=== PATIENT | male | born 1950 | race American Indian/Alaskan Native ===

== ENCOUNTER 2019-06-13 05:42 | Inpatient (IN) | payer MEDICARE ==
[2019-06-13] MEDS ORDERED: DEXTROSE 50% IN WATER (25GM) 50 ML SYRINGE IV ONE ×5 (06:18→10:18)
[2019-06-13 07:10] LABS: Hematocrit 47.8 % (35.5-45.6); Hemoglobin 15.5 gm/dl (11.8-15.2); Mean Corpuscular HGB Conc 32 % (32-34); Mean Corpuscular Volume 84 fl (84-94); Platelet Count 212 K/mm3 (140-440); Red Blood Count 5.69 M/mm3 (3.65-5.03); Red Cell Distribution Width 15.6 % (13.2-15.2)
[2019-06-13 07:30] LABS: Albumin 3.6 g/dL (3.9-5); Calcium 8.7 mg/dL (8.4-10.2)
[2019-06-13] MEDS ORDERED: ONDANSETRON 4 MG/2 ML INJ IV ONE (07:30)
--- NOTE | 2019-06-13 07:36 | Emergency Department Report ---
HPI - General Chief Complaint: Fall Time Seen by Provider: 06/13/19 07:12 - HPI HPI: Room 6 The pt is a 69 y/o M p/w a cc of AMS. states the pt's LKWT was YD at 20:00. This morning at 04:00 the noticed the pt wasnt in bed. When she went to the BR to check on the pt she states the lights were out and the pt was lying on the floor with unintelligible speech. EMS was called and the pt was found to be hypoglycemic (value unknown). In the ED the pt's accucheck was 59 and improved after d50. However the pt's mental status hasnt changed. The pt remains lethargic and has unintelligible speech. states the pt c/o abd cramping and nausea 5 days ago. Pt went to see his physicians at [facility] on 06/10/19 and was given Rx for prilosec and zofran. ED Past Medical Hx - Past Medical History Previous Medical History?: Yes Hx Hypertension: Yes Hx Diabetes: Yes Additional medical history: heart problem - Surgical History Past Surgical History?: No - Family History Family history: no significant - Social History Smoking Status: Current Some Day Smoker Substance Use Type: None ED Review of Systems ROS: Stated complaint: ERICKSON Other details as noted in HPI Comment: Unobtainable due to pts medical conditions Physical Exam - Physical Exam Vital Signs: Vital Signs 06/13/19 06/13/19 05:58 06:30 Temperature 97.8 F Pulse Rate 80 73 Respiratory 28 H 28 H Rate Blood Pressure 130/77 135/69 O2 Sat by Pulse 98 98 Oximetry Physical Exam: GEN: WD WN male lying on stretcher sleeping, requiring tactile stimuli to awaken. Pt does not speak intelligibly or answer questions HEENT: NCAT NECK: No stridor CV: rrr no m/r/g/ PULM: CTA B Abd: s/nt/nd SKIN: no diaphoresis NEURO: pt opens eyes to sternal rub and voice but doesnt speak. Pt will not cooperate with neuro exam ED Course Vital Signs 06/13/19 06/13/19 05:58 06:30 Temperature 97.8 F Pulse Rate 80 73 Respiratory 28 H 28 H Rate Blood Pressure 130/77 135/69 O2 Sat by Pulse 98 98 Oximetry - Consultations Consultation #1: 06/13/19 08:28 Case d/w [facility] physician Dr Re Lopez to admit at [facility] Consultation #2: 06/13/19 08:50 Case d/w [facility]- will come eval Consultation #3: 06/13/19 08:51 Vascular paged ED Medical Decision Making - Lab Data Result diagrams: 06/13/19 06:50 06/13/19 06:50 Laboratory Tests 06/13/19 06/13/19 06/13/19 06:13 06:50 06:50 WBC 22.7 H RBC 5.69 H Hgb 15.5 H Hct 47.8 H MCV 84 MCH 27 L MCHC 32 RDW 15.6 H Plt Count 212 Add Manual Diff Complete Total Counted 100 Seg Neuts % (Manual) 89.0 H Band Neutrophils % 1.0 Lymphocytes % (Manual) 4.0 L Reactive Lymphs % (Man) 0 Monocytes % (Manual) 6.0 Eosinophils % (Manual) 0 Basophils % (Manual) 0 Metamyelocytes % 0 Myelocytes % 0 Promyelocytes % 0 Blast Cells % 0 Nucleated RBC % Not Reportable Seg Neutrophils # Man 20.2 H Band Neutrophils # 0.2 Lymphocytes # (Manual) 0.9 L Abs React Lymphs (Man) 0.0 Monocytes # (Manual) 1.4 H Eosinophils # (Manual) 0.0 Basophils # (Manual) 0.0 Metamyelocytes # 0.0 Myelocytes # 0.0 Promyelocytes # 0.0 Blast Cells # 0.0 WBC Morphology Not Reportable Hypersegmented Neuts Not Reportable Hyposegmented Neuts Not Reportable Hypogranular Neuts Not Reportable Smudge Cells Not Reportable Toxic Granulation Not Reportable Toxic Vacuolation Not Reportable Dohle Bodies Not Reportable Pelger-Huet Anomaly Not Reportable Moy Rods Not Reportable Platelet Estimate Consistent w auto Clumped Platelets Not Reportable Plt Clumps, EDTA Not Reportable Large Platelets Not Reportable Giant Platelets Not Reportable Platelet Satelliting Not Reportable Plt Morphology Comment Not Reportable RBC Morphology Not Reportable Dimorphic RBCs Not Reportable Polychromasia Not Reportable Hypochromasia Not Reportable Poikilocytosis Not Reportable Anisocytosis Not Reportable Microcytosis Not Reportable Macrocytosis Not Reportable Spherocytes Not Reportable Pappenheimer Bodies Not Reportable Sickle Cells Not Reportable Target Cells Not Reportable Tear Drop Cells Not Reportable Ovalocytes Not Reportable Helmet Cells Not Reportable [place] Bodies Not Reportable [place] Rings Not Reportable [place] Cells Few Bite Cells Not Reportable Crenated Cell Not Reportable Elliptocytes Not Reportable Acanthocytes (Spur) Not Reportable Rouleaux Not Reportable Hemoglobin C Crystals Not Reportable Schistocytes Not Reportable Malaria parasites Not Reportable Meol Bodies Not Reportable Hem Pathologist Commnt No Sodium 126 L Potassium 7.5 H* Chloride 83.9 L Carbon Dioxide 5 L* Anion Gap 45 BUN 126 H Creatinine 12.6 H Estimated GFR 4 BUN/Creatinine Ratio 10 Glucose 143 H POC Glucose 59 L Calcium 8.7 Magnesium Total Bilirubin 1.10 AST 17 ALT 20 Alkaline Phosphatase 68 Ammonia Total Creatine Kinase CK-MB (CK-2) CK-MB (CK-2) Rel Index Troponin T Total Protein 6.9 Albumin 3.6 L Albumin/Globulin Ratio 1.1 TSH Free T4 Plasma/Serum Alcohol 06/13/19 06/13/19 06/13/19 07:09 07:31 07:31 WBC RBC Hgb Hct MCV MCH MCHC RDW Plt Count Add Manual Diff Total Counted Seg Neuts % (Manual) Band Neutrophils % Lymphocytes % (Manual) Reactive Lymphs % (Man) Monocytes % (Manual) Eosinophils % (Manual) Basophils % (Manual) Metamyelocytes % Myelocytes % Promyelocytes % Blast Cells % Nucleated RBC % Seg Neutrophils # Man Band Neutrophils # Lymphocytes # (Manual) Abs React Lymphs (Man) Monocytes # (Manual) Eosinophils # (Manual) Basophils # (Manual) Metamyelocytes # Myelocytes # Promyelocytes # Blast Cells # WBC Morphology Hypersegmented Neuts Hyposegmented Neuts Hypogranular Neuts Smudge Cells Toxic Granulation Toxic Vacuolation Dohle Bodies Pelger-Huet Anomaly Moy Rods Platelet Estimate Clumped Platelets Plt Clumps, EDTA Large Platelets Giant Platelets Platelet Satelliting Plt Morphology Comment RBC Morphology Dimorphic RBCs Polychromasia Hypochromasia Poikilocytosis Anisocytosis Microcytosis Macrocytosis Spherocytes Pappenheimer Bodies Sickle Cells Target Cells Tear Drop Cells Ovalocytes Helmet Cells [place] Bodies [place] Rings [place] Cells Bite Cells Crenated Cell Elliptocytes Acanthocytes (Spur) Rouleaux Hemoglobin C Crystals Schistocytes Malaria parasites Melo Bodies Hem Pathologist Commnt Sodium Potassium Chloride Carbon Dioxide Anion Gap BUN Creatinine Estimated GFR BUN/Creatinine Ratio Glucose POC Glucose 117 H Calcium Magnesium 2.50 H Total Bilirubin AST ALT Alkaline Phosphatase Ammonia 408.0 H Total Creatine Kinase 409 H CK-MB (CK-2) 15.9 H CK-MB (CK-2) Rel Index 3.8 Troponin T < 0.010 Total Protein Albumin Albumin/Globulin Ratio TSH Free T4 Plasma/Serum Alcohol 06/13/19 06/13/19 06/13/19 07:31 07:31 07:38 WBC RBC Hgb Hct MCV MCH MCHC RDW Plt Count Add Manual Diff Total Counted Seg Neuts % (Manual) Band Neutrophils % Lymphocytes % (Manual) Reactive Lymphs % (Man) Monocytes % (Manual) Eosinophils % (Manual) Basophils % (Manual) Metamyelocytes % Myelocytes % Promyelocytes % Blast Cells % Nucleated RBC % Seg Neutrophils # Man Band Neutrophils # Lymphocytes # (Manual) Abs React Lymphs (Man) Monocytes # (Manual) Eosinophils # (Manual) Basophils # (Manual) Metamyelocytes # Myelocytes # Promyelocytes # Blast Cells # WBC Morphology Hypersegmented Neuts Hyposegmented Neuts Hypogranular Neuts Smudge Cells Toxic Granulation Toxic Vacuolation Dohle Bodies Pelger-Huet Anomaly Moy Rods Platelet Estimate Clumped Platelets Plt Clumps, EDTA Large Platelets Giant Platelets Platelet Satelliting Plt Morphology Comment RBC Morphology Dimorphic RBCs Polychromasia Hypochromasia Poikilocytosis Anisocytosis Microcytosis Macrocytosis Spherocytes Pappenheimer Bodies Sickle Cells Target Cells Tear Drop Cells Ovalocytes Helmet Cells [place] Bodies [place] Rings [place] Cells Bite Cells Crenated Cell Elliptocytes Acanthocytes (Spur) Rouleaux Hemoglobin C Crystals Schistocytes Malaria parasites Melo Bodies Hem Pathologist Commnt Sodium Potassium Chloride Carbon Dioxide Anion Gap BUN Creatinine Estimated GFR BUN/Creatinine Ratio Glucose POC Glucose 101 Calcium Magnesium Total Bilirubin AST ALT Alkaline Phosphatase Ammonia Total Creatine Kinase CK-MB (CK-2) CK-MB (CK-2) Rel Index Troponin T Total Protein Albumin Albumin/Globulin Ratio TSH 1.040 Free T4 1.03 Plasma/Serum Alcohol < 0.01 06/13/19 06/13/19 08:17 09:21 WBC RBC Hgb Hct MCV MCH MCHC RDW Plt Count Add Manual Diff Total Counted Seg Neuts % (Manual) Band Neutrophils % Lymphocytes % (Manual) Reactive Lymphs % (Man) Monocytes % (Manual) Eosinophils % (Manual) Basophils % (Manual) Metamyelocytes % Myelocytes % Promyelocytes % Blast Cells % Nucleated RBC % Seg Neutrophils # Man Band Neutrophils # Lymphocytes # (Manual) Abs React Lymphs (Man) Monocytes # (Manual) Eosinophils # (Manual) Basophils # (Manual) Metamyelocytes # Myelocytes # Promyelocytes # Blast Cells # WBC Morphology Hypersegmented Neuts Hyposegmented Neuts Hypogranular Neuts Smudge Cells Toxic Granulation Toxic Vacuolation Dohle Bodies Pelger-Huet Anomaly Moy Rods Platelet Estimate Clumped Platelets Plt Clumps, EDTA Large Platelets Giant Platelets Platelet Satelliting Plt Morphology Comment RBC Morphology Dimorphic RBCs Polychromasia Hypochromasia Poikilocytosis Anisocytosis Microcytosis Macrocytosis Spherocytes Pappenheimer Bodies Sickle Cells Target Cells Tear Drop Cells Ovalocytes Helmet Cells [place] Bodies [place] Rings [place] Cells Bite Cells Crenated Cell Elliptocytes Acanthocytes (Spur) Rouleaux Hemoglobin C Crystals Schistocytes Malaria parasites Melo Bodies Hem Pathologist Commnt Sodium Potassium Chloride Carbon Dioxide Anion Gap BUN Creatinine Estimated GFR BUN/Creatinine Ratio Glucose POC Glucose 94 153 H Calcium Magnesium Total Bilirubin AST ALT Alkaline Phosphatase Ammonia Total Creatine Kinase CK-MB (CK-2) CK-MB (CK-2) Rel Index Troponin T Total Protein Albumin Albumin/Globulin Ratio TSH Free T4 Plasma/Serum Alcohol - EKG Data -: EKG Interpreted by Mn EKG shows normal: sinus rhythm Rate: normal - EKG Data When compared to previous EKG there are: previous EKG unavailable Interpretation: other (widened QRS (173)) - Radiology Data Radiology results: report reviewed (CT Head), image reviewed (CT Head) Findings [facility] [address] [place] [address] Cat Scan Report Signed Patient: HA JIMENEZ MR#: [id number] : 1950 Acct:[id number] Age/Sex: 69 / M ADM Date: 06/13/19 Loc: ED Attending Dr: Ordering Physician: RAFAEL PLAZA MD Date of Service: 06/13/19 Procedure(s): CT head/brain wo con Accession Number(s): [id number] cc: RAFAEL PLAZA MD CT HEAD WITHOUT CONTRAST INDICATION / CLINICAL INFORMATION: Altered mental status. Patient found on floo r.. TECHNIQUE: Axial imaging performed from the skull apex through the skull base without the use of contrast. Sagittal and coronal reformatted images. All CT scans at this location are performed using CT dose reduction for ALARA by means of automated exposure control. COMPARISON: None available. FINDINGS: CEREBRAL PARENCHYMA: No significant abnormality. No acute territorial infarct. HEMORRHAGE: None. EXTRA-AXIAL SPACES: Normal in size and morphology for the patient's age. VENTRICULAR SYSTEM: Normal in size and morphology for the patient's age. MIDLINE SHIFT OR HERNIATION: None. CEREBELLUM / BRAINSTEM: No significant abnormality. CALVARIUM: No significant abnormality. ORBITS: Normal as visualized. PARANASAL SINUSES / MASTOID AIR CELLS: Normal as visualized. SOFT TISSUES of HEAD: No significant abnormality. ADDITIONAL FINDINGS: None. IMPRESSION: No acute intracranial abnormality. Signer Name: Noah Brown Jr, MD Signed: 06/13/2019 8:26 AM Workstation Name: [id number] Transcribed By: TTR Dictated By: NOAH BROWN JR, MD Electronically Authenticated By: NOAH BROWN JR, MD Signed Date/Time: 06/13/19825 DD/ 3 TD/TT: - Differential Diagnosis ICH, rhabdomyolysis Critical care attestation.: If time is entered above; I have spent that time in minutes in the direct care of this critically ill patient, excluding procedure time. ED Disposition Clinical Impression: Acute renal failure, Hepatic encephalopathy, Hyperkalemia, Altered mental status Disposition: -09 OP ADMIT IP TO THIS HOSP Is pt being admited?: Yes Does the pt Need Aspirin: No Condition: Stable Referrals: KAYLI MCINTYRE [Other] - 3-5 Days Time of Disposition: 09:29 (Hospitalist paged)
[2019-06-13] MEDS ORDERED: INSULIN REGULAR, HUMAN 100 UNITS/1 ML IV ONE (08:11)
[2019-06-13] MEDS ORDERED: SODIUM BICARB 8.4% 50 MEQ/50 ML SYRINGE IV ONE ×2 (08:11→08:13)
[2019-06-13] MEDS ORDERED: ALBUTEROL 2.5 MG/3 ML NEBU IH ONE (08:12)
[2019-06-13] MEDS: SODIUM CHLORIDE 0.9% 1000 ML 1,000 ML IV ONE ×2 (08:13→09:03)
[2019-06-13 08:15] LABS: Creatine Kinase MB 15.9 ng/mL (0.0-4.0)
[2019-06-13 08:27] LABS: Free T4 (Free Thyroxine) 1.03 ng/dL (0.76-1.46)
[2019-06-13] MEDS ORDERED: CALCIUM GLUCONATE 1,000 MG in SODIUM CHLORIDE 0.9% 100 ML IV ONE (08:30)
--- NOTE | 2019-06-13 08:30 | Cat Scan Report ---
CT HEAD WITHOUT CONTRAST INDICATION / CLINICAL INFORMATION: Altered mental status. Patient found on floor.. TECHNIQUE: Axial imaging performed from the skull apex through the skull base without the use of cont rast. Sagittal and coronal reformatted images. All CT scans at this location are performed using CT dose reduction for ALARA by means of automated exposure control. COMPARISON: None available. FINDINGS: CEREBRAL PARENCHYMA: No significant abnormality. No acute territorial infarct. HEMORRHAGE: None. EXTRA-AXIAL SPACES: Normal in size and morphology for the patient's age. VENTRICULAR SYSTEM: Normal in size and morphology for the patient's age. MIDLINE SHIFT OR HERNIATION: None. CEREBELLUM / BRAINSTEM: No significant abnormality. CALVARIUM: No significant abnormality. ORBITS: Normal as visualized. PARANASAL SINUSES / MASTOID AIR CELLS: Normal as visualized. SOFT TISSUES of HEAD: No significant abnormality. ADDITIONAL FINDINGS: None. IMPRESSION: No acute intracranial abnormality. Signer Name: Noah Brown Jr, MD Signed: 06/13/2019 8:26 AM Workstation Name: [id number]
[2019-06-13 08:36] LABS: Band Neutrophils # (Manual) 0.2 K/mm3; Basophils % (Manual) 0 % (0.0-1.8); Burr Cells Few; Eosinophils % (Manual) 0 % (0.0-4.3); Total Cells Counted 100
[2019-06-13 08:37] LABS: Platelet Estimate Consistent w Auto
--- NOTE | 2019-06-13 08:47 | Cat Scan Report ---
CT ABDOMEN AND PELVIS WITHOUT CONTRAST HISTORY: Altered mental status, abdominal pain and vomiting.. COMPARISON: No relevant comparison TECHNIQUE: Helical CT images of the abdomen and pelvis were obtained without administration of intrav enous contrast. Sagittal and coronal reformatted images were reviewed. All CT scans at this location are performed using CT dose reduction for ALARA by means of automated exposure control. FINDINGS: Abdomen/pelvis: The bladder is markedly distended. There is moderate bilateral hydronephrosis. No ob structing lesion is identified in the ureters. The prostate gland is enlarged measuring 7.7 x 8.2 x 6 .5 cm. Bladder outlet obstruction should be considered. The kidneys are normal size and position. A 6 .5 cm simple cyst projects from the superior pole of the right kidney. Tiny calyceal stones are sugge sted in the superior left kidney. The liver, biliary system, pancreas, spleen, adrenal glands and bowel loops are unremarkable. Normal appendix. Mild diffuse aortic calcifications are noted. No aneurysm. No evidence for free fluid, free air, shadi opathy or acute inflammatory changes. Lungs/bones: The lung bases are clear. Normal heart size. The bony structures are mildly demineraliz ed but intact. IMPRESSION: Bladder outlet obstruction is suspected. This is most likely secondary to an enlarged prostate gland. See above. Right renal cyst. Tiny calyceal stones in the left kidney. No acute inflammatory process is identified. Signer Name: Noah Brown Jr, MD Signed: 06/13/2019 8:43 AM Workstation Name: [id number]
[2019-06-13] MEDS ORDERED: LACTULOSE ENEMA 1000 ML PR ONE (09:00)
[2019-06-13] MEDS ORDERED: SODIUM CHLORIDE 0.9% 100 ML IV PRN ×2 (09:31→10:03)
--- NOTE | 2019-06-13 09:33 | Consultation ---
History of Present Illness - Reason for Consult Consult date: 06/13/19 acute renal failure, hyponatremia, hyperkalemia, metabolic acidosis - History of Present Illness The pt is a 69 YO male with history significant for Obesity, DM type 2 and HTN who was brought into [facility] ED today after he was found on bathroom floor by his . Patient was not able to provide any history at this time and information was provided by hi at the bedside. Per he had vomiting all day on 06/08/19. This was followed by decreased appetite, poor PO intake, abdominal discomfort, fatigue and one episode of diarrhea. Pt was seen by [facility] physician on 06/10/19 and was given Rx for prilosec and zofran. He was found on the bathroom floor early this morning. EMS found pt to be hypoglycemic (value u nknown). In the ED the pt's accucheck was 59 and improved after D50. His MS remain unchanged. Labs significant for K 7.5, sodium 126, bicarb 5, BUN 126, creat 12.6, wbc 22.7 and Ammonia 408. Nephrology was consulted for further evaluation. Past History Past Medical History: diabetes, hypertension Medications and Allergies Allergies Allergy/AdvReac Type Severity Reaction Status Date / Time No Known Allergies Allergy Verified 06/13/19 05:58 Active Meds: Active Medications Sodium Chloride (Nacl 0.9% 1000 Ml) 1,000 mls @ 125 mls/hr IV ONCE ONE Stop: 06/13/19 15:29 Last Admin: 06/13/19 09:03 Dose: Not Given Documented by: Review of Systems ROS unobtainable: due to mental status Exam - Vital Signs Vital signs: Vital Signs Temp Pulse Resp BP Pulse Ox 97.8 F 80 28 H 130/77 98 06/13/19 05:58 06/13/19 05:58 06/13/19 05:58 06/13/19 05:58 06/13/19 05:58 - General Appearance General appearance: well-developed, well-nourished, appears stated age EENT: ATNC Neck: Present: trachea midline Respiratory: Clear to Ascultation Heart: regular, S1S2, no murmurs Gastrointestinal: Present: normoactive bowel sounds. Absent: tenderness, distended Integumentary: no rash, warm and dry Neurologic: other (stuporous, opens eyes intermittently, not following any command, non-verbal) Musculoskeletal: Present: other (no edema) Results - Lab Results 06/13/19 06:50 06/13/19 06:50 Most recent lab results Calcium 8.7 mg/dL (8.4-10.2) 06/13/19 06:50 Magnesium 2.50 mg/dL (1.7-2.3) H 06/13/19 07:31 - Image Kidney/bladder ultrasound: report reviewed Assessment and Plan 1. Acute kidney injury: NATHAN likely secondary to obstructive nephropathy +/- sepsis. CT abdomen showed bladder outlet obstruction. s/p montero catheter. Baseline renal function is unknown. Monitor renal function. Renal prognosis is guarded. Avoid nephrotoxic agents. Meds dosage based on GFR. Due to hyperkalemia and severe metabolic acidosis patient require hemodialysis. Explained to patient's regarding the indications, benefits and risks involved in hemodialysis. She voiced understanding and gave consent for hemodialysis. Vascular was consulted for dialysis catheter placement. Hemodialysis: 06/13. 2. FEN: Hyperkalemia, HD today. Hyponatremia, monitor. Metabolic acidosis, HD today. Monitor lytes. 3. Obstructive nephropathy: Likely from enlarged prostate. S/p montero catheter. 4. Suspected Sepsis: Leukocytosis. 5. Encephalopathy: CT head normal. Elevated Ammonia level. 6. DM with hypoglycemia.
--- NOTE | 2019-06-13 10:11 | Consultation ---
History of Present Illness - Reason for Consult Consult date: 06/13/19 ARF/ESRD with AMS - History of Present Illness Patient with a multitude a history of progressive mental decline. He has no history of acute renal failure. He presents with the BUN/creatinine greater than 100 and creatinine of greater than 12. Initially, the patient is hyperkalemic with potassium of 7.5. Patient has altered mental status and is only minimally responsive. Medications and Allergies Allergies Allergy/AdvReac Type Severity Reaction Status Date / Time No Known Allergies Allergy Verified 06/13/19 05:58 Active Meds: Active Medications Sodium Chloride (Nacl 0.9% 1000 Ml) 1,000 mls @ 125 mls/hr IV ONCE ONE Stop: 06/13/19 15:29 Last Admin: 06/13/19 09:03 Dose: Not Given Documented by: Sodium Chloride (Nacl 0.9%) 100 mls @ 999 mls/hr IV SUNDAR PRN PRN Reason: Hypotension Sodium Chloride (Nacl 0.9%) 100 mls @ 999 mls/hr IV SUNDAR PRN PRN Reason: Hypotension Review of Systems ROS unobtainable: due to mental status Exam - Constitutional Vitals: Temp Pulse Resp BP Pulse Ox 97.8 F 84 24 129/82 97 06/13/19 05:58 06/13/19 09:22 06/13/19 09:22 06/13/19 09:22 06/13/19 09:22 General appearance: Present: other (minimally responsive) - Neck Neck: Present: supple - Respiratory Respiratory effort: normal - Cardiovascular Rhythm: regular - Abdominal General gastrointestinal: Present: deferred Male genitourinary: Present: deferred - Rectal Rectal Exam: deferred Results - Labs CBC & Chem 7: 06/13/19 06:50 06/13/19 06:50 Labs: Abnormal lab results 06/13/19 06/13/19 06/13/19 Range/Units 06:13 06:50 06:50 WBC 22.7 H (4.5-11.0) K/mm3 RBC 5.69 H (3.65-5.03) M/mm3 Hgb 15.5 H (11.8-15.2) gm/dl Hct 47.8 H (35.5-45.6) % MCH 27 L (28-32) pg RDW 15.6 H (13.2-15.2) % Seg Neuts % (Manual) 89.0 H (40.0-70.0) % Lymphocytes % (Manual) 4.0 L (13.4-35.0) % Seg Neutrophils # Man 20.2 H (1.8-7.7) K/mm3 Lymphocytes # (Manual) 0.9 L (1.2-5.4) K/mm3 Monocytes # (Manual) 1.4 H (0.0-0.8) K/mm3 Sodium 126 L (137-145) mmol/L Potassium 7.5 H* (3.6-5.0) mmol/L Chloride 83.9 L (98-107) mmol/L Carbon Dioxide 5 L* (22-30) mmol/L BUN 126 H (9-20) mg/dL Creatinine 12.6 H (0.8-1.5) mg/dL Glucose 143 H (75-100) mg/dL POC Glucose 59 L (70-105) Magnesium (1.7-2.3) mg/dL Ammonia (25-60) umol/L Total Creatine Kinase (55-170) units/L CK-MB (CK-2) (0.0-4.0) ng/mL Albumin 3.6 L (3.9-5) g/dL 06/13/19 06/13/19 06/13/19 Range/Units 07:09 07:31 07:31 WBC (4.5-11.0) K/mm3 RBC (3.65-5.03) M/mm3 Hgb (11.8-15.2) gm/dl Hct (35.5-45.6) % MCH (28-32) pg RDW (13.2-15.2) % Seg Neuts % (Manual) (40.0-70.0) % Lymphocytes % (Manual) (13.4-35.0) % Seg Neutrophils # Man (1.8-7.7) K/mm3 Lymphocytes # (Manual) (1.2-5.4) K/mm3 Monocytes # (Manual) (0.0-0.8) K/mm3 Sodium (137-145) mmol/L Potassium (3.6-5.0) mmol/L Chloride (98-107) mmol/L Carbon Dioxide (22-30) mmol/L BUN (9-20) mg/dL Creatinine (0.8-1.5) mg/dL Glucose (75-100) mg/dL POC Glucose 117 H (70-105) Magnesium 2.50 H (1.7-2.3) mg/dL Ammonia 408.0 H (25-60) umol/L Total Creatine Kinase 409 H (55-170) units/L CK-MB (CK-2) 15.9 H (0.0-4.0) ng/mL Albumin (3.9-5) g/dL 06/13/19 Range/Units 09:21 WBC (4.5-11.0) K/mm3 RBC (3.65-5.03) M/mm3 Hgb (11.8-15.2) gm/dl Hct (35.5-45.6) % MCH (28-32) pg RDW (13.2-15.2) % Seg Neuts % (Manual) (40.0-70.0) % Lymphocytes % (Manual) (13.4-35.0) % Seg Neutrophils # Man (1.8-7.7) K/mm3 Lymphocytes # (Manual) (1.2-5.4) K/mm3 Monocytes # (Manual) (0.0-0.8) K/mm3 Sodium (137-145) mmol/L Potassium (3.6-5.0) mmol/L Chloride (98-107) mmol/L Carbon Dioxide (22-30) mmol/L BUN (9-20) mg/dL Creatinine (0.8-1.5) mg/dL Glucose (75-100) mg/dL POC Glucose 153 H (70-105) Magnesium (1.7-2.3) mg/dL Ammonia (25-60) umol/L Total Creatine Kinase (55-170) units/L CK-MB (CK-2) (0.0-4.0) ng/mL Albumin (3.9-5) g/dL Assessment and Plan Will plan on placing Vas-Cath for acute dialysis access.
[2019-06-13] MEDS ORDERED: LIDOCAINE 1%/EPINEPHRINE 1:100,000 VIAL (20 ML) INFILTRATI ONE (10:26)
[2019-06-13] MEDS ORDERED: HEPARIN/NS 5000 UNIT/500ML 500 ML IR ONE (10:26)
[2019-06-13] MEDS ORDERED: HEPARIN 10,000 UNITS/10 ML VIAL ONE (10:26)
[2019-06-13] MEDS ORDERED: SODIUM CHLORIDE 0.9% 500 ML 500 ML ONE (10:52)
--- NOTE | 2019-06-13 11:25 | Operative Report ---
Operative Report Operative Report: Exam: Ultrasound and fluoroscopic guided placement of Vas-Cath Clinical indication: Patient with acute renal failure on chronic renal failure with hyperkalemia requiring emergent dialysis access Date: 06/13/2019 Procedure: Following an explanation of the risks, benefits and alternatives; written informed consent was obtained and the patient's . The patient was brought to the angiographic suite and placed in supine position on the examination table. Initial ultrasound evaluation of his groin demonstrated a patent right common femoral vein. The patient's groin was prepped and draped in the usual sterile fashion. 1% lidocaine was used for anesthesia. Under ultrasound guidance, the right common femoral vein was cannulated with a 7 cm 18-gauge needle. A 0.035 guidewire was advanced centrally. The needle was removed and following serial dilation over the guidewire under fluoroscopy, a 30 cm dialysis catheter was placed over the guidewire under fluoroscopy and advanced centrally. Fluoroscopic images were used throughout the case to document positioning of the wire tip which was maintained below the right atrium. The guidewire was then removed. All 3 ports returned nonpulsatile blood and were flushed and locked with appropriate volumes of heparin. The catheter was securely fastened to the skin surface using 2-0 Ethilon suture and a sterile dressing applied. The patient tolerated the procedure well. There were no immediate post procedure complications. Sedation was not utilized secondary to patient's altered mental status. Continuous cardiopulmonary monitoring was utilized. Impression: Ultrasound and fluoroscopic guided placement of Vas-Cath via the right common femoral vein.
--- NOTE | 2019-06-13 11:50 | History and Physical Report ---
History of Present Illness Date of examination: 06/13/19 Date of admission: 06/13/19 09:55 Chief complaint: Unresponsive History of present illness: Information obtained from Family and Chart review. Patient is a 69 year old male with PMH of Obesity, DM Type 2, HTN, presenting to the ED today via EMS after he was found on the bathroom floor and unresponsive pre the . The spouse reports that for about a year she has noticed that the patient has difficulty with urination, how ever the patient has not been keen about addressing the issue. In the last week the patient began to complain of badominal pain and on the 08 of June startated experince nasuea, with vomiting and difficulty "Using the Bathroom" HE WAS SEEN BY HIS [facility] PCP on 06/10/19 and was given Rx for prilosec and zofran. He was found on the bathroom floor early this morning. EMS found pt to be hypoglycemic (value unknown). In the ED the pt's accucheck was 59, k OF >7, BUN >100 and improved after D50. His MS remain unchanged. He was recommended for admission and underwent an emergent placement of vascath for dialysis. He sustained 2 hrs of Dialysis but decompensated and required elective intubation due to persistent Tachypenia Past History Past Medical History: CAD, diabetes, hypertension, hyperlipidemia Past Surgical History: No surgical history Social history: lives with family, smoking, full code. denies: alcohol abuse (QUIT IN 2011) Family history: no significant family history Medications and Allergies Allergies Allergy/AdvReac Type Severity Reaction Status Date / Time No Known Allergies Allergy Verified 06/13/19 05:58 Active Meds: Active Medications Albuterol/Ipratropium (Duoneb *Not For Prn Use*) 1 ampul IH Q6HRT [facility] Sodium Chloride (Nacl 0.9% 1000 Ml) 1,000 mls @ 125 mls/hr IV ONCE ONE Stop: 06/13/19 15:29 Last Admin: 06/13/19 09:03 Dose: Not Given Documented by: Sodium Chloride (Nacl 0.9%) 100 mls @ 999 mls/hr IV SUNDAR PRN PRN Reason: Hypotension Sodium Chloride (Nacl 0.9%) 100 mls @ 999 mls/hr IV SUNDAR PRN PRN Reason: Hypotension Sodium Chloride (Sodium Chloride Flush Syringe 10 Ml) 10 ml IV BID SANGEETHA Sodium Chloride (Sodium Chloride Flush Syringe 10 Ml) 10 ml IV PRN PRN PRN Reason: LINE FLUSH Review of Systems All systems: negative Constitutional: fatigue, lethargy Respiratory: shortness of breath Neurological: confusion Exam - Constitutional Vitals: Temp Pulse Resp BP Pulse Ox 97.8 F 84 24 129/82 97 06/13/19 05:58 06/13/19 09:22 06/13/19 09:22 06/13/19 09:22 06/13/19 09:22 General appearance: Present: severe distress - EENT Eyes: Present: PERRL, EOM intact ENT: clear oral mucosa, dentition normal, no hearing intact (UNABLE TO ACCESS) - Neck Neck: Present: supple, normal ROM - Respiratory Respiratory effort: accessory muscle use, other (RAPID AND FAST) Respiratory: bilateral: CTA, diminished - Cardiovascular Heart Sounds: Absent: S1 & S2 (TACHYCARDIA), systolic murmur, diastolic murmur - Extremities Extremities: no ischemia, pulses intact, pulses symmetrical, No edema, normal temperature, normal color, Full ROM Peripheral Pulses: within normal limits - Abdominal General gastrointestinal: Present: soft, non-tender, non-distended, normal bowel sounds - Integumentary Integumentary: Present: clear, warm, dry - Musculoskeletal Musculoskeletal: other (UNABLE TO ASSESS) - Psychiatric Psychiatric: other (UNABLE TO ASSESS) - Neurologic Neurologic: moves all extremities - Allied Health Allied health notes reviewed: nursing Results - Labs CBC & Chem 7: 06/13/19 06:50 06/13/19 14:19 Labs: Laboratory Last Values WBC 22.7 K/mm3 (4.5-11.0) H 06/13/19 06:50 RBC 5.69 M/mm3 (3.65-5.03) H 06/13/19 06:50 Hgb 15.5 gm/dl (11.8-15.2) H 06/13/19 06:50 Hct 47.8 % (35.5-45.6) H 06/13/19 06:50 MCV 84 fl (84-94) 06/13/19 06:50 MCH 27 pg (28-32) L 06/13/19 06:50 MCHC 32 % (32-34) 06/13/19 06:50 RDW 15.6 % (13.2-15.2) H 06/13/19 06:50 Plt Count 212 K/mm3 (140-440) 06/13/19 06:50 Add Manual Diff Complete 06/13/19 06:50 Total Counted 100 06/13/19 06:50 Seg Neuts % (Manual) 89.0 % (40.0-70.0) H 06/13/19 06:50 Band Neutrophils % 1.0 % 06/13/19 06:50 Lymphocytes % (Manual) 4.0 % (13.4-35.0) L 06/13/19 06:50 Reactive Lymphs % (Man) 0 % 06/13/19 06:50 Monocytes % (Manual) 6.0 % (0.0-7.3) 06/13/19 06:50 Eosinophils % (Manual) 0 % (0.0-4.3) 06/13/19 06:50 Basophils % (Manual) 0 % (0.0-1.8) 06/13/19 06:50 Metamyelocytes % 0 % 06/13/19 06:50 Myelocytes % 0 % 06/13/19 06:50 Promyelocytes % 0 % 06/13/19 06:50 Blast Cells % 0 % 06/13/19 06:50 Nucleated RBC % Not Reportable 06/13/19 06:50 Seg Neutrophils # Man 20.2 K/mm3 (1.8-7.7) H 06/13/19 06:50 Band Neutrophils # 0.2 K/mm3 06/13/19 06:50 Lymphocytes # (Manual) 0.9 K/mm3 (1.2-5.4) L 06/13/19 06:50 Abs React Lymphs (Man) 0.0 K/mm3 06/13/19 06:50 Monocytes # (Manual) 1.4 K/mm3 (0.0-0.8) H 06/13/19 06:50 Eosinophils # (Manual) 0.0 K/mm3 (0.0-0.4) 06/13/19 06:50 Basophils # (Manual) 0.0 K/mm3 (0.0-0.1) 06/13/19 06:50 Metamyelocytes # 0.0 K/mm3 06/13/19 06:50 Myelocytes # 0.0 K/mm3 06/13/19 06:50 Promyelocytes # 0.0 K/mm3 06/13/19 06:50 Blast Cells # 0.0 K/mm3 06/13/19 06:50 WBC Morphology Not Reportable 06/13/19 06:50 Hypersegmented Neuts Not Reportable 06/13/19 06:50 Hyposegmented Neuts Not Reportable 06/13/19 06:50 Hypogranular Neuts Not Reportable 06/13/19 06:50 Smudge Cells Not Reportable 06/13/19 06:50 Toxic Granulation Not Reportable 06/13/19 06:50 Toxic Vacuolation Not Reportable 06/13/19 06:50 Dohle Bodies Not Reportable 06/13/19 06:50 Pelger-Huet Anomaly Not Reportable 06/13/19 06:50 Moy Rods Not Reportable 06/13/19 06:50 Platelet Estimate Consistent w auto 06/13/19 06:50 Clumped Platelets Not Reportable 06/13/19 06:50 Plt Clumps, EDTA Not Reportable 06/13/19 06:50 Large Platelets Not Reportable 06/13/19 06:50 Giant Platelets Not Reportable 06/13/19 06:50 Platelet Satelliting Not Reportable 06/13/19 06:50 Plt Morphology Comment Not Reportable 06/13/19 06:50 RBC Morphology Not Reportable 06/13/19 06:50 Dimorphic RBCs Not Reportable 06/13/19 06:50 Polychromasia Not Reportable 06/13/19 06:50 Hypochromasia Not Reportable 06/13/19 06:50 Poikilocytosis Not Reportable 06/13/19 06:50 Anisocytosis Not Reportable 06/13/19 06:50 Microcytosis Not Reportable 06/13/19 06:50 Macrocytosis Not Reportable 06/13/19 06:50 Spherocytes Not Reportable 06/13/19 06:50 Pappenheimer Bodies Not Reportable 06/13/19 06:50 Sickle Cells Not Reportable 06/13/19 06:50 Target Cells Not Reportable 06/13/19 06:50 Tear Drop Cells Not Reportable 06/13/19 06:50 Ovalocytes Not Reportable 06/13/19 06:50 Helmet Cells Not Reportable 06/13/19 06:50 [place] Bodies Not Reportable 06/13/19 06:50 Zwolle Rings Not Reportable 06/13/19 06:50 Jaycob Cells Few 06/13/19 06:50 Bite Cells Not Reportable 06/13/19 06:50 Crenated Cell Not Reportable 06/13/19 06:50 Elliptocytes Not Reportable 06/13/19 06:50 Acanthocytes (Spur) Not Reportable 06/13/19 06:50 Rouleaux Not Reportable 06/13/19 06:50 Hemoglobin C Crystals Not Reportable 06/13/19 06:50 Schistocytes Not Reportable 06/13/19 06:50 Malaria parasites Not Reportable 06/13/19 06:50 Melo Bodies Not Reportable 06/13/19 06:50 Hem Pathologist Commnt No 06/13/19 06:50 Sodium 126 mmol/L (137-145) L 06/13/19 06:50 Potassium 7.5 mmol/L (3.6-5.0) H* 06/13/19 06:50 Chloride 83.9 mmol/L (98-107) L 06/13/19 06:50 Carbon Dioxide 5 mmol/L (22-30) L* 06/13/19 06:50 Anion Gap 45 mmol/L 06/13/19 06:50 BUN 126 mg/dL (9-20) H 06/13/19 06:50 Creatinine 12.6 mg/dL (0.8-1.5) H 06/13/19 06:50 Estimated GFR 4 ml/min 06/13/19 06:50 BUN/Creatinine Ratio 10 % 06/13/19 06:50 Glucose 143 mg/dL (75-100) H 06/13/19 06:50 POC Glucose 136 (70-105) H 06/13/19 10:42 Calcium 8.7 mg/dL (8.4-10.2) 06/13/19 06:50 Magnesium 2.50 mg/dL (1.7-2.3) H 06/13/19 07:31 Total Bilirubin 1.10 mg/dL (0.1-1.2) 06/13/19 06:50 AST 17 units/L (5-40) 06/13/19 06:50 ALT 20 units/L (7-56) 06/13/19 06:50 Alkaline Phosphatase 68 units/L (35-129) 06/13/19 06:50 Ammonia 408.0 umol/L (25-60) H 06/13/19 07:31 Total Creatine Kinase 409 units/L (55-170) H 06/13/19 07:31 CK-MB (CK-2) 15.9 ng/mL (0.0-4.0) H 06/13/19 07:31 CK-MB (CK-2) Rel Index 3.8 (0-4) 06/13/19 07:31 Troponin T < 0.010 ng/mL (0.00-0.029) 06/13/19 07:31 Total Protein 6.9 g/dL (6.3-8.2) 06/13/19 06:50 Albumin 3.6 g/dL (3.9-5) L 06/13/19 06:50 Albumin/Globulin Ratio 1.1 % 06/13/19 06:50 TSH 1.040 mlU/mL (0.270-4.200) 06/13/19 07:31 Free T4 1.03 ng/dL (0.76-1.46) 06/13/19 07:31 Plasma/Serum Alcohol < 0.01 % (0-0.07) 06/13/19 07:31 Assessment and Plan Assessment and plan: Patient is a 69 year old male with PMH of Obesity, DM Type 2, HTN, presenting to the ED today via EMS after he was found on the bathroom floor and unresponsive pre the . The spouse reports that for about a year she has noticed that the patient has difficulty with urination, how ever the patient has not been keen about addressing the issue. In the last week the patient began to complain of bado estrellita pain and on the 08 of June startated experince nasuea, with vomiting and difficulty "Using the Bathroom" HE WAS SEEN BY HIS [facility] PCP on 06/10/19 and was given Rx for prilosec and zofran. He was found on the bathroom floor early this morning. EMS found pt to be hypoglycemic (value unknown). In the ED the pt's accucheck was 59, k OF >7, BUN >100 and improved after D50. His MS remain unchanged. He was recommended for admission and underwent an emergent placement of vascath for dialysis. He sustained 2 hrs of Dialysis but decompensated and required elective intubation due to persistent Tachypenia Acute Respiratory failure Severe Metabolic Acidosis Acute Kidney injury secondary to vasmotor nephropathy Acute Metabolic Encephalopathy ?SECONDRY TO HEPATIC ENCEPHALOPATHY VS AZOTEMIA Obstructive Uropathy per CT A/P DM with hyperglycemia HTN urgency Obesity Elevated Ammonia leveL ?Aspiration Penumonitis Plan Admit to ICU, initally admitted to IMCU but upgraded Nephrology, Urology and Critical care consult Bicarb drip Had 2 hr dialysis and likely will require more in am Monitor ammonia level start lactulose Bicarb + D5 drip Replace electrolytes Aspiration and VAP bundle Will likely be discharged with Keenan to Leg bag. DVT/GI prophy case discussed with family and other treatment team The high probability of a clinically significant, sudden or life threatening deterioration of the [PULMONARY, RENAL, NEURO] system(s) required my full and direct attention, intervention and personal management. The aggregate critical care time was [75] minutes. This time is in addition to time spent performing reported procedures but includes the following: [X] Data Review and interpretation [X] Patient assessment and monitoring of vital signs [X] Documentation [X] Medication orders and management Advance Directives: Yes Plan of care discussed with patient/family: Yes
[2019-06-13 11:58] LABS: Hepatitis B Surface Antigen Non-Reactive (Negative); Hepatitis C Virus Antibody Non-Reactive (NonReactive)
--- NOTE | 2019-06-13 12:09 | Cat Scan Report ---
CT CERVICAL SPINE WITHOUT CONTRAST INDICATION: Altered mental status, patient found on floor, neck injury. TECHNIQUE: Axial imaging performed through the cervical spine without the use of contrast. Sagittal and coronal reconstructed images were also reviewed. All CT scans at this location are performed us ing CT dose reduction for ALARA by means of automated exposure control. COMPARISON: None FINDINGS: The transverse process of T1 is cut off the [id number] which limits this exam. Alignment: Spinal alignment is normal. There is mild reversal of the normal cervical lordosis which may be positional in nature. Bones: There is no acute osseous abnormality. Moderate multilevel degenerative disc disease is iden tified. C4-5 and C7-T1 of the most affected levels. The facet joints are in appropriate relationship. There is minimal diffuse facet arthropathy. Soft tissues: No acute or significant incidental soft tissue abnormality. IMPRESSION: Moderate cervical spondylosis. No evidence for acute injury Signer Name: Noah Brown Jr, MD Signed: 06/13/2019 12:05 PM Workstation Name: [id number]
[2019-06-13] MEDS: LACTULOSE 20 GM/30 ML ORAL LIQD PO SCH ×2 (13:40→17:34)
[2019-06-13] MEDS ORDERED: VANCOMYCIN PHARMACY TO DOSE IV SCH (14:00)
[2019-06-13] MEDS: LORazepam 2 MG/ML VIAL IV PRN ×2 (14:29→15:39)
[2019-06-13] MEDS: IPRATROPIUM/ALBUTEROL SULFATE 3 ML AMPUL.NEB IH SCH ×2 (14:30→19:49)
--- NOTE | 2019-06-13 14:49 | Progress Note ---
Assessment and Plan likely needs intubation montero in dictated f/u as out pt with cath Subjective Date of service: 06/13/19 Principal diagnosis: retention Objective - Constitutional Vitals: Vital Signs - 12hr 06/13/19 06/13/19 06/13/19 05:58 06:30 07:30 Temperature 97.8 F Pulse Rate 80 73 80 Pulse Rate [ Anterior Bilateral] Respiratory 28 H 28 H 16 Rate Respiratory Rate [Anterior Bilateral] Blood Pressure 130/77 135/69 Blood Pressure 119/67 [Left] O2 Sat by Pulse 98 98 98 Oximetry 06/13/19 06/13/19 06/13/19 08:00 08:24 09:22 Temperature Pulse Rate 74 84 Pulse Rate [ 91 H Anterior Bilateral] Respiratory 27 H 24 Rate Respiratory 34 H Rate [Anterior Bilateral] Blood Pressure Blood Pressure 129/70 122/89 129/82 [Left] O2 Sat by Pulse 99 97 97 Oximetry 06/13/19 06/13/19 11:35 14:24 Temperature 97.6 F Pulse Rate 81 90 Pulse Rate [ Anterior Bilateral] Respiratory 18 31 H Rate Respiratory Rate [Anterior Bilateral] Blood Pressure 149/70 197/106 Blood Pressure [Left] O2 Sat by Pulse 98 Oximetry General appearance: Present: severe distress - Labs CBC & Chem 7: 06/13/19 06:50 06/13/19 06:50 Labs: Abnormal lab results 06/13/19 06/13/19 06/13/19 Range/Units 06:13 06:50 06:50 WBC 22.7 H (4.5-11.0) K/mm3 RBC 5.69 H (3.65-5.03) M/mm3 Hgb 15.5 H (11.8-15.2) gm/dl Hct 47.8 H (35.5-45.6) % MCH 27 L (28-32) pg RDW 15.6 H (13.2-15.2) % Seg Neuts % (Manual) 89.0 H (40.0-70.0) % Lymphocytes % (Manual) 4.0 L (13.4-35.0) % Seg Neutrophils # Man 20.2 H (1.8-7.7) K/mm3 Lymphocytes # (Manual) 0.9 L (1.2-5.4) K/mm3 Monocytes # (Manual) 1.4 H (0.0-0.8) K/mm3 POC ABG pH (7.35-7.45) POC ABG pO2 (80-105) Sodium 126 L (137-145) mmol/L Potassium 7.5 H* (3.6-5.0) mmol/L Chloride 83.9 L (98-107) mmol/L Carbon Dioxide 5 L* (22-30) mmol/L BUN 126 H (9-20) mg/dL Creatinine 12.6 H (0.8-1.5) mg/dL Glucose 143 H (75-100) mg/dL POC Glucose 59 L (70-105) Magnesium (1.7-2.3) mg/dL Ammonia (25-60) umol/L Total Creatine Kinase (55-170) units/L CK-MB (CK-2) (0.0-4.0) ng/mL Albumin 3.6 L (3.9-5) g/dL 06/13/19 06/13/19 06/13/19 Range/Units 07:09 07:31 07:31 WBC (4.5-11.0) K/mm3 RBC (3.65-5.03) M/mm3 Hgb (11.8-15.2) gm/dl Hct (35.5-45.6) % MCH (28-32) pg RDW (13.2-15.2) % Seg Neuts % (Manual) (40.0-70.0) % Lymphocytes % (Manual) (13.4-35.0) % Seg Neutrophils # Man (1.8-7.7) K/mm3 Lymphocytes # (Manual) (1.2-5.4) K/mm3 Monocytes # (Manual) (0.0-0.8) K/mm3 POC ABG pH (7.35-7.45) POC ABG pO2 (80-105) Sodium (137-145) mmol/L Potassium (3.6-5.0) mmol/L Chloride (98-107) mmol/L Carbon Dioxide (22-30) mmol/L BUN (9-20) mg/dL Creatinine (0.8-1.5) mg/dL Glucose (75-100) mg/dL POC Glucose 117 H (70-105) Magnesium 2.50 H (1.7-2.3) mg/dL Ammonia 408.0 H (25-60) umol/L Total Creatine Kinase 409 H (55-170) units/L CK-MB (CK-2) 15.9 H (0.0-4.0) ng/mL Albumin (3.9-5) g/dL 06/13/19 06/13/19 06/13/19 Range/Units 09:21 10: 10:42 WBC (4.5-11.0) K/mm3 RBC (3.65-5.03) M/mm3 Hgb (11.8-15.2) gm/dl Hct (35.5-45.6) % MCH (28-32) pg RDW (13.2-15.2) % Seg Neuts % (Manual) (40.0-70.0) % Lymphocytes % (Manual) (13.4-35.0) % Seg Neutrophils # Man (1.8-7.7) K/mm3 Lymphocytes # (Manual) (1.2-5.4) K/mm3 Monocytes # (Manual) (0.0-0.8) K/mm3 POC ABG pH (7.35-7.45) POC ABG pO2 (80-105) Sodium (137-145) mmol/L Potassium (3.6-5.0) mmol/L Chloride (98-107) mmol/L Carbon Dioxide (22-30) mmol/L BUN (9-20) mg/dL Creatinine (0.8-1.5) mg/dL Glucose (75-100) mg/dL POC Glucose 153 H 54 L 136 H (70-105) Magnesium (1.7-2.3) mg/dL Ammonia (25-60) umol/L Total Creatine Kinase (55-170) units/L CK-MB (CK-2) (0.0-4.0) ng/mL Albumin (3.9-5) g/dL 06/13/19 Range/Units 14:28 WBC (4.5-11.0) K/mm3 RBC (3.65-5.03) M/mm3 Hgb (11.8-15.2) gm/dl Hct (35.5-45.6) % MCH (28-32) pg RDW (13.2-15.2) % Seg Neuts % (Manual) (40.0-70.0) % Lymphocytes % (Manual) (13.4-35.0) % Seg Neutrophils # Man (1.8-7.7) K/mm3 Lymphocytes # (Manual) (1.2-5.4) K/mm3 Monocytes # (Manual) (0.0-0.8) K/mm3 POC ABG pH 7.530 H (7.35-7.45) POC ABG pO2 239 H (80-105) Sodium (137-145) mmol/L Potassium (3.6-5.0) mmol/L Chloride (98-107) mmol/L Carbon Dioxide (22-30) mmol/L BUN (9-20) mg/dL Creatinine (0.8-1.5) mg/dL Glucose (75-100) mg/dL POC Glucose (70-105) Magnesium (1.7-2.3) mg/dL Ammonia (25-60) umol/L Total Creatine Kinase (55-170) units/L CK-MB (CK-2) (0.0-4.0) ng/mL Albumin (3.9-5) g/dL Medications & Allergies - Medications Allergies/Adverse Reactions: Allergies No Known Allergies Allergy (Verified 06/13/19 05:58) Active Medications: Generic Name Dose Route Start Last Admin Trade Name Freq PRN Reason Stop Dose Admin Albuterol/Ipratropium 1 ampul 06/13/19 14:00 Duoneb *Not For Prn Use* IH Q6HRT SANGE[facility] Sodium Chloride 1,000 mls @ 125 mls/hr 06/13/19 07:30 06/13/19 09:03 Nacl 0.9% 1000 Ml IV 06/13/19 15:29 Not Given ONCE ONE Sodium Chloride 100 mls @ 999 mls/hr 06/13/19 10:03 Nacl 0.9% IV SUNDAR PRN Hypotension Sodium Bicarbonate 150 meq/ 1,150 mls @ 75 mls/hr 06/13/19 13:00 Dextrose IV DIRECT SANGEETHA Ceftriaxone Sodium 1 gm in 50 mls @ 100 mls/hr 06/13/19 14:00 Rocephin/Ns 1 Gm/50 Ml IV Q24HR S[facility] Protocol Lactulose 20 gm 06/13/19 14:00 Cephulac PO Q6HR SANGEETHA Lorazepam 2 mg 06/13/19 14:21 06/13/19 14:29 Ativan IV 2 mg Q1H PRN Administration Agitation Sodium Chloride 10 ml 06/13/19 22:00 Sodium Chloride Flush Syringe 10 Ml IV BID SANGEETHA Sodium Chloride 10 ml 06/13/19 11:46 Sodium Chloride Flush Syringe 10 Ml IV PRN PRN LINE FLUSH
[2019-06-13] MEDS: SODIUM BICARBONATE 150 MEQ in DEXTROSE 5% IN WATER 1,000 ML IV SCH (15:00)
[2019-06-13] MEDS ORDERED: PROPOFOL 200 MG/20 ML VIAL IV ONE (15:00)
--- NOTE | 2019-06-13 15:10 | XRay Report ---
ABDOMEN 1 VIEW(S) INDICATION / CLINICAL INFORMATION: placement of ng tube. COMPARISON: None available. FINDINGS: TUBES / LINES: The nasogastric tube terminates in the fundus of the stomach. BOWEL GAS PATTERN: No significant abnormality. FREE AIR / EXTRALUMINAL GAS: None seen. ADDITIONAL FINDINGS: No significant additional findings. IMPRESSION: The nasogastric tube terminates in the fundus of the stomach. Signer Name: Noah Brown Jr, MD Signed: 06/13/2019 3:06 PM Workstation Name: [id number]
--- NOTE | 2019-06-13 15:12 | XRay Report ---
CHEST 1 VIEW INDICATION: ASPIRATION. COMPARISON: None FINDINGS: Support devices: A nasogastric tube terminates in the fundus of the stomach. Heart: Cardiomegaly. Lungs/Pleura: Mild central pulmonary venous congestion. No evidence for infiltrate, pleural effusion or pneumothorax. Additional findings: None. IMPRESSION: Mild cardiomegaly and pulmonary venous congestion. No evidence for aspiration. Signer Name: Noah Brown Jr, MD Signed: 06/13/2019 3:07 PM Workstation Name: [id number]
[2019-06-13] MEDS: fentaNYL DRIP Premix 2,000 MCG/100 ML BAG IV SCH ×2 (15:19→20:10)
--- NOTE | 2019-06-13 15:19 | Consultation ---
History of Present Illness Consult date: 06/13/19 Requesting physician: BEBO LOPES Reason for consult: other (Acute Respiratory Failure; Severe metabolic Acidosis; Hyperkalemia) History of present illness: PULMONARY/CCM CONSULT NOTE (Full dictation # [id number]) Please see dictated notes for full details Past History Past Medical History: diabetes, hypertension Medications and Allergies Allergies Allergy/AdvReac Type Severity Reaction Status Date / Time No Known Allergies Allergy Verified 06/13/19 05:58 Active Meds: Active Medications Albuterol/Ipratropium (Duoneb *Not For Prn Use*) 1 ampul IH Q6HRT [facility] Sodium Chloride (Nacl 0.9% 1000 Ml) 1,000 mls @ 125 mls/hr IV ONCE ONE Stop: 06/13/19 15:29 Last Admin: 06/13/19 09:03 Dose: Not Given Documented by: Sodium Chloride (Nacl 0.9%) 100 mls @ 999 mls/hr IV SUNDAR PRN PRN Reason: Hypotension Sodium Bicarbonate 150 meq/ (Dextrose) 1,150 mls @ 75 mls/hr IV DIRECT SANGEETHA Ceftriaxone Sodium (Rocephin/Ns 1 Gm/50 Ml) 1 gm in 50 mls @ 100 mls/hr IV Q24HR SANGEETHA; Protocol Fentanyl Citrate (Fentanyl Drip Premix) 2,000 mcg in 100 mls @ 5.67 mls/hr IV TITR SANGEETHA; Protocol Lactulose (Cephulac) 20 gm PO Q6HR SANGEETHA Lorazepam (Ativan) 2 mg IV Q1H PRN PRN Reason: Agitation Last Admin: 06/13/19 14:29 Dose: 2 mg Documented by: Sodium Chloride (Sodium Chloride Flush Syringe 10 Ml) 10 ml IV BID SANGEETHA Sodium Chloride (Sodium Chloride Flush Syringe 10 Ml) 10 ml IV PRN PRN PRN Reason: LINE FLUSH Physical Examination Vital signs: Vital Signs Temp Pulse Resp BP Pulse Ox 97.8 F 80 28 H 130/77 98 06/13/19 05:58 06/13/19 05:58 06/13/19 05:58 06/13/19 05:58 06/13/19 05:58 Results - Laboratory Findings CBC and BMP: 06/13/19 06:50 06/13/19 14:19 ABG POC ABG pH 7.530 (7.35-7.45) H 06/13/19 14:28 POC ABG pO2 239 (80-105) H 06/13/19 14:28 POC ABG HCO3 14.4 (22-26 mml/L) 06/13/19 14:28 POC ABG Total CO2 15 (23-27mmol/L) 06/13/19 14:28 POC ABG O2 Sat 100 06/13/19 14:28 Abnormal lab findings: Abnormal Labs 06/13/19 06/13/19 06/13/19 06:13 06:50 06:50 WBC 22.7 H RBC 5.69 H Hgb 15.5 H Hct 47.8 H MCH 27 L RDW 15.6 H Seg Neuts % (Manual) 89.0 H Lymphocytes % (Manual) 4.0 L Seg Neutrophils # Man 20.2 H Lymphocytes # (Manual) 0.9 L Monocytes # (Manual) 1.4 H POC ABG pH POC ABG pO2 Sodium 126 L Potassium 7.5 H* Chloride 83.9 L Carbon Dioxide 5 L* BUN 126 H Creatinine 12.6 H Glucose 143 H POC Glucose 59 L Magnesium Ammonia Total Creatine Kinase CK-MB (CK-2) Albumin 3.6 L 06/13/19 06/13/19 06/13/19 07:09 07:31 07:31 WBC RBC Hgb Hct MCH RDW Seg Neuts % (Manual) Lymphocytes % (Manual) Seg Neutrophils # Man Lymphocytes # (Manual) Monocytes # (Manual) POC ABG pH POC ABG pO2 Sodium Potassium Chloride Carbon Dioxide BUN Creatinine Glucose POC Glucose 117 H Magnesium 2.50 H Ammonia 408.0 H Total Creatine Kinase 409 H CK-MB (CK-2) 15.9 H Albumin 06/13/19 06/13/19 06/13/19 09:21 10:19 10:42 WBC RBC Hgb Hct MCH RDW Seg Neuts % (Manual) Lymphocytes % (Manual) Seg Neutrophils # Man Lymphocytes # (Manual) Monocytes # (Manual) POC ABG pH POC ABG pO2 Sodium Potassium Chloride Carbon Dioxide BUN Creatinine Glucose POC Glucose 153 H 54 L 136 H Magnesium Ammonia Total Creatine Kinase CK-MB (CK-2) Albumin 06/13/19 14:28 WBC RBC Hgb Hct MCH RDW Seg Neuts % (Manual) Lymphocytes % (Manual) Seg Neutrophils # Man Lymphocytes # (Manual) Monocytes # (Manual) POC ABG pH 7.530 H POC ABG pO2 239 H Sodium Potassium Chloride Carbon Dioxide BUN Creatinine Glucose POC Glucose Magnesium Ammonia Total Creatine Kinase CK-MB (CK-2) Albumin
[2019-06-13 15:30] LABS: Albumin 3.6 g/dL (3.9-5); Calcium 9.1 mg/dL (8.4-10.2)
[2019-06-13] MEDS ORDERED: MINERAL OIL/PETROLATUM, WHITE OPHTH OINT 3.5 GM OU PRN (15:33)
[2019-06-13] MEDS ORDERED: LIP THERAPY VASELINE TP PRN (15:33)
--- NOTE | 2019-06-13 15:54 | XRay Report ---
CHEST 1 VIEW INDICATION: check ETT placement. COMPARISON: 06/13/2019 at 1433 hours FINDINGS: Support devices: The endotracheal tube terminates 4 cm superior to the lorenzo. A nasogastric tube is coiled in the fundus of the stomach. Heart: Within normal limits. Lungs/Pleura: No acute air space or interstitial disease. Additional findings: None. IMPRESSION: No acute findings. Adequate placement of the endotracheal tube. Signer Name: Noah Brown Jr, MD Signed: 06/13/2019 3:50 PM Workstation Name: [id number]
[2019-06-13] MEDS ORDERED: fentaNYL DRIP Premix 2,000 MCG/100 ML BAG IV SCH (16:00)
[2019-06-13] MEDS ORDERED: PROPOFOL 1,000 MG/100 ML BOTTLE IV SCH (16:00)
[2019-06-13] MEDS ORDERED: VANCOMYCIN 2,000 MG in SODIUM CHLORIDE 0.9% 500 ML 500 ML IV ONE (17:00)
[2019-06-13] MEDS: cefTRIAXone/NS 1 GM/50 ML 1 GM/50 ML BAG IV SCH (17:29)
[2019-06-13] MEDS ORDERED: ETOMIDATE 20 MG/10 ML INJ IV ONE (18:20)
[2019-06-13] MEDS ORDERED: ROCURONIUM 50 MG/5 ML INJ IV ONE (18:20)
[2019-06-13] MEDS ORDERED: VANCOMYCIN 1,500 MG in SODIUM CHLORIDE 0.9% 500 ML 500 ML IV ONE (18:30)
[2019-06-13] MEDS: HEPARIN 5,000 UNIT/1 ML VIAL SUB-Q SCH (22:00)
[2019-06-14 00:45] LABS: Amphetamine Screen,Urine PRESUMPTIVE NEGATIVE; Benzodiazepines Screen,Urine PRESUMPTIVE NEGATIVE; Cannabinoid Screen,Urine PRESUMPTIVE NEGATIVE; Cocaine Screen,Urine PRESUMPTIVE NEGATIVE; Methadone Screen,Urine PRESUMPTIVE NEGATIVE; Opiate Screen,Urine PRESUMPTIVE NEGATIVE
[2019-06-14 00:54] LABS: Bilirubin,Urine NEG (Negative); Blood,Urine LG (Negative); Color,Urine Yellow (Yellow); Mucus,Urine FEW /HPF; Urobilinogen,Urine < 2.0 mg/dL (<2.0)
[2019-06-14] MEDS: LACTULOSE 20 GM/30 ML ORAL LIQD PO SCH ×5 (01:27→23:50)
[2019-06-14] MEDS: fentaNYL DRIP Premix 2,000 MCG/100 ML BAG IV SCH (01:27)
[2019-06-14] MEDS: IPRATROPIUM/ALBUTEROL SULFATE 3 ML AMPUL.NEB IH SCH ×4 (01:59→19:15)
--- NOTE | 2019-06-14 02:21 | Consultation ---
HISTORY OF PRESENT ILLNESS: The patient is a 69-year-old gentleman who presented with acute renal failure. He is not communicative now and severe respiratory distress. He had a CT scan, which showed evidence of severe bladder outlet obstruction, moderate bilateral hydronephrosis and very small caliceal stones. He is in the ICU and likely to be intubated and admitted. PAST MEDICAL HISTORY: Likely history of prostate issues. Rest of the history is unobtainable. PHYSICAL EXAMINATION: GENERAL: He is in severe distress. ABDOMEN: Distended. He has a line in the groin. He has a Keenan catheter that is in place. IMPRESSION: Severe respiratory distress. Keenan catheter in place, hydronephrosis post-dialysis. RECOMMENDATIONS: Recommend keeping the Keenan in until he is stable and he should be seen as an outpatient. JOB# [id number] CAROLYNE/ROS
--- NOTE | 2019-06-14 03:27 | XRay Report ---
CHEST 1 VIEW 06/14/2019 2:23 AM INDICATION / CLINICAL INFORMATION: follow up respiratory failure. COMPARISON: 06/13/19 FINDINGS: SUPPORT DEVICES: Endotracheal and esophagogastric tubes are unchanged. HEART / MEDIASTINUM: No significant abnormality. LUNGS / PLEURA: No significant pulmonary or pleural abnormality. No pneumothorax. ADDITIONAL FINDINGS: No significant additional findings. IMPRESSION: 1. No acute findings. No change. Signer Name: Spike Berg MD Signed: 06/14/2019 3:23 AM Workstation Name: [id number]
[2019-06-14 05:05] LABS: Hematocrit 43.7 % (35.5-45.6); Hemoglobin 14.4 gm/dl (11.8-15.2); Mean Corpuscular HGB Conc 33 % (32-34); Mean Corpuscular Volume 83 fl (84-94); Platelet Count 186 K/mm3 (140-440); Red Blood Count 5.25 M/mm3 (3.65-5.03); Red Cell Distribution Width 14.8 % (13.2-15.2)
[2019-06-14 05:22] LABS: Calcium 8.4 mg/dL (8.4-10.2)
[2019-06-14 06:03] LABS: Anisocytosis Few; Basophils % (Manual) 0 % (0.0-1.8); Eosinophils % (Manual) 0 % (0.0-4.3); Platelet Estimate Consistent w Auto; Poikilocytosis Few; Total Cells Counted 100
--- NOTE | 2019-06-14 06:38 | Consultation ---
CONSULTING PHYSICIAN: Perico Dubose MD REASON FOR CONSULTATION: Acute respiratory distress, acute respiratory failure. CHIEF COMPLAINT AND HISTORY OF PRESENT ILLNESS: The patient is a 69-year-old -[place] male with a past medical history significant amongst other things for a diagnosis of hypertension and some type of cardiomyopathy, brought into the Emergency Room earlier today with a chief complaint of altered mental status. According to his , last known well time was yesterday around 2000 hours. This morning at 4:00 a.m., she noticed the patient was not in bed. When she went to the bathroom, the lights were out; he was lying on the floor with unintelligible speech. EMS was called. He was found to be hypoglycemic. In the ED, Accu-Chek was 59; it improved with an amp of D50. He remained lethargic. stated he had complained of some abdominal cramping and nausea prior to this presentation. He was last seen by his primary care physician on 06/10, given prescriptions for Zofran and Prilosec. Evaluation in the Emergency Room ultimately was consistent with an acute kidney injury, rhabdomyolysis. He also was found to have leukocytosis. He was hyperkalemic with serum potassium of 7.5, a BUN of 126 and a creatinine of 12.6. He was seen by the brazing machine tender and it looks like the patient was taken for dialysis. While in the dialysis suite, after about 2 hours of dialysis, he suddenly developed increased work of breathing. A rapid response code was called. He was brought into the Intensive Care Unit. In the ICU, he remained with increased work of breathing with accessory muscle use. Arterial blood gas showed a pH of 7.53 with a pCO2 of 17. Initial trial of bilevel positive airway pressure ventilation therapy failed despite much in trying to match his minute ventilation, and he was semi-electively intubated at the bedside with rapid sequence intubation. This really is as much of the history of presentation. I do not have any history of vomiting or overt aspiration. The patient's tobacco use/abuse history is unknown. The above is as much of the history of presentation as I have. PAST MEDICAL HISTORY: It seems again the history that we have; diabetes and hypertension, cardiomyopathy. PAST SURGICAL HISTORY: Unknown. MEDICATIONS: He was on at the time I stopped by to see him were reviewed. Pertinent medications included the following; he had just been started on Rocephin 1 gram IV daily, DuoNeb nebulizer treatments nebulized q. 6 hours, lactulose 20 ____ p.o. q. 6 hours, bicarb drip 3 amps of sodium bicarb per liter of D5W was started at 75 mL per hour. ALLERGIES: No known drug allergies. DIET: Obese gentleman; acute weight loss or gain history is unknown. FAMILY AND SOCIAL HISTORY: Lives in the community, apparently seems to be a smoker according to the records. Family history is otherwise unknown. REVIEW OF SYSTEMS: Unobtainable secondary to the patient's medical and mental condition. PHYSICAL EXAMINATION: VITAL SIGNS: On examination at presentation in the Emergency Room, afebrile, temperature was 97.8 degrees Fahrenheit, pulse of 80, respiratory rate of 28, blood pressure was 130/77, O2 sats were 98%, inspired oxygen concentration was not recorded. When I stopped by to see him initially, he was on 100% nonrebreather with 100% O2 sats. GENERAL: Elderly looking -Pal[place] male. Normocephalic, atraumatic with markedly increased respiratory effort at rest and use of accessory muscles, in [id number] respiratory distress. HEAD, EYES, EARS, EYES, EARS, NOSE AND THROAT: Anicteric. No conjunctival erythema. Oropharynx was moist. No gross jugular venous distention, no thyromegaly. Grossly, no palpable lymph nodes in the supraclavicular or submandibular lymph node chains. He was using sternocleidomastoid accessory muscles. LUNGS: On auscultation of both lung guthrie, diminished bilateral breath sounds, but good air entry in all lung zones except for the left lower lobe region. No wheezing, no obvious stridor. ABDOMEN: Soft, full, bowel sounds are positive, nontender. No palpable hepatosplenomegaly. HEART: Heart sounds 1 and 2 were heard. They were regular in rate and rhythm without overt rubs or murmurs. EXTREMITIES: Without overt digital clubbing or cyanosis, and no pedal edema. NEUROLOGIC: He was somnolent to lethargic with an increased work of breathing. Pupils were equal, round, about 4 mm, reactive to light. Extraocular muscle movements could not be assessed. He seemed to have spontaneous movement to all 4 extremities. No obvious flaccid paralysis. SKIN: Normal turgor without overt cellulitis or rash. He had a dialysis (Trialysis) catheter in the right femoral region. PSYCHOLOGIC: Unable to access his mood and affect. LABORATORY DATA: From my review, admission white cell count 22,700 with hemoglobin of 15.5, hematocrit of 47.8, platelet count of 212. No significant band forms on the differential. Arterial blood gas initially showed a pH of 7.53, pCO2 of 17, pO2 was 239 that was on BiPAP 20/5 with a backup rate of 30 and 100% FiO2. Serum sodium was 126 at presentation, potassium 7.5, chloride 84, bicarb was 5, BUN 126, creatinine 12.6, glucose was 143. Liver function tests essentially within normal limits. Ammonia was elevated at 408. Troponin was within normal limits. Albumin 3.6. TSH within normal limits. Free T4 within normal limits. Hepatitis screen was nonreactive. No microbiology studies. IMAGING: A CT of the head was done this morning in the Emergency Room, reported as no acute intracranial abnormality. A CT of the abdomen and pelvis was also done; it showed bladder outlet obstruction, most likely secondary to enlarged prostate gland and a right renal cyst. No acute inflammatory process. Cervical spine CT was done; spondylosis, no acute fracture. Initial chest x-ray showed borderline cardiomegaly, no real focal infiltrate. Transverse colon appeared dilated. ASSESSMENT: 1. Acute hypoxemic respiratory failure, now on mechanical ventilatory support. 2. Acute possibly on chronic encephalopathy. 3. Sepsis syndrome, severe sepsis without shock. 4. Acute kidney injury, possibly on chronic. 5. Severe hyperkalemia. 6. Severe metabolic acidosis. 7. Leukocytosis. 8. History of diabetes. 9. History of hypertension. 10. Oropharyngeal dysphagia. PLAN: He has just been intubated, rapid sequence intubation at the bedside. The patient is intubated both for airway protection, but also due to the severe increased work of breathing. Ventilator-associated pneumonia bundle will be instituted. Sedation will be initially with fentanyl. We will try and avoid benzodiazepines considering his age and for delirium issues. We will match his initial rate; it does appear he is hyperventilating appropriately for the metabolic acidosis, but with inappropriate hyper-compensation at this point. Nephrology evaluation is ongoing. Hemodialysis will be relied upon for toxin clearance certainly. Urology evaluation has been placed. He will be continued on empiric antibiotic therapy; he is on Rocephin right now, I will add Zithromax. Two sets of blood cultures will be sent. Urine cultures will be sent. Tracheal aspirate will be sent. Infectious Disease consultation will be at the behest of the attending physician. A CRP level will be ordered. Lactic acid level will also be ordered and trended as necessary to aid clinical decision-making. Enteral nutrition will be the feeding modality of choice. Nutrition consult will be placed. Bronchodilator treatments will be continued. He will be placed on GI and DVT prophylaxis. Flu and pneumonia vaccination will be addressed per protocol. Thank you very much for the consult, Dr. Dubose. We will follow along and make further recommendations as picture progresses/becomes clearer. He is critically ill, on life-sustaining interventions now including mechanical ventilatory support, at high risk of decompensation including the risk of . I should mention his hyperkalemia has been addressed in dialysis, and prior to dialysis labs will be trended as necessary and addressed. Flu and pneumonia vaccination will be addressed per protocol. At this time, I spent about 50 minutes of critical care time without overlap and excluding any procedural time that may be necessary. JOB# [id number] JAGUAR/ROS CARRIZALES
--- NOTE | 2019-06-14 10:10 | Consultation ---
HISTORY OF PRESENT ILLNESS: The patient is a gentleman who has seizures. He is on a ventilator. Urological consultation was obtained for scrotal swelling. He has a catheter in. On exam, he has evidence of a hernia. There is no tenderness. There is no erythema. Likely fluid and possibly bowel. IMPRESSION AND PLAN: Swollen scrotum. The family is here. He has had this for over 2 years. I would recommend scrotal ultrasound. Order was given to the nurse and the plan will be followup scrotal ultrasound. If there is anything acute, they will let me know but according to the family, he has had this for years. He cannot communicate at all. He is on a ventilator. There is nothing acute that happened here and he should be followed up as an outpatient and get this taken care of. JOB# [id number] CAROLYNE/ROS
[2019-06-14] MEDS: FAMOTIDINE 20 MG TAB PO SCH (10:27)
[2019-06-14] MEDS: cefTRIAXone/NS 1 GM/50 ML 1 GM/50 ML BAG IV SCH (10:27)
[2019-06-14] MEDS: HEPARIN 5,000 UNIT/1 ML VIAL SUB-Q SCH ×2 (10:28→22:48)
--- NOTE | 2019-06-14 11:48 | Progress Note ---
Assessment and Plan 1. Acute kidney injury: NATHAN likely secondary to obstructive nephropathy +/- sepsis. CT abdomen showed bladder outlet obstruction. S/p montero catheter. Baseline renal function is unknown. Monitor renal function. Renal prognosis is guarded. Avoid nephrotoxic agents. Meds dosage based on GFR. Due to hyperkalemia and severe metabolic acidosis patient received hemodialysis. Hemodialysis: 06/13. 2. FEN: Hyperkalemia, improved. Hyponatremia, monitor. Metabolic acidosis, s/p HD. Monitor lytes. 3. Obstructive nephropathy: Likely from enlarged prostate. S/p montero catheter. 4. Suspected Sepsis: Leukocytosis. 5. Encephalopathy: CT head normal. Elevated Ammonia level. 6. DM with hypoglycemia. Examination: General appearance: well-developed, well-nourished, appears stated age, intubated, on vent HEENT: Atraumatic Neck: Supple, trachea midline Respiratory: Clear to Ascultation Heart: regular, S1S2, no murmur Gastrointestinal: soft, bowel sounds present, not tender Integumentary: no rash, warm and dry Neurologic: obtunded Musculoskeletal: no edema Hemodialysis access: R groin catheter Subjective Date of service: 06/14/19 Principal diagnosis: retention Interval history: Patient was seen and examined at the bedside. Objective - Vital Signs Vital signs: Vital Signs - 12hr 06/13/19 06/14/19 06/14/19 23:50 00:00 00:10 Temperature 97.8 F Pulse Rate 102 H 101 H 101 H Pulse Rate [ Anterior Bilateral] Respiratory 26 H 25 H 28 H Rate Respiratory Rate [Anterior Bilateral] Blood Pressure 107/74 105/71 105/71 O2 Sat by Pulse 98 97 98 Oximetry 06/14/19 06/14/19 06/14/19 00:20 00:30 00:40 Temperature Pulse Rate 103 H 101 H 103 H Pulse Rate [ Anterior Bilateral] Respiratory 23 27 H 29 H Rate Respiratory Rate [Anterior Bilateral] Blood Pressure 101/69 106/74 106/74 O2 Sat by Pulse 98 97 97 Oximetry 06/14/19 06/14/19 06/14/19 00:50 01:00 01:10 Temperature Pulse Rate 102 H 102 H 102 H Pulse Rate [ Anterior Bilateral] Respiratory 25 H 24 26 H Rate Respiratory Rate [Anterior Bilateral] Blood Pressure 105/68 109/67 109/67 O2 Sat by Pulse 97 98 97 Oximetry 06/14/19 06/14/19 06/14/19 01:20 01:30 01:40 Temperature Pulse Rate 103 H 101 H 104 H Pulse Rate [ Anterior Bilateral] Respiratory 22 25 H 21 Rate Respiratory Rate [Anterior Bilateral] Blood Pressure 96/69 106/67 96/69 O2 Sat by Pulse 97 97 97 Oximetry 06/14/19 06/14/19 06/14/19 01:50 02:00 02:10 Temperature Pulse Rate 103 H 100 H 102 H Pulse Rate [ Anterior Bilateral] Respiratory 23 26 H 22 Rate Respiratory Rate [Anterior Bilateral] Blood Pressure 97/69 98/66 98/66 O2 Sat by Pulse 97 97 98 Oximetry 06/14/19 06/14/19 06/14/19 02:20 02:30 02:40 Temperature Pulse Rate 103 H 107 H 108 H Pulse Rate [ 97 H Anterior Bilateral] Respiratory 23 25 H 25 H Rate Respiratory 26 H Rate [Anterior Bilateral] Blood Pressure 96/61 101/66 101/66 O2 Sat by Pulse 97 97 97 Oximetry 06/14/19 06/14/19 06/14/19 02:50 03:00 03:10 Temperature Pulse Rate 105 H 105 H 103 H Pulse Rate [ Anterior Bilateral] Respiratory 25 H 25 H 25 H Rate Respiratory Rate [Anterior Bilateral] Blood Pressure 98/64 105/70 101/66 O2 Sat by Pulse 97 99 98 Oximetry 06/14/19 06/14/19 06/14/19 03:20 03:30 03:40 Temperature Pulse Rate 101 H 101 H 101 H Pulse Rate [ Anterior Bilateral] Respiratory 25 H 25 H 25 H Rate Respiratory Rate [Anterior Bilateral] Blood Pressure 106/63 98/61 105/70 O2 Sat by Pulse 98 98 98 Oximetry 06/14/19 06/14/19 06/14/19 03:50 04:00 04:10 Temperature 97.8 F Pulse Rate 101 H 100 H 95 H Pulse Rate [ Anterior Bilateral] Respiratory 25 H 25 H 23 Rate Respiratory Rate [Anterior Bilateral] Blood Pressure 99/60 95/62 95/62 O2 Sat by Pulse 98 98 97 Oximetry 06/14/19 06/14/19 06/14/19 04:20 04:24 04:30 Temperature Pulse Rate 98 H 97 H 96 H Pulse Rate [ Anterior Bilateral] Respiratory 23 14 Rate Respiratory Rate [Anterior Bilateral] Blood Pressure 95/59 95/59 96/63 O2 Sat by Pulse 97 97 97 Oximetry 06/14/19 06/14/19 06/14/19 04:40 04:50 05:00 Temperature Pulse Rate 98 H 97 H 96 H Pulse Rate [ Anterior Bilateral] Respiratory 14 18 13 Rate Respiratory Rate [Anterior Bilateral] Blood Pressure 96/63 99/57 105/57 O2 Sat by Pulse 97 97 97 Oximetry 06/14/19 06/14/19 06/14/19 05:10 05:20 05:30 Temperature Pulse Rate 97 H 97 H 98 H Pulse Rate [ Anterior Bilateral] Respiratory 16 14 13 Rate Respiratory Rate [Anterior Bilateral] Blood Pressure 105/57 101/60 94/61 O2 Sat by Pulse 98 97 98 Oximetry 06/14/19 06/14/19 06/14/19 05:40 05:50 06:00 Temperature Pulse Rate 96 H 97 H 95 H Pulse Rate [ Anterior Bilateral] Respiratory 15 14 14 Rate Respiratory Rate [Anterior Bilateral] Blood Pressure 94/61 103/64 110/64 O2 Sat by Pulse 98 98 97 Oximetry 06/14/19 06/14/19 06/14/19 06:10 06:20 06:30 Temperature Pulse Rate 96 H 97 H 95 H Pulse Rate [ Anterior Bilateral] Respiratory 13 15 15 Rate Respiratory Rate [Anterior Bilateral] Blood Pressure 110/64 106/64 113/61 O2 Sat by Pulse 97 97 97 Oximetry 06/14/19 06/14/19 06/14/19 06:40 06:50 07:00 Temperature Pulse Rate 96 H 97 H 94 H Pulse Rate [ Anterior Bilateral] Respiratory 15 13 14 Rate Respiratory Rate [Anterior Bilateral] Blood Pressure 113/61 100/61 100/61 O2 Sat by Pulse 97 97 98 Oximetry 06/14/19 06/14/19 06/14/19 07:10 07:20 07:30 Temperature Pulse Rate 97 H 97 H 96 H Pulse Rate [ Anterior Bilateral] Respiratory 15 14 16 Rate Respiratory Rate [Anterior Bilateral] Blood Pressure 100/61 90/63 96/61 O2 Sat by Pulse 98 97 Oximetry 06/14/19 06/14/19 06/14/19 07:40 07:50 08:00 Temperature Pulse Rate 97 H 97 H 98 H Pulse Rate [ 97 H Anterior Bilateral] Respiratory 15 17 14 Rate Respiratory 10 L Rate [Anterior Bilateral] Blood Pressure 96/61 89/60 102/63 O2 Sat by Pulse 97 97 97 Oximetry 06/14/19 06/14/19 06/14/19 08:10 08:20 08:30 Temperature Pulse Rate 97 H 96 H 95 H Pulse Rate [ Anterior Bilateral] Respiratory 20 17 17 Rate Respiratory Rate [Anterior Bilateral] Blood Pressure 89/59 82/57 102/63 O2 Sat by Pulse 97 97 98 Oximetry 06/14/19 06/14/19 06/14/19 08:40 08:50 09:00 Temperature Pulse Rate 98 H 97 H 96 H Pulse Rate [ Anterior Bilateral] Respiratory 13 14 14 Rate Respiratory Rate [Anterior Bilateral] Blood Pressure 102/63 88/65 114/60 O2 Sat by Pulse 97 97 97 Oximetry 06/14/19 06/14/19 06/14/19 09:07 09:10 09:20 Temperature Pulse Rate 95 H 97 H 96 H Pulse Rate [ Anterior Bilateral] Respiratory 11 L 11 L Rate Respiratory Rate [Anterior Bilateral] Blood Pressure 114/60 114/60 107/66 O2 Sat by Pulse 97 98 97 Oximetry 06/14/19 06/14/19 06/14/19 09:30 09:40 09:50 Temperature Pulse Rate 97 H 95 H 96 H Pulse Rate [ Anterior Bilateral] Respiratory 12 12 11 L Rate Respiratory Rate [Anterior Bilateral] Blood Pressure 101/70 101/70 118/79 O2 Sat by Pulse 97 98 97 Oximetry 06/14/19 06/14/19 06/14/19 10:00 10:10 10:20 Temperature Pulse Rate 96 H 96 H 96 H Pulse Rate [ Anterior Bilateral] Respiratory 12 12 13 Rate Respiratory Rate [Anterior Bilateral] Blood Pressure 118/78 118/78 105/73 O2 Sat by Pulse 97 98 97 Oximetry 06/14/19 06/14/19 06/14/19 10:30 10:40 10:50 Temperature Pulse Rate 95 H 99 H 97 H Pulse Rate [ Anterior Bilateral] Respiratory 12 16 14 Rate Respiratory Rate [Anterior Bilateral] Blood Pressure 106/71 106/71 129/79 O2 Sat by Pulse 98 98 98 Oximetry 06/14/19 11:00 Temperature Pulse Rate 96 H Pulse Rate [ Anterior Bilateral] Respiratory 14 Rate Respiratory Rate [Anterior Bilateral] Blood Pressure 115/65 O2 Sat by Pulse 97 Oximetry - Lab 06/14/19 04:45 06/14/19 04:45 Most recent lab results Calcium 8.4 mg/dL (8.4-10.2) 06/14/19 04:45 Phosphorus 6.40 mg/dL (2.5-4.5) H 06/14/19 04:45 Magnesium 2.50 mg/dL (1.7-2.3) H 06/13/19 07:31 Medications & Allergies - Medications Allergies/Adverse Reactions: Allergies No Known Allergies Allergy (Verified 06/13/19 05:58) Active Medications: Generic Name Dose Route Start Last Admin Trade Name Freq PRN Reason Stop Dose Admin Albuterol/Ipratropium 1 ampul 06/13/19 14:00 06/14/19 09:20 Duoneb *Not For Prn Use* IH 1 ampul Q6HRT SANGEETHA Administration Famotidine 20 mg 06/14/19 10:00 06/14/19 10:27 Pepcid PO 20 mg QDAY SANGEETHA Administration Fentanyl 50 mcg 06/13/19 15:33 Sublimaze IV Q10MIN PRN ANALGESIA Heparin Sodium (Porcine) 5,000 unit 06/13/19 22:00 06/14/19 10:28 Heparin SUB-Q 5,000 unit Q12HR SANGEETHA Administration Hydralazine HCl 10 mg 06/13/19 16:05 Apresoline IV Q4HR PRN HTN SBP>=170 Hydrophilic Ointment 1 applic 06/13/19 15:33 Vaseline Lip Therapy TP Q2HR PRN Dry Lips Sodium Chloride 100 mls @ 999 mls/hr 06/13/19 10:03 Nacl 0.9% IV SUNDAR PRN Hypotension Sodium Bicarbonate 150 meq/ 1,150 mls @ 75 mls/hr 06/13/19 13:00 06/13/19 15:00 Dextrose IV 75 mls/hr DIRECT SANGEETHA Administration Ceftriaxone Sodium 1 gm in 50 mls @ 100 mls/hr 06/13/19 14:00 06/14/19 10:27 Rocephin/Ns 1 Gm/50 Ml IV 100 mls/hr Q24HR SANGEETHA Administration Protocol Fentanyl Citrate 2,000 mcg in 100 mls @ 5.67 mls/hr 06/13/19 16:00 06/14/19 08:50 Fentanyl Drip Premix IV 0 mcg/kg/hr TITR SANGEETHA 0 mls/hr Titration Protocol 1 MCG/KG/HR Propofol 1,000 mg in 100 mls @ 3.402 mls/hr 06/13/19 16:00 06/14/19 08:51 Diprivan 10 Mg/Ml IV 0 mcg/kg/min TITR SANGEETHA 0 mls/hr Titration Protocol 5 MCG/KG/MIN Lactulose 20 gm 06/13/19 14:00 06/14/19 06:23 Cephulac PO 20 gm Q6HR SANGEETHA Administration Lorazepam 2 mg 06/13/19 14:21 06/13/19 15:39 Ativan IV 2 mg Q1H PRN Administration Agitation Multi-Ingred Cream/Lotion/Oil/Oint 1 applic 06/13/19 15:33 Artificial Tears Ophth Oint OU Q4HR PRN Dry Eye(s) Sodium Chloride 10 ml 06/13/19 22:00 06/14/19 10:29 Sodium Chloride Flush Syringe 10 Ml IV 10 ml BID SANGEETHA Administration Sodium Chloride 10 ml 06/13/19 11:46 Sodium Chloride Flush Syringe 10 Ml IV PRN PRN LINE FLUSH
--- NOTE | 2019-06-14 13:38 | Progress Note ---
Assessment and Plan Acute hypoxemic respiratory failure, now on mechanical ventilatory support. Acute possibly on chronic encephalopathy. Severe sepsis Acute kidney injury, possibly on chronic. Severe hyperkalemia. Severe metabolic acidosis. Leukocytosis. History of diabetes. History of hypertension. Oropharyngeal dysphagia. - continue to wean FiO2 for sats > 90% - VAP bundle addressed - continue daily SAT's and SBT assessment as tolerated - target sedation for RASS 0 to -1 - prn analgesia per CPOT score - HD/UF per nephrology prescription for toxin and volume clearance - continue to avoid nephrotoxins and adjust medications for renal function - begin enteral nutrition and advance to goal rate as tolerated - Monitor hemodynamics closely - continue empiric broad spectrum antiinfective's per ID recommendations (de- escalate based on clinical and microbiologic data) - continue mobility protocols and off loading as tolerated for pressure ulcer prophylaxis - continue to avoid nephrotoxins, adjust all medications for GFR and CRCL - continue GI & VTE prophylaxis with - accuchecks with glycemic control per SSI for target BG of 140-180 mg/dl acutely - continue other care per attending / other consultants ... care plan discussed at length with his in room ... re-evaluate in am & prn CONDITION: CRITICAL PROGNOSIS: VERY GUARDED CODE STATUS: FULL CODE Discussed extensively with RT/RN and care team in ICU IDT rounds The high probability of a clinically significant, sudden or life threatening de terioration of the [respiratory, renal, neurologic and Cardiac] system's' required my full and direct attention, intervention and personal management. The aggregate critical care time was 35 minutes. This time is in addition to time spent performing reported procedures but includes the following: [x] Data Review and interpretation [x] Patient assessment and monitoring of vital signs [x] Documentation [x] Medication orders and management Subjective Date of service: 06/14/19 Principal diagnosis: Ac. hypoxemic resp failure; Ac. Encephalopathy; Sepsis; NATHAN; hyperkalemia Interval history: Patient is seen today for: Acute hypoxemic respiratory failure; Acute possibly on chronic encephalopathy; Severe sepsis; Acute kidney injury, possibly on chronic; Severe hyperkalemia; Severe metabolic acidosis; Leukocytosis; History of diabetes; History of hypertension; Oropharyngeal dysphagia. Seen and examined at bedside; 24hour events reviewed; nursing and respiratory care staff consulted; no adverse overnight events reported to me; resting peacefully in bed; AMS is persistent; on SBT now and tolerating well so far; no emesis or overt aspiration; less agitated but still encephalopathic Objective Vital Signs - 12hr 06/14/19 06/14/19 06/14/19 01:40 01:50 02:00 Temperature Pulse Rate 104 H 103 H 100 H Pulse Rate [ Anterior Bilateral] Respiratory 21 23 26 H Rate Respiratory Rate [Anterior Bilateral] Blood Pressure 96/69 97/69 98/66 O2 Sat by Pulse 97 97 97 Oximetry 06/14/19 06/14/19 06/14/19 02:10 02:20 02:30 Temperature Pulse Rate 102 H 103 H 107 H Pulse Rate [ 97 H Anterior Bilateral] Respiratory 22 23 25 H Rate Respiratory 26 H Rate [Anterior Bilateral] Blood Pressure 98/66 96/61 101/66 O2 Sat by Pulse 98 97 97 Oximetry 06/14/19 06/14/19 06/14/19 02:40 02:50 03:00 Temperature Pulse Rate 108 H 105 H 105 H Pulse Rate [ Anterior Bilateral] Respiratory 25 H 25 H 25 H Rate Respiratory Rate [Anterior Bilateral] Blood Pressure 101/66 98/64 105/70 O2 Sat by Pulse 97 97 99 Oximetry 06/14/19 06/14/19 06/14/19 03:10 03:20 03:30 Temperature Pulse Rate 103 H 101 H 101 H Pulse Rate [ Anterior Bilateral] Respiratory 25 H 25 H 25 H Rate Respiratory Rate [Anterior Bilateral] Blood Pressure 101/66 106/63 98/61 O2 Sat by Pulse 98 98 98 Oximetry 06/14/19 06/14/19 06/14/19 03:40 03:50 04:00 Temperature 97.8 F Pulse Rate 101 H 101 H 100 H Pulse Rate [ Anterior Bilateral] Respiratory 25 H 25 H 25 H Rate Respiratory Rate [Anterior Bilateral] Blood Pressure 105/70 99/60 95/62 O2 Sat by Pulse 98 98 98 Oximetry 06/14/19 06/14/19 06/14/19 04:10 04:20 04:24 Temperature Pulse Rate 95 H 98 H 97 H Pulse Rate [ Anterior Bilateral] Respiratory 23 23 Rate Respiratory Rate [Anterior Bilateral] Blood Pressure 95/62 95/59 95/59 O2 Sat by Pulse 97 97 97 Oximetry 06/14/19 06/14/19 06/14/19 04:30 04:40 04:50 Temperature Pulse Rate 96 H 98 H 97 H Pulse Rate [ Anterior Bilateral] Respiratory 14 14 18 Rate Respiratory Rate [Anterior Bilateral] Blood Pressure 96/63 96/63 99/57 O2 Sat by Pulse 97 97 97 Oximetry 06/14/19 06/14/19 06/14/19 05:00 05:10 05:20 Temperature Pulse Rate 96 H 97 H 97 H Pulse Rate [ Anterior Bilateral] Respiratory 13 16 14 Rate Respiratory Rate [Anterior Bilateral] Blood Pressure 105/57 105/57 101/60 O2 Sat by Pulse 97 98 97 Oximetry 06/14/19 06/14/19 06/14/19 05:30 05:40 05:50 Temperature Pulse Rate 98 H 96 H 97 H Pulse Rate [ Anterior Bilateral] Respiratory 13 15 14 Rate Respiratory Rate [Anterior Bilateral] Blood Pressure 94/61 94/61 103/64 O2 Sat by Pulse 98 98 98 Oximetry 06/14/19 06/14/19 06/14/19 06:00 06:10 06:20 Temperature Pulse Rate 95 H 96 H 97 H Pulse Rate [ Anterior Bilateral] Respiratory 14 13 15 Rate Respiratory Rate [Anterior Bilateral] Blood Pressure 110/64 110/64 106/64 O2 Sat by Pulse 97 97 97 Oximetry 06/14/19 06/14/19 06/14/19 06:30 06:40 06:50 Temperature Pulse Rate 95 H 96 H 97 H Pulse Rate [ Anterior Bilateral] Respiratory 15 15 13 Rate Respiratory Rate [Anterior Bilateral] Blood Pressure 113/61 113/61 100/61 O2 Sat by Pulse 97 97 97 Oximetry 06/14/19 06/14/19 06/14/19 07:00 07:10 07:20 Temperature Pulse Rate 94 H 97 H 97 H Pulse Rate [ Anterior Bilateral] Respiratory 14 15 14 Rate Respiratory Rate [Anterior Bilateral] Blood Pressure 100/61 100/61 90/63 O2 Sat by Pulse 98 98 97 Oximetry 06/14/19 06/14/19 06/14/19 07:30 07:40 07:50 Temperature Pulse Rate 96 H 97 H 97 H Pulse Rate [ Anterior Bilateral] Respiratory 16 15 17 Rate Respiratory Rate [Anterior Bilateral] Blood Pressure 96/61 96/61 89/60 O2 Sat by Pulse 97 97 Oximetry 06/14/19 06/14/19 06/14/19 08:00 08:10 08:20 Temperature Pulse Rate 98 H 97 H 96 H Pulse Rate [ 97 H Anterior Bilateral] Respiratory 14 20 17 Rate Respiratory 10 L Rate [Anterior Bilateral] Blood Pressure 102/63 89/59 82/57 O2 Sat by Pulse 97 97 97 Oximetry 06/14/19 06/14/19 06/14/19 08:30 08:40 08:50 Temperature Pulse Rate 95 H 98 H 97 H Pulse Rate [ Anterior Bilateral] Respiratory 17 13 14 Rate Respiratory Rate [Anterior Bilateral] Blood Pressure 102/63 102/63 88/65 O2 Sat by Pulse 98 97 97 Oximetry 06/14/19 06/14/19 06/14/19 09:00 09:07 09:10 Temperature Pulse Rate 96 H 95 H 97 H Pulse Rate [ Anterior Bilateral] Respiratory 14 11 L Rate Respiratory Rate [Anterior Bilateral] Blood Pressure 114/60 114/60 114/60 O2 Sat by Pulse 97 97 98 Oximetry 06/14/19 06/14/19 06/14/19 09:20 09:30 09:40 Temperature Pulse Rate 96 H 97 H 95 H Pulse Rate [ Anterior Bilateral] Respiratory 11 L 12 12 Rate Respiratory Rate [Anterior Bilateral] Blood Pressure 107/66 101/70 101/70 O2 Sat by Pulse 97 97 98 Oximetry 06/14/19 06/14/19 06/14/19 09:50 10:00 10:10 Temperature Pulse Rate 96 H 96 H 96 H Pulse Rate [ Anterior Bilateral] Respiratory 11 L 12 12 Rate Respiratory Rate [Anterior Bilateral] Blood Pressure 118/79 118/78 118/78 O2 Sat by Pulse 97 97 98 Oximetry 06/14/19 06/14/19 06/14/19 10:20 10:30 10:40 Temperature Pulse Rate 96 H 95 H 99 H Pulse Rate [ Anterior Bilateral] Respiratory 13 12 16 Rate Respiratory Rate [Anterior Bilateral] Blood Pressure 105/73 106/71 106/71 O2 Sat by Pulse 97 98 98 Oximetry 06/14/19 06/14/19 06/14/19 10:50 11:00 12:00 Temperature Pulse Rate 97 H 96 H 95 H Pulse Rate [ Anterior Bilateral] Respiratory 14 14 Rate Respiratory Rate [Anterior Bilateral] Blood Pressure 129/79 115/65 113/69 O2 Sat by Pulse 98 97 98 Oximetry Constitutional: no acute distress, other (elderly looking AAM, normocephalic with mildly increased resp effort at rest) Eyes: non-icteric ENT: oropharynx moist, other (ETT 24 cm BINA) Neck: supple, no lymphadenopathy, no JVD, other (large neck circumference) Effort: mildly labored Ascultation: Bilateral: rhonchi Percussion: Bilateral: not dull Cardiovascular: regular rate and rhythm Gastrointestinal: normoactive bowel sounds, soft, non-tender, non-distended Integumentary: other (see wound care and RN notes) Extremities: no cyanosis, no edema, pulses normal, no ischemia or petechiae Neurologic: non-focal exam (grossly), pupils equal and round, CN II-XII normal, unable to assess (unable to aceess re: encephalopathy) Psychiatric: other (unable to aceess re: encephalopathy) CBC and BMP: 06/14/19 04:45 06/15/19 04:51 ABG, PT/INR, D-dimer: ABG POC ABG pH 7.543 (7.35-7.45) H 06/14/19 12:38 POC ABG pO2 115 (80-105) H 06/14/19 12:38 POC ABG HCO3 24.1 (22-26 mml/L) 06/14/19 12:38 POC ABG Total CO2 25 (23-27mmol/L) 06/14/19 12:38 POC ABG O2 Sat 99 06/14/19 12:38 Abnormal lab findings: Abnormal Labs 06/13/19 06/13/19 06/13/19 06:13 06:50 06:50 WBC 22.7 H RBC 5.69 H Hgb 15.5 H Hct 47.8 H MCV MCH 27 L RDW 15.6 H Seg Neuts % (Manual) 89.0 H Lymphocytes % (Manual) 4.0 L Monocytes % (Manual) Seg Neutrophils # Man 20.2 H Lymphocytes # (Manual) 0.9 L Monocytes # (Manual) 1.4 H POC ABG pH POC ABG pO2 Sodium 126 L Potassium 7.5 H* Chloride 83.9 L Carbon Dioxide 5 L* BUN 126 H Creatinine 12.6 H Glucose 143 H POC Glucose 59 L Lactic Acid Phosphorus Magnesium Total Bilirubin Ammonia Total Creatine Kinase CK-MB (CK-2) C-Reactive Protein Albumin 3.6 L Urine WBC (Auto) 06/13/19 06/13/19 06/13/19 07:09 07:31 07:31 WBC RBC Hgb Hct MCV MCH RDW Seg Neuts % (Manual) Lymphocytes % (Manual) Monocytes % (Manual) Seg Neutrophils # Man Lymphocytes # (Manual) Monocytes # (Manual) POC ABG pH POC ABG pO2 Sodium Potassium Chloride Carbon Dioxide BUN Creatinine Glucose POC Glucose 117 H Lactic Acid Phosphorus Magnesium 2.50 H Total Bilirubin Ammonia 408.0 H Total Creatine Kinase 409 H CK-MB (CK-2) 15.9 H C-Reactive Protein Albumin Urine WBC (Auto) 06/13/19 06/13/19 06/13/19 09:21 10: 10:42 WBC RBC Hgb Hct MCV MCH RDW Seg Neuts % (Manual) Lymphocytes % (Manual) Monocytes % (Manual) Seg Neutrophils # Man Lymphocytes # (Manual) Monocytes # (Manual) POC ABG pH POC ABG pO2 Sodium Potassium Chloride Carbon Dioxide BUN Creatinine Glucose POC Glucose 153 H 54 L 136 H Lactic Acid Phosphorus Magnesium Total Bilirubin Ammonia Total Creatine Kinase CK-MB (CK-2) C-Reactive Protein Albumin Urine WBC (Auto) 06/13/19 06/13/19 06/13/19 14:19 14:19 14:19 WBC RBC Hgb Hct MCV MCH RDW Seg Neuts % (Manual) Lymphocytes % (Manual) Monocytes % (Manual) Seg Neutrophils # Man Lymphocytes # (Manual) Monocytes # (Manual) POC ABG pH POC ABG pO2 Sodium 134 L D Potassium Chloride 89.0 L Carbon Dioxide 12 L D BUN 86 H Creatinine 7.8 H Glucose POC Glucose Lactic Acid 8.80 H* Phosphorus Magnesium Total Bilirubin 1.70 H Ammonia Total Creatine Kinase CK-MB (CK-2) C-Reactive Protein 4.10 H Albumin 3.6 L Urine WBC (Auto) 06/13/19 06/13/19 06/13/19 14:28 16:10 16:15 WBC RBC Hgb Hct MCV MCH RDW Seg Neuts % (Manual) Lymphocytes % (Manual) Monocytes % (Manual) Seg Neutrophils # Man Lymphocytes # (Manual) Monocytes # (Manual) POC ABG pH 7.530 H 7.474 H POC ABG pO2 239 H 183 H Sodium Potassium Chloride Carbon Dioxide BUN Creatinine Glucose POC Glucose Lactic Acid Phosphorus Magnesium Total Bilirubin Ammonia 97.0 H Total Creatine Kinase CK-MB (CK-2) C-Reactive Protein Albumin Urine WBC (Auto) 06/13/19 06/13/19 06/13/19 16:15 16:22 16:56 WBC RBC Hgb Hct MCV MCH RDW Seg Neuts % (Manual) Lymphocytes % (Manual) Monocytes % (Manual) Seg Neutrophils # Man Lymphocytes # (Manual) Monocytes # (Manual) POC ABG pH POC ABG pO2 Sodium Potassium Chloride Carbon Dioxide BUN Creatinine Glucose POC Glucose Lactic Acid 7.60 H* 7.90 H* Phosphorus Magnesium Total Bilirubin Ammonia Total Creatine Kinase CK-MB (CK-2) C-Reactive Protein 3.80 H Albumin Urine WBC (Auto) 06/13/19 06/13/19 06/13/19 18:05 19:01 21:18 WBC RBC Hgb Hct MCV MCH RDW Seg Neuts % (Manual) Lymphocytes % (Manual) Monocytes % (Manual) Seg Neutrophils # Man Lymphocytes # (Manual) Monocytes # (Manual) POC ABG pH POC ABG pO2 Sodium Potassium Chloride Carbon Dioxide BUN Creatinine Glucose POC Glucose Lactic Acid 5.30 H* 5.10 H* 3.70 H* Phosphorus Magnesium Total Bilirubin Ammonia Total Creatine Kinase CK-MB (CK-2) C-Reactive Protein Albumin Urine WBC (Auto) 06/13/19 06/13/19 06/14/19 21:47 22:00 00:13 WBC RBC Hgb Hct MCV MCH RDW Seg Neuts % (Manual) Lymphocytes % (Manual) Monocytes % (Manual) Seg Neutrophils # Man Lymphocytes # (Manual) Monocytes # (Manual) POC ABG pH POC ABG pO2 Sodium Potassium Chloride Carbon Dioxide BUN Creatinine Glucose POC Glucose 119 H Lactic Acid 3.70 H* Phosphorus Magnesium Total Bilirubin Ammonia Total Creatine Kinase CK-MB (CK-2) C-Reactive Protein Albumin Urine WBC (Auto) 66.0 H 06/14/19 06/14/19 06/14/19 04:21 04:45 04:45 WBC 19.1 H RBC 5.25 H Hgb Hct MCV 83 L MCH RDW Seg Neuts % (Manual) 83.0 H Lymphocytes % (Manual) 6.0 L Monocytes % (Manual) 10.0 H Seg Neutrophils # Man 15.9 H Lymphocytes # (Manual) 1.1 L Monocytes # (Manual) 1.9 H POC ABG pH 7.497 H POC ABG pO2 143 H Sodium 136 L Potassium Chloride 94.1 L Carbon Dioxide 20 L D BUN 96 H Creatinine 7.7 H Glucose 170 H POC Glucose Lactic Acid Phosphorus 6.40 H Magnesium Total Bilirubin Ammonia Total Creatine Kinase CK-MB (CK-2) C-Reactive Protein Albumin Urine WBC (Auto) 06/14/19 06/14/19 06/14/19 04:45 04:45 06:05 WBC RBC Hgb Hct MCV MCH RDW Seg Neuts % (Manual) Lymphocytes % (Manual) Monocytes % (Manual) Seg Neutrophils # Man Lymphocytes # (Manual) Monocytes # (Manual) POC ABG pH POC ABG pO2 Sodium Potassium Chloride Carbon Dioxide BUN Creatinine Glucose POC Glucose 155 H Lactic Acid 3.00 H* Phosphorus Magnesium Total Bilirubin Ammonia 96.0 H Total Creatine Kinase CK-MB (CK-2) C-Reactive Protein Albumin Urine WBC (Auto) 06/14/19 06/14/19 06/14/19 06:58 12:38 12:38 WBC RBC Hgb Hct MCV MCH RDW Seg Neuts % (Manual) Lymphocytes % (Manual) Monocytes % (Manual) Seg Neutrophils # Man Lymphocytes # (Manual) Monocytes # (Manual) POC ABG pH 7.543 H POC ABG pO2 115 H Sodium Potassium Chloride Carbon Dioxide BUN Creatinine Glucose POC Glucose 203 H Lactic Acid 2.50 H* Phosphorus Magnesium Total Bilirubin Ammonia Total Creatine Kinase CK-MB (CK-2) C-Reactive Protein Albumin Urine WBC (Auto) Chest x-ray: image reviewed (no focal infiltrate; ETT in good position) Allied health notes reviewed: nursing
[2019-06-14] MEDS ORDERED: DEXTROSE 50% IN WATER (25GM) 50 ML SYRINGE IV PRN (13:41)
--- NOTE | 2019-06-14 14:51 | History and Physical Report ---
History of Present Illness Date of examination: 06/14/19 Date of admission: 06/13/19 09:55 Past History Past Medical History: CAD, diabetes, hypertension, hyperlipidemia Past Surgical History: No surgical history Social history: lives with family, smoking, full code. denies: alcohol abuse (QUIT IN 2011) Family history: no significant family history Medications and Allergies Allergies Allergy/AdvReac Type Severity Reaction Status Date / Time No Known Allergies Allergy Verified 06/13/19 05:58 Active Meds: Active Medications Albuterol/Ipratropium (Duoneb *Not For Prn Use*) 1 ampul IH Q6HRT [facility] Last Admin: 06/14/19 09:20 Dose: 1 ampul Documented by: Dextrose (D50w (25gm) Syringe) 50 ml IV PRN PRN PRN Reason: Hypoglycemia Famotidine (Pepcid) 20 mg PO QDAY [facility] Last Admin: 06/14/19 10:27 Dose: 20 mg Documented by: Fentanyl (Sublimaze) 50 mcg IV Q10MIN PRN PRN Reason: ANALGESIA Heparin Sodium (Porcine) (Heparin) 5,000 unit SUB-Q Q12HR [facility] Last Admin: 06/14/19 10:28 Dose: 5,000 unit Documented by: Hydralazine HCl (Apresoline) 10 mg IV Q4HR PRN PRN Reason: HTN SBP>=170 Hydrophilic Ointment (Vaseline Lip Therapy) 1 applic TP Q2HR PRN PRN Reason: Dry Lips Sodium Chloride (Nacl 0.9%) 100 mls @ 999 mls/hr IV SUNDAR PRN PRN Reason: Hypotension Sodium Bicarbonate 150 meq/ (Dextrose) 1,150 mls @ 75 mls/hr IV DIRECT [facility] Last Admin: 06/13/19 15:00 Dose: 75 mls/hr Documented by: Ceftriaxone Sodium (Rocephin/Ns 1 Gm/50 Ml) 1 gm in 50 mls @ 100 mls/hr IV Q24HR [facility]; Protocol Last Admin: 06/14/19 10:27 Dose: 100 mls/hr Documented by: Fentanyl Citrate (Fentanyl Drip Premix) 2,000 mcg in 100 mls @ 5.67 mls/hr IV TITR [facility]; Protocol Last Titration: 06/14/19 08:50 Dose: 0 mcg/kg/hr, 0 mls/hr Documented by: Propofol (Diprivan 10 Mg/Ml) 1,000 mg in 100 mls @ 3.402 mls/hr IV TITR [facility]; P rotocol Last Titration: 06/14/19 08:51 Dose: 0 mcg/kg/min, 0 mls/hr Documented by: Insulin Human Regular (Humulin R) 0 units SUB-Q Q6HR [facility]; Protocol Lactulose (Cephulac) 20 gm PO Q6HR [facility] Last Admin: 06/14/19 06:23 Dose: 20 gm Documented by: Lorazepam (Ativan) 2 mg IV Q1H PRN PRN Reason: Agitation Last Admin: 06/13/19 15:39 Dose: 2 mg Documented by: Multi-Ingred Cream/Lotion/Oil/Oint (Artificial Tears Ophth Oint) 1 applic OU Q4HR PRN PRN Reason: Dry Eye(s) Sodium Chloride (Sodium Chloride Flush Syringe 10 Ml) 10 ml IV BID [facility] Last Admin: 06/14/19 10:29 Dose: 10 ml Documented by: Sodium Chloride (Sodium Chloride Flush Syringe 10 Ml) 10 ml IV PRN PRN PRN Reason: LINE FLUSH Exam - Constitutional Vitals: Temp Pulse Resp BP Pulse Ox 97.8 F 95 H 14 113/69 98 06/14/19 04:00 06/14/19 12:00 06/14/19 11:00 06/14/19 12:00 06/14/19 12:00 Results - Labs CBC & Chem 7: 06/14/19 04:45 06/14/19 04:45 Labs: Laboratory Last Values WBC 19.1 K/mm3 (4.5-11.0) H 06/14/19 04:45 RBC 5.25 M/mm3 (3.65-5.03) H 06/14/19 04:45 Hgb 14.4 gm/dl (11.8-15.2) 06/14/19 04:45 Hct 43.7 % (35.5-45.6) 06/14/19 04:45 MCV 83 fl (84-94) L 06/14/19 04:45 MCH 28 pg (28-32) 06/14/19 04:45 MCHC 33 % (32-34) 06/14/19 04:45 RDW 14.8 % (13.2-15.2) 06/14/19 04:45 Plt Count 186 K/mm3 (140-440) 06/14/19 04:45 [place] % (Auto) [employer] Services Team Leader 06/14/19 04:45 Add Manual Diff Complete 06/14/19 04:45 Total Counted 100 06/14/19 04:45 Seg Neuts % (Manual) 83.0 % (40.0-70.0) H 06/14/19 04:45 Band Neutrophils % 0 % 06/14/19 04:45 Lymphocytes % (Manual) 6.0 % (13.4-35.0) L 06/14/19 04:45 Reactive Lymphs % (Man) 0 % 06/14/19 04:45 Monocytes % (Manual) 10.0 % (0.0-7.3) H 06/14/19 04:45 Eosinophils % (Manual) 0 % (0.0-4.3) 06/14/19 04:45 Basophils % (Manual) 0 % (0.0-1.8) 06/14/19 04:45 Metamyelocytes % 1.0 % 06/14/19 04:45 Myelocytes % 0 % 06/14/19 04:45 Promyelocytes % 0 % 06/14/19 04:45 Blast Cells % 0 % 06/14/19 04:45 Nucleated RBC % Not Reportable 06/14/19 04:45 Seg Neutrophils # Man 15.9 K/mm3 (1.8-7.7) H 06/14/19 04:45 Band Neutrophils # 0.0 K/mm3 06/14/19 04:45 Lymphocytes # (Manual) 1.1 K/mm3 (1.2-5.4) L 06/14/19 04:45 Abs React Lymphs (Man) 0.0 K/mm3 06/14/19 04:45 Monocytes # (Manual) 1.9 K/mm3 (0.0-0.8) H 06/14/19 04:45 Eosinophils # (Manual) 0.0 K/mm3 (0.0-0.4) 06/14/19 04:45 Basophils # (Manual) 0.0 K/mm3 (0.0-0.1) 06/14/19 04:45 Metamyelocytes # 0.2 K/mm3 06/14/19 04:45 Myelocytes # 0.0 K/mm3 06/14/19 04:45 Promyelocytes # 0.0 K/mm3 06/14/19 04:45 Blast Cells # 0.0 K/mm3 06/14/19 04:45 WBC Morphology Not Reportable 06/14/19 04:45 Hypersegmented Neuts Not Reportable 06/14/19 04:45 Hyposegmented Neuts Not Reportable 06/14/19 04:45 Hypogranular Neuts Not Reportable 06/14/19 04:45 Smudge Cells Not Reportable 06/14/19 04:45 Toxic Granulation Not Reportable 06/14/19 04:45 Toxic Vacuolation Not Reportable 06/14/19 04:45 Dohle Bodies Not Reportable 06/14/19 04:45 Pelger-Huet Anomaly Not Reportable 06/14/19 04:45 Moy Rods Not Reportable 06/14/19 04:45 Platelet Estimate Consistent w auto 06/14/19 04:45 Clumped Platelets Not Reportable 06/14/19 04:45 Plt Clumps, EDTA Not Reportable 06/14/19 04:45 Large Platelets Not Reportable 06/14/19 04:45 Giant Platelets Not Reportable 06/14/19 04:45 Platelet Satelliting Not Reportable 06/14/19 04:45 Plt Morphology Comment Not Reportable 06/14/19 04:45 RBC Morphology Not Reportable 06/14/19 04:45 Dimorphic RBCs Not Reportable 06/14/19 04:45 Polychromasia Not Reportable 06/14/19 04:45 Hypochromasia Not Reportable 06/14/19 04:45 Poikilocytosis Few 06/14/19 04:45 Anisocytosis Few 06/14/19 04:45 Microcytosis Not Reportable 06/14/19 04:45 Macrocytosis Not Reportable 06/14/19 04:45 Spherocytes Not Reportable 06/14/19 04:45 Pappenheimer Bodies Not Reportable 06/14/19 04:45 Sickle Cells Not Reportable 06/14/19 04:45 Target Cells Not Reportable 06/14/19 04:45 Tear Drop Cells Not Reportable 06/14/19 04:45 Ovalocytes Not Reportable 06/14/19 04:45 Helmet Cells Not Reportable 06/14/19 04:45 [place] Bodies Not Reportable 06/14/19 04:45 Simpson Rings Not Reportable 06/14/19 04:45 Jaycob Cells Not Reportable 06/14/19 04:45 Bite Cells Not Reportable 06/14/19 04:45 Crenated Cell Not Reportable 06/14/19 04:45 Elliptocytes Not Reportable 06/14/19 04:45 Acanthocytes (Spur) Not Reportable 06/14/19 04:45 Rouleaux Not Reportable 06/14/19 04:45 Hemoglobin C Crystals Not Reportable 06/14/19 04:45 Schistocytes Not Reportable 06/14/19 04:45 Malaria parasites Not Reportable 06/14/19 04:45 ESR 1 mm/Hr (0-20) 06/13/19 14:19 Melo Bodies Not Reportable 06/14/19 04:45 Hem Pathologist Commnt No 06/14/19 04:45 POC ABG pH 7.543 (7.35-7.45) H 06/14/19 12:38 POC ABG pO2 115 (80-105) H 06/14/19 12:38 POC ABG HCO3 24.1 (22-26 mml/L) 06/14/19 12:38 POC ABG Total CO2 25 (23-27mmol/L) 06/14/19 12:38 POC ABG O2 Sat 99 06/14/19 12:38 POC ABG Base Excess 2 ((-2) - (+3)mmol/L) 06/14/19 12:38 FiO2 28 % 06/14/19 12:38 Sodium 136 mmol/L (137-145) L 06/14/19 04:45 Potassium 4.3 mmol/L (3.6-5.0) 06/14/19 04:45 Chloride 94.1 mmol/L (98-107) L 06/14/19 04:45 Carbon Dioxide 20 mmol/L (22-30) L D 06/14/19 04:45 Anion Gap 26 mmol/L 06/14/19 04:45 BUN 96 mg/dL (9-20) H 06/14/19 04:45 Creatinine 7.7 mg/dL (0.8-1.5) H 06/14/19 04:45 Estimated GFR 8 ml/min 06/14/19 04:45 BUN/Creatinine Ratio 12 % 06/14/19 04:45 Glucose 170 mg/dL (75-100) H 06/14/19 04:45 POC Glucose 203 (70-105) H 06/14/19 12:38 Lactic Acid 2.50 mmol/L (0.7-2.0) H* 06/14/19 06:58 Calcium 8.4 mg/dL (8.4-10.2) 06/14/19 04:45 Phosphorus 6.40 mg/dL (2.5-4.5) H 06/14/19 04:45 Magnesium 2.50 mg/dL (1.7-2.3) H 06/13/19 07:31 Total Bilirubin 1.70 mg/dL (0.1-1.2) H 06/13/19 14:19 AST 22 units/L (5-40) 06/13/19 14:19 ALT 24 units/L (7-56) 06/13/19 14:19 Alkaline Phosphatase 71 units/L (35-129) 06/13/19 14:19 Ammonia 96.0 umol/L (25-60) H 06/14/19 04:45 Total Creatine Kinase 409 units/L (55-170) H 06/13/19 07:31 CK-MB (CK-2) 15.9 ng/mL (0.0-4.0) H 06/13/19 07:31 CK-MB (CK-2) Rel Index 3.8 (0-4) 06/13/19 07:31 Troponin T < 0.010 ng/mL (0.00-0.029) 06/13/19 07:31 C-Reactive Protein 3.80 mg/dL (0.00-1.30) H 06/13/19 16:15 Total Protein 7.0 g/dL (6.3-8.2) 06/13/19 14:19 Albumin 3.6 g/dL (3.9-5) L 06/13/19 14:19 Albumin/Globulin Ratio 1.1 % 06/13/19 14:19 TSH 1.040 mlU/mL (0.270-4.200) 06/13/19 07:31 Free T4 1.03 ng/dL (0.76-1.46) 06/13/19 07:31 Urine Color Yellow (Yellow) 06/13/19 22:00 Urine Turbidity Slightly-cloudy (Clear) 06/13/19 22:00 Urine pH 5.0 (5.0-7.0) 06/13/19 22:00 Ur Specific [place] 1.011 (1.003-1.030) 06/13/19 22:00 Urine Protein 30 mg/dl mg/dL (Negative) 06/13/19 22:00 Urine Glucose (UA) Neg mg/dL (Negative) 06/13/19 22:00 Urine Ketones Tr mg/dL (Negative) 06/13/19 22:00 Urine Blood Lg (Negative) 06/13/19 22:00 Urine Nitrite Neg (Negative) 06/13/19 22:00 Urine Bilirubin Neg (Negative) 06/13/19 22:00 Urine Urobilinogen < 2.0 mg/dL (<2.0) 06/13/19 22:00 Ur Leukocyte Esterase Lg (Negative) 06/13/19 22:00 Urine WBC (Auto) 66.0 /HPF (0.0-6.0) H 06/13/19 22:00 Urine RBC (Auto) 114.0 /HPF (0.0-6.0) 06/13/19 22:00 Urine Mucus Few /HPF 06/13/19 22:00 Urine Opiates Screen Presumptive negative 06/13/19 22:00 Urine Methadone Screen Presumptive negative 06/13/19 22:00 Ur Barbiturates Screen Presumptive negative 06/13/19 22:00 Ur Phencyclidine Scrn Presumptive negative 06/13/19 22:00 Ur Amphetamines Screen Presumptive negative 06/13/19 22:00 U Benzodiazepines Scrn Presumptive negative 06/13/19 22:00 Urine Cocaine Screen Presumptive negative 06/13/19 22:00 U Marijuana (THC) Screen Presumptive negative 06/13/19 22:00 Drugs of Abuse Note Disclamer 06/13/19 22:00 Plasma/Serum Alcohol < 0.01 % (0-0.07) 06/13/19 07:31 Hepatitis A IgM Ab Non-reactive (NonReactive) 06/13/19 10:05 Hep Bs Antigen Non-reactive (Negative) 06/13/19 10:05 Hep B Core IgM Ab Non-reactive (NonReactive) 06/13/19 10:05 Hepatitis C Antibody Non-reactive (NonReactive) 06/13/19 10:05
--- NOTE | 2019-06-14 15:22 | Consultation ---
History of Present Illness - Reason for Consult Consult date: 06/14/19 sepsis Requesting physician: GUSTABO KING - History of Present Illness 69 y/o female with history of obesity, diabetes and hypertension admitted on due to be found down on the bathroom floor. Per , he was fighting a "stomach bug" last week. On Monday06/08/2019 he started complaining of nausea and vomiting multiple times associated with abdominal bloating and constipation. The next day he went to see PCP and was treated as a stomach bug with nausea meds and antiacid. Per , he has been having issues with urination for over 2 years - hesitancy, straining to void. He has never had his prostate check. Patient was not able to provide any history currently intubated. called EMS and found hypoglycemic. In the ED, temp 97.8, HR 80, R 28, O2 sat 98%, BP 130/77. WBC 22.7. Creat 12.6. K 7.5.Glucose 59. Lactate 8.8. UA large LE, wbc 66. CXR shows bilateral pulmonary venous congestion. Blood culture 06/13/2019 no growth so far. Trachea asp usual resp darwin. In the ED, accucheck was 59 s/p D50. Ct abdomen shows bladder markedly distended, moderate bilateral hydronephrosis, prostate gland is enlarged measuring 7.7 x 8.2x 6.5 cm. Bladder outlet obstruction should be considered. HD initiated. ID consulted for management of sepsis. Review of Systems: unable to obtain Past History Past Medical History: CAD, diabetes, hypertension, hyperlipidemia Past Surgical History: No surgical history Social history: lives with family, smoking, full code. denies: alcohol abuse (QUIT IN 2011) Family history: no significant family history Medications and Allergies Allergies Allergy/AdvReac Type Severity Reaction Status Date / Time No Known Allergies Allergy Verified 06/13/19 05:58 Active Meds: Active Medications Albuterol/Ipratropium (Duoneb *Not For Prn Use*) 1 ampul IH Q6HRT [facility] Last Admin: 06/14/19 09:20 Dose: 1 ampul Documented by: Dextrose (D50w (25gm) Syringe) 50 ml IV PRN PRN PRN Reason: Hypoglycemia Famotidine (Pepcid) 20 mg PO QDAY [facility] Last Admin: 06/14/19 10:27 Dose: 20 mg Documented by: Fentanyl (Sublimaze) 50 mcg IV Q10MIN PRN PRN Reason: ANALGESIA Heparin Sodium (Porcine) (Heparin) 5,000 unit SUB-Q Q12HR [facility] Last Admin: 06/14/19 10:28 Dose: 5,000 unit Documented by: Hydralazine HCl (Apresoline) 10 mg IV Q4HR PRN PRN Reason: HTN SBP>=170 Hydrophilic Ointment (Vaseline Lip Therapy) 1 applic TP Q2HR PRN PRN Reason: Dry Lips Sodium Chloride (Nacl 0.9%) 100 mls @ 999 mls/hr IV SUNDAR PRN PRN Reason: Hypotension Sodium Bicarbonate 150 meq/ (Dextrose) 1,150 mls @ 75 mls/hr IV DIRECT [facility] Last Admin: 06/13/19 15:00 Dose: 75 mls/hr Documented by: Ceftriaxone Sodium (Rocephin/Ns 1 Gm/50 Ml) 1 gm in 50 mls @ 100 mls/hr IV Q24HR [facility]; Protocol Last Admin: 06/14/19 10:27 Dose: 100 mls/hr Documented by: Fentanyl Citrate (Fentanyl Drip Premix) 2,000 mcg in 100 mls @ 5.67 mls/hr IV TITR [facility]; Protocol Last Titration: 06/14/19 08:50 Dose: 0 mcg/kg/hr, 0 mls/hr Documented by: Propofol (Diprivan 10 Mg/Ml) 1,000 mg in 100 mls @ 3.402 mls/hr IV TITR [facility]; Protocol Last Titration: 06/14/19 08:51 Dose: 0 mcg/kg/min, 0 mls/hr Documented by: Insulin Human Regular (Humulin R) 0 units SUB-Q Q6HR [facility]; Protocol Lactulose (Cephulac) 20 gm PO Q6HR [facility] Last Admin: 06/14/19 06:23 Dose: 20 gm Documented by: Lorazepam (Ativan) 2 mg IV Q1H PRN PRN Reason: Agitation Last Admin: 06/13/19 15:39 Dose: 2 mg Documented by: Multi-Ingred Cream/Lotion/Oil/Oint (Artificial Tears Ophth Oint) 1 applic OU Q4HR PRN PRN Reason: Dry Eye(s) Sodium Chloride (Sodium Chloride Flush Syringe 10 Ml) 10 ml IV BID [facility] Last Admin: 06/14/19 10:29 Dose: 10 ml Documented by: Sodium Chloride (Sodium Chloride Flush Syringe 10 Ml) 10 ml IV PRN PRN PRN Reason: LINE FLUSH Physical Examination - Physical Exam Narrative exam: General appearance: sedated on the vent Eyes: anicteric sclerae, moist conjunctivae; no lid-lag; PERRLA HENT: Atraumatic; oropharynx +ETT Lungs: CTA, CV: RRR no murmur Abdomen: Soft, non-tender Extremities: john leg mild edema Skin: no rash Psych: sedated Neuro: sedated - Constitutional Vitals: Vital Signs Temp Pulse Resp BP Pulse Ox 97.8 F 95 H 14 113/69 98 06/14/19 04:00 06/14/19 12:00 06/14/19 11:00 06/14/19 12:00 06/14/19 12:00 Temperature -Last 24 Hours Temperature 97.8 F Temperature 97.8 F Temperature 97.5 F Temperature 97.7 F Temperature 97.7 F Results - Labs CBC & Chem 7: 06/14/19 04:45 06/14/19 04:45 Labs: Abnormal lab results 06/13/19 06/13/19 06/13/19 Range/Units 14:19 14:19 14:19 WBC (4.5-11.0) K/mm3 RBC (3.65-5.03) M/mm3 MCV (84-94) fl Seg Neuts % (Manual) (40.0-70.0) % Lymphocytes % (Manual) (13.4-35.0) % Monocytes % (Manual) (0.0-7.3) % Seg Neutrophils # Man (1.8-7.7) K/mm3 Lymphocytes # (Manual) (1.2-5.4) K/mm3 Monocytes # (Manual) (0.0-0.8) K/mm3 POC ABG pH (7.35-7.45) POC ABG pO2 (80-105) Sodium 134 L D (137-145) mmol/L Chloride 89.0 L (98-107) mmol/L Carbon Dioxide 12 L D (22-30) mmol/L BUN 86 H (9-20) mg/dL Creatinine 7.8 H (0.8-1.5) mg/dL Glucose (75-100) mg/dL POC Glucose (70-105) Lactic Acid 8.80 H* (0.7-2.0) mmol/L Phosphorus (2.5-4.5) mg/dL Total Bilirubin 1.70 H (0.1-1.2) mg/dL Ammonia (25-60) umol/L C-Reactive Protein 4.10 H (0.00-1.30) mg/dL Albumin 3.6 L (3.9-5) g/dL Urine WBC (Auto) (0.0-6.0) /HPF 06/13/19 06/13/19 06/13/19 Range/Units 16:10 16:15 16:15 WBC (4.5-11.0) K/mm3 RBC (3.65-5.03) M/mm3 MCV (84-94) fl Seg Neuts % (Manual) (40.0-70.0) % Lymphocytes % (Manual) (13.4-35.0) % Monocytes % (Manual) (0.0-7.3) % Seg Neutrophils # Man (1.8-7.7) K/mm3 Lymphocytes # (Manual) (1.2-5.4) K/mm3 Monocytes # (Manual) (0.0-0.8) K/mm3 POC ABG pH 7.474 H (7.35-7.45) POC ABG pO2 183 H (80-105) Sodium (137-145) mmol/L Chloride (98-107) mmol/L Carbon Dioxide (22-30) mmol/L BUN (9-20) mg/dL Creatinine (0.8-1.5) mg/dL Glucose (75-100) mg/dL POC Glucose (70-105) Lactic Acid (0.7-2.0) mmol/L Phosphorus (2.5-4.5) mg/dL Total Bilirubin (0.1-1.2) mg/dL Ammonia 97.0 H (25-60) umol/L C-Reactive Protein 3.80 H (0.00-1.30) mg/dL Albumin (3.9-5) g/dL Urine WBC (Auto) (0.0-6.0) /HPF 06/13/19 06/13/19 06/13/19 Range/Units 16:22 16:56 18:05 WBC (4.5-11.0) K/mm3 RBC (3.65-5.03) M/mm3 MCV (84-94) fl Seg Neuts % (Manual) (40.0-70.0) % Lymphocytes % (Manual) (13.4-35.0) % Monocytes % (Manual) (0.0-7.3) % Seg Neutrophils # Man (1.8-7.7) K/mm3 Lymphocytes # (Manual) (1.2-5.4) K/mm3 Monocytes # (Manual) (0.0-0.8) K/mm3 POC ABG pH (7.35-7.45) POC ABG pO2 (80-105) Sodium (137-145) mmol/L Chloride (98-107) mmol/L Carbon Dioxide (22-30) mmol/L BUN (9-20) mg/dL Creatinine (0.8-1.5) mg/dL Glucose (75-100) mg/dL POC Glucose (70-105) Lactic Acid 7.60 H* 7.90 H* 5.30 H* (0.7-2.0) mmol/L Phosphorus (2.5-4.5) mg/dL Total Bilirubin (0.1-1.2) mg/dL Ammonia (25-60) umol/L C-Reactive Protein (0.00-1.30) mg/dL Albumin (3.9-5) g/dL Urine WBC (Auto) (0.0-6.0) /HPF 06/13/19 06/13/19 06/13/19 Range/Units 19:01 21:18 21:47 WBC (4.5-11.0) K/mm3 RBC (3.65-5.03) M/mm3 MCV (84-94) fl Seg Neuts % (Manual) (40.0-70.0) % Lymphocytes % (Manual) (13.4-35.0) % Monocytes % (Manual) (0.0-7.3) % Seg Neutrophils # Man (1.8-7.7) K/mm3 Lymphocytes # (Manual) (1.2-5.4) K/mm3 Monocytes # (Manual) (0.0-0.8) K/mm3 POC ABG pH (7.35-7.45) POC ABG pO2 (80-105) Sodium (137-145) mmol/L Chloride (98-107) mmol/L Carbon Dioxide (22-30) mmol/L BUN (9-20) mg/dL Creatinine (0.8-1.5) mg/dL Glucose (75-100) mg/dL POC Glucose (70-105) Lactic Acid 5.10 H* 3.70 H* 3.70 H* (0.7-2.0) mmol/L Phosphorus (2.5-4.5) mg/dL Total Bilirubin (0.1-1.2) mg/dL Ammonia (25-60) umol/L C-Reactive Protein (0.00-1.30) mg/dL Albumin (3.9-5) g/dL Urine WBC (Auto) (0.0-6.0) /HPF 06/13/19 06/14/19 06/14/19 Range/Units 22:00 00:13 04:21 WBC (4.5-11.0) K/mm3 RBC (3.65-5.03) M/mm3 MCV (84-94) fl Seg Neuts % (Manual) (40.0-70.0) % Lymphocytes % (Manual) (13.4-35.0) % Monocytes % (Manual) (0.0-7.3) % Seg Neutrophils # Man (1.8-7.7) K/mm3 Lymphocytes # (Manual) (1.2-5.4) K/mm3 Monocytes # (Manual) (0.0-0.8) K/mm3 POC ABG pH 7.497 H (7.35-7.45) POC ABG pO2 143 H (80-105) Sodium (137-145) mmol/L Chloride (98-107) mmol/L Carbon Dioxide (22-30) mmol/L BUN (9-20) mg/dL Creatinine (0.8-1.5) mg/dL Glucose (75-100) mg/dL POC Glucose 119 H (70-105) Lactic Acid (0.7-2.0) mmol/L Phosphorus (2.5-4.5) mg/dL Total Bilirubin (0.1-1.2) mg/dL Ammonia (25-60) umol/L C-Reactive Protein (0.00-1.30) mg/dL Albumin (3.9-5) g/dL Urine WBC (Auto) 66.0 H (0.0-6.0) /HPF 06/14/19 06/14/19 06/14/19 Range/Units 04:45 04:45 04:45 WBC 19.1 H (4.5-11.0) K/mm3 RBC 5.25 H (3.65-5.03) M/mm3 MCV 83 L (84-94) fl Seg Neuts % (Manual) 83.0 H (40.0-70.0) % Lymphocytes % (Manual) 6.0 L (13.4-35.0) % Monocytes % (Manual) 10.0 H (0.0-7.3) % Seg Neutrophils # Man 15.9 H (1.8-7.7) K/mm3 Lymphocytes # (Manual) 1.1 L (1.2-5.4) K/mm3 Monocytes # (Manual) 1.9 H (0.0-0.8) K/mm3 POC ABG pH (7.35-7.45) POC ABG pO2 (80-105) Sodium 136 L (137-145) mmol/L Chloride 94.1 L (98-107) mmol/L Carbon Dioxide 20 L D (22-30) mmol/L BUN 96 H (9-20) mg/dL Creatinine 7.7 H (0.8-1.5) mg/dL Glucose 170 H (75-100) mg/dL POC Glucose (70-105) Lactic Acid (0.7-2.0) mmol/L Phosphorus 6.40 H (2.5-4.5) mg/dL Total Bilirubin (0.1-1.2) mg/dL Ammonia 96.0 H (25-60) umol/L C-Reactive Protein (0.00-1.30) mg/dL Albumin (3.9-5) g/dL Urine WBC (Auto) (0.0-6.0) /HPF 06/14/19 06/14/19 06/14/19 Range/Units 04:45 06:05 06:58 WBC (4.5-11.0) K/mm3 RBC (3.65-5.03) M/mm3 MCV (84-94) fl Seg Neuts % (Manual) (40.0-70.0) % Lymphocytes % (Manual) (13.4-35.0) % Monocytes % (Manual) (0.0-7.3) % Seg Neutrophils # Man (1.8-7.7) K/mm3 Lymphocytes # (Manual) (1.2-5.4) K/mm3 Monocytes # (Manual) (0.0-0.8) K/mm3 POC ABG pH (7.35-7.45) POC ABG pO2 (80-105) Sodium (137-145) mmol/L Chloride (98-107) mmol/L Carbon Dioxide (22-30) mmol/L BUN (9-20) mg/dL Creatinine (0.8-1.5) mg/dL Glucose (75-100) mg/dL POC Glucose 155 H (70-105) Lactic Acid 3.00 H* 2.50 H* (0.7-2.0) mmol/L Phosphorus (2.5-4.5) mg/dL Total Bilirubin (0.1-1.2) mg/dL Ammonia (25-60) umol/L C-Reactive Protein (0.00-1.30) mg/dL Albumin (3.9-5) g/dL Urine WBC (Auto) (0.0-6.0) /HPF 06/14/19 06/14/19 Range/Units 12:38 12:38 WBC (4.5-11.0) K/mm3 RBC (3.65-5.03) M/mm3 MCV (84-94) fl Seg Neuts % (Manual) (40.0-70.0) % Lymphocytes % (Manual) (13.4-35.0) % Monocytes % (Manual) (0.0-7.3) % Seg Neutrophils # Man (1.8-7.7) K/mm3 Lymphocytes # (Manual) (1.2-5.4) K/mm3 Monocytes # (Manual) (0.0-0.8) K/mm3 POC ABG pH 7.543 H (7.35-7.45) POC ABG pO2 115 H (80-105) Sodium (137-145) mmol/L Chloride (98-107) mmol/L Carbon Dioxide (22-30) mmol/L BUN (9-20) mg/dL Creatinine (0.8-1.5) mg/dL Glucose (75-100) mg/dL POC Glucose 203 H (70-105) Lactic Acid (0.7-2.0) mmol/L Phosphorus (2.5-4.5) mg/dL Total Bilirubin (0.1-1.2) mg/dL Ammonia (25-60) umol/L C-Reactive Protein (0.00-1.30) mg/dL Albumin (3.9-5) g/dL Urine WBC (Auto) (0.0-6.0) /HPF Assessment and Plan Cultures: Blood culture 06/13/2019 no growth so far. Trachea asp usual resp darwin. Assessment: 69 y/o female with history of obesity, diabetes and hypertension admitted on due to be found down on the bathroom floor now with: 1) Severe sepsis: present on admission with leukocytosis and elevated lactate; likely source UTI. CXR with bilateral pulmonary venous congestion. Blood cultures pending. 2) Complicated UTI with bilateral hydronephrosis: likely bladder outlet obstruction.UA large LE, wbc 66. CT abdomen shows bladder markedly distended, moderate bilateral hydronephrosis, prostate gland is enlarged measuring 7.7 x 8.2x 6.5 cm. S/p montero cath placement. 3) NATHAN: from sepsis and bladder outlet obstruction. S/p HD 4) Acute encephalopathy: metabolic/sepsis 5) Acute respiratory failure: intubated Recommendations: follow blood culture and urine culture continue ceftriaxone 2 gm IV q day continue vancomycin renally adjusted - will stop soon if negative urine and blood cx for [facility] urology on board repeat CXR in 1-2 days ? aspiration pneumonitis monitor leukocytosis Will follow. Megan Colunga MD Infectious Diseases Bakery Assistant [facility] M [phone] O [phone]
--- NOTE | 2019-06-14 16:24 | Consultation ---
Past History Past Medical History: CAD, diabetes, hypertension, hyperlipidemia Past Surgical History: No surgical history Social history: lives with family, smoking, full code. denies: alcohol abuse (QUIT IN 2011) Family history: no significant family history Medications and Allergies Allergies Allergy/AdvReac Type Severity Reaction Status Date / Time No Known Allergies Allergy Verified 06/13/19 05:58 Active Meds: Active Medications Albuterol/Ipratropium (Duoneb *Not For Prn Use*) 1 ampul IH Q6HRT [facility] Last Admin: 06/14/19 15:38 Dose: 1 ampul Documented by: Dextrose (D50w (25gm) Syringe) 50 ml IV PRN PRN PRN Reason: Hypoglycemia Famotidine (Pepcid) 20 mg PO QDAY [facility] Last Admin: 06/14/19 10:27 Dose: 20 mg Documented by: Fentanyl (Sublimaze) 50 mcg IV Q10MIN PRN PRN Reason: ANALGESIA Heparin Sodium (Porcine) (Heparin) 5,000 unit SUB-Q Q12HR [facility] Last Admin: 06/14/19 10:28 Dose: 5,000 unit Documented by: Hydralazine HCl (Apresoline) 10 mg IV Q4HR PRN PRN Reason: HTN SBP>=170 Hydrophilic Ointment (Vaseline Lip Therapy) 1 applic TP Q2HR PRN PRN Reason: Dry Lips Sodium Chloride (Nacl 0.9%) 100 mls @ 999 mls/hr IV SUNDAR PRN PRN Reason: Hypotension Sodium Bicarbonate 150 meq/ (Dextrose) 1,150 mls @ 75 mls/hr IV DIRECT [facility] Last Admin: 06/13/19 15:00 Dose: 75 mls/hr Documented by: Ceftriaxone Sodium (Rocephin/Ns 1 Gm/50 Ml) 1 gm in 50 mls @ 100 mls/hr IV Q24HR SANGE[facility]; Protocol Last Admin: 06/14/19 10:27 Dose: 100 mls/hr Documented by: Fentanyl Citrate (Fentanyl Drip Premix) 2,000 mcg in 100 mls @ 5.67 mls/hr IV TITR SANGEETHA; Protocol Last Titration: 06/14/19 08:50 Dose: 0 mcg/kg/hr, 0 mls/hr Documented by: Propofol (Diprivan 10 Mg/Ml) 1,000 mg in 100 mls @ 3.402 mls/hr IV TITR SANGEETHA; Protocol Last Titration: 06/14/19 08:51 Dose: 0 mcg/kg/min, 0 mls/hr Documented by: Insulin Human Regular (Humulin R) 0 units SUB-Q Q6HR [facility]; Protocol Lactulose (Cephulac) 20 gm PO Q6HR [facility] Last Admin: 06/14/19 06:23 Dose: 20 gm Documented by: Lorazepam (Ativan) 2 mg IV Q1H PRN PRN Reason: Agitation Last Admin: 06/13/19 15:39 Dose: 2 mg Documented by: Multi-Ingred Cream/Lotion/Oil/Oint (Artificial Tears Ophth Oint) 1 applic OU Q4HR PRN PRN Reason: Dry Eye(s) Sodium Chloride (Sodium Chloride Flush Syringe 10 Ml) 10 ml IV BID SANGEET[facility] Last Admin: 06/14/19 10:29 Dose: 10 ml Documented by: Sodium Chloride (Sodium Chloride Flush Syringe 10 Ml) 10 ml IV PRN PRN PRN Reason: LINE FLUSH Physical Examination - Vital Signs Vital Signs: Vital Signs Temp Pulse Resp BP Pulse Ox 97.8 F 80 28 H 130/77 98 06/13/19 05:58 06/13/19 05:58 06/13/19 05:58 06/13/19 05:58 06/13/19 05:58 Results - Laboratory Findings CBC and BMP: 06/14/19 04:45 06/14/19 04:45 Abnormal Lab Findings: Abnormal Labs 06/13/19 06/13/19 06/13/19 06:13 06:50 06:50 WBC 22.7 H RBC 5.69 H Hgb 15.5 H Hct 47.8 H MCV MCH 27 L RDW 15.6 H Seg Neuts % (Manual) 89.0 H Lymphocytes % (Manual) 4.0 L Monocytes % (Manual) Seg Neutrophils # Man 20.2 H Lymphocytes # (Manual) 0.9 L Monocytes # (Manual) 1.4 H POC ABG pH POC ABG pCO2 POC ABG pO2 Sodium 126 L Potassium 7.5 H* Chloride 83.9 L Carbon Dioxide 5 L* BUN 126 H Creatinine 12.6 H Glucose 143 H POC Glucose 59 L Lactic Acid Phosphorus Magnesium Total Bilirubin Ammonia Total Creatine Kinase CK-MB (CK-2) C-Reactive Protein Albumin 3.6 L Urine WBC (Auto) 06/13/19 06/13/19 06/13/19 07:09 07:31 07:31 WBC RBC Hgb Hct MCV MCH RDW Seg Neuts % (Manual) Lymphocytes % (Manual) Monocytes % (Manual) Seg Neutrophils # Man Lymphocytes # (Manual) Monocytes # (Manual) POC ABG pH POC ABG pCO2 POC ABG pO2 Sodium Potassium Chloride Carbon Dioxide BUN Creatinine Glucose POC Glucose 117 H Lactic Acid Phosphorus Magnesium 2.50 H Total Bilirubin Ammonia 408.0 H Total Creatine Kinase 409 H CK-MB (CK-2) 15.9 H C-Reactive Protein Albumin Urine WBC (Auto) 06/13/19 06/13/19 06/13/19 09:21 10:19 10:42 WBC RBC Hgb Hct MCV MCH RDW Seg Neuts % (Manual) Lymphocytes % (Manual) Monocytes % (Manual) Seg Neutrophils # Man Lymphocytes # (Manual) Monocytes # (Manual) POC ABG pH POC ABG pCO2 POC ABG pO2 Sodium Potassium Chloride Carbon Dioxide BUN Creatinine Glucose POC Glucose 153 H 54 L 136 H Lactic Acid Phosphorus Magnesium Total Bilirubin Ammonia Total Creatine Kinase CK-MB (CK-2) C-Reactive Protein Albumin Urine WBC (Auto) 06/13/19 06/13/19 06/13/19 14:19 14:19 14:19 WBC RBC Hgb Hct MCV MCH RDW Seg Neuts % (Manual) Lymphocytes % (Manual) Monocytes % (Manual) Seg Neutrophils # Man Lymphocytes # (Manual) Monocytes # (Manual) POC ABG pH POC ABG pCO2 POC ABG pO2 Sodium 134 L D Potassium Chloride 89.0 L Carbon Dioxide 12 L D BUN 86 H Creatinine 7.8 H Glucose POC Glucose Lactic Acid 8.80 H* Phosphorus Magnesium Total Bilirubin 1.70 H Ammonia Total Creatine Kinase CK-MB (CK-2) C-Reactive Protein 4.10 H Albumin 3.6 L Urine WBC (Auto) 06/13/19 06/13/19 06/13/19 14:28 16:10 16:15 WBC RBC Hgb Hct MCV MCH RDW Seg Neuts % (Manual) Lymphocytes % (Manual) Monocytes % (Manual) Seg Neutrophils # Man Lymphocytes # (Manual) Monocytes # (Manual) POC ABG pH 7.530 H 7.474 H POC ABG pCO2 POC ABG pO2 239 H 183 H Sodium Potassium Chloride Carbon Dioxide BUN Creatinine Glucose POC Glucose Lactic Acid Phosphorus Magnesium Total Bilirubin Ammonia 97.0 H Total Creatine Kinase CK-MB (CK-2) C-Reactive Protein Albumin Urine WBC (Auto) 06/13/19 06/13/19 06/13/19 16:15 16:22 16:56 WBC RBC Hgb Hct MCV MCH RDW Seg Neuts % (Manual) Lymphocytes % (Manual) Monocytes % (Manual) Seg Neutrophils # Man Lymphocytes # (Manual) Monocytes # (Manual) POC ABG pH POC ABG pCO2 POC ABG pO2 Sodium Potassium Chloride Carbon Dioxide BUN Creatinine Glucose POC Glucose Lactic Acid 7.60 H* 7.90 H* Phosphorus Magnesium Total Bilirubin Ammonia Total Creatine Kinase CK-MB (CK-2) C-Reactive Protein 3.80 H Albumin Urine WBC (Auto) 06/13/19 06/13/19 06/13/19 18:05 19:01 21:18 WBC RBC Hgb Hct MCV MCH RDW Seg Neuts % (Manual) Lymphocytes % (Manual) Monocytes % (Manual) Seg Neutrophils # Man Lymphocytes # (Manual) Monocytes # (Manual) POC ABG pH POC ABG pCO2 POC ABG pO2 Sodium Potassium Chloride Carbon Dioxide BUN Creatinine Glucose POC Glucose Lactic Acid 5.30 H* 5.10 H* 3.70 H* Phosphorus Magnesium Total Bilirubin Ammonia Total Creatine Kinase CK-MB (CK-2) C-Reactive Protein Albumin Urine WBC (Auto) 06/13/19 06/13/19 06/14/19 21:47 22:00 00:13 WBC RBC Hgb Hct MCV MCH RDW Seg Neuts % (Manual) Lymphocytes % (Manual) Monocytes % (Manual) Seg Neutrophils # Man Lymphocytes # (Manual) Monocytes # (Manual) POC ABG pH POC ABG pCO2 POC ABG pO2 Sodium Potassium Chloride Carbon Dioxide BUN Creatinine Glucose POC Glucose 119 H Lactic Acid 3.70 H* Phosphorus Magnesium Total Bilirubin Ammonia Total Creatine Kinase CK-MB (CK-2) C-Reactive Protein Albumin Urine WBC (Auto) 66.0 H 06/14/19 06/14/19 06/14/19 04:21 04:45 04:45 WBC 19.1 H RBC 5.25 H Hgb Hct MCV 83 L MCH RDW Seg Neuts % (Manual) 83.0 H Lymphocytes % (Manual) 6.0 L Monocytes % (Manual) 10.0 H Seg Neutrophils # Man 15.9 H Lymphocytes # (Manual) 1.1 L Monocytes # (Manual) 1.9 H POC ABG pH 7.497 H POC ABG pCO2 < 30 L POC ABG pO2 143 H Sodium 136 L Potassium Chloride 94.1 L Carbon Dioxide 20 L D BUN 96 H Creatinine 7.7 H Glucose 170 H POC Glucose Lactic Acid Phosphorus 6.40 H Magnesium Total Bilirubin Ammonia Total Creatine Kinase CK-MB (CK-2) C-Reactive Protein Albumin Urine WBC (Auto) 06/14/19 06/14/19 06/14/19 04:45 04:45 06:05 WBC RBC Hgb Hct MCV MCH RDW Seg Neuts % (Manual) Lymphocytes % (Manual) Monocytes % (Manual) Seg Neutrophils # Man Lymphocytes # (Manual) Monocytes # (Manual) POC ABG pH POC ABG pCO2 POC ABG pO2 Sodium Potassium Chloride Carbon Dioxide BUN Creatinine Glucose POC Glucose 155 H Lactic Acid 3.00 H* Phosphorus Magnesium Total Bilirubin Ammonia 96.0 H Total Creatine Kinase CK-MB (CK-2) C-Reactive Protein Albumin Urine WBC (Auto) 06/14/19 06/14/19 06/14/19 06:58 12:38 12:38 WBC RBC Hgb Hct MCV MCH RDW Seg Neuts % (Manual) Lymphocytes % (Manual) Monocytes % (Manual) Seg Neutrophils # Man Lymphocytes # (Manual) Monocytes # (Manual) POC ABG pH 7.543 H POC ABG pCO2 POC ABG pO2 115 H Sodium Potassium Chloride Carbon Dioxide BUN Creatinine Glucose POC Glucose 203 H Lactic Acid 2.50 H* Phosphorus Magnesium Total Bilirubin Ammonia Total Creatine Kinase CK-MB (CK-2) C-Reactive Protein Albumin Urine WBC (Auto) Assessment and Plan 69 YR OLD MALE WITH HISTORY OF HYPERTENSION,DIABETES, HYPERLIPEDEMIA WHO DEVELOPED AN EPIOSDE OF NAUSEA AND VOMITTING ON 06/08/2019 FOR WHICH HE WAS SEEN BY HIS PRIMARY CARE PHYSICIAN ON . HE WAS GIVEN MEDICATION FOR NAUSEA AND ANTACID AND WAS RECOMMENDED TO SEE HER GAIN IN FEW DAYS IF NO RESPONSE. PATIENT CONTINUE D TO FEEL UNWELL AND THE WAS PLANING TO TAKE HIM BACK TO PRIMARY CARE IN THE MORNING OF 06/13/2019/ IN EARLY AM OF 06/13/2019 HE WAS FOUND UNRESPONSIVE AND EMS WAS CALLED WHO STATED TO HIS THAT HIS BLOOD SUGAR WAS LOW AND GAVE HIM SUPPLEMENTAL GLUCOSE. IN THE ER HIS ACCU CHECK WAS 59,WORK UP SHOWED EVIDENCE OF INFECTION WITH INCREASED WBC AND INCREASED NEUTROPHIL COUNT.LAB SHOWED HIS BUN WAS MORE THAN 100 AND CREATININE WAS MORE THAN 7.7. SERUM POTASSIUM WAS MORE THAN 7. HE WAS TAKEN FOR DIALYSIS WHICH HAD TO BE STOPPED IN 2 HRS DUE TO TACHYPNEA, PATIENT WAS TRANSFERRED TO ICU AND WAS INTUBATED. PHYSICAL EXAMINATION. PATIENT IS VERBALLY UNRESPONSIVE, RESPONDS TO PAINFUL STIMULI BY FACIAL GRIMACING, HAS SPONTANEOUS BLINKING, PUPILS REACT TO LIGHT, NO FACIAL ASYMMETRY WAS NOTED MOVES ALL FOUR EXTREMITIES REFLEXES- LEFT LOWER EXTREMITY REFLEXES ARE INCREASED WITH UP GOING TOE ON THE LEFT MOVEMENT OF THE LEFT LOWER EXTREMITIES SEEMED TO BE LITTLE LIMITED COMPARED TO THE RT LOWER EXTREMITY, SENSORY EXAMINATION WAS GROSSLY WITH IN NORMAL LIMIT WITH IN LIMITATION OF EXAMINATION. IMPRESSION; 1. SEPTIC METABOLIC ENCEPHALOPATHY FROM ON GOING INFECTION AND ADVANCED RENAL FAILURE 2. I HAVE REVIEWED THE EEG, PATIENT DOES NOT HAVE ELECTRICAL STATUS OR ANY SEIZURE ACTIVITY 3. LEFT SIDED UP GOING TOE WITH INCREASED LEFT LOWER EXTREMITY REFLEXES SUGGEST THE POSSIBILITY OF STRUCTURAL LESION IN THE RT HEMISPHERE RECOMMEND. 1. PLEASE CONTINUE ANTIBIOTICS AND OTHER SUPPORTIVE MEASURES. 2. MRI OF BRAIN WITH OUT CONTRAST WHEN PATIENT IS MORE STABLE AND DOES NOT MOVE
[2019-06-14] MEDS: INSULIN REGULAR, HUMAN 100 UNITS/1 ML SUB-Q SCH ×2 (17:13→23:49)
[2019-06-14] MEDS ORDERED: cefTRIAXone/NS 2 GM/100 ML 2 GM/100 ML BAG IV SCH (18:00)
[2019-06-14] MEDS: cefTRIAXone/NS 2 GM/100 ML 2 GM/100 ML BAG IV SCH (19:02)
[2019-06-14] MEDS: LORazepam 2 MG/ML VIAL IV PRN (22:48)
[2019-06-14] MEDS: SODIUM BICARBONATE 150 MEQ in DEXTROSE 5% IN WATER 1,000 ML IV SCH (22:53)
[2019-06-15] MEDS: IPRATROPIUM/ALBUTEROL SULFATE 3 ML AMPUL.NEB IH SCH ×4 (02:24→20:58)
[2019-06-15] MEDS: fentaNYL 100 MCG/2 ML INJ IV PRN (02:59)
[2019-06-15 05:38] LABS: Calcium 8.1 mg/dL (8.4-10.2)
[2019-06-15] MEDS ORDERED: POTASSIUM CHLORIDE 20 MEQ PACKET FEEDTUBE ONE ×2 (06:09→18:00)
[2019-06-15] MEDS: INSULIN REGULAR, HUMAN 100 UNITS/1 ML SUB-Q SCH ×3 (06:56→18:16)
[2019-06-15] MEDS: LACTULOSE 20 GM/30 ML ORAL LIQD PO SCH ×3 (07:15→21:31)
[2019-06-15] MEDS: cefTRIAXone/NS 2 GM/100 ML 2 GM/100 ML BAG IV SCH (10:43)
[2019-06-15] MEDS: POTASSIUM CHLORIDE 10 MEQ 10 MEQ/100 ML BAG IV SCH ×4 (10:44→13:58)
[2019-06-15] MEDS: HEPARIN 5,000 UNIT/1 ML VIAL SUB-Q SCH ×2 (10:44→21:31)
[2019-06-15] MEDS: FAMOTIDINE 20 MG TAB PO SCH (10:44)
--- NOTE | 2019-06-15 11:55 | Progress Note ---
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 DVT/GI prophy case discussed with family and other treatment team The high probability of a clinically significant, sudden or life threatening de terioration of the [PULMONARY, RENAL, NEURO] system(s) required my full and direct attention, intervention and personal management. The aggregate critical care time was [75] minutes. This time is in addition to time spent performing reported procedures but includes the following: [X] Data Review and interpretation [X] Patient assessment and monitoring of vital signs [X] Documentation [X] Medication orders and management Advance Directives: Yes Plan of care discussed with patient/family: Yes Subjective Date of service: 06/15/19 Principal diagnosis: retention Interval history: 69 year old male with PMH of Obesity, DM Type 2, HTN, presenting to the ED today via EMS after he was found on the bathroom floor and unresponsive pre the . The spouse reports that for about a year she has noticed that the patient has difficulty with urination, how ever the patient has not been keen about addressing the issue. In the last week the patient began to complain of adominal pain and on the 08 of June startated experince nasuea, with vomiting and difficulty "Using the Bathroom" HE WAS SEEN BY HIS [place] PCP on 06/10/19 and was given Rx for prilosec and zofran. He was found on the bathroom floor early this morning. EMS found pt to be hypoglycemic (value unknown). In the ED the pt's accucheck was 59, k OF >7, BUN >100 and improved after D50. His MS remain unchanged. He was recommended for admission and underwent an emergent placement of vascath for dialysis. He sustained 2 hrs of Dialysis but decompensated and required elective intubation due to persistent Tachypenia Objective - Constitutional Vitals: Vital Signs - 12hr 06/15/19 06/15/19 06/15/19 00:00 00:18 00:30 Temperature Pulse Rate 94 H 89 93 H Pulse Rate [ Anterior Bilateral] Respiratory 17 18 17 Rate Respiratory Rate [Anterior Bilateral] Blood Pressure 116/68 114/70 115/68 O2 Sat by Pulse 99 99 100 Oximetry 06/15/19 06/15/19 06/15/19 01:00 01:30 02:00 Temperature Pulse Rate 91 H 90 89 Pulse Rate [ Anterior Bilateral] Respiratory 17 18 16 Rate Respiratory Rate [Anterior Bilateral] Blood Pressure 121/67 116/69 120/69 O2 Sat by Pulse 99 99 100 Oximetry 06/15/19 06/15/19 06/15/19 02:30 02:31 03:00 Temperature Pulse Rate 98 H 89 Pulse Rate [ 88 Anterior Bilateral] Respiratory 19 14 Rate Respiratory 18 Rate [Anterior Bilateral] Blood Pressure 150/93 126/76 O2 Sat by Pulse 100 99 Oximetry 06/15/19 06/15/19 06/15/19 03:30 03:38 04:00 Temperature 98.7 F Pulse Rate 89 85 Pulse Rate [ Anterior Bilateral] Respiratory 16 18 Rate Respiratory Rate [Anterior Bilateral] Blood Pressure 124/79 136/85 O2 Sat by Pulse 99 100 Oximetry 06/15/19 06/15/19 06/15/19 04:27 04:30 05:00 Temperature Pulse Rate 87 87 87 Pulse Rate [ Anterior Bilateral] Respiratory 12 14 13 Rate Respiratory Rate [Anterior Bilateral] Blood Pressure 134/79 127/80 134/79 O2 Sat by Pulse 99 99 99 Oximetry 06/15/19 06/15/19 06/15/19 05:30 06:00 06:30 Temperature Pulse Rate 86 83 85 Pulse Rate [ Anterior Bilateral] Respiratory 14 12 12 Rate Respiratory Rate [Anterior Bilateral] Blood Pressure 148/84 142/80 141/80 O2 Sat by Pulse 99 99 99 Oximetry 06/15/19 06/15/19 06/15/19 07:01 07:30 08:00 Temperature 98.4 F Pulse Rate 84 90 88 Pulse Rate [ 84 Anterior Bilateral] Respiratory 15 13 18 Rate Respiratory 12 Rate [Anterior Bilateral] Blood Pressure 129/81 149/90 154/86 O2 Sat by Pulse 100 99 99 Oximetry 06/15/19 06/15/19 06/15/19 08:30 09:00 09:31 Temperature Pulse Rate 87 84 82 Pulse Rate [ Anterior Bilateral] Respiratory 14 13 13 Rate Respiratory Rate [Anterior Bilateral] Blood Pressure 154/86 140/80 143/83 O2 Sat by Pulse 99 98 97 Oximetry General appearance: Present: no acute distress, well-nourished - EENT Eyes: PERRL, EOM intact ENT: hearing intact, clear oral mucosa Ears: bilateral: normal - Neck Neck: supple, normal ROM - Respiratory Respiratory effort: normal Respiratory: bilateral: CTA - Breasts Breasts: normal - Cardiovascular Rhythm: regular Heart Sounds: Present: S1 & S2. Absent: gallop, rub Extremities: pulses intact, No edema, normal color, Full ROM - Gastrointestinal General gastrointestinal: Present: soft, non-tender, non-distended, normal bowel sounds Rectal Exam: deferred - Genitourinary Male genitourinary: normal - Integumentary Integumentary: clear, warm, dry - Musculoskeletal Musculoskeletal: generalized weakness - Neurologic Neurologic: moves all extremities - Allied health notes Allied health notes reviewed: nursing, case management - Labs CBC & Chem 7: 06/14/19 04:45 06/15/19 04:51 Labs: Abnormal lab results 06/14/19 06/14/19 06/14/19 Range/Units 04:21 12:38 12:38 POC ABG pH 7.543 H (7.35-7.45) POC ABG pCO2 < 30 L (35-45) POC ABG pO2 115 H (80-105) Potassium (3.6-5.0) mmol/L Chloride (98-107) mmol/L BUN (9-20) mg/dL Creatinine (0.8-1.5) mg/dL Glucose (75-100) mg/dL POC Glucose 203 H (70-105) Lactic Acid (0.7-2.0) mmol/L Calcium (8.4-10.2) mg/dL 06/14/19 06/14/19 06/14/19 Range/Units 15:49 17:14 18:05 POC ABG pH (7.35-7.45) POC ABG pCO2 (35-45) POC ABG pO2 (80-105) Potassium (3.6-5.0) mmol/L Chloride (98-107) mmol/L BUN (9-20) mg/dL Creatinine (0.8-1.5) mg/dL Glucose (75-100) mg/dL POC Glucose 198 H (70-105) Lactic Acid 2.10 H* 2.10 H* (0.7-2.0) mmol/L Calcium (8.4-10.2) mg/dL 06/14/19 06/14/19 06/15/19 Range/Units : 23:40 04:44 POC ABG pH 7.563 H (7.35-7.45) POC ABG pCO2 34.2 L (35-45) POC ABG pO2 113 H (80-105) Potassium (3.6-5.0) mmol/L Chloride (98-107) mmol/L BUN (9-20) mg/dL Creatinine (0.8-1.5) mg/dL Glucose (75-100) mg/dL POC Glucose 210 H (70-105) Lactic Acid 2.10 H* (0.7-2.0) mmol/L Calcium (8.4-10.2) mg/dL 06/15/19 06/15/19 Range/Units 04:51 05:31 POC ABG pH (7.35-7.45) POC ABG pCO2 (35-45) POC ABG pO2 (80-105) Potassium 2.8 L* D (3.6-5.0) mmol/L Chloride 97.7 L (98-107) mmol/L BUN 74 H (9-20) mg/dL Creatinine 4.6 H (0.8-1.5) mg/dL Glucose 174 H (75-100) mg/dL POC Glucose 151 H (70-105) Lactic Acid (0.7-2.0) mmol/L Calcium 8.1 L (8.4-10.2) mg/dL
--- NOTE | 2019-06-15 11:59 | Progress Note ---
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 DVT/GI prophy case discussed with family and other treatment team The high probability of a clinically significant, sudden or life threatening de terioration of the [PULMONARY, RENAL, NEURO] system(s) required my full and direct attention, intervention and personal management. The aggregate critical care time was [35] minutes. This time is in addition to time spent performing reported procedures but includes the following: [X] Data Review and interpretation [X] Patient assessment and monitoring of vital signs [X] Documentation [X] Medication orders and management Advance Directives: Yes Plan of care discussed with patient/family: Yes Subjective Date of service: 06/14/19 Principal diagnosis: retention Interval history: 69 year old male with PMH of Obesity, DM Type 2, HTN, presenting to the ED today via EMS after he was found on the bathroom floor and unresponsive pre the . The spouse reports that for about a year she has noticed that the patient has difficulty with urination, how ever the patient has not been keen about addressing the issue. In the last week the patient began to complain of adominal pain and on the 08 of June startated experince nasuea, with vomiting and difficulty "Using the Bathroom" HE WAS SEEN BY HIS [place] [facility] PCP on 06/10/19 and was given Rx for prilosec and zofran. He was found on the bathroom floor early this morning. EMS found pt to be hypoglycemic (value unknown). In the ED the pt's accucheck was 59, k OF >7, BUN >100 and improved after D50. His MS remain unchanged. He was recommended for admission and underwent an emergent placement of vascath for dialysis. He sustained 2 hrs of Dialysis but decompensated and required elective intubation due to persistent Tachypenia Objective - Constitutional Vitals: Vital Signs - 12hr 06/15/19 06/15/19 06/15/19 00:00 00:18 00:30 Temperature Pulse Rate 94 H 89 93 H Pulse Rate [ Anterior Bilateral] Respiratory 17 18 17 Rate Respiratory Rate [Anterior Bilateral] Blood Pressure 116/68 114/70 115/68 O2 Sat by Pulse 99 99 100 Oximetry 06/15/19 06/15/19 06/15/19 01:00 01:30 02:00 Temperature Pulse Rate 91 H 90 89 Pulse Rate [ Anterior Bilateral] Respiratory 17 18 16 Rate Respiratory Rate [Anterior Bilateral] Blood Pressure 121/67 116/69 120/69 O2 Sat by Pulse 99 99 100 Oximetry 06/15/19 06/15/19 06/15/19 02:30 02:31 03:00 Temperature Pulse Rate 98 H 89 Pulse Rate [ 88 Anterior Bilateral] Respiratory 19 14 Rate Respiratory 18 Rate [Anterior Bilateral] Blood Pressure 150/93 126/76 O2 Sat by Pulse 100 99 Oximetry 06/15/19 06/15/19 06/15/19 03:30 03:38 04:00 Temperature 98.7 F Pulse Rate 89 85 Pulse Rate [ Anterior Bilateral] Respiratory 16 18 Rate Respiratory Rate [Anterior Bilateral] Blood Pressure 124/79 136/85 O2 Sat by Pulse 99 100 Oximetry 06/15/19 06/15/19 06/15/19 04:27 04:30 05:00 Temperature Pulse Rate 87 87 87 Pulse Rate [ Anterior Bilateral] Respiratory 12 14 13 Rate Respiratory Rate [Anterior Bilateral] Blood Pressure 134/79 127/80 134/79 O2 Sat by Pulse 99 99 99 Oximetry 06/15/19 06/15/19 06/15/19 05:30 06:00 06:30 Temperature Pulse Rate 86 83 85 Pulse Rate [ Anterior Bilateral] Respiratory 14 12 12 Rate Respiratory Rate [Anterior Bilateral] Blood Pressure 148/84 142/80 141/80 O2 Sat by Pulse 99 99 99 Oximetry 06/15/19 06/15/19 06/15/19 07:01 07:30 08:00 Temperature 98.4 F Pulse Rate 84 90 88 Pulse Rate [ 84 Anterior Bilateral] Respiratory 15 13 18 Rate Respiratory 12 Rate [Anterior Bilateral] Blood Pressure 129/81 149/90 154/86 O2 Sat by Pulse 100 99 99 Oximetry 06/15/19 06/15/19 06/15/19 08:30 09:00 09:31 Temperature Pulse Rate 87 84 82 Pulse Rate [ Anterior Bilateral] Respiratory 14 13 13 Rate Respiratory Rate [Anterior Bilateral] Blood Pressure 154/86 140/80 143/83 O2 Sat by Pulse 99 98 97 Oximetry General appearance: Present: no acute distress, well-nourished - EENT Eyes: PERRL, EOM intact ENT: hearing intact, clear oral mucosa Ears: bilateral: normal - Neck Neck: supple, normal ROM - Respiratory Respiratory effort: normal Respiratory: bilateral: CTA - Breasts Breasts: normal - Cardiovascular Rhythm: regular Heart Sounds: Present: S1 & S2. Absent: gallop, rub Extremities: pulses intact, No edema, normal color, Full ROM - Gastrointestinal General gastrointestinal: Present: soft, non-tender, non-distended, normal bowel sounds - Genitourinary Male genitourinary: normal - Integumentary Integumentary: clear, warm, dry - Musculoskeletal Musculoskeletal: 1, strength equal bilaterally - Neurologic Neurologic: moves all extremities - Psychiatric Psychiatric: memory intact, appropriate mood/affect, intact judgment & insight - Labs CBC & Chem 7: 06/14/19 04:45 06/15/19 04:51 Labs: Abnormal lab results 06/14/19 06/14/19 06/14/19 Range/Units 04:21 12:38 12:38 POC ABG pH 7.543 H (7.35-7.45) POC ABG pCO2 < 30 L (35-45) POC ABG pO2 115 H (80-105) Potassium (3.6-5.0) mmol/L Chloride (98-107) mmol/L BUN (9-20) mg/dL Creatinine (0.8-1.5) mg/dL Glucose (75-100) mg/dL POC Glucose 203 H (70-105) Lactic Acid (0.7-2.0) mmol/L Calcium (8.4-10.2) mg/dL 06/14/19 06/14/19 06/14/19 Range/Units 15:49 17:14 18:05 POC ABG pH (7.35-7.45) POC ABG pCO2 (35-45) POC ABG pO2 (80-105) Potassium (3.6-5.0) mmol/L Chloride (98-107) mmol/L BUN (9-20) mg/dL Creatinine (0.8-1.5) mg/dL Glucose (75-100) mg/dL POC Glucose 198 H (70-105) Lactic Acid 2.10 H* 2.10 H* (0.7-2.0) mmol/L Calcium (8.4-10.2) mg/dL 06/14/19 06/14/19 06/15/19 Range/Units : 23:40 04:44 POC ABG pH 7.563 H (7.35-7.45) POC ABG pCO2 34.2 L (35-45) POC ABG pO2 113 H (80-105) Potassium (3.6-5.0) mmol/L Chloride (98-107) mmol/L BUN (9-20) mg/dL Creatinine (0.8-1.5) mg/dL Glucose (75-100) mg/dL POC Glucose 210 H (70-105) Lactic Acid 2.10 H* (0.7-2.0) mmol/L Calcium (8.4-10.2) mg/dL 06/15/19 06/15/19 Range/Units 04:51 05:31 POC ABG pH (7.35-7.45) POC ABG pCO2 (35-45) POC ABG pO2 (80-105) Potassium 2.8 L* D (3.6-5.0) mmol/L Chloride 97.7 L (98-107) mmol/L BUN 74 H (9-20) mg/dL Creatinine 4.6 H (0.8-1.5) mg/dL Glucose 174 H (75-100) mg/dL POC Glucose 151 H (70-105) Lactic Acid (0.7-2.0) mmol/L Calcium 8.1 L (8.4-10.2) mg/dL
[2019-06-15] MEDS: LORazepam 2 MG/ML VIAL IV PRN ×2 (12:09→21:11)
--- NOTE | 2019-06-15 13:28 | Progress Note ---
Assessment and Plan 1. Acute kidney injury: NATHAN likely secondary to obstructive nephropathy +/- sepsis. CT abdomen showed bladder outlet obstruction. S/p montero catheter. Baseline renal function is unknown. Renal function is improving. Good UOP. Monitor renal function. Renal prognosis is guarded. Avoid nephrotoxic agents. Meds dosage based on GFR. Due to hyperkalemia and severe metabolic acidosis patient received hemodialysis on 06/13. Hemodialysis: 06/13. 2. FEN: Hypokalemia, replete K. Hyponatremia, improved. Metabolic acidosis, s/p HD. Monitor lytes. 3. Obstructive nephropathy: Likely from enlarged prostate. S/p montero catheter. 4. Suspected Sepsis: Leukocytosis. 5. Encephalopathy: CT head normal. Elevated Ammonia level. 6. DM with hypoglycemia. D/w his and answered all questions. Examination: General appearance: well-developed, well-nourished, appears stated age, intubated, on vent HEENT: Atraumatic Neck: Supple, trachea midline Respiratory: Clear to Ascultation Heart: regular, S1S2, no murmur Gastrointestinal: soft, bowel sounds present, not tender Integumentary: no rash, warm and dry Neurologic: obtunded Musculoskeletal: no edema Hemodialysis access: R groin catheter Subjective Date of service: 06/15/19 Principal diagnosis: retention Interval history: Patient was seen and examined at the bedside. Remain on the vent. Objective - Vital Signs Vital signs: Vital Signs - 12hr 06/15/19 06/15/19 06/15/19 01:30 02:00 02:30 Temperature Pulse Rate 90 89 Pulse Rate [ 88 Anterior Bilateral] Respiratory 18 16 Rate Respiratory 18 Rate [Anterior Bilateral] Blood Pressure 116/69 120/69 O2 Sat by Pulse 99 100 Oximetry 06/15/19 06/15/19 06/15/19 02:31 03:00 03:30 Temperature Pulse Rate 98 H 89 89 Pulse Rate [ Anterior Bilateral] Respiratory 19 14 16 Rate Respiratory Rate [Anterior Bilateral] Blood Pressure 150/93 126/76 124/79 O2 Sat by Pulse 100 99 99 Oximetry 06/15/19 06/15/19 06/15/19 03:38 04:00 04:27 Temperature 98.7 F Pulse Rate 85 87 Pulse Rate [ Anterior Bilateral] Respiratory 18 12 Rate Respiratory Rate [Anterior Bilateral] Blood Pressure 136/85 134/79 O2 Sat by Pulse 100 99 Oximetry 06/15/19 06/15/19 06/15/19 04:30 05:00 05:30 Temperature Pulse Rate 87 87 86 Pulse Rate [ Anterior Bilateral] Respiratory 14 13 14 Rate Respiratory Rate [Anterior Bilateral] Blood Pressure 127/80 134/79 148/84 O2 Sat by Pulse 99 99 99 Oximetry 06/15/19 06/15/19 06/15/19 06:00 06:30 07:01 Temperature Pulse Rate 83 85 84 Pulse Rate [ Anterior Bilateral] Respiratory 12 12 15 Rate Respiratory Rate [Anterior Bilateral] Blood Pressure 142/80 141/80 129/81 O2 Sat by Pulse 99 99 100 Oximetry 06/15/19 06/15/19 06/15/19 07:30 08:00 08:30 Temperature 98.4 F Pulse Rate 90 88 87 Pulse Rate [ 84 Anterior Bilateral] Respiratory 13 18 14 Rate Respiratory 12 Rate [Anterior Bilateral] Blood Pressure 149/90 154/86 154/86 O2 Sat by Pulse 99 99 99 Oximetry 06/15/19 06/15/19 06/15/19 09:00 09:31 10:00 Temperature Pulse Rate 84 82 82 Pulse Rate [ Anterior Bilateral] Respiratory 13 13 12 Rate Respiratory Rate [Anterior Bilateral] Blood Pressure 140/80 143/83 145/79 O2 Sat by Pulse 98 97 99 Oximetry 06/15/19 06/15/19 06/15/19 10:30 11:00 11:30 Temperature Pulse Rate 83 79 79 Pulse Rate [ Anterior Bilateral] Respiratory 13 11 L 13 Rate Respiratory Rate [Anterior Bilateral] Blood Pressure 148/84 149/83 143/79 O2 Sat by Pulse 99 97 99 Oximetry 06/15/19 06/15/19 06/15/19 12:00 12:30 13:00 Temperature 98.4 F Pulse Rate 81 80 81 Pulse Rate [ Anterior Bilateral] Respiratory 13 12 14 Rate Respiratory Rate [Anterior Bilateral] Blood Pressure 148/82 135/80 128/78 O2 Sat by Pulse 99 98 99 Oximetry - Lab 06/14/19 04:45 06/15/19 04:51 Most recent lab results Calcium 8.1 mg/dL (8.4-10.2) L 06/15/19 04:51 Phosphorus 6.40 mg/dL (2.5-4.5) H 06/14/19 04:45 Magnesium 2.50 mg/dL (1.7-2.3) H 06/13/19 07:31 Medications & Allergies - Medications Allergies/Adverse Reactions: Allergies No Known Allergies Allergy (Verified 06/13/19 05:58) Home Medications: Home Medications Medication Instructions Recorded Confirmed Last Taken Type Atorvastatin 80 mg PO DAILY MDD 40 mg 06/15/19 06/15/19 06/12/19 History Carvedilol 12.5 mg PO BID 06/15/19 06/15/19 06/12/19 History Lisinopril 10 mg PO DAILY 06/15/19 06/15/19 06/12/19 History Metformin HCl [metFORMIN] 1,000 mg PO BID 06/15/19 06/15/19 06/12/19 History Omeprazole 20 mg PO DAILY 06/15/19 06/15/19 06/12/19 History Ondansetron 8 mg PO Q12HR PRN 06/15/19 06/15/19 Unknown History Tamsulosin 0.4 mg PO DAILY MDD 0.4 06/15/19 06/15/19 06/12/19 History Active Medications: Generic Name Dose Route Start Last Admin Trade Name Freq PRN Reason Stop Dose Admin Albuterol/Ipratropium 1 ampul 06/13/19 14:00 06/15/19 08:38 Duoneb *Not For Prn Use* IH 1 ampul Q6HRT SANGEETHA Administration Dextrose 50 ml 06/14/19 13:41 D50w (25gm) Syringe IV PRN PRN Hypoglycemia Famotidine 20 mg 06/14/19 10:00 06/15/19 10:44 Pepcid PO 20 mg QDAY SANGEETHA Administration Fentanyl 50 mcg 06/13/19 15:33 06/15/19 02:59 Sublimaze IV 50 mcg Q10MIN PRN Administration ANALGESIA Heparin Sodium (Porcine) 5,000 unit 06/13/19 22:00 06/15/19 10:44 Heparin SUB-Q 5,000 unit Q12HR SANGEETHA Administration Hydralazine HCl 10 mg 06/13/19 16:05 Apresoline IV Q4HR PRN HTN SBP>=170 Hydrophilic Ointment 1 applic 06/13/19 15:33 Vaseline Lip Therapy TP Q2HR PRN Dry Lips Sodium Chloride 100 mls @ 999 mls/hr 06/13/19 10:03 Nacl 0.9% IV SUNDAR PRN Hypotension Sodium Bicarbonate 150 meq/ 1,150 mls @ 75 mls/hr 06/13/19 13:00 06/14/19 22:53 Dextrose IV 75 mls/hr DIRECT SANGEETHA Administration Fentanyl Citrate 2,000 mcg in 100 mls @ 5.67 mls/hr 06/13/19 16:00 06/14/19 19:38 Fentanyl Drip Premix IV 0 mcg/kg/hr TITR SANGEETHA 0 mls/hr Titration Protocol 1 MCG/KG/HR Propofol 1,000 mg in 100 mls @ 3.402 mls/hr 06/13/19 16:00 06/14/19 19:33 Diprivan 10 Mg/Ml IV 0 mcg/kg/min TITR SANGEETHA 0 mls/hr Titration Protocol 5 MCG/KG/MIN Ceftriaxone Sodium 2 gm in 100 mls @ 200 mls/hr 06/14/19 18:30 06/15/19 10:43 Rocephin/Ns 2 Gm/100 Ml IV 200 mls/hr Q24HR SANGEETHA Administration Protocol Potassium Chloride 10 meq in 100 mls @ 100 mls/hr 06/15/19 10:00 06/15/19 13:03 Kcl 10meq/100ml IV 06/15/19 13:59 100 mls/hr Q1H SANGEETHA Administration Insulin Human Regular 0 units 06/14/19 18:00 06/15/19 13:02 Humulin R SUB-Q 2 units Q6HR SANGEETHA Administration Protocol Lactulose 20 gm 06/13/19 14:00 06/15/19 12:50 Cephulac PO Not Given Q6HR SANGEETHA Lorazepam 2 mg 06/13/19 14:21 06/15/19 12:09 Ativan IV 2 mg Q1H PRN Administration Agitation Multi-Ingred Cream/Lotion/Oil/Oint 1 applic 06/13/19 15:33 Artificial Tears Ophth Oint OU Q4HR PRN Dry Eye(s) Sodium Chloride 10 ml 06/13/19 22:00 06/15/19 10:44 Sodium Chloride Flush Syringe 10 Ml IV 10 ml BID SAGNEETHA Administration Sodium Chloride 10 ml 06/13/19 11:46 Sodium Chloride Flush Syringe 10 Ml IV PRN PRN LINE FLUSH
--- NOTE | 2019-06-15 14:21 | Progress Note ---
Assessment and Plan Acute hypoxemic respiratory failure, now on mechanical ventilatory support. Acute possibly on chronic encephalopathy. Severe sepsis Acute kidney injury, possibly on chronic. Severe hyperkalemia. Severe metabolic acidosis. Leukocytosis. History of diabetes. History of hypertension. Oropharyngeal dysphagia. (AMS is rate limiting factor to safe extubation) - continue to wean FiO2 for sats > 90% - VAP bundle addressed - continue daily SAT's and SBT assessment as tolerated - target sedation for RASS 0 to -1 - prn analgesia per CPOT score - HD/UF per nephrology prescription for toxin and volume clearance - continue to avoid nephrotoxins and adjust medications for renal function - begin enteral nutrition and advance to goal rate as tolerated - Monitor hemodynamics closely - continue empiric broad spectrum antiinfective's per ID recommendations (de- escalate based on clinical and microbiologic data) - continue mobility protocols and off loading as tolerated for pressure ulcer p rophylaxis - continue to avoid nephrotoxins, adjust all medications for GFR and CRCL - continue GI & VTE prophylaxis with - accuchecks with glycemic control per SSI for target BG of 140-180 mg/dl ac utely - continue other care per attending / other consultants ... care plan discussed at length with his in room ... re-evaluate in am & prn CONDITION: CRITICAL PROGNOSIS: VERY GUARDED CODE STATUS: FULL CODE Discussed extensively with RT/RN and care team in ICU IDT rounds The high probability of a clinically significant, sudden or life threatening deterioration of the [respiratory, renal, neurologic and Cardiac] system's' required my full and direct attention, intervention and personal management. The aggregate critical care time was 32 minutes. This time is in addition to time spent performing reported procedures but includes the following: [x] Data Review and interpretation [x] Patient assessment and monitoring of vital signs [x] Documentation [x] Medication orders and management Subjective Date of service: 06/15/19 Principal diagnosis: Ac. hypoxemic resp failure; Ac. Encephalopathy; Sepsis; NATHAN; hyperkalemia Interval history: Patient is seen today for: Acute hypoxemic respiratory failure; Acute possibly on chronic encephalopathy; Severe sepsis; Acute kidney injury, possibly on chronic; Severe hyperkalemia; Severe metabolic acidosis; Leukocytosis; History of diabetes; History of hypertension; Oropharyngeal dysphagia. Seen and examined at bedside; 24hour events reviewed; nursing and respiratory care staff consulted; no adverse overnight events reported to me; resting peacefully in bed; doing better overall but still with significant encephalopathy; not following commands; NO emesis or overt aspiration; making urine and dialysis on hold Objective Vital Signs - 12hr 06/15/19 06/15/19 06/15/19 02:30 02:31 03:00 Temperature Pulse Rate 98 H 89 Pulse Rate [ 88 Anterior Bilateral] Respiratory 19 14 Rate Respiratory 18 Rate [Anterior Bilateral] Blood Pressure 150/93 126/76 O2 Sat by Pulse 100 99 Oximetry 06/15/19 06/15/19 06/15/19 03:30 03:38 04:00 Temperature 98.7 F Pulse Rate 89 85 Pulse Rate [ Anterior Bilateral] Respiratory 16 18 Rate Respiratory Rate [Anterior Bilateral] Blood Pressure 124/79 136/85 O2 Sat by Pulse 99 100 Oximetry 06/15/19 06/15/19 06/15/19 04:27 04:30 05:00 Temperature Pulse Rate 87 87 87 Pulse Rate [ Anterior Bilateral] Respiratory 12 14 13 Rate Respiratory Rate [Anterior Bilateral] Blood Pressure 134/79 127/80 134/79 O2 Sat by Pulse 99 99 99 Oximetry 06/15/19 06/15/19 06/15/19 05:30 06:00 06:30 Temperature Pulse Rate 86 83 85 Pulse Rate [ Anterior Bilateral] Respiratory 14 12 12 Rate Respiratory Rate [Anterior Bilateral] Blood Pressure 148/84 142/80 141/80 O2 Sat by Pulse 99 99 99 Oximetry 06/15/19 06/15/19 06/15/19 07:01 07:30 08:00 Temperature 98.4 F Pulse Rate 84 90 88 Pulse Rate [ 84 Anterior Bilateral] Respiratory 15 13 18 Rate Respiratory 12 Rate [Anterior Bilateral] Blood Pressure 129/81 149/90 154/86 O2 Sat by Pulse 100 99 99 Oximetry 06/15/19 06/15/19 06/15/19 08:30 09:00 09:31 Temperature Pulse Rate 87 84 82 Pulse Rate [ Anterior Bilateral] Respiratory 14 13 13 Rate Respiratory Rate [Anterior Bilateral] Blood Pressure 154/86 140/80 143/83 O2 Sat by Pulse 99 98 97 Oximetry 06/15/19 06/15/19 06/15/19 10:00 10:30 11:00 Temperature Pulse Rate 82 83 79 Pulse Rate [ Anterior Bilateral] Respiratory 12 13 11 L Rate Respiratory Rate [Anterior Bilateral] Blood Pressure 145/79 148/84 149/83 O2 Sat by Pulse 99 99 97 Oximetry 06/15/19 06/15/19 06/15/19 11:30 12:00 12:30 Temperature 98.4 F Pulse Rate 79 81 80 Pulse Rate [ Anterior Bilateral] Respiratory 13 13 12 Rate Respiratory Rate [Anterior Bilateral] Blood Pressure 143/79 148/82 135/80 O2 Sat by Pulse 99 99 98 Oximetry 06/15/19 13:00 Temperature Pulse Rate 81 Pulse Rate [ Anterior Bilateral] Respiratory 14 Rate Respiratory Rate [Anterior Bilateral] Blood Pressure 128/78 O2 Sat by Pulse 99 Oximetry Constitutional: no acute distress, other (elderly looking AAM, normocephalic with mildly increased resp effort at rest) Eyes: non-icteric ENT: oropharynx moist, other (ETT 24 cm BINA) Neck: supple, no lymphadenopathy, no JVD, other (large neck circumference) Effort: mildly labored Ascultation: Bilateral: rhonchi Percussion: Bilateral: not dull Cardiovascular: regular rate and rhythm Gastrointestinal: normoactive bowel sounds, soft, non-tender, non-distended Integumentary: other (see wound care and RN notes) Extremities: no cyanosis, no edema, pulses normal, no ischemia or petechiae Neurologic: non-focal exam (grossly), pupils equal and round, CN II-XII normal, unable to assess (unable to aceess re: encephalopathy) Psychiatric: other (unable to aceess re: encephalopathy) CBC and BMP: 06/14/19 04:45 06/16/19 04:47 ABG, PT/INR, D-dimer: ABG POC ABG pH 7.563 (7.35-7.45) H 06/15/19 04:44 POC ABG pCO2 34.2 (35-45) L 06/15/19 04:44 POC ABG pO2 113 (80-105) H 06/15/19 04:44 POC ABG HCO3 30.8 (22-26 mml/L) 06/15/19 04:44 POC ABG Total CO2 32 (23-27mmol/L) 06/15/19 04:44 POC ABG O2 Sat 99 06/15/19 04:44 Abnormal lab findings: Abnormal Labs 06/13/19 06/13/19 06/13/19 06:13 06:50 06:50 WBC 22.7 H RBC 5.69 H Hgb 15.5 H Hct 47.8 H MCV MCH 27 L RDW 15.6 H Seg Neuts % (Manual) 89.0 H Lymphocytes % (Manual) 4.0 L Monocytes % (Manual) Seg Neutrophils # Man 20.2 H Lymphocytes # (Manual) 0.9 L Monocytes # (Manual) 1.4 H POC ABG pH POC ABG pCO2 POC ABG pO2 Sodium 126 L Potassium 7.5 H* Chloride 83.9 L Carbon Dioxide 5 L* BUN 126 H Creatinine 12.6 H Glucose 143 H POC Glucose 59 L Lactic Acid Calcium Phosphorus Magnesium Total Bilirubin Ammonia Total Creatine Kinase CK-MB (CK-2) C-Reactive Protein Albumin 3.6 L Urine WBC (Auto) 06/13/19 06/13/19 06/13/19 07:09 07:31 07:31 WBC RBC Hgb Hct MCV MCH RDW Seg Neuts % (Manual) Lymphocytes % (Manual) Monocytes % (Manual) Seg Neutrophils # Man Lymphocytes # (Manual) Monocytes # (Manual) POC ABG pH POC ABG pCO2 POC ABG pO2 Sodium Potassium Chloride Carbon Dioxide BUN Creatinine Glucose POC Glucose 117 H Lactic Acid Calcium Phosphorus Magnesium 2.50 H Total Bilirubin Ammonia 408.0 H Total Creatine Kinase 409 H CK-MB (CK-2) 15.9 H C-Reactive Protein Albumin Urine WBC (Auto) 06/13/19 06/13/19 06/13/19 09:21 10:19 10:42 WBC RBC Hgb Hct MCV MCH RDW Seg Neuts % (Manual) Lymphocytes % (Manual) Monocytes % (Manual) Seg Neutrophils # Man Lymphocytes # (Manual) Monocytes # (Manual) POC ABG pH POC ABG pCO2 POC ABG pO2 Sodium Potassium Chloride Carbon Dioxide BUN Creatinine Glucose POC Glucose 153 H 54 L 136 H Lactic Acid Calcium Phosphorus Magnesium Total Bilirubin Ammonia Total Creatine Kinase CK-MB (CK-2) C-Reactive Protein Albumin Urine WBC (Auto) 06/13/19 06/13/19 06/13/19 14:19 14:19 14:19 WBC RBC Hgb Hct MCV MCH RDW Seg Neuts % (Manual) Lymphocytes % (Manual) Monocytes % (Manual) Seg Neutrophils # Man Lymphocytes # (Manual) Monocytes # (Manual) POC ABG pH POC ABG pCO2 POC ABG pO2 Sodium 134 L D Potassium Chloride 89.0 L Carbon Dioxide 12 L D BUN 86 H Creatinine 7.8 H Glucose POC Glucose Lactic Acid 8.80 H* Calcium Phosphorus Magnesium Total Bilirubin 1.70 H Ammonia Total Creatine Kinase CK-MB (CK-2) C-Reactive Protein 4.10 H Albumin 3.6 L Urine WBC (Auto) 06/13/19 06/13/19 06/13/19 14:28 16:10 16:15 WBC RBC Hgb Hct MCV MCH RDW Seg Neuts % (Manual) Lymphocytes % (Manual) Monocytes % (Manual) Seg Neutrophils # Man Lymphocytes # (Manual) Monocytes # (Manual) POC ABG pH 7.530 H 7.474 H POC ABG pCO2 POC ABG pO2 239 H 183 H Sodium Potassium Chloride Carbon Dioxide BUN Creatinine Glucose POC Glucose Lactic Acid Calcium Phosphorus Magnesium Total Bilirubin Ammonia 97.0 H Total Creatine Kinase CK-MB (CK-2) C-Reactive Protein Albumin Urine WBC (Auto) 06/13/19 06/13/19 06/13/19 16:15 16:22 16:56 WBC RBC Hgb Hct MCV MCH RDW Seg Neuts % (Manual) Lymphocytes % (Manual) Monocytes % (Manual) Seg Neutrophils # Man Lymphocytes # (Manual) Monocytes # (Manual) POC ABG pH POC ABG pCO2 POC ABG pO2 Sodium Potassium Chloride Carbon Dioxide BUN Creatinine Glucose POC Glucose Lactic Acid 7.60 H* 7.90 H* Calcium Phosphorus Magnesium Total Bilirubin Ammonia Total Creatine Kinase CK-MB (CK-2) C-Reactive Protein 3.80 H Albumin Urine WBC (Auto) 06/13/19 06/13/19 06/13/19 18:05 19:01 21:18 WBC RBC Hgb Hct MCV MCH RDW Seg Neuts % (Manual) Lymphocytes % (Manual) Monocytes % (Manual) Seg Neutrophils # Man Lymphocytes # (Manual) Monocytes # (Manual) POC ABG pH POC ABG pCO2 POC ABG pO2 Sodium Potassium Chloride Carbon Dioxide BUN Creatinine Glucose POC Glucose Lactic Acid 5.30 H* 5.10 H* 3.70 H* Calcium Phosphorus Magnesium Total Bilirubin Ammonia Total Creatine Kinase CK-MB (CK-2) C-Reactive Protein Albumin Urine WBC (Auto) 06/13/19 06/13/19 06/14/19 21:47 22:00 00:13 WBC RBC Hgb Hct MCV MCH RDW Seg Neuts % (Manual) Lymphocytes % (Manual) Monocytes % (Manual) Seg Neutrophils # Man Lymphocytes # (Manual) Monocytes # (Manual) POC ABG pH POC ABG pCO2 POC ABG pO2 Sodium Potassium Chloride Carbon Dioxide BUN Creatinine Glucose POC Glucose 119 H Lactic Acid 3.70 H* Calcium Phosphorus Magnesium Total Bilirubin Ammonia Total Creatine Kinase CK-MB (CK-2) C-Reactive Protein Albumin Urine WBC (Auto) 66.0 H 06/14/19 06/14/19 06/14/19 04:21 04:45 04:45 WBC 19.1 H RBC 5.25 H Hgb Hct MCV 83 L MCH RDW Seg Neuts % (Manual) 83.0 H Lymphocytes % (Manual) 6.0 L Monocytes % (Manual) 10.0 H Seg Neutrophils # Man 15.9 H Lymphocytes # (Manual) 1.1 L Monocytes # (Manual) 1.9 H POC ABG pH 7.497 H POC ABG pCO2 < 30 L POC ABG pO2 143 H Sodium 136 L Potassium Chloride 94.1 L Carbon Dioxide 20 L D BUN 96 H Creatinine 7.7 H Glucose 170 H POC Glucose Lactic Acid Calcium Phosphorus 6.40 H Magnesium Total Bilirubin Ammonia Total Creatine Kinase CK-MB (CK-2) C-Reactive Protein Albumin Urine WBC (Auto) 06/14/19 06/14/19 06/14/19 04:45 04:45 06:05 WBC RBC Hgb Hct MCV MCH RDW Seg Neuts % (Manual) Lymphocytes % (Manual) Monocytes % (Manual) Seg Neutrophils # Man Lymphocytes # (Manual) Monocytes # (Manual) POC ABG pH POC ABG pCO2 POC ABG pO2 Sodium Potassium Chloride Carbon Dioxide BUN Creatinine Glucose POC Glucose 155 H Lactic Acid 3.00 H* Calcium Phosphorus Magnesium Total Bilirubin Ammonia 96.0 H Total Creatine Kinase CK-MB (CK-2) C-Reactive Protein Albumin Urine WBC (Auto) 06/14/19 06/14/19 06/14/19 06:58 12:38 12:38 WBC RBC Hgb Hct MCV MCH RDW Seg Neuts % (Manual) Lymphocytes % (Manual) Monocytes % (Manual) Seg Neutrophils # Man Lymphocytes # (Manual) Monocytes # (Manual) POC ABG pH 7.543 H POC ABG pCO2 POC ABG pO2 115 H Sodium Potassium Chloride Carbon Dioxide BUN Creatinine Glucose POC Glucose 203 H Lactic Acid 2.50 H* Calcium Phosphorus Magnesium Total Bilirubin Ammonia Total Creatine Kinase CK-MB (CK-2) C-Reactive Protein Albumin Urine WBC (Auto) 06/14/19 06/14/19 06/14/19 15:49 17:14 18:05 WBC RBC Hgb Hct MCV MCH RDW Seg Neuts % (Manual) Lymphocytes % (Manual) Monocytes % (Manual) Seg Neutrophils # Man Lymphocytes # (Manual) Monocytes # (Manual) POC ABG pH POC ABG pCO2 POC ABG pO2 Sodium Potassium Chloride Carbon Dioxide BUN Creatinine Glucose POC Glucose 198 H Lactic Acid 2.10 H* 2.10 H* Calcium Phosphorus Magnesium Total Bilirubin Ammonia Total Creatine Kinase CK-MB (CK-2) C-Reactive Protein Albumin Urine WBC (Auto) 06/14/19 06/14/19 06/15/19 19:19 23:40 04:44 WBC RBC Hgb Hct MCV MCH RDW Seg Neuts % (Manual) Lymphocytes % (Manual) Monocytes % (Manual) Seg Neutrophils # Man Lymphocytes # (Manual) Monocytes # (Manual) POC ABG pH 7.563 H POC ABG pCO2 34.2 L POC ABG pO2 113 H Sodium Potassium Chloride Carbon Dioxide BUN Creatinine Glucose POC Glucose 210 H Lactic Acid 2.10 H* Calcium Phosphorus Magnesium Total Bilirubin Ammonia Total Creatine Kinase CK-MB (CK-2) C-Reactive Protein Albumin Urine WBC (Auto) 06/15/19 06/15/19 06/15/19 04:51 05:31 12:21 WBC RBC Hgb Hct MCV MCH RDW Seg Neuts % (Manual) Lymphocytes % (Manual) Monocytes % (Manual) Seg Neutrophils # Man Lymphocytes # (Manual) Monocytes # (Manual) POC ABG pH POC ABG pCO2 POC ABG pO2 Sodium Potassium 2.8 L* D Chloride 97.7 L Carbon Dioxide BUN 74 H Creatinine 4.6 H Glucose 174 H POC Glucose 151 H 175 H Lactic Acid Calcium 8.1 L Phosphorus Magnesium Total Bilirubin Ammonia Total Creatine Kinase CK-MB (CK-2) C-Reactive Protein Albumin Urine WBC (Auto) Chest x-ray: image reviewed (No focal infiltrate) Allied health notes reviewed: nursing
[2019-06-15] MEDS: SODIUM CHLORIDE 0.9% 1000 ML 1,000 ML IV SCH (14:32)
[2019-06-15] MEDS ORDERED: SODIUM BICARBONATE 325 MG TAB FEEDTUBE PRN (15:11)
[2019-06-15] MEDS ORDERED: LIPASE 10,500/PROTEASE 25,000/AMYLASE 43,750 (UNITS) DR CAP FEEDTUBE PRN (15:11)
[2019-06-15] MEDS ORDERED: SIMPLE SYRUP 15 ML FEEDTUBE PRN ×2 (15:11)
[2019-06-16] MEDS: INSULIN REGULAR, HUMAN 100 UNITS/1 ML SUB-Q SCH ×4 (00:18→18:45)
[2019-06-16] MEDS: LORazepam 2 MG/ML VIAL IV PRN ×2 (02:31→05:38)
[2019-06-16] MEDS: SODIUM CHLORIDE 0.9% 1000 ML 1,000 ML IV SCH ×2 (03:30→19:55)
[2019-06-16] MEDS: IPRATROPIUM/ALBUTEROL SULFATE 3 ML AMPUL.NEB IH SCH ×4 (03:49→19:12)
[2019-06-16 05:59] LABS: Calcium 8.3 mg/dL (8.4-10.2)
[2019-06-16] MEDS: FAMOTIDINE 20 MG TAB PO SCH (09:37)
[2019-06-16] MEDS: LACTULOSE 20 GM/30 ML ORAL LIQD PO SCH (09:37)
[2019-06-16] MEDS: cefTRIAXone/NS 2 GM/100 ML 2 GM/100 ML BAG IV SCH (09:37)
[2019-06-16] MEDS: HEPARIN 5,000 UNIT/1 ML VIAL SUB-Q SCH ×2 (09:38→21:26)
[2019-06-16] MEDS ORDERED: VANCOMYCIN 1,500 MG in SODIUM CHLORIDE 0.9% 500 ML 500 ML IV ONE (10:00)
--- NOTE | 2019-06-16 10:47 | Progress Note ---
Assessment and Plan 1. Acute kidney injury: NATHAN likely secondary to obstructive nephropathy +/- sepsis. CT abdomen showed bladder outlet obstruction. S/p montero catheter. Baseline renal function is unknown. Renal function is improving. Monitor renal function. Renal prognosis is guarded. Avoid nephrotoxic agents. Meds dosage based on GFR. Due to hyperkalemia and severe metabolic acidosis patient received hemodialysis on 06/13. Hemodialysis: 06/13. 2. FEN: Hypokalemia, replete K. Hypernatremia, increase water flushes. Metabolic acidosis, s/p HD. Monitor lytes. 3. Obstructive nephropathy: Likely from enlarged prostate. S/p montero catheter. 4. Respiratory failure: On vent. 5. Severe Sepsis: Followed by ID. 6. Encephalopathy: CT head normal. Elevated Ammonia level, now improved. 7. DM. D/w his and answered all questions. Examination: General appearance: well-developed, well-nourished, appears stated age, intubated, on vent HEENT: Atraumatic Neck: Supple, trachea midline Respiratory: Clear to Ascultation Heart: regular, S1S2, no murmur Gastrointestinal: soft, bowel sounds present, not tender Integumentary: no rash, warm and dry Neurologic: grimace Musculoskeletal: no edema Hemodialysis access: R groin catheter Subjective Date of service: 06/16/19 Principal diagnosis: Ac. hypoxemic resp failure; Ac. Encephalopathy; Sepsis; NATHAN; hyperkalemia Interval history: Patient was seen and examined at the bedside. Remain on the vent. at the bedside. Objective - Vital Signs Vital signs: Vital Signs - 12hr 06/15/19 06/15/19 06/15/19 23:00 23:30 23:50 Temperature Pulse Rate 76 77 81 Pulse Rate [ Anterior Bilateral] Respiratory 18 18 17 Rate Respiratory Rate [Anterior Bilateral] Blood Pressure 132/75 120/74 125/71 O2 Sat by Pulse 96 97 99 Oximetry 06/16/19 06/16/19 06/16/19 00:00 00:15 00:30 Temperature Pulse Rate 80 84 82 Pulse Rate [ Anterior Bilateral] Respiratory 18 18 Rate Respiratory Rate [Anterior Bilateral] Blood Pressure 125/71 123/69 122/71 O2 Sat by Pulse 100 98 98 Oximetry 06/16/19 06/16/19 06/16/19 00:36 01:00 01:30 Temperature 98.3 F Pulse Rate 77 82 Pulse Rate [ Anterior Bilateral] Respiratory 18 18 Rate Respiratory Rate [Anterior Bilateral] Blood Pressure 121/70 118/69 O2 Sat by Pulse 99 98 Oximetry 06/16/19 06/16/19 06/16/19 02:00 02:31 03:00 Temperature Pulse Rate 86 86 79 Pulse Rate [ 79 Anterior Bilateral] Respiratory 16 17 18 Rate Respiratory 18 Rate [Anterior Bilateral] Blood Pressure 142/75 135/81 124/71 O2 Sat by Pulse 100 100 98 Oximetry 06/16/19 06/16/19 06/16/19 03:30 03:51 04:00 Temperature Pulse Rate 77 80 73 Pulse Rate [ Anterior Bilateral] Respiratory 17 18 Rate Respiratory Rate [Anterior Bilateral] Blood Pressure 124/68 111/69 117/72 O2 Sat by Pulse 97 98 98 Oximetry 06/16/19 06/16/19 06/16/19 04:02 04:30 05:01 Temperature 97.5 F L Pulse Rate 76 84 Pulse Rate [ Anterior Bilateral] Respiratory 18 20 Rate Respiratory Rate [Anterior Bilateral] Blood Pressure 125/74 133/74 O2 Sat by Pulse 100 100 Oximetry 06/16/19 06/16/19 06/16/19 05:30 06:01 06:31 Temperature Pulse Rate 96 H 87 76 Pulse Rate [ Anterior Bilateral] Respiratory 19 17 17 Rate Respiratory Rate [Anterior Bilateral] Blood Pressure 145/103 155/85 143/82 O2 Sat by Pulse 100 100 100 Oximetry 06/16/19 08:00 Temperature 97.9 F Pulse Rate 69 Pulse Rate [ 76 Anterior Bilateral] Respiratory 25 H Rate Respiratory 25 H Rate [Anterior Bilateral] Blood Pressure 126/71 O2 Sat by Pulse 97 Oximetry - Lab 06/14/19 04:45 06/16/19 04:47 Most recent lab results Calcium 8.3 mg/dL (8.4-10.2) L 06/16/19 04:47 Phosphorus 6.40 mg/dL (2.5-4.5) H 06/14/19 04:45 Magnesium 2.50 mg/dL (1.7-2.3) H 06/13/19 07:31 Medications & Allergies - Medications Allergies/Adverse Reactions: Allergies No Known Allergies Allergy (Verified 06/13/19 05:58) Home Medications: Home Medications Medication Instructions Recorded Confirmed Last Taken Type Atorvastatin 80 mg PO DAILY MDD 40 mg 06/15/19 06/15/19 06/12/19 History Carvedilol 12.5 mg PO BID 06/15/19 06/15/19 06/12/19 History Lisinopril 10 mg PO DAILY 06/15/19 06/15/19 06/12/19 History Metformin HCl [metFORMIN] 1,000 mg PO BID 06/15/19 06/15/19 06/12/19 History Omeprazole 20 mg PO DAILY 06/15/19 06/15/19 06/12/19 History Ondansetron 8 mg PO Q12HR PRN 06/15/19 06/15/19 Unknown History Tamsulosin 0.4 mg PO DAILY MDD 0.4 06/15/19 06/15/19 06/12/19 History Active Medications: Generic Name Dose Route Start Last Admin Trade Name Freq PRN Reason Stop Dose Admin Albuterol/Ipratropium 1 ampul 06/13/19 14:00 06/16/19 08:23 Duoneb *Not For Prn Use* IH 1 ampul Q6HRT SANGEETHA Administration Lipase/Protease/Amylase 1 each 06/15/19 15:11 Pancreaze 10,500 Unit FEEDTUBE PRN PRN For Clogged Feeding Tube Dextrose 50 ml 06/14/19 13:41 D50w (25gm) Syringe IV PRN PRN Hypoglycemia Famotidine 20 mg 06/14/19 10:00 06/16/19 09:37 Pepcid PO 20 mg QDAY SANGEETHA Administration Fentanyl 50 mcg 06/13/19 15:33 06/15/19 02:59 Sublimaze IV 50 mcg Q10MIN PRN Administration ANALGESIA Heparin Sodium (Porcine) 5,000 unit 06/13/19 22:00 06/16/19 09:38 Heparin SUB-Q 5,000 unit Q12HR SANGEETHA Administration Hydralazine HCl 10 mg 06/13/19 16:05 Apresoline IV Q4HR PRN HTN SBP>=170 Hydrophilic Ointment 1 applic 06/13/19 15:33 Vaseline Lip Therapy TP Q2HR PRN Dry Lips Sodium Chloride 100 mls @ 999 mls/hr 06/13/19 10:03 Nacl 0.9% IV SUNDAR PRN Hypotension Fentanyl Citrate 2,000 mcg in 100 mls @ 5.67 mls/hr 06/13/19 16:00 06/14/19 19:38 Fentanyl Drip Premix IV 0 mcg/kg/hr TITR SANGEETHA 0 mls/hr Titration Protocol 1 MCG/KG/HR Propofol 1,000 mg in 100 mls @ 3.402 mls/hr 06/13/19 16:00 06/14/19 19:33 Diprivan 10 Mg/Ml IV 0 mcg/kg/min TITR SANGEETHA 0 mls/hr Titration Protocol 5 MCG/KG/MIN Ceftriaxone Sodium 2 gm in 100 mls @ 200 mls/hr 06/14/19 18:30 06/16/19 09:37 Rocephin/Ns 2 Gm/100 Ml IV 200 mls/hr Q24HR SANGEETHA Administration Protocol Sodium Chloride 1,000 mls @ 75 mls/hr 06/15/19 14:00 06/16/19 03:30 Nacl 0.9% 1000 Ml IV 75 mls/hr DIRECT SANGEETHA Administration Vancomycin HCl 1,500 mg/ 530 mls @ 333.333 mls/hr 06/16/19 10:00 06/16/19 10:25 Sodium Chloride IV 06/16/19 11:35 333.333 mls/hr ONCE ONE Administration Insulin Human Regular 0 units 06/14/19 18:00 06/16/19 06:48 Humulin R SUB-Q 2 units Q6HR SANGEETHA Administration Protocol Lactulose 20 gm 06/15/19 22:00 06/16/19 09:37 Cephulac PO 20 gm Q12HR SANGEETHA Administration Lorazepam 2 mg 06/13/19 14:21 06/16/19 05:38 Ativan IV 2 mg Q1H PRN Administration Agitation Multi-Ingred Cream/Lotion/Oil/Oint 1 applic 06/13/19 15:33 Artificial Tears Ophth Oint OU Q4HR PRN Dry Eye(s) Simple Syrup 15 ml 06/15/19 15:11 Simple Syrup FEEDTUBE PRN PRN Hypoglycemia Simple Syrup 30 ml 06/15/19 15:11 Simple Syrup FEEDTUBE PRN PRN Hypoglycemia Sodium Bicarbonate 325 mg 06/15/19 15:11 Sodium Bicarbonate FEEDTUBE PRN PRN For Clogged Feeding Tube Sodium Chloride 10 ml 06/13/19 22:00 06/16/19 09:38 Sodium Chloride Flush Syringe 10 Ml IV 10 ml BID SANGEETHA Administration Sodium Chloride 10 ml 06/13/19 11:46 Sodium Chloride Flush Syringe 10 Ml IV PRN PRN LINE FLUSH
[2019-06-16] MEDS ORDERED: POTASSIUM CHLORIDE 20 MEQ PACKET FEEDTUBE ONE (10:48)
[2019-06-16] MEDS: hydrALAZINE 20 MG/1 ML INJ IV PRN (12:08)
--- NOTE | 2019-06-16 12:41 | Progress Note ---
Assessment and Plan Acute Respiratory failure Severe Metabolic Acidosis Acute Kidney injury secondary to vasmotor nephropathy Acute Metabolic Encephalopathy ?SECONDRY TO HEPATIC ENCEPHALOPATHY and AZOTEMIA Obstructive Uropathy per CT A/P DM with hyperglycemia HTN urgency Obesity Elevated Ammonia leveL ?Aspiration Penumonitis Plan Admit to ICU, initally admitted to IMCU but upgraded Nephrology, Urology and Critical care consult Bicarb drip Dialysis as tolerated--Creaatinine improving Monitor ammonia level lactulose Bicarb + D5 drip Replace electrolytes Aspiration and VAP bundle Weaning in progress On Fio2 28 percent DVT/GI prophy case discussed with family and other treatment team The high probability of a clinically significant, sudden or life threatening deterioration of the [PULMONARY, RENAL, NEURO] system(s) required my full and direct attention, intervention and personal management. The aggregate critical care time was [35] minutes. This time is in addition to time spent performing reported procedures but includes the following: [X] Data Review and interpretation [X] Patient assessment and monitoring of vital signs [X] Documentation [X] Medication orders and management Advance Directives: Yes Plan of care discussed with patient/family: Yes Subjective Date of service: 06/16/19 Principal diagnosis: Ac. hypoxemic resp failure; Ac. Encephalopathy; Sepsis; NATHAN; hyperkalemia Interval history: 69 year old male with PMH of Obesity, DM Type 2, HTN, presenting to the ED today via EMS after he was found on the bathroom floor and unresponsive pre the . The spouse reports that for about a year she has noticed that the patient has difficulty with urination, how ever the patient has not been keen about addressing the issue. In the last week the patient began to complain of adominal pain and on the 08 of June startated experince nasuea, with vomiting and difficulty "Using the Bathroom" HE WAS SEEN BY HIS [facility] PCP on 06/10/19 and was given Rx for prilosec and zofran. He was found on the bathroom floor early this morning. EMS found pt to be hypoglycemic (value unknown). In the ED the pt's accucheck was 59, k OF >7, BUN >100 and improved after D50. His MS remain unchanged. He was recommended for admission and underwent an emergent placement of vascath for dialysis. He sustained 2 hrs of Dialysis but decompensated and required elective intubation due to persistent Tachypenia Weaning in progress On Fio2 of 28 percent Objective - Constitutional Vitals: Vital Signs - 12hr 06/16/19 06/16/19 06/16/19 01:00 01:30 02:00 Temperature Pulse Rate 77 82 86 Pulse Rate [ 79 Anterior Bilateral] Respiratory 18 18 16 Rate Respiratory 18 Rate [Anterior Bilateral] Blood Pressure 121/70 118/69 142/75 O2 Sat by Pulse 99 98 100 Oximetry 06/16/19 06/16/19 06/16/19 02:31 03:00 03:30 Temperature Pulse Rate 86 79 77 Pulse Rate [ Anterior Bilateral] Respiratory 17 18 17 Rate Respiratory Rate [Anterior Bilateral] Blood Pressure 135/81 124/71 124/68 O2 Sat by Pulse 100 98 97 Oximetry 06/16/19 06/16/19 06/16/19 03:51 04:00 04:02 Temperature 97.5 F L Pulse Rate 80 73 Pulse Rate [ Anterior Bilateral] Respiratory 18 Rate Respiratory Rate [Anterior Bilateral] Blood Pressure 111/69 117/72 O2 Sat by Pulse 98 98 Oximetry 06/16/19 06/16/19 06/16/19 04:30 05:01 05:30 Temperature Pulse Rate 76 84 96 H Pulse Rate [ Anterior Bilateral] Respiratory 18 20 19 Rate Respiratory Rate [Anterior Bilateral] Blood Pressure 125/74 133/74 145/103 O2 Sat by Pulse 100 100 100 Oximetry 06/16/19 06/16/19 06/16/19 06:01 06:31 07:00 Temperature Pulse Rate 87 76 70 Pulse Rate [ Anterior Bilateral] Respiratory 17 17 15 Rate Respiratory Rate [Anterior Bilateral] Blood Pressure 155/85 143/82 135/77 O2 Sat by Pulse 100 100 97 Oximetry 06/16/19 06/16/19 06/16/19 07:30 08:00 08:31 Temperature 97.9 F Pulse Rate 70 70 78 Pulse Rate [ 76 Anterior Bilateral] Respiratory 23 14 22 Rate Respiratory 25 H Rate [Anterior Bilateral] Blood Pressure 126/66 118/67 160/84 O2 Sat by Pulse 99 100 100 Oximetry 06/16/19 06/16/19 06/16/19 09:00 09:30 10:01 Temperature Pulse Rate 93 H 73 90 Pulse Rate [ Anterior Bilateral] Respiratory 23 14 18 Rate Respiratory Rate [Anterior Bilateral] Blood Pressure 140/79 126/69 155/83 O2 Sat by Pulse 99 98 100 Oximetry 06/16/19 06/16/19 06/16/19 10:30 11:01 11:51 Temperature Pulse Rate 80 72 80 Pulse Rate [ Anterior Bilateral] Respiratory 19 22 23 Rate Respiratory Rate [Anterior Bilateral] Blood Pressure 146/84 159/83 157/81 O2 Sat by Pulse 99 99 100 Oximetry 06/16/19 12:08 Temperature Pulse Rate 69 Pulse Rate [ Anterior Bilateral] Respiratory Rate Respiratory Rate [Anterior Bilateral] Blood Pressure 171/89 O2 Sat by Pulse Oximetry General appearance: Present: no acute distress, well-nourished, other (Intubated) - EENT Eyes: PERRL, EOM intact ENT: hearing intact, clear oral mucosa Ears: bilateral: normal - Neck Neck: supple, normal ROM - Respiratory Respiratory effort: normal Respiratory: bilateral: CTA - Breasts Breasts: normal - Cardiovascular Rhythm: regular Heart Sounds: Present: S1 & S2. Absent: gallop, rub Extremities: pulses intact, No edema, normal color, Full ROM - Gastrointestinal General gastrointestinal: Present: soft, non-tender, non-distended, normal bowel sounds - Genitourinary Male genitourinary: normal - Integumentary Integumentary: clear, warm, dry - Musculoskeletal Musculoskeletal: generalized weakness - Neurologic Neurologic: moves all extremities - Allied health notes Allied health notes reviewed: nursing, case management - Labs CBC & Chem 7: 06/14/19 04:45 06/17/19 04:38 Labs: Abnormal lab results 06/15/19 06/15/19 06/16/19 Range/Units 16:25 18:18 00:20 Sodium (137-145) mmol/L Potassium 3.4 L D (3.6-5.0) mmol/L BUN (9-20) mg/dL Creatinine (0.8-1.5) mg/dL Glucose (75-100) mg/dL POC Glucose 153 H 164 H (70-105) Calcium (8.4-10.2) mg/dL 06/16/19 06/16/19 Range/Units 04:47 05:41 Sodium 146 H D (137-145) mmol/L Potassium 3.5 L (3.6-5.0) mmol/L BUN 44 H (9-20) mg/dL Creatinine 2.5 H (0.8-1.5) mg/dL Glucose 149 H (75-100) mg/dL POC Glucose 168 H (70-105) Calcium 8.3 L (8.4-10.2) mg/dL
--- NOTE | 2019-06-16 15:31 | Progress Note ---
Assessment and Plan Cultures: Blood culture 06/13/2019 no growth so far. Trachea asp usual resp darwin. Urine culture 06/13/2019 no growth Assessment: 69 y/o female with history of obesity, diabetes and hypertension admitted on due to be found down on the bathroom floor now with: 1) Severe sepsis: leukocytosis improving; likely source UTI. CXR with bilateral pulmonary venous congestion. Blood cultures no growth so far. 2) Complicated UTI with bilateral hydronephrosis: likely bladder outlet obstruction.UA large LE, wbc 66. CT abdomen shows bladder markedly distended, moderate bilateral hydronephrosis, prostate gland is enlarged measuring 7.7 x 8.2x 6.5 cm. S/p montero cath placement. 3) NATHAN: from sepsis and bladder outlet obstruction. S/p HD 4) Acute encephalopathy: metabolic/sepsis 5) Acute respiratory failure: intubated Recommendations: follow blood culture and urine culture continue ceftriaxone 2 gm IV q day stop vancomycin - negative urine and blood cx for [facility] urology on board repeat CXR in 1-2 days ? aspiration pneumonitis monitor leukocytosis Will follow. Dr Jony chou tomorrow Megan Colunga MD Infectious Diseases Vice President [facility] M [phone] O [phone] Subjective Date of service: 06/16/19 Principal diagnosis: Ac. hypoxemic resp failure; Ac. Encephalopathy; Sepsis; NATHAN; hyperkalemia Interval history: Remains intubated no fever no pressors Objective - Exam Narrative Exam: General appearance: sedated on the vent Eyes: anicteric sclerae, moist conjunctivae; no lid-lag; PERRLA HENT: Atraumatic; oropharynx +ETT Lungs: CTA, CV: RRR no murmur Abdomen: Soft, non-tender Extremities: john leg mild edema Skin: no rash Psych: sedated Neuro: sedated - Constitutional Vitals: Vital Signs Temp Pulse Resp BP Pulse Ox 97.9 F 114 H 23 122/64 99 06/16/19 08:00 06/16/19 15:00 06/16/19 15:00 06/16/19 15:00 06/16/19 15:00 Temperature -Last 24 Hours Temperature 97.9 F Temperature 97.5 F Temperature 98.3 F Temperature 98.9 F Temperature 98.1 F - Labs CBC & Chem 7: 06/14/19 04:45 06/16/19 04:47 Labs: Abnormal lab results 06/15/19 06/15/19 06/16/19 Range/Units 16:25 18:18 00:20 Sodium (137-145) mmol/L Potassium 3.4 L D (3.6-5.0) mmol/L BUN (9-20) mg/dL Creatinine (0.8-1.5) mg/dL Glucose (75-100) mg/dL POC Glucose 153 H 164 H (70-105) Calcium (8.4-10.2) mg/dL 06/16/19 06/16/19 Range/Units 04:47 05:41 Sodium 146 H D (137-145) mmol/L Potassium 3.5 L (3.6-5.0) mmol/L BUN 44 H (9-20) mg/dL Creatinine 2.5 H (0.8-1.5) mg/dL Glucose 149 H (75-100) mg/dL POC Glucose 168 H (70-105) Calcium 8.3 L (8.4-10.2) mg/dL
[2019-06-16] MEDS: fentaNYL 100 MCG/2 ML INJ IV PRN (16:13)
--- NOTE | 2019-06-16 16:19 | Progress Note ---
Assessment and Plan Acute hypoxemic respiratory failure, now on mechanical ventilatory support. Acute possibly on chronic encephalopathy. Severe sepsis Acute kidney injury, possibly on chronic. Severe hyperkalemia. Severe metabolic acidosis. Leukocytosis. History of diabetes. History of hypertension. Oropharyngeal dysphagia. (AMS remains rate limiting factor to safe extubation) - continue to watch for improvement in encephalopathy - continue to wean FiO2 for sats > 90% - VAP bundle addressed - continue daily SAT's and SBT assessment as tolerated - target sedation for RASS 0 to -1 - prn analgesia per CPOT score - HD/UF per nephrology prescription for toxin and volume clearance - continue to avoid nephrotoxins and adjust medications for renal function - begin enteral nutrition and advance to goal rate as tolerated - Monitor hemodynamics closely - continue empiric broad spectrum antiinfective's per ID recommendations (de- escalate based on clinical and microbiologic data) - continue mobility protocols and off loading as tolerated for pressure ulcer prophylaxis - continue to avoid nephrotoxins, adjust all medications for GFR and CRCL - continue GI & VTE prophylaxis with - accuchecks with glycemic control per SSI for target BG of 140-180 mg/dl acutely - continue other care per attending / other consultants ... care plan discussed at length with his in room ... re-evaluate in am & prn CONDITION: CRITICAL PROGNOSIS: VERY GUARDED CODE STATUS: FULL CODE Discussed extensively with RT/RN and care team in ICU IDT rounds The high probability of a clinically significant, sudden or life threatening deterioration of the [respiratory, renal, neurologic and Cardiac] system's' required my full and direct attention, intervention and personal management. The aggregate critical care time was 34 minutes. This time is in addition to time spent performing reported procedures but includes the following: [x] Data Review and interpretation [x] Patient assessment and monitoring of vital signs [x] Documentation [x] Medication orders and management Subjective Date of service: 06/16/19 Principal diagnosis: Ac. hypoxemic resp failure; Ac. Encephalopathy; Sepsis; NATHAN; hyperkalemia Interval history: Patient is seen today for: Acute hypoxemic respiratory failure; Acute possibly on chronic encephalopathy; Severe sepsis; Acute kidney injury, possibly on chronic; Severe hyperkalemia; Severe metabolic acidosis; Leukocytosis; History of diabetes; History of hypertension; Oropharyngeal dysphagia. Seen and examined at bedside; 24hour events reviewed; nursing and respiratory care staff consulted; no adverse overnight events reported to me; resting peacefully in bed; remains on MVS; AMS is persistent; not following prompts; non-iliguric; no seizures and no gross bleeding Objective Vital Signs - 12hr 06/16/19 06/16/19 06/16/19 04:30 05:01 05:30 Temperature Pulse Rate 76 84 96 H Pulse Rate [ Anterior Bilateral] Respiratory 18 20 19 Rate Respiratory Rate [Anterior Bilateral] Blood Pressure 125/74 133/74 145/103 O2 Sat by Pulse 100 100 100 Oximetry 06/16/19 06/16/19 06/16/19 06:01 06:31 07:00 Temperature Pulse Rate 87 76 70 Pulse Rate [ Anterior Bilateral] Respiratory 17 17 15 Rate Respiratory Rate [Anterior Bilateral] Blood Pressure 155/85 143/82 135/77 O2 Sat by Pulse 100 100 97 Oximetry 06/16/19 06/16/19 06/16/19 07:30 08:00 08:31 Temperature 97.9 F Pulse Rate 70 70 78 Pulse Rate [ 76 Anterior Bilateral] Respiratory 23 14 22 Rate Respiratory 25 H Rate [Anterior Bilateral] Blood Pressure 126/66 118/67 160/84 O2 Sat by Pulse 99 100 100 Oximetry 06/16/19 06/16/19 06/16/19 09:00 09:30 10:00 Temperature Pulse Rate 93 H 73 73 Pulse Rate [ Anterior Bilateral] Respiratory 23 14 Rate Respiratory Rate [Anterior Bilateral] Blood Pressure 140/79 126/69 O2 Sat by Pulse 99 98 Oximetry 06/16/19 06/16/19 06/16/19 10:01 10:30 11:01 Temperature Pulse Rate 90 80 72 Pulse Rate [ Anterior Bilateral] Respiratory 18 19 22 Rate Respiratory Rate [Anterior Bilateral] Blood Pressure 155/83 146/84 159/83 O2 Sat by Pulse 100 99 99 Oximetry 06/16/19 06/16/19 06/16/19 11:30 11:51 12:00 Temperature Pulse Rate 81 80 80 Pulse Rate [ Anterior Bilateral] Respiratory 20 23 17 Rate Respiratory Rate [Anterior Bilateral] Blood Pressure 160/92 157/81 171/89 O2 Sat by Pulse 100 100 100 Oximetry 06/16/19 06/16/19 06/16/19 12:08 12:30 13:01 Temperature Pulse Rate 69 68 70 Pulse Rate [ Anterior Bilateral] Respiratory 18 20 Rate Respiratory Rate [Anterior Bilateral] Blood Pressure 171/89 144/77 165/80 O2 Sat by Pulse 98 100 Oximetry 06/16/19 06/16/19 06/16/19 13:31 14:00 14:01 Temperature Pulse Rate 64 77 Pulse Rate [ 105 H Anterior Bilateral] Respiratory 18 19 Rate Respiratory 23 Rate [Anterior Bilateral] Blood Pressure 145/74 124/66 O2 Sat by Pulse 99 100 Oximetry 06/16/19 06/16/19 14:30 15:00 Temperature Pulse Rate 110 H 114 H Pulse Rate [ Anterior Bilateral] Respiratory 22 23 Rate Respiratory Rate [Anterior Bilateral] Blood Pressure 125/65 122/64 O2 Sat by Pulse 99 99 Oximetry Constitutional: no acute distress, other (elderly looking AAM, normocephalic with mildly increased resp effort at rest) Eyes: non-icteric ENT: oropharynx moist, other (ETT 24 cm BINA) Neck: supple, no lymphadenopathy, no JVD, other (large neck circumference) Effort: mildly labored Ascultation: Bilateral: rhonchi Percussion: Bilateral: not dull Cardiovascular: regular rate and rhythm Gastrointestinal: normoactive bowel sounds, soft, non-tender, non-distended Integumentary: other (see wound care and RN notes) Extremities: no cyanosis, no edema, pulses normal, no ischemia or petechiae Neurologic: non-focal exam (grossly), pupils equal and round, CN II-XII normal, unable to assess (unable to aceess re: encephalopathy) Psychiatric: other (unable to aceess re: encephalopathy) CBC and BMP: 06/14/19 04:45 06/17/19 04:38 ABG, PT/INR, D-dimer: ABG POC ABG pH 7.563 (7.35-7.45) H 06/15/19 04:44 POC ABG pCO2 34.2 (35-45) L 06/15/19 04:44 POC ABG pO2 113 (80-105) H 06/15/19 04:44 POC ABG HCO3 30.8 (22-26 mml/L) 06/15/19 04:44 POC ABG Total CO2 32 (23-27mmol/L) 06/15/19 04:44 POC ABG O2 Sat 99 06/15/19 04:44 Abnormal lab findings: Abnormal Labs 06/13/19 06/13/19 06/13/19 06:13 06:50 06:50 WBC 22.7 H RBC 5.69 H Hgb 15.5 H Hct 47.8 H MCV MCH 27 L RDW 15.6 H Seg Neuts % (Manual) 89.0 H Lymphocytes % (Manual) 4.0 L Monocytes % (Manual) Seg Neutrophils # Man 20.2 H Lymphocytes # (Manual) 0.9 L Monocytes # (Manual) 1.4 H POC ABG pH POC ABG pCO2 POC ABG pO2 Sodium 126 L Potassium 7.5 H* Chloride 83.9 L Carbon Dioxide 5 L* BUN 126 H Creatinine 12.6 H Glucose 143 H POC Glucose 59 L Lactic Acid Calcium Phosphorus Magnesium Total Bilirubin Ammonia Total Creatine Kinase CK-MB (CK-2) C-Reactive Protein Albumin 3.6 L Urine WBC (Auto) 06/13/19 06/13/19 06/13/19 07:09 07:31 07:31 WBC RBC Hgb Hct MCV MCH RDW Seg Neuts % (Manual) Lymphocytes % (Manual) Monocytes % (Manual) Seg Neutrophils # Man Lymphocytes # (Manual) Monocytes # (Manual) POC ABG pH POC ABG pCO2 POC ABG pO2 Sodium Potassium Chloride Carbon Dioxide BUN Creatinine Glucose POC Glucose 117 H Lactic Acid Calcium Phosphorus Magnesium 2.50 H Total Bilirubin Ammonia 408.0 H Total Creatine Kinase 409 H CK-MB (CK-2) 15.9 H C-Reactive Protein Albumin Urine WBC (Auto) 06/13/19 06/13/19 06/13/19 09:21 10:19 10:42 WBC RBC Hgb Hct MCV MCH RDW Seg Neuts % (Manual) Lymphocytes % (Manual) Monocytes % (Manual) Seg Neutrophils # Man Lymphocytes # (Manual) Monocytes # (Manual) POC ABG pH POC ABG pCO2 POC ABG pO2 Sodium Potassium Chloride Carbon Dioxide BUN Creatinine Glucose POC Glucose 153 H 54 L 136 H Lactic Acid Calcium Phosphorus Magnesium Total Bilirubin Ammonia Total Creatine Kinase CK-MB (CK-2) C-Reactive Protein Albumin Urine WBC (Auto) 06/13/19 06/13/19 06/13/19 14:19 14:19 14:19 WBC RBC Hgb Hct MCV MCH RDW Seg Neuts % (Manual) Lymphocytes % (Manual) Monocytes % (Manual) Seg Neutrophils # Man Lymphocytes # (Manual) Monocytes # (Manual) POC ABG pH POC ABG pCO2 POC ABG pO2 Sodium 134 L D Potassium Chloride 89.0 L Carbon Dioxide 12 L D BUN 86 H Creatinine 7.8 H Glucose POC Glucose Lactic Acid 8.80 H* Calcium Phosphorus Magnesium Total Bilirubin 1.70 H Ammonia Total Creatine Kinase CK-MB (CK-2) C-Reactive Protein 4.10 H Albumin 3.6 L Urine WBC (Auto) 06/13/19 06/13/19 06/13/19 14:28 16:10 16:15 WBC RBC Hgb Hct MCV MCH RDW Seg Neuts % (Manual) Lymphocytes % (Manual) Monocytes % (Manual) Seg Neutrophils # Man Lymphocytes # (Manual) Monocytes # (Manual) POC ABG pH 7.530 H 7.474 H POC ABG pCO2 POC ABG pO2 239 H 183 H Sodium Potassium Chloride Carbon Dioxide BUN Creatinine Glucose POC Glucose Lactic Acid Calcium Phosphorus Magnesium Total Bilirubin Ammonia 97.0 H Total Creatine Kinase CK-MB (CK-2) C-Reactive Protein Albumin Urine WBC (Auto) 06/13/19 06/13/19 06/13/19 16:15 16:22 16:56 WBC RBC Hgb Hct MCV MCH RDW Seg Neuts % (Manual) Lymphocytes % (Manual) Monocytes % (Manual) Seg Neutrophils # Man Lymphocytes # (Manual) Monocytes # (Manual) POC ABG pH POC ABG pCO2 POC ABG pO2 Sodium Potassium Chloride Carbon Dioxide BUN Creatinine Glucose POC Glucose Lactic Acid 7.60 H* 7.90 H* Calcium Phosphorus Magnesium Total Bilirubin Ammonia Total Creatine Kinase CK-MB (CK-2) C-Reactive Protein 3.80 H Albumin Urine WBC (Auto) 06/13/19 06/13/19 06/13/19 18:05 19:01 21:18 WBC RBC Hgb Hct MCV MCH RDW Seg Neuts % (Manual) Lymphocytes % (Manual) Monocytes % (Manual) Seg Neutrophils # Man Lymphocytes # (Manual) Monocytes # (Manual) POC ABG pH POC ABG pCO2 POC ABG pO2 Sodium Potassium Chloride Carbon Dioxide BUN Creatinine Glucose POC Glucose Lactic Acid 5.30 H* 5.10 H* 3.70 H* Calcium Phosphorus Magnesium Total Bilirubin Ammonia Total Creatine Kinase CK-MB (CK-2) C-Reactive Protein Albumin Urine WBC (Auto) 06/13/19 06/13/19 06/14/19 21:47 22:00 00:13 WBC RBC Hgb Hct MCV MCH RDW Seg Neuts % (Manual) Lymphocytes % (Manual) Monocytes % (Manual) Seg Neutrophils # Man Lymphocytes # (Manual) Monocytes # (Manual) POC ABG pH POC ABG pCO2 POC ABG pO2 Sodium Potassium Chloride Carbon Dioxide BUN Creatinine Glucose POC Glucose 119 H Lactic Acid 3.70 H* Calcium Phosphorus Magnesium Total Bilirubin Ammonia Total Creatine Kinase CK-MB (CK-2) C-Reactive Protein Albumin Urine WBC (Auto) 66.0 H 06/14/19 06/14/19 06/14/19 04:21 04:45 04:45 WBC 19.1 H RBC 5.25 H Hgb Hct MCV 83 L MCH RDW Seg Neuts % (Manual) 83.0 H Lymphocytes % (Manual) 6.0 L Monocytes % (Manual) 10.0 H Seg Neutrophils # Man 15.9 H Lymphocytes # (Manual) 1.1 L Monocytes # (Manual) 1.9 H POC ABG pH 7.497 H POC ABG pCO2 < 30 L POC ABG pO2 143 H Sodium 136 L Potassium Chloride 94.1 L Carbon Dioxide 20 L D BUN 96 H Creatinine 7.7 H Glucose 170 H POC Glucose Lactic Acid Calcium Phosphorus 6.40 H Magnesium Total Bilirubin Ammonia Total Creatine Kinase CK-MB (CK-2) C-Reactive Protein Albumin Urine WBC (Auto) 06/14/19 06/14/19 06/14/19 04:45 04:45 06:05 WBC RBC Hgb Hct MCV MCH RDW Seg Neuts % (Manual) Lymphocytes % (Manual) Monocytes % (Manual) Seg Neutrophils # Man Lymphocytes # (Manual) Monocytes # (Manual) POC ABG pH POC ABG pCO2 POC ABG pO2 Sodium Potassium Chloride Carbon Dioxide BUN Creatinine Glucose POC Glucose 155 H Lactic Acid 3.00 H* Calcium Phosphorus Magnesium Total Bilirubin Ammonia 96.0 H Total Creatine Kinase CK-MB (CK-2) C-Reactive Protein Albumin Urine WBC (Auto) 06/14/19 06/14/19 06/14/19 06:58 12:38 12:38 WBC RBC Hgb Hct MCV MCH RDW Seg Neuts % (Manual) Lymphocytes % (Manual) Monocytes % (Manual) Seg Neutrophils # Man Lymphocytes # (Manual) Monocytes # (Manual) POC ABG pH 7.543 H POC ABG pCO2 POC ABG pO2 115 H Sodium Potassium Chloride Carbon Dioxide BUN Creatinine Glucose POC Glucose 203 H Lactic Acid 2.50 H* Calcium Phosphorus Magnesium Total Bilirubin Ammonia Total Creatine Kinase CK-MB (CK-2) C-Reactive Protein Albumin Urine WBC (Auto) 06/14/19 06/14/19 06/14/19 15:49 17:14 18:05 WBC RBC Hgb Hct MCV MCH RDW Seg Neuts % (Manual) Lymphocytes % (Manual) Monocytes % (Manual) Seg Neutrophils # Man Lymphocytes # (Manual) Monocytes # (Manual) POC ABG pH POC ABG pCO2 POC ABG pO2 Sodium Potassium Chloride Carbon Dioxide BUN Creatinine Glucose POC Glucose 198 H Lactic Acid 2.10 H* 2.10 H* Calcium Phosphorus Magnesium Total Bilirubin Ammonia Total Creatine Kinase CK-MB (CK-2) C-Reactive Protein Albumin Urine WBC (Auto) 06/14/19 06/14/19 06/15/19 19:19 23:40 04:44 WBC RBC Hgb Hct MCV MCH RDW Seg Neuts % (Manual) Lymphocytes % (Manual) Monocytes % (Manual) Seg Neutrophils # Man Lymphocytes # (Manual) Monocytes # (Manual) POC ABG pH 7.563 H POC ABG pCO2 34.2 L POC ABG pO2 113 H Sodium Potassium Chloride Carbon Dioxide BUN Creatinine Glucose POC Glucose 210 H Lactic Acid 2.10 H* Calcium Phosphorus Magnesium Total Bilirubin Ammonia Total Creatine Kinase CK-MB (CK-2) C-Reactive Protein Albumin Urine WBC (Auto) 06/15/19 06/15/19 06/15/19 04:51 05:31 12:21 WBC RBC Hgb Hct MCV MCH RDW Seg Neuts % (Manual) Lymphocytes % (Manual) Monocytes % (Manual) Seg Neutrophils # Man Lymphocytes # (Manual) Monocytes # (Manual) POC ABG pH POC ABG pCO2 POC ABG pO2 Sodium Potassium 2.8 L* D Chloride 97.7 L Carbon Dioxide BUN 74 H Creatinine 4.6 H Glucose 174 H POC Glucose 151 H 175 H Lactic Acid Calcium 8.1 L Phosphorus Magnesium Total Bilirubin Ammonia Total Creatine Kinase CK-MB (CK-2) C-Reactive Protein Albumin Urine WBC (Auto) 06/15/19 06/15/19 06/16/19 16:25 18:18 00:20 WBC RBC Hgb Hct MCV MCH RDW Seg Neuts % (Manual) Lymphocytes % (Manual) Monocytes % (Manual) Seg Neutrophils # Man Lymphocytes # (Manual) Monocytes # (Manual) POC ABG pH POC ABG pCO2 POC ABG pO2 Sodium Potassium 3.4 L D Chloride Carbon Dioxide BUN Creatinine Glucose POC Glucose 153 H 164 H Lactic Acid Calcium Phosphorus Magnesium Total Bilirubin Ammonia Total Creatine Kinase CK-MB (CK-2) C-Reactive Protein Albumin Urine WBC (Auto) 06/16/19 06/16/19 04:47 05:41 WBC RBC Hgb Hct MCV MCH RDW Seg Neuts % (Manual) Lymphocytes % (Manual) Monocytes % (Manual) Seg Neutrophils # Man Lymphocytes # (Manual) Monocytes # (Manual) POC ABG pH POC ABG pCO2 POC ABG pO2 Sodium 146 H D Potassium 3.5 L Chloride Carbon Dioxide BUN 44 H Creatinine 2.5 H Glucose 149 H POC Glucose 168 H Lactic Acid Calcium 8.3 L Phosphorus Magnesium Total Bilirubin Ammonia Total Creatine Kinase CK-MB (CK-2) C-Reactive Protein Albumin Urine WBC (Auto) Chest x-ray: image reviewed (No new infiltrate; ETT in good position) Allied health notes reviewed: nursing
[2019-06-17] MEDS: INSULIN REGULAR, HUMAN 100 UNITS/1 ML SUB-Q SCH ×4 (00:29→18:25)
[2019-06-17] MEDS: IPRATROPIUM/ALBUTEROL SULFATE 3 ML AMPUL.NEB IH SCH ×4 (02:55→20:22)
[2019-06-17 05:53] LABS: Calcium 8.7 mg/dL (8.4-10.2)
--- NOTE | 2019-06-17 05:53 | XRay Report ---
CHEST 1 VIEW INDICATION / CLINICAL INFORMATION: ETT position. COMPARISON: Chest radiograph 06/14/2019 FINDINGS: SUPPORT DEVICES: Stable position of endotracheal tube with tip terminating approximately 4.5 cm above the lorenzo. Stable position of enteric tube. HEART / MEDIASTINUM: No significant abnormality. LUNGS / PLEURA: No significant pulmonary or pleural abnormality. No pneumothorax. ADDITIONAL FINDINGS: No significant additional findings. IMPRESSION: 1. Stable position of lines and tubes. No acute cardiopulmonary abnormality identified. Signer Name: Dominique Rod MD Signed: 06/17/2019 5:48 AM Workstation Name: [id number]
[2019-06-17] MEDS: cefTRIAXone/NS 2 GM/100 ML 2 GM/100 ML BAG IV SCH (09:54)
[2019-06-17] MEDS: HEPARIN 5,000 UNIT/1 ML VIAL SUB-Q SCH ×2 (09:55→22:12)
[2019-06-17] MEDS: FAMOTIDINE 20 MG TAB PO SCH ×2 (09:55→22:12)
--- NOTE | 2019-06-17 10:09 | Progress Note ---
Assessment and Plan 1. Acute kidney injury: NATHAN likely secondary to obstructive nephropathy +/- sepsis. CT abdomen showed bladder outlet obstruction. S/p montero catheter. Baseline renal function is unknown. Renal function is much better. Monitor renal function. Avoid nephrotoxic agents. Meds dosage based on GFR. Due to hyperkalemia and severe metabolic acidosis patient received hemodialysis on 06/13. Hemodialysis: 06/13. Remove the dialysis catheter. 2. FEN: Hypokalemia, replete K. Hypernatremia, chnage IV fluids to 1/2 NS. Metabolic acidosis, s/p HD. Replete Phos. Monitor lytes. 3. Obstructive nephropathy: Likely from enlarged prostate. S/p montero catheter. 4. Respiratory failure: On vent. 5. Severe Sepsis: Followed by ID. 6. Encephalopathy: CT head normal. Elevated Ammonia level, now improved. 7. DM. D/w his and answered all questions. Examination: General appearance: well-developed, well-nourished, appears stated age, intubated, on vent HEENT: Atraumatic Neck: Supple, trachea midline Respiratory: Clear to Ascultation Heart: regular, S1S2, no murmur Gastrointestinal: soft, bowel sounds present, not tender Integumentary: no rash, warm and dry : Montero catheter Neurologic: grimace Musculoskeletal: no edema Hemodialysis access: R groin dialysis catheter Subjective Date of service: 06/17/19 Principal diagnosis: Ac. hypoxemic resp failure; Ac. Encephalopathy; Sepsis; NATHAN; hyperkalemia Interval history: Patient was seen and examined at the bedside. Remain on the vent. at the bedside. Objective - Vital Signs Vital signs: Vital Signs - 12hr 06/16/19 06/16/19 06/16/19 22:31 23:00 23:07 Temperature Pulse Rate 112 H 97 H 96 H Pulse Rate [ Anterior Bilateral] Pulse Rate [ From Monitor] Respiratory 26 H 18 19 Rate Respiratory Rate [Anterior Bilateral] Blood Pressure 149/90 124/81 124/81 O2 Sat by Pulse 100 100 100 Oximetry 06/16/19 06/17/19 06/17/19 23:30 00:00 00:04 Temperature 98.9 F Pulse Rate 94 H 94 H 98 H Pulse Rate [ Anterior Bilateral] Pulse Rate [ 94 H From Monitor] Respiratory 18 17 18 Rate Respiratory Rate [Anterior Bilateral] Blood Pressure 129/84 132/83 129/84 O2 Sat by Pulse 100 99 100 Oximetry 06/17/19 06/17/19 06/17/19 00:30 01:00 01:30 Temperature Pulse Rate 94 H 89 89 Pulse Rate [ Anterior Bilateral] Pulse Rate [ From Monitor] Respiratory 25 H 13 18 Rate Respiratory Rate [Anterior Bilateral] Blood Pressure 137/86 125/84 123/79 O2 Sat by Pulse 100 99 100 Oximetry 06/17/19 06/17/19 06/17/19 02:01 02:31 02:55 Temperature Pulse Rate 93 H 101 H Pulse Rate [ 79 Anterior Bilateral] Pulse Rate [ From Monitor] Respiratory 24 21 Rate Respiratory 18 Rate [Anterior Bilateral] Blood Pressure 125/84 123/79 O2 Sat by Pulse 100 100 Oximetry 06/17/19 06/17/19 06/17/19 03:00 03:30 03:48 Temperature Pulse Rate 83 80 94 H Pulse Rate [ Anterior Bilateral] Pulse Rate [ From Monitor] Respiratory 18 18 18 Rate Respiratory Rate [Anterior Bilateral] Blood Pressure 141/85 126/74 126/74 O2 Sat by Pulse 99 99 100 Oximetry 06/17/19 06/17/19 06/17/19 04:00 04:30 05:01 Temperature 98.8 F Pulse Rate 81 94 H 101 H Pulse Rate [ Anterior Bilateral] Pulse Rate [ 81 From Monitor] Respiratory 18 29 H 42 H Rate Respiratory Rate [Anterior Bilateral] Blood Pressure 138/80 154/87 164/95 O2 Sat by Pulse 100 100 100 Oximetry 06/17/19 06/17/19 06/17/19 05:30 06:00 06:30 Temperature Pulse Rate 82 77 77 Pulse Rate [ Anterior Bilateral] Pulse Rate [ From Monitor] Respiratory 32 H 35 H 17 Rate Respiratory Rate [Anterior Bilateral] Blood Pressure 143/86 138/77 124/66 O2 Sat by Pulse 100 100 100 Oximetry 06/17/19 06/17/19 06/17/19 07:00 07:30 08:00 Temperature Pulse Rate 74 76 75 Pulse Rate [ 87 Anterior Bilateral] Pulse Rate [ 81 From Monitor] Respiratory 19 19 18 Rate Respiratory 18 Rate [Anterior Bilateral] Blood Pressure 131/71 124/70 125/72 O2 Sat by Pulse 100 100 100 Oximetry 06/17/19 06/17/19 08:30 09:00 Temperature Pulse Rate 81 87 Pulse Rate [ Anterior Bilateral] Pulse Rate [ From Monitor] Respiratory 18 18 Rate Respiratory Rate [Anterior Bilateral] Blood Pressure 143/80 141/84 O2 Sat by Pulse 100 100 Oximetry - Lab 06/14/19 04:45 06/17/19 04:38 Most recent lab results Calcium 8.7 mg/dL (8.4-10.2) 06/17/19 04:38 Phosphorus 2.40 mg/dL (2.5-4.5) L 06/17/19 04:38 Magnesium 1.80 mg/dL (1.7-2.3) 06/17/19 04:38 Medications & Allergies - Medications Allergies/Adverse Reactions: Allergies No Known Allergies Allergy (Verified 06/13/19 05:58) Home Medications: Home Medications Medication Instructions Recorded Confirmed Last Taken Type Atorvastatin 80 mg PO DAILY MDD 40 mg 06/15/19 06/15/19 06/12/19 History Carvedilol 12.5 mg PO BID 06/15/19 06/15/19 06/12/19 History Lisinopril 10 mg PO DAILY 06/15/19 06/15/19 06/12/19 History Metformin HCl [metFORMIN] 1,000 mg PO BID 06/15/19 06/15/19 06/12/19 History Omeprazole 20 mg PO DAILY 06/15/19 06/15/19 06/12/19 History Ondansetron 8 mg PO Q12HR PRN 06/15/19 06/15/19 Unknown History Tamsulosin 0.4 mg PO DAILY MDD 0.4 06/15/19 06/15/19 06/12/19 History Active Medications: Generic Name Dose Route Start Last Admin Trade Name Freq PRN Reason Stop Dose Admin Albuterol/Ipratropium 1 ampul 06/13/19 14:00 06/17/19 08:00 Duoneb *Not For Prn Use* IH 1 ampul Q6HRT SANGEETHA Administration Lipase/Protease/Amylase 1 each 06/15/19 15:11 Pancrejames Willis 10,500 Unit FEEDTUBE PRN PRN For Clogged Feeding Tube Dextrose 50 ml 06/14/19 13:41 D50w (25gm) Syringe IV PRN PRN Hypoglycemia Famotidine 20 mg 06/17/19 10:00 06/17/19 09:55 Pepcid PO 20 mg BID SANGEETHA Administration Fentanyl 50 mcg 06/13/19 15:33 06/16/19 16:13 Sublimaze IV 50 mcg Q10MIN PRN Administration ANALGESIA Heparin Sodium (Porcine) 5,000 unit 06/13/19 22:00 06/17/19 09:55 Heparin SUB-Q 5,000 unit Q12HR SANGEETHA Administration Hydralazine HCl 10 mg 06/13/19 16:05 06/16/19 12:08 Apresoline IV 10 mg Q4HR PRN Administration HTN SBP>=170 Hydrophilic Ointment 1 applic 06/13/19 15:33 Vaseline Lip Therapy TP Q2HR PRN Dry Lips Sodium Chloride 100 mls @ 999 mls/hr 06/13/19 10:03 Nacl 0.9% IV SUNDAR PRN Hypotension Fentanyl Citrate 2,000 mcg in 100 mls @ 5.67 mls/hr 06/13/19 16:00 06/14/19 19:38 Fentanyl Drip Premix IV 0 mcg/kg/hr TITR SANGEETHA 0 mls/hr Titration Protocol 1 MCG/KG/HR Propofol 1,000 mg in 100 mls @ 3.402 mls/hr 06/13/19 16:00 06/14/19 19:33 Diprivan 10 Mg/Ml IV 0 mcg/kg/min TITR SANGEETHA 0 mls/hr Titration Protocol 5 MCG/KG/MIN Ceftriaxone Sodium 2 gm in 100 mls @ 200 mls/hr 06/14/19 18:30 06/17/19 09:54 Rocephin/Ns 2 Gm/100 Ml IV 200 mls/hr Q24HR SANGEETHA Administration Protocol Sodium Chloride 1,000 mls @ 75 mls/hr 06/15/19 14:00 06/16/19 21:28 Nacl 0.9% 1000 Ml IV 0 mls/hr DIRECT SANGEETHA Infusion Insulin Human Regular 0 units 06/14/19 18:00 06/17/19 06:10 Humulin R SUB-Q 2 units Q6HR SANGEETHA Administration Protocol Lorazepam 2 mg 06/13/19 14:21 06/16/19 05:38 Ativan IV 2 mg Q1H PRN Administration Agitation Multi-Ingred Cream/Lotion/Oil/Oint 1 applic 06/13/19 15:33 Artificial Tears Ophth Oint OU Q4HR PRN Dry Eye(s) Simple Syrup 15 ml 06/15/19 15:11 Simple Syrup FEEDTUBE PRN PRN Hypoglycemia Simple Syrup 30 ml 06/15/19 15:11 Simple Syrup FEEDTUBE PRN PRN Hypoglycemia Sodium Bicarbonate 325 mg 06/15/19 15:11 Sodium Bicarbonate FEEDTUBE PRN PRN For Clogged Feeding Tube Sodium Chloride 10 ml 06/13/19 22:00 06/17/19 09:56 Sodium Chloride Flush Syringe 10 Ml IV 10 ml BID SANGEETHA Administration Sodium Chloride 10 ml 06/13/19 11:46 Sodium Chloride Flush Syringe 10 Ml IV PRN PRN LINE FLUSH
[2019-06-17] MEDS ORDERED: K-PHOS NEUTRAL 250 MG TAB PO NR (10:40)
[2019-06-17] MEDS: SODIUM CHLORIDE 0.45% 1000 ML 1,000 ML IV SCH (11:26)
--- NOTE | 2019-06-17 12:52 | Progress Note ---
Assessment and Plan Cultures: Blood culture 06/13/2019 no growth so far. Trachea asp usual resp darwin. Urine culture 06/13/2019 no growth Assessment: 69 y/o female with history of obesity, diabetes and hypertension admitted on due to be found down on the bathroom floor now with: 1) Severe sepsis: leukocytosis improving; likely source UTI. CXR with bilateral pulmonary venous congestion. Blood cultures no growth so far. 2) Complicated UTI with bilateral hydronephrosis: likely bladder outlet obstruction.UA large LE, wbc 66. CT abdomen shows bladder markedly distended, moderate bilateral hydronephrosis, prostate gland is enlarged measuring 7.7 x 8.2x 6.5 cm. S/p montero cath placement. 3) NATHAN: from sepsis and bladder outlet obstruction. S/p HD 4) Acute encephalopathy: metabolic/sepsis 5) Acute respiratory failure: intubated Recommendations: follow blood culture and urine culture continue ceftriaxone 2 gm IV q day urology on board repeat CXR in 1-2 days ? aspiration pneumonitis Ordered CBC for tomorrow. Will follow. Yamileth Borges MD [facility] ([facility] M: [phone] O: [phone] F: [phone] Subjective Date of service: 06/17/19 Principal diagnosis: Ac. hypoxemic resp failure; Ac. Encephalopathy; Sepsis; NATHAN; hyperkalemia Interval history: Afebrile. Elevated white count to 19. Objective - Exam Narrative Exam: General appearance: sedated on the vent Eyes: anicteric sclerae, moist conjunctivae; no lid-lag; PERRLA HENT: Atraumatic; oropharynx +ETT Lungs: CTA, CV: RRR no murmur Abdomen: Soft, non-tender Extremities: john leg mild edema Skin: no rash Psych: sedated Neuro: sedated - Constitutional Vitals: Vital Signs Temp Pulse Resp BP Pulse Ox 98.8 F 89 23 146/84 100 06/17/19 04:00 06/17/19 10:30 06/17/19 10:30 06/17/19 10:30 06/17/19 10:30 Temperature -Last 24 Hours Temperature 98.8 F Temperature 98.9 F Temperature 97.8 F - Labs CBC & Chem 7: 06/14/19 04:45 06/17/19 04:38 Labs: Abnormal lab results 06/16/19 06/17/19 06/17/19 Range/Units 18:42 00:07 03:56 POC ABG pO2 125 H (80-105) Chloride (98-107) mmol/L BUN (9-20) mg/dL Creatinine (0.8-1.5) mg/dL Glucose (75-100) mg/dL POC Glucose 161 H 160 H (70-105) Phosphorus (2.5-4.5) mg/dL 06/17/19 06/17/19 06/17/19 Range/Units 04:38 05:20 12:40 POC ABG pO2 (80-105) Chloride 110.4 H (98-107) mmol/L BUN 33 H (9-20) mg/dL Creatinine 1.7 H (0.8-1.5) mg/dL Glucose 159 H (75-100) mg/dL POC Glucose 159 H 192 H (70-105) Phosphorus 2.40 L (2.5-4.5) mg/dL
[2019-06-17] MEDS: LORazepam 2 MG/ML VIAL IV PRN (13:07)
--- NOTE | 2019-06-17 13:31 | Progress Note ---
Assessment and Plan Acute hypoxemic respiratory failure, now on mechanical ventilatory support. Acute possibly on chronic encephalopathy. Severe sepsis Acute kidney injury, possibly on chronic. Severe hyperkalemia. Severe metabolic acidosis. Leukocytosis. History of diabetes. History of hypertension. Oropharyngeal dysphagia. - get ABG on SBT - extubate if meets criteria - BIPAP 16/8 rate 14 qhs post extubation - continue to watch for improvement in encephalopathy - continue to wean FiO2 for sats > 90% - VAP bundle addressed - continue daily SAT's and SBT assessment as tolerated - target sedation for RASS 0 to -1 - prn analgesia per CPOT score - HD/UF per nephrology prescription for toxin and volume clearance - continue to avoid nephrotoxins and adjust medications for renal function - begin enteral nutrition and advance to goal rate as tolerated - Monitor hemodynamics closely - continue empiric broad spectrum antiinfective's per ID recommendations (de- escalate based on clinical and microbiologic data) - continue mobility protocols and off loading as tolerated for pressure ulcer prophylaxis - continue to avoid nephrotoxins, adjust all medications for GFR and CRCL - continue GI & VTE prophylaxis with - accuchecks with glycemic control per SSI for target BG of 140-180 mg/dl acutely - continue other care per attending / other consultants ... care plan discussed at length with his in room ... re-evaluate in am & prn CONDITION: CRITICAL PROGNOSIS: VERY GUARDED CODE STATUS: FULL CODE Discussed extensively with RT/RN and care team in ICU IDT rounds The high probability of a clinically significant, sudden or life threatening deterioration of the [respiratory, renal, neurologic and Cardiac] system's' required my full and direct attention, intervention and personal management. The aggregate critical care time was 32 minutes. This time is in addition to time spent performing reported procedures but includes the following: [x] Data Review and interpretation [x] Patient assessment and monitoring of vital signs [x] Documentation [x] Medication orders and management Subjective Date of service: 06/17/19 Principal diagnosis: Ac. hypoxemic resp failure; Ac. Encephalopathy; Sepsis; NATHAN; hyperkalemia Interval history: Patient is seen today for: Acute hypoxemic respiratory failure; Acute possibly on chronic encephalopathy; Severe sepsis; Acute kidney injury, possibly on chronic; Severe hyperkalemia; Severe metabolic acidosis; Leukocytosis; History of diabetes; History of hypertension; Oropharyngeal dysphagia. Seen and examined at bedside; 24hour events reviewed; nursing and respiratory care staff consulted; no adverse overnight events reported to me; resting peacefully in bed; a little more appropriate; continues to tolerate SBT well; secretions well controlled; no seizures; No N/V/F/C Objective Vital Signs - 12hr 06/17/19 06/17/19 06/17/19 02:01 02:31 02:55 Temperature Pulse Rate 93 H 101 H Pulse Rate [ 79 Anterior Bilateral] Pulse Rate [ From Monitor] Respiratory 24 21 Rate Respiratory 18 Rate [Anterior Bilateral] Blood Pressure 125/84 123/79 O2 Sat by Pulse 100 100 Oximetry 06/17/19 06/17/19 06/17/19 03:00 03:30 03:48 Temperature Pulse Rate 83 80 94 H Pulse Rate [ Anterior Bilateral] Pulse Rate [ From Monitor] Respiratory 18 18 18 Rate Respiratory Rate [Anterior Bilateral] Blood Pressure 141/85 126/74 126/74 O2 Sat by Pulse 99 99 100 Oximetry 06/17/19 06/17/19 06/17/19 04:00 04:30 05:01 Temperature 98.8 F Pulse Rate 81 94 H 101 H Pulse Rate [ Anterior Bilateral] Pulse Rate [ 81 From Monitor] Respiratory 18 29 H 42 H Rate Respiratory Rate [Anterior Bilateral] Blood Pressure 138/80 154/87 164/95 O2 Sat by Pulse 100 100 100 Oximetry 06/17/19 06/17/19 06/17/19 05:30 06:00 06:30 Temperature Pulse Rate 82 77 77 Pulse Rate [ Anterior Bilateral] Pulse Rate [ From Monitor] Respiratory 32 H 35 H 17 Rate Respiratory Rate [Anterior Bilateral] Blood Pressure 143/86 138/77 124/66 O2 Sat by Pulse 100 100 100 Oximetry 06/17/19 06/17/19 06/17/19 07:00 07:30 08:00 Temperature Pulse Rate 74 76 75 Pulse Rate [ 87 Anterior Bilateral] Pulse Rate [ 81 From Monitor] Respiratory 19 19 18 Rate Respiratory 18 Rate [Anterior Bilateral] Blood Pressure 131/71 124/70 125/72 O2 Sat by Pulse 100 100 100 Oximetry 06/17/19 06/17/19 06/17/19 08:30 09:00 09:25 Temperature Pulse Rate 81 87 98 H Pulse Rate [ Anterior Bilateral] Pulse Rate [ From Monitor] Respiratory 18 18 24 Rate Respiratory Rate [Anterior Bilateral] Blood Pressure 143/80 141/84 129/93 O2 Sat by Pulse 100 100 99 Oximetry 06/17/19 06/17/19 06/17/19 09:31 10:00 10:01 Temperature Pulse Rate 92 H 92 H 96 H Pulse Rate [ Anterior Bilateral] Pulse Rate [ From Monitor] Respiratory 17 26 H Rate Respiratory Rate [Anterior Bilateral] Blood Pressure 129/93 155/91 O2 Sat by Pulse 99 99 Oximetry 06/17/19 10:30 Temperature Pulse Rate 89 Pulse Rate [ Anterior Bilateral] Pulse Rate [ From Monitor] Respiratory 23 Rate Respiratory Rate [Anterior Bilateral] Blood Pressure 146/84 O2 Sat by Pulse 100 Oximetry Constitutional: no acute distress, other (elderly looking AAM, normocephalic with mildly increased resp effort at rest) Eyes: non-icteric ENT: oropharynx moist, other (ETT 24 cm BINA) Neck: supple, no lymphadenopathy, no JVD, other (large neck circumference) Effort: mildly labored Ascultation: Bilateral: rhonchi Percussion: Bilateral: not dull Cardiovascular: regular rate and rhythm Gastrointestinal: normoactive bowel sounds, soft, non-tender, non-distended Integumentary: other (see wound care and RN notes) Extremities: no cyanosis, no edema, pulses normal, no ischemia or petechiae Neurologic: non-focal exam (grossly), pupils equal and round, CN II-XII normal, unable to assess (unable to aceess re: encephalopathy) Psychiatric: other (unable to aceess re: encephalopathy) CBC and BMP: 06/18/19 04:31 06/18/19 04:31 ABG, PT/INR, D-dimer: ABG POC ABG pH 7.433 (7.35-7.45) 06/17/19 03:56 POC ABG pCO2 37.3 (35-45) 06/17/19 03:56 POC ABG pO2 125 (80-105) H 06/17/19 03:56 POC ABG HCO3 24.9 (22-26 mml/L) 06/17/19 03:56 POC ABG Total CO2 26 (23-27mmol/L) 06/17/19 03:56 POC ABG O2 Sat 99 06/17/19 03:56 Abnormal lab findings: Abnormal Labs 10/03/19 10/03/19 10/03/19 06:13 06:50 06:50 WBC 22.7 H RBC 5.69 H Hgb 15.5 H Hct 47.8 H MCV MCH 27 L RDW 15.6 H Seg Neuts % (Manual) 89.0 H Lymphocytes % (Manual) 4.0 L Monocytes % (Manual) Seg Neutrophils # Man 20.2 H Lymphocytes # (Manual) 0.9 L Monocytes # (Manual) 1.4 H POC ABG pH POC ABG pCO2 POC ABG pO2 Sodium 126 L Potassium 7.5 H* Chloride 83.9 L Carbon Dioxide 5 L* BUN 126 H Creatinine 12.6 H Glucose 143 H POC Glucose 59 L Lactic Acid Calcium Phosphorus Magnesium Total Bilirubin Ammonia Total Creatine Kinase CK-MB (CK-2) C-Reactive Protein Albumin 3.6 L Urine WBC (Auto) 06/13/19 06/13/19 06/13/19 07:09 07:31 07:31 WBC RBC Hgb Hct MCV MCH RDW Seg Neuts % (Manual) Lymphocytes % (Manual) Monocytes % (Manual) Seg Neutrophils # Man Lymphocytes # (Manual) Monocytes # (Manual) POC ABG pH POC ABG pCO2 POC ABG pO2 Sodium Potassium Chloride Carbon Dioxide BUN Creatinine Glucose POC Glucose 117 H Lactic Acid Calcium Phosphorus Magnesium 2.50 H Total Bilirubin Ammonia 408.0 H Total Creatine Kinase 409 H CK-MB (CK-2) 15.9 H C-Reactive Protein Albumin Urine WBC (Auto) 06/13/19 06/13/19 06/13/19 09:21 10:19 10:42 WBC RBC Hgb Hct MCV MCH RDW Seg Neuts % (Manual) Lymphocytes % (Manual) Monocytes % (Manual) Seg Neutrophils # Man Lymphocytes # (Manual) Monocytes # (Manual) POC ABG pH POC ABG pCO2 POC ABG pO2 Sodium Potassium Chloride Carbon Dioxide BUN Creatinine Glucose POC Glucose 153 H 54 L 136 H Lactic Acid Calcium Phosphorus Magnesium Total Bilirubin Ammonia Total Creatine Kinase CK-MB (CK-2) C-Reactive Protein Albumin Urine WBC (Auto) 06/13/19 06/13/19 06/13/19 14:19 14:19 14:19 WBC RBC Hgb Hct MCV MCH RDW Seg Neuts % (Manual) Lymphocytes % (Manual) Monocytes % (Manual) Seg Neutrophils # Man Lymphocytes # (Manual) Monocytes # (Manual) POC ABG pH POC ABG pCO2 POC ABG pO2 Sodium 134 L D Potassium Chloride 89.0 L Carbon Dioxide 12 L D BUN 86 H Creatinine 7.8 H Glucose POC Glucose Lactic Acid 8.80 H* Calcium Phosphorus Magnesium Total Bilirubin 1.70 H Ammonia Total Creatine Kinase CK-MB (CK-2) C-Reactive Protein 4.10 H Albumin 3.6 L Urine WBC (Auto) 06/13/19 06/13/19 06/13/19 14:28 16:10 16:15 WBC RBC Hgb Hct MCV MCH RDW Seg Neuts % (Manual) Lymphocytes % (Manual) Monocytes % (Manual) Seg Neutrophils # Man Lymphocytes # (Manual) Monocytes # (Manual) POC ABG pH 7.530 H 7.474 H POC ABG pCO2 POC ABG pO2 239 H 183 H Sodium Potassium Chloride Carbon Dioxide BUN Creatinine Glucose POC Glucose Lactic Acid Calcium Phosphorus Magnesium Total Bilirubin Ammonia 97.0 H Total Creatine Kinase CK-MB (CK-2) C-Reactive Protein Albumin Urine WBC (Auto) 06/13/19 06/13/19 06/13/19 16:15 16:22 16:56 WBC RBC Hgb Hct MCV MCH RDW Seg Neuts % (Manual) Lymphocytes % (Manual) Monocytes % (Manual) Seg Neutrophils # Man Lymphocytes # (Manual) Monocytes # (Manual) POC ABG pH POC ABG pCO2 POC ABG pO2 Sodium Potassium Chloride Carbon Dioxide BUN Creatinine Glucose POC Glucose Lactic Acid 7.60 H* 7.90 H* Calcium Phosphorus Magnesium Total Bilirubin Ammonia Total Creatine Kinase CK-MB (CK-2) C-Reactive Protein 3.80 H Albumin Urine WBC (Auto) 06/13/19 06/13/19 06/13/19 18:05 19:01 21:18 WBC RBC Hgb Hct MCV MCH RDW Seg Neuts % (Manual) Lymphocytes % (Manual) Monocytes % (Manual) Seg Neutrophils # Man Lymphocytes # (Manual) Monocytes # (Manual) POC ABG pH POC ABG pCO2 POC ABG pO2 Sodium Potassium Chloride Carbon Dioxide BUN Creatinine Glucose POC Glucose Lactic Acid 5.30 H* 5.10 H* 3.70 H* Calcium Phosphorus Magnesium Total Bilirubin Ammonia Total Creatine Kinase CK-MB (CK-2) C-Reactive Protein Albumin Urine WBC (Auto) 06/13/19 06/13/19 06/14/19 21:47 22:00 00:13 WBC RBC Hgb Hct MCV MCH RDW Seg Neuts % (Manual) Lymphocytes % (Manual) Monocytes % (Manual) Seg Neutrophils # Man Lymphocytes # (Manual) Monocytes # (Manual) POC ABG pH POC ABG pCO2 POC ABG pO2 Sodium Potassium Chloride Carbon Dioxide BUN Creatinine Glucose POC Glucose 119 H Lactic Acid 3.70 H* Calcium Phosphorus Magnesium Total Bilirubin Ammonia Total Creatine Kinase CK-MB (CK-2) C-Reactive Protein Albumin Urine WBC (Auto) 66.0 H 06/14/19 06/14/19 06/14/19 04:21 04:45 04:45 WBC 19.1 H RBC 5.25 H Hgb Hct MCV 83 L MCH RDW Seg Neuts % (Manual) 83.0 H Lymphocytes % (Manual) 6.0 L Monocytes % (Manual) 10.0 H Seg Neutrophils # Man 15.9 H Lymphocytes # (Manual) 1.1 L Monocytes # (Manual) 1.9 H POC ABG pH 7.497 H POC ABG pCO2 < 30 L POC ABG pO2 143 H Sodium 136 L Potassium Chloride 94.1 L Carbon Dioxide 20 L D BUN 96 H Creatinine 7.7 H Glucose 170 H POC Glucose Lactic Acid Calcium Phosphorus 6.40 H Magnesium Total Bilirubin Ammonia Total Creatine Kinase CK-MB (CK-2) C-Reactive Protein Albumin Urine WBC (Auto) 06/14/19 06/14/19 06/14/19 04:45 04:45 06:05 WBC RBC Hgb Hct MCV MCH RDW Seg Neuts % (Manual) Lymphocytes % (Manual) Monocytes % (Manual) Seg Neutrophils # Man Lymphocytes # (Manual) Monocytes # (Manual) POC ABG pH POC ABG pCO2 POC ABG pO2 Sodium Potassium Chloride Carbon Dioxide BUN Creatinine Glucose POC Glucose 155 H Lactic Acid 3.00 H* Calcium Phosphorus Magnesium Total Bilirubin Ammonia 96.0 H Total Creatine Kinase CK-MB (CK-2) C-Reactive Protein Albumin Urine WBC (Auto) 06/14/19 06/14/19 06/14/19 06:58 12:38 12:38 WBC RBC Hgb Hct MCV MCH RDW Seg Neuts % (Manual) Lymphocytes % (Manual) Monocytes % (Manual) Seg Neutrophils # Man Lymphocytes # (Manual) Monocytes # (Manual) POC ABG pH 7.543 H POC ABG pCO2 POC ABG pO2 115 H Sodium Potassium Chloride Carbon Dioxide BUN Creatinine Glucose POC Glucose 203 H Lactic Acid 2.50 H* Calcium Phosphorus Magnesium Total Bilirubin Ammonia Total Creatine Kinase CK-MB (CK-2) C-Reactive Protein Albumin Urine WBC (Auto) 06/14/19 06/14/19 06/14/19 15:49 17:14 18:05 WBC RBC Hgb Hct MCV MCH RDW Seg Neuts % (Manual) Lymphocytes % (Manual) Monocytes % (Manual) Seg Neutrophils # Man Lymphocytes # (Manual) Monocytes # (Manual) POC ABG pH POC ABG pCO2 POC ABG pO2 Sodium Potassium Chloride Carbon Dioxide BUN Creatinine Glucose POC Glucose 198 H Lactic Acid 2.10 H* 2.10 H* Calcium Phosphorus Magnesium Total Bilirubin Ammonia Total Creatine Kinase CK-MB (CK-2) C-Reactive Protein Albumin Urine WBC (Auto) 06/14/19 06/14/19 06/15/19 19:19 23:40 04:44 WBC RBC Hgb Hct MCV MCH RDW Seg Neuts % (Manual) Lymphocytes % (Manual) Monocytes % (Manual) Seg Neutrophils # Man Lymphocytes # (Manual) Monocytes # (Manual) POC ABG pH 7.563 H POC ABG pCO2 34.2 L POC ABG pO2 113 H Sodium Potassium Chloride Carbon Dioxide BUN Creatinine Glucose POC Glucose 210 H Lactic Acid 2.10 H* Calcium Phosphorus Magnesium Total Bilirubin Ammonia Total Creatine Kinase CK-MB (CK-2) C-Reactive Protein Albumin Urine WBC (Auto) 06/15/19 06/15/19 06/15/19 04:51 05:31 12:21 WBC RBC Hgb Hct MCV MCH RDW Seg Neuts % (Manual) Lymphocytes % (Manual) Monocytes % (Manual) Seg Neutrophils # Man Lymphocytes # (Manual) Monocytes # (Manual) POC ABG pH POC ABG pCO2 POC ABG pO2 Sodium Potassium 2.8 L* D Chloride 97.7 L Carbon Dioxide BUN 74 H Creatinine 4.6 H Glucose 174 H POC Glucose 151 H 175 H Lactic Acid Calcium 8.1 L Phosphorus Magnesium Total Bilirubin Ammonia Total Creatine Kinase CK-MB (CK-2) C-Reactive Protein Albumin Urine WBC (Auto) 06/15/19 06/15/19 06/16/19 16:25 18:18 00:20 WBC RBC Hgb Hct MCV MCH RDW Seg Neuts % (Manual) Lymphocytes % (Manual) Monocytes % (Manual) Seg Neutrophils # Man Lymphocytes # (Manual) Monocytes # (Manual) POC ABG pH POC ABG pCO2 POC ABG pO2 Sodium Potassium 3.4 L D Chloride Carbon Dioxide BUN Creatinine Glucose POC Glucose 153 H 164 H Lactic Acid Calcium Phosphorus Magnesium Total Bilirubin Ammonia Total Creatine Kinase CK-MB (CK-2) C-Reactive Protein Albumin Urine WBC (Auto) 06/16/19 06/16/19 06/16/19 04:47 05:41 18:42 WBC RBC Hgb Hct MCV MCH RDW Seg Neuts % (Manual) Lymphocytes % (Manual) Monocytes % (Manual) Seg Neutrophils # Man Lymphocytes # (Manual) Monocytes # (Manual) POC ABG pH POC ABG pCO2 POC ABG pO2 Sodium 146 H D Potassium 3.5 L Chloride Carbon Dioxide BUN 44 H Creatinine 2.5 H Glucose 149 H POC Glucose 168 H 161 H Lactic Acid Calcium 8.3 L Phosphorus Magnesium Total Bilirubin Ammonia Total Creatine Kinase CK-MB (CK-2) C-Reactive Protein Albumin Urine WBC (Auto) 06/17/19 06/17/19 06/17/19 00:07 03:56 04:38 WBC RBC Hgb Hct MCV MCH RDW Seg Neuts % (Manual) Lymphocytes % (Manual) Monocytes % (Manual) Seg Neutrophils # Man Lymphocytes # (Manual) Monocytes # (Manual) POC ABG pH POC ABG pCO2 POC ABG pO2 125 H Sodium Potassium Chloride 110.4 H Carbon Dioxide BUN 33 H Creatinine 1.7 H Glucose 159 H POC Glucose 160 H Lactic Acid Calcium Phosphorus 2.40 L Magnesium Total Bilirubin Ammonia Total Creatine Kinase CK-MB (CK-2) C-Reactive Protein Albumin Urine WBC (Auto) 06/17/19 06/17/19 05:20 12:40 WBC RBC Hgb Hct MCV MCH RDW Seg Neuts % (Manual) Lymphocytes % (Manual) Monocytes % (Manual) Seg Neutrophils # Man Lymphocytes # (Manual) Monocytes # (Manual) POC ABG pH POC ABG pCO2 POC ABG pO2 Sodium Potassium Chloride Carbon Dioxide BUN Creatinine Glucose POC Glucose 159 H 192 H Lactic Acid Calcium Phosphorus Magnesium Total Bilirubin Ammonia Total Creatine Kinase CK-MB (CK-2) C-Reactive Protein Albumin Urine WBC (Auto) Chest x-ray: image reviewed Allied health notes reviewed: nursing
--- NOTE | 2019-06-17 16:05 | Progress Note ---
Assessment and Plan Assessment and plan: Patient is a 69 year old male with PMH of Obesity, DM Type 2, HTN, presenting to the ED today via EMS after he was found on the bathroom floor and unresponsive pre the . The spouse reports that for about a year she has noticed that the patient has difficulty with urination, how ever the patient has not been keen about addressing the issue. In the last week the patient began to complain of badomina l pain and on the 08 of June startated experince nasuea, with vomiting and difficulty "Using the Bathroom" HE WAS SEEN BY HIS [facility] PCP on 06/10/19 and was given Rx for prilosec and zofran. He was found on the bathroom floor early this morning. EMS found pt to be hypoglycemic (value unknown). In the ED the pt's accucheck was 59, k OF >7, BUN >100 and improved after D50. His MS remain unchanged. He was recommended for admission and underwent an emergent placement of vascath for dialysis. He sustained 2 hrs of Dialysis but decompensated and required elective intubation due to persistent Tachypenia Acute Respiratory failure on MV >96 hrs Severe Metabolic Acidosis Complex cystitis with bilateral hydronephropathy Severe sepsis secondary to complex cystitis Acute Kidney injury secondary to vasmotor nephropathy Acute Metabolic Encephalopathy ?SECONDARY TO HEPATIC ENCEPHALOPATHY VS AZOTEMIA Obstructive Uropathy per CT A/P DM with hyperglycemia HTN urgency Obesity Elevated Ammonia leveL ?Aspiration Penumonitis Plan Continue supportive care Weaning trial today and may extubate Continue Abx per ID VAP Bundle Aspiration Precaution Nephrology and Urology input noted S/P HD will be discharged with Keenan to Leg bag. DVT/GI prophy case discussed with family and other treatment team The high probability of a clinically significant, sudden or life threatening deterioration of the [PULMONARY, RENAL, NEURO] system(s) required my full and direct attention, intervention and personal management. The aggregate critical care time was [35] minutes. This time is in addition to time spent performing reported procedures but includes the following: [X] Data Review and interpretation [X] Patient assessment and monitoring of vital signs [X] Documentation [X] Medication orders and management History Interval history: Patient seen and examined, remains on mechanical ventilation, family at bedside, follows commands. No new compliant reported overnight Hospitalist Physical - Constitutional Vitals: Temp Pulse Resp BP Pulse Ox 98.8 F 99 H 26 H 147/88 98 06/17/19 04:00 06/17/19 15:31 06/17/19 15:31 06/17/19 15:31 06/17/19 15:31 General appearance: Present: no acute distress, well-nourished, other (Intubated) - EENT Eyes: Present: PERRL ENT: hearing intact - Neck Neck: Present: supple - Respiratory Respiratory effort: normal (on Mechanical ventilator) Respiratory: bilateral: CTA - Cardiovascular Rhythm: regular Heart Sounds: Present: S1 & S2. Absent: systolic murmur - Extremities Extremities: no ischemia, pulses intact, pulses symmetrical, No edema, normal temperature, normal color, abnormal Peripheral Pulses: within normal limits - Abdominal General gastrointestinal: soft, non-tender, non-distended, normal bowel sounds - Integumentary Integumentary: Present: warm - Psychiatric Psychiatric: appropriate mood/affect, other (unable to examin clearly) - Neurologic Neurologic: moves all extremities - Allied Health Allied health notes reviewed: nursing Results - Labs CBC & Chem 7: 06/14/19 04:45 06/17/19 04:38 Labs: Laboratory Last Values WBC 19.1 K/mm3 (4.5-11.0) H 06/14/19 04:45 RBC 5.25 M/mm3 (3.65-5.03) H 06/14/19 04:45 Hgb 14.4 gm/dl (11.8-15.2) 06/14/19 04:45 Hct 43.7 % (35.5-45.6) 06/14/19 04:45 MCV 83 fl (84-94) L 06/14/19 04:45 MCH 28 pg (28-32) 06/14/19 04:45 MCHC 33 % (32-34) 06/14/19 04:45 RDW 14.8 % (13.2-15.2) 06/14/19 04:45 Plt Count 186 K/mm3 (140-440) 06/14/19 04:45 Dickson % (Auto) Complaint Clerk 06/14/19 04:45 Add Manual Diff Complete 06/14/19 04:45 Total Counted 100 06/14/19 04:45 Seg Neuts % (Manual) 83.0 % (40.0-70.0) H 06/14/19 04:45 Band Neutrophils % 0 % 06/14/19 04:45 Lymphocytes % (Manual) 6.0 % (13.4-35.0) L 06/14/19 04:45 Reactive Lymphs % (Man) 0 % 06/14/19 04:45 Monocytes % (Manual) 10.0 % (0.0-7.3) H 06/14/19 04:45 Eosinophils % (Manual) 0 % (0.0-4.3) 06/14/19 04:45 Basophils % (Manual) 0 % (0.0-1.8) 06/14/19 04:45 Metamyelocytes % 1.0 % 06/14/19 04:45 Myelocytes % 0 % 06/14/19 04:45 Promyelocytes % 0 % 06/14/19 04:45 Blast Cells % 0 % 06/14/19 04:45 Nucleated RBC % Not Reportable 06/14/19 04:45 Seg Neutrophils # Man 15.9 K/mm3 (1.8-7.7) H 06/14/19 04:45 Band Neutrophils # 0.0 K/mm3 06/14/19 04:45 Lymphocytes # (Manual) 1.1 K/mm3 (1.2-5.4) L 06/14/19 04:45 Abs React Lymphs (Man) 0.0 K/mm3 06/14/19 04:45 Monocytes # (Manual) 1.9 K/mm3 (0.0-0.8) H 06/14/19 04:45 Eosinophils # (Manual) 0.0 K/mm3 (0.0-0.4) 06/14/19 04:45 Basophils # (Manual) 0.0 K/mm3 (0.0-0.1) 06/14/19 04:45 Metamyelocytes # 0.2 K/mm3 06/14/19 04:45 Myelocytes # 0.0 K/mm3 06/14/19 04:45 Promyelocytes # 0.0 K/mm3 06/14/19 04:45 Blast Cells # 0.0 K/mm3 06/14/19 04:45 WBC Morphology Not Reportable 06/14/19 04:45 Hypersegmented Neuts Not Reportable 06/14/19 04:45 Hyposegmented Neuts Not Reportable 06/14/19 04:45 Hypogranular Neuts Not Reportable 06/14/19 04:45 Smudge Cells Not Reportable 06/14/19 04:45 Toxic Granulation Not Reportable 06/14/19 04:45 Toxic Vacuolation Not Reportable 06/14/19 04:45 Dohle Bodies Not Reportable 06/14/19 04:45 Pelger-Huet Anomaly Not Reportable 06/14/19 04:45 Moy Rods Not Reportable 06/14/19 04:45 Platelet Estimate Consistent w auto 06/14/19 04:45 Clumped Platelets Not Reportable 06/14/19 04:45 Plt Clumps, EDTA Not Reportable 06/14/19 04:45 Large Platelets Not Reportable 06/14/19 04:45 Giant Platelets Not Reportable 06/14/19 04:45 Platelet Satelliting Not Reportable 06/14/19 04:45 Plt Morphology Comment Not Reportable 06/14/19 04:45 RBC Morphology Not Reportable 06/14/19 04:45 Dimorphic RBCs Not Reportable 06/14/19 04:45 Polychromasia Not Reportable 06/14/19 04:45 Hypochromasia Not Reportable 06/14/19 04:45 Poikilocytosis Few 06/14/19 04:45 Anisocytosis Few 06/14/19 04:45 Microcytosis Not Reportable 06/14/19 04:45 Macrocytosis Not Reportable 06/14/19 04:45 Spherocytes Not Reportable 06/14/19 04:45 Pappenheimer Bodies Not Reportable 06/14/19 04:45 Sickle Cells Not Reportable 06/14/19 04:45 Target Cells Not Reportable 06/14/19 04:45 Tear Drop Cells Not Reportable 06/14/19 04:45 Ovalocytes Not Reportable 06/14/19 04:45 Helmet Cells Not Reportable 06/14/19 04:45 [place] Bodies Not Reportable 06/14/19 04:45 Blue Eye Rings Not Reportable 06/14/19 04:45 Jayc[place] Cells Not Reportable 06/14/19 04:45 Bite Cells Not Reportable 06/14/19 04:45 Crenated Cell Not Reportable 06/14/19 04:45 Elliptocytes Not Reportable 06/14/19 04:45 Acanthocytes (Spur) Not Reportable 06/14/19 04:45 Rouleaux Not Reportable 06/14/19 04:45 Hemoglobin C Crystals Not Reportable 06/14/19 04:45 Schistocytes Not Reportable 06/14/19 04:45 Malaria parasites Not Reportable 06/14/19 04:45 ESR 1 mm/Hr (0-20) 06/13/19 14:19 Melo Bodies Not Reportable 06/14/19 04:45 Hem Pathologist Commnt No 06/14/19 04:45 POC ABG pH 7.433 (7.35-7.45) 06/17/19 03:56 POC ABG pCO2 37.3 (35-45) 06/17/19 03:56 POC ABG pO2 125 (80-105) H 06/17/19 03:56 POC ABG HCO3 24.9 (22-26 mml/L) 06/17/19 03:56 POC ABG Total CO2 26 (23-27mmol/L) 06/17/19 03:56 POC ABG O2 Sat 99 06/17/19 03:56 POC ABG Base Excess 1 ((-2) - (+3)mmol/L) 06/17/19 03:56 FiO2 28 % 06/17/19 03:56 Sodium 145 mmol/L (137-145) 06/17/19 04:38 Potassium 4.1 mmol/L (3.6-5.0) 06/17/19 04:38 Chloride 110.4 mmol/L (98-107) H 06/17/19 04:38 Carbon Dioxide 25 mmol/L (22-30) 06/17/19 04:38 Anion Gap 14 mmol/L 06/17/19 04:38 BUN 33 mg/dL (9-20) H 06/17/19 04:38 Creatinine 1.7 mg/dL (0.8-1.5) H 06/17/19 04:38 Estimated GFR 48 ml/min 06/17/19 04:38 BUN/Creatinine Ratio 19 % 06/17/19 04:38 Glucose 159 mg/dL (75-100) H 06/17/19 04:38 POC Glucose 192 (70-105) H 06/17/19 12:40 Lactic Acid 1.30 mmol/L (0.7-2.0) 06/15/19 04:51 Calcium 8.7 mg/dL (8.4-10.2) 06/17/19 04:38 Phosphorus 2.40 mg/dL (2.5-4.5) L 06/17/19 04:38 Magnesium 1.80 mg/dL (1.7-2.3) 06/17/19 04:38 Total Bilirubin 1.70 mg/dL (0.1-1.2) H 06/13/19 14:19 AST 22 units/L (5-40) 06/13/19 14:19 ALT 24 units/L (7-56) 06/13/19 14:19 Alkaline Phosphatase 71 units/L (35-129) 06/13/19 14:19 Ammonia 25.0 umol/L (25-60) 06/15/19 13:46 Total Creatine Kinase 409 units/L (55-170) H 06/13/19 07:31 CK-MB (CK-2) 15.9 ng/mL (0.0-4.0) H 06/13/19 07:31 CK-MB (CK-2) Rel Index 3.8 (0-4) 06/13/19 07:31 Troponin T < 0.010 ng/mL (0.00-0.029) 06/13/19 07:31 C-Reactive Protein 3.80 mg/dL (0.00-1.30) H 06/13/19 16:15 Total Protein 7.0 g/dL (6.3-8.2) 06/13/19 14:19 Albumin 3.6 g/dL (3.9-5) L 06/13/19 14:19 Albumin/Globulin Ratio 1.1 % 06/13/19 14:19 TSH 1.040 mlU/mL (0.270-4.200) 06/13/19 07:31 Free T4 1.03 ng/dL (0.76-1.46) 06/13/19 07:31 Urine Color Yellow (Yellow) 06/13/19 22:00 Urine Turbidity Slightly-cloudy (Clear) 06/13/19 22:00 Urine pH 5.0 (5.0-7.0) 06/13/19 22:00 Ur Specific Crawford 1.011 (1.003-1.030) 06/13/19 22:00 Urine Protein 30 mg/dl mg/dL (Negative) 06/13/19 22:00 Urine Glucose (UA) Neg mg/dL (Negative) 06/13/19 22:00 Urine Ketones Tr mg/dL (Negative) 06/13/19 22:00 Urine Blood Lg (Negative) 06/13/19 22:00 Urine Nitrite Neg (Negative) 06/13/19 22:00 Urine Bilirubin Neg (Negative) 06/13/19 22:00 Urine Urobilinogen < 2.0 mg/dL (<2.0) 06/13/19 22:00 Ur Leukocyte Esterase Lg (Negative) 06/13/19 22:00 Urine WBC (Auto) 66.0 /HPF (0.0-6.0) H 06/13/19 22:00 Urine RBC (Auto) 114.0 /HPF (0.0-6.0) 06/13/19 22:00 Urine Mucus Few /HPF 06/13/19 22:00 Random Vancomycin 4.4 ug/mL (0-40.0) 06/16/19 04:47 Urine Opiates Screen Presumptive negative 06/13/19 22:00 Urine Methadone Screen Presumptive negative 06/13/19 22:00 Ur Barbiturates Screen Presumptive negative 06/13/19 22:00 Ur Phencyclidine Scrn Presumptive negative 06/13/19 22:00 Ur Amphetamines Screen Presumptive negative 06/13/19 22:00 U Benzodiazepines Scrn Presumptive negative 06/13/19 22:00 Urine Cocaine Screen Presumptive negative 06/13/19 22:00 U Marijuana (THC) Screen Presumptive negative 06/13/19 22:00 Drugs of Abuse Note Disclamer 06/13/19 22:00 Plasma/Serum Alcohol < 0.01 % (0-0.07) 06/13/19 07:31 Hepatitis A IgM Ab Non-reactive (NonReactive) 06/13/19 10:05 Hep Bs Antigen Non-reactive (Negative) 06/13/19 10:05 Hep B Core IgM Ab Non-reactive (NonReactive) 06/13/19 10:05 Hepatitis C Antibody Non-reactive (NonReactive) 06/13/19 10:05 Active Medications - Current Medications Current Medications: Generic Name Dose Route Start Last Admin Trade Name Freq PRN Reason Stop Dose Admin Albuterol/Ipratropium 1 ampul 06/13/19 14:00 06/17/19 08:00 Duoneb *Not For Prn Use* IH 1 ampul Q6HRT SANGEETHA Administration Lipase/Protease/Amylase 1 each 06/15/19 15:11 Pancrejames Willis 10,500 Unit FEEDTUBE PRN PRN For Clogged Feeding Tube Dextrose 50 ml 06/14/19 13:41 D50w (25gm) Syringe IV PRN PRN Hypoglycemia Famotidine 20 mg 06/17/19 10:00 06/17/19 09:55 Pepcid PO 20 mg BID SANGEETHA Administration Fentanyl 50 mcg 06/13/19 15:33 06/16/19 16:13 Sublimaze IV 50 mcg Q10MIN PRN Administration ANALGESIA Heparin Sodium (Porcine) 5,000 unit 06/13/19 22:00 06/17/19 09:55 Heparin SUB-Q 5,000 unit Q12HR SANGEETHA Administration Hydralazine HCl 10 mg 06/13/19 16:05 06/16/19 12:08 Apresoline IV 10 mg Q4HR PRN Administration HTN SBP>=170 Hydrophilic Ointment 1 applic 06/13/19 15:33 Vaseline Lip Therapy TP Q2HR PRN Dry Lips Fentanyl Citrate 2,000 mcg in 100 mls @ 5.67 mls/hr 06/13/19 16:00 06/14/19 19:38 Fentanyl Drip Premix IV 0 mcg/kg/hr TITR SANGEETHA 0 mls/hr Titration Protocol 1 MCG/KG/HR Propofol 1,000 mg in 100 mls @ 3.402 mls/hr 06/13/19 16:00 06/14/19 19:33 Diprivan 10 Mg/Ml IV 0 mcg/kg/min TITR SANGEETHA 0 mls/hr Titration Protocol 5 MCG/KG/MIN Ceftriaxone Sodium 2 gm in 100 mls @ 200 mls/hr 06/14/19 18:30 06/17/19 09:54 Rocephin/Ns 2 Gm/100 Ml IV 200 mls/hr Q24HR SANGEETHA Administration Protocol Sodium Chloride 1,000 mls @ 75 mls/hr 06/15/19 14:00 06/16/19 21:28 Nacl 0.9% 1000 Ml IV 0 mls/hr DIRECT SANGEETHA Infusion Sodium Chloride 1,000 mls @ 75 mls/hr 06/17/19 11:00 06/17/19 11:26 Nacl 0.45% 1000 Ml IV 75 mls/hr DIRECT SANGEETHA Administration Insulin Human Regular 0 units 06/14/19 18:00 06/17/19 12:50 Humulin R SUB-Q 2 units Q6HR SANGEETHA Administration Protocol Lorazepam 2 mg 06/13/19 14:21 06/17/19 13:07 Ativan IV 2 mg Q1H PRN Administration Agitation Multi-Ingred Cream/Lotion/Oil/Oint 1 applic 06/13/19 15:33 Artificial Tears Ophth Oint OU Q4HR PRN Dry Eye(s) Simple Syrup 15 ml 06/15/19 15:11 Simple Syrup FEEDTUBE PRN PRN Hypoglycemia Simple Syrup 30 ml 06/15/19 15:11 Simple Syrup FEEDTUBE PRN PRN Hypoglycemia Sodium Bicarbonate 325 mg 06/15/19 15:11 Sodium Bicarbonate FEEDTUBE PRN PRN For Clogged Feeding Tube Sodium Chloride 10 ml 06/13/19 22:00 06/17/19 09:56 Sodium Chloride Flush Syringe 10 Ml IV 10 ml BID SANGEETHA Administration Sodium Chloride 10 ml 06/13/19 11:46 Sodium Chloride Flush Syringe 10 Ml IV PRN PRN LINE FLUSH Sodium Phosphate 500 mg 06/17/19 10:40 06/17/19 11:26 K-Phos Neutral PO 06/17/19 17:00 500 mg ONCE NR Administration Nutrition/Malnutrition Assess - Dietary Evaluation Nutrition/Malnutrition Findings: Nutrition Notes Start: 06/14/19 09:04 Freq: Status: Active Protocol: Document 06/16/19 09:14 LP (Rec: 06/16/19 09:15 LP [id number]) Nutrition Notes Initial or Follow up Brief Note Labs/Tests Na 146 Subjective/Other Information Consult for TF. TF running, will increase flush. Nutrition Intervention Change Diet Order: TF Nutrition Support: Change Vital AF 1.2 at 65ml/hr Water flush 200ml q4hr for hypernatremia and 100ml q4h once resolved Kcal 1,872 Protein (gm) 117 Fluid (mL) 1,265 Follow-Up By: 06/18/19 Additional Comments Follow for TF tolerance
[2019-06-18] MEDS: SODIUM CHLORIDE 0.45% 1000 ML 1,000 ML IV SCH ×2 (00:15→14:57)
[2019-06-18] MEDS: INSULIN REGULAR, HUMAN 100 UNITS/1 ML SUB-Q SCH ×4 (00:34→18:57)
[2019-06-18] MEDS: IPRATROPIUM/ALBUTEROL SULFATE 3 ML AMPUL.NEB IH SCH ×2 (03:01→08:00)
[2019-06-18 05:23] LABS: Hematocrit 39.8 % (35.5-45.6); Hemoglobin 12.7 gm/dl (11.8-15.2); Mean Corpuscular HGB Conc 32 % (32-34); Mean Corpuscular Volume 86 fl (84-94); Platelet Count 265 K/mm3 (140-440); Red Blood Count 4.65 M/mm3 (3.65-5.03)
[2019-06-18 05:38] LABS: Calcium 8.7 mg/dL (8.4-10.2)
[2019-06-18 06:19] LABS: Basophils % (Manual) 0 % (0.0-1.8); RBC Morphology Normal; Total Cells Counted 100
[2019-06-18 06:20] LABS: Platelet Estimate Consistent w Auto
[2019-06-18] MEDS: hydrALAZINE 20 MG/1 ML INJ IV PRN (06:26)
[2019-06-18] MEDS ORDERED: NEOMY 3.5 MG/BACIT 400 UNITS/POLY B 5000 UNITS/GM OINT PACKET TP STA (09:01)
[2019-06-18] MEDS: HEPARIN 5,000 UNIT/1 ML VIAL SUB-Q SCH ×2 (11:14→22:11)
[2019-06-18] MEDS: FAMOTIDINE 20 MG TAB PO SCH ×2 (11:14→22:10)
[2019-06-18] MEDS: cefTRIAXone/NS 2 GM/100 ML 2 GM/100 ML BAG IV SCH (11:15)
--- NOTE | 2019-06-18 11:30 | Progress Note ---
Assessment and Plan 1. Acute kidney injury: NATHAN likely secondary to obstructive nephropathy +/- sepsis. CT abdomen showed bladder outlet obstruction. S/p montero catheter. Baseline renal function is unknown. Due to hyperkalemia and severe metabolic acidosis patient received hemodialysis once on 06/13. Renal function is much better. Monitor renal function. Avoid nephrotoxic agents. Meds dosage based on GFR. 2. FEN: Hypokalemia, K level is better. Hypernatremia, improving. Metabolic acidosis, s/p HD. Monitor lytes. 3. Obstructive nephropathy: Likely from enlarged prostate. S/p montero catheter. 4. Respiratory failure: S/p extubated. 5. Severe Sepsis: Followed by ID. 6. Encephalopathy: CT head normal. Elevated Ammonia level, now improved. 7. DM. Examination: General appearance: well-developed, well-nourished, appears stated age, not in distress HEENT: Atraumatic Neck: Supple, trachea midline Respiratory: Clear to Ascultation Heart: regular, S1S2, no murmur Gastrointestinal: soft, bowel sounds present, not tender Integumentary: no rash, warm and dry : Montero catheter Neurologic: able to move extremities Musculoskeletal: no edema Subjective Date of service: 06/18/19 Principal diagnosis: Ac. hypoxemic resp failure; Ac. Encephalopathy; Sepsis; NATHAN; hyperkalemia Interval history: Patient was seen and examined at the bedside. Objective - Vital Signs Vital signs: Vital Signs - 12hr 06/17/19 06/17/19 06/17/19 23:31 23:44 23:56 Temperature 99.6 F Pulse Rate 69 77 Pulse Rate [ Anterior Bilateral] Pulse Rate [ From Monitor] Respiratory 18 15 Rate Respiratory Rate [Anterior Bilateral] Blood Pressure 148/76 148/76 O2 Sat by Pulse 100 100 Oximetry 06/18/19 06/18/19 06/18/19 00:00 00:31 01:00 Temperature Pulse Rate 89 62 64 Pulse Rate [ Anterior Bilateral] Pulse Rate [ 89 From Monitor] Respiratory 15 10 L 14 Rate Respiratory Rate [Anterior Bilateral] Blood Pressure 157/96 140/72 139/75 O2 Sat by Pulse 100 100 100 Oximetry 06/18/19 06/18/19 06/18/19 01:30 02:01 02:31 Temperature Pulse Rate 63 68 74 Pulse Rate [ Anterior Bilateral] Pulse Rate [ From Monitor] Respiratory 19 14 17 Rate Respiratory Rate [Anterior Bilateral] Blood Pressure 140/74 153/84 161/80 O2 Sat by Pulse 100 100 100 Oximetry 06/18/19 06/18/19 06/18/19 03:00 03:02 03:03 Temperature Pulse Rate 60 62 Pulse Rate [ 62 Anterior Bilateral] Pulse Rate [ From Monitor] Respiratory 13 17 Rate Respiratory 17 Rate [Anterior Bilateral] Blood Pressure 161/80 149/75 O2 Sat by Pulse 100 100 Oximetry 06/18/19 06/18/19 06/18/19 03:31 03:34 04:00 Temperature 99.4 F Pulse Rate 58 L Pulse Rate [ Anterior Bilateral] Pulse Rate [ 89 From Monitor] Respiratory 15 15 Rate Respiratory Rate [Anterior Bilateral] Blood Pressure 163/80 O2 Sat by Pulse 100 100 Oximetry 06/18/19 06/18/19 06/18/19 04:01 04:30 05:00 Temperature Pulse Rate 71 59 L 60 Pulse Rate [ Anterior Bilateral] Pulse Rate [ From Monitor] Respiratory 23 21 25 H Rate Respiratory Rate [Anterior Bilateral] Blood Pressure 168/97 183/83 191/91 O2 Sat by Pulse 100 100 100 Oximetry 06/18/19 06/18/19 06/18/19 05:30 06:00 06:26 Temperature Pulse Rate 77 69 73 Pulse Rate [ Anterior Bilateral] Pulse Rate [ From Monitor] Respiratory 14 13 Rate Respiratory Rate [Anterior Bilateral] Blood Pressure 183/83 178/100 181/96 O2 Sat by Pulse 99 100 Oximetry 06/18/19 06/18/19 06/18/19 06:30 07:00 07:30 Temperature Pulse Rate 67 64 62 Pulse Rate [ Anterior Bilateral] Pulse Rate [ From Monitor] Respiratory 17 17 15 Rate Respiratory Rate [Anterior Bilateral] Blood Pressure 181/96 147/77 145/74 O2 Sat by Pulse 99 99 99 Oximetry 06/18/19 06/18/19 06/18/19 08:00 08:19 08:30 Temperature 97.2 F L Pulse Rate 61 71 Pulse Rate [ 76 Anterior Bilateral] Pulse Rate [ 61 From Monitor] Respiratory 20 14 Rate Respiratory 13 Rate [Anterior Bilateral] Blood Pressure 150/74 153/81 O2 Sat by Pulse 100 98 99 Oximetry 06/18/19 06/18/19 06/18/19 09:00 09:24 09:30 Temperature Pulse Rate 81 61 81 Pulse Rate [ Anterior Bilateral] Pulse Rate [ From Monitor] Respiratory 21 16 Rate Respiratory Rate [Anterior Bilateral] Blood Pressure 166/84 145/88 O2 Sat by Pulse 97 96 Oximetry 06/18/19 06/18/19 06/18/19 10:00 10:30 11:00 Temperature Pulse Rate 77 71 66 Pulse Rate [ Anterior Bilateral] Pulse Rate [ From Monitor] Respiratory 14 22 25 H Rate Respiratory Rate [Anterior Bilateral] Blood Pressure 138/79 147/79 162/78 O2 Sat by Pulse 100 Oximetry - Lab 06/18/19 04:31 06/18/19 04:31 Most recent lab results Calcium 8.7 mg/dL (8.4-10.2) 06/18/19 04:31 Phosphorus 2.90 mg/dL (2.5-4.5) D 06/18/19 04:31 Magnesium 1.80 mg/dL (1.7-2.3) 06/17/19 04:38 Medications & Allergies - Medications Allergies/Adverse Reactions: Allergies No Known Allergies Allergy (Verified 06/13/19 05:58) Home Medications: Home Medications Medication Instructions Recorded Confirmed Last Taken Type Atorvastatin 80 mg PO DAILY MDD 40 mg 06/15/19 06/15/19 06/12/19 History Carvedilol 12.5 mg PO BID 06/15/19 06/15/19 06/12/19 History Lisinopril 10 mg PO DAILY 06/15/19 06/15/19 06/12/19 History Metformin HCl [metFORMIN] 1,000 mg PO BID 06/15/19 06/15/19 06/12/19 History Omeprazole 20 mg PO DAILY 06/15/19 06/15/19 06/12/19 History Ondansetron 8 mg PO Q12HR PRN 06/15/19 06/15/19 Unknown History Tamsulosin 0.4 mg PO DAILY MDD 0.4 06/15/19 06/15/19 06/12/19 History Active Medications: Generic Name Dose Route Start Last Admin Trade Name Freq PRN Reason Stop Dose Admin Albuterol/Ipratropium 1 ampul 06/13/19 14:00 06/18/19 08:00 Duoneb *Not For Prn Use* IH 1 ampul Q6HRT SANGEETHA Administration Lipase/Protease/Amylase 1 each 06/15/19 15:11 Pancrejames Willis 10,500 Unit FEEDTUBE PRN PRN For Clogged Feeding Tube Dextrose 50 ml 06/14/19 13:41 D50w (25gm) Syringe IV PRN PRN Hypoglycemia Famotidine 20 mg 06/17/19 10:00 06/18/19 11:14 Pepcid PO 20 mg BID SANGEETHA Administration Fentanyl 50 mcg 06/13/19 15:33 06/16/19 16:13 Sublimaze IV 50 mcg Q10MIN PRN Administration ANALGESIA Heparin Sodium (Porcine) 5,000 unit 06/13/19 22:00 06/18/19 11:14 Heparin SUB-Q 5,000 unit Q12HR SANGEETHA Administration Hydralazine HCl 10 mg 06/13/19 16:05 06/18/19 06:26 Apresoline IV 10 mg Q4HR PRN Administration HTN SBP>=170 Hydrophilic Ointment 1 applic 06/13/19 15:33 Vaseline Lip Therapy TP Q2HR PRN Dry Lips Fentanyl Citrate 2,000 mcg in 100 mls @ 5.67 mls/hr 06/13/19 16:00 06/14/19 19:38 Fentanyl Drip Premix IV 0 mcg/kg/hr TITR SANGEETHA 0 mls/hr Titration Protocol 1 MCG/KG/HR Propofol 1,000 mg in 100 mls @ 3.402 mls/hr 06/13/19 16:00 06/14/19 19:33 Diprivan 10 Mg/Ml IV 0 mcg/kg/min TITR SANGEETHA 0 mls/hr Titration Protocol 5 MCG/KG/MIN Ceftriaxone Sodium 2 gm in 100 mls @ 200 mls/hr 06/14/19 18:30 06/18/19 11:15 Rocephin/Ns 2 Gm/100 Ml IV 200 mls/hr Q24HR SANGEETHA Administration Protocol Sodium Chloride 1,000 mls @ 75 mls/hr 06/17/19 11:00 06/18/19 00:15 Nacl 0.45% 1000 Ml IV 75 mls/hr DIRECT SANGEETHA Administration Insulin Human Regular 0 units 06/14/19 18:00 06/18/19 05:50 Humulin R SUB-Q Not Given Q6HR SANGEETHA Protocol Lorazepam 2 mg 06/13/19 14:21 06/17/19 13:07 Ativan IV 2 mg Q1H PRN Administration Agitation Multi-Ingred Cream/Lotion/Oil/Oint 1 applic 06/13/19 15:33 Artificial Tears Ophth Oint OU Q4HR PRN Dry Eye(s) Simple Syrup 15 ml 06/15/19 15:11 Simple Syrup FEEDTUBE PRN PRN Hypoglycemia Simple Syrup 30 ml 06/15/19 15:11 Simple Syrup FEEDTUBE PRN PRN Hypoglycemia Sodium Bicarbonate 325 mg 06/15/19 15:11 Sodium Bicarbonate FEEDTUBE PRN PRN For Clogged Feeding Tube Sodium Chloride 10 ml 06/13/19 22:00 06/18/19 11:21 Sodium Chloride Flush Syringe 10 Ml IV Not Given BID SANGEETHA Sodium Chloride 10 ml 06/13/19 11:46 06/18/19 11:16 Sodium Chloride Flush Syringe 10 Ml IV 10 ml PRN PRN Administration LINE FLUSH
--- NOTE | 2019-06-18 11:42 | Progress Note ---
Assessment and Plan Patient is a 69 year old male with PMH of Obesity, DM Type 2, HTN, presenting to the ED today via EMS after he was found on the bathroom floor and unresponsive pre the . The spouse reports that for about a year she has noticed that the patient has difficulty with urination, how ever the patient has not been keen about addressing the issue. In the last week the patient began to complain of badominal pain and on the 08 of June startated experince nasuea, with vomiting and difficulty "Using the Bathroom" HE WAS SEEN BY HIS [place] PCP on 06/10/19 and was given Rx for prilosec and zofran. He was found on the bathroom floor early this morning. EMS found pt to be hypoglycemic (value unknown). In the ED the pt's accucheck was 59, k OF >7, BUN >100 and improved after D50. His MS remain unchanged. He was recommended for admission and underwent an emergent placement of vascath for dialysis. He sustained 2 hrs of Dialysis but decompensated and required elective intubation due to persistent Tachypenia Acute Respiratory failure on MV >96 hrs Severe Metabolic Acidosis Complex cystitis with bilateral hydronephropathy Severe sepsis secondary to complex cystitis Acute Kidney injury secondary to vasmotor nephropathy Acute Metabolic Encephalopathy ?SECONDARY TO HEPATIC ENCEPHALOPATHY VS AZOTEMIA Obstructive Uropathy per CT A/P DM with hyperglycemia HTN urgency Obesity Elevated Ammonia leveL ?Aspiration Penumonitis Plan Continue supportive care Extubated Continue Abx per ID VAP Bundle Aspiration Precaution Nephrology and Urology input noted S/P HD will be discharged with [place] to Leg bag. DVT/GI prophy The high probability of a clinically significant, sudden or life threatening deterioration of the [PULMONARY, RENAL, NEURO] system(s) required my full and direct attention, intervention and personal management. The aggregate critical care time was [35] minutes. This time is in addition to time spent performing reported procedures but includes the following: [X] Data Review and interpretation [X] Patient assessment and monitoring of vital signs [X] Documentation [X] Medication orders and management Subjective Date of service: 06/18/19 Principal diagnosis: Ac. hypoxemic resp failure; Ac. Encephalopathy; Sepsis; NATHAN; hyperkalemia Interval history: Patient seen and examined. No new complaints. No overnight events reported to me. still confused Objective - Exam Narrative Exam: Constitutional: Well-nourished well-developed. confused. In no distress Head: Normocephalic atraumatic Eyes: Pupils are equal round and reactive to light Nose: No enlarged turbinates, no septal deviation. Mouth: Moist mucous membranes. Neck: Supple no thyromegaly. No bruit. No JVD Heart: Regular rate and rhythm, S1-S2 normal. No rubs murmurs or gallop Lungs: Clear to auscultation bilaterally. no rales or rhonchi Abdomen: Soft, nontender. Bowel sound are present. Extremities: No edema, no cyanosis, no clubbing. Neuro: Alert oriented Oriented x3. No focal sensory or motor deficit. Skin: No rashes or hyperpigmented spots Musculoskeletal system: No joint pain or swelling Hematological: No petechia or subcutanous hemorrhages. Immunological: No multiple septic spots on the skin Lymphatic: No generalized lymphadenopathy Psychiatry: agitated - Constitutional Vitals: Vital Signs - 12hr 06/17/19 06/17/19 06/18/19 23:44 23:56 00:00 Temperature 99.6 F Pulse Rate 77 89 Pulse Rate [ Anterior Bilateral] Pulse Rate [ 89 From Monitor] Respiratory 15 15 Rate Respiratory Rate [Anterior Bilateral] Blood Pressure 148/76 157/96 O2 Sat by Pulse 100 100 Oximetry 06/18/19 06/18/19 06/18/19 00:31 01:00 01:30 Temperature Pulse Rate 62 64 63 Pulse Rate [ Anterior Bilateral] Pulse Rate [ From Monitor] Respiratory 10 L 14 19 Rate Respiratory Rate [Anterior Bilateral] Blood Pressure 140/72 139/75 140/74 O2 Sat by Pulse 100 100 100 Oximetry 06/18/19 06/18/19 06/18/19 02:01 02:31 03:00 Temperature Pulse Rate 68 74 60 Pulse Rate [ Anterior Bilateral] Pulse Rate [ From Monitor] Respiratory 14 17 13 Rate Respiratory Rate [Anterior Bilateral] Blood Pressure 153/84 161/80 161/80 O2 Sat by Pulse 100 100 100 Oximetry 06/18/19 06/18/19 06/18/19 03:02 03:03 03:31 Temperature Pulse Rate 62 58 L Pulse Rate [ 62 Anterior Bilateral] Pulse Rate [ From Monitor] Respiratory 17 15 Rate Respiratory 17 Rate [Anterior Bilateral] Blood Pressure 149/75 163/80 O2 Sat by Pulse 100 100 Oximetry 06/18/19 06/18/19 06/18/19 03:34 04:00 04:01 Temperature 99.4 F Pulse Rate 71 Pulse Rate [ Anterior Bilateral] Pulse Rate [ 89 From Monitor] Respiratory 15 23 Rate Respiratory Rate [Anterior Bilateral] Blood Pressure 168/97 O2 Sat by Pulse 100 100 Oximetry 06/18/19 06/18/19 06/18/19 04:30 05:00 05:30 Temperature Pulse Rate 59 L 60 77 Pulse Rate [ Anterior Bilateral] Pulse Rate [ From Monitor] Respiratory 21 25 H 14 Rate Respiratory Rate [Anterior Bilateral] Blood Pressure 183/83 191/91 183/83 O2 Sat by Pulse 100 100 99 Oximetry 06/18/19 06/18/19 06/18/19 06:00 06:26 06:30 Temperature Pulse Rate 69 73 67 Pulse Rate [ Anterior Bilateral] Pulse Rate [ From Monitor] Respiratory 13 17 Rate Respiratory Rate [Anterior Bilateral] Blood Pressure 178/100 181/96 181/96 O2 Sat by Pulse 100 99 Oximetry 06/18/19 06/18/19 06/18/19 07:00 07:30 08:00 Temperature 97.2 F L Pulse Rate 64 62 61 Pulse Rate [ 76 Anterior Bilateral] Pulse Rate [ 61 From Monitor] Respiratory 17 15 20 Rate Respiratory 13 Rate [Anterior Bilateral] Blood Pressure 147/77 145/74 150/74 O2 Sat by Pulse 99 99 100 Oximetry 06/18/19 06/18/19 06/18/19 08:19 08:30 09:00 Temperature Pulse Rate 71 81 Pulse Rate [ Anterior Bilateral] Pulse Rate [ From Monitor] Respiratory 14 21 Rate Respiratory Rate [Anterior Bilateral] Blood Pressure 153/81 166/84 O2 Sat by Pulse 98 99 97 Oximetry 06/18/19 06/18/19 06/18/19 09:24 09:30 10:00 Temperature Pulse Rate 61 81 77 Pulse Rate [ Anterior Bilateral] Pulse Rate [ From Monitor] Respiratory 16 14 Rate Respiratory Rate [Anterior Bilateral] Blood Pressure 145/88 138/79 O2 Sat by Pulse 96 Oximetry 06/18/19 06/18/19 10:30 11:00 Temperature Pulse Rate 71 66 Pulse Rate [ Anterior Bilateral] Pulse Rate [ From Monitor] Respiratory 22 25 H Rate Respiratory Rate [Anterior Bilateral] Blood Pressure 147/79 162/78 O2 Sat by Pulse 100 Oximetry - Labs CBC & Chem 7: 06/18/19 04:31 06/18/19 04:31 Labs: Abnormal lab results 06/16/19 06/17/19 06/17/19 Range/Units 13:04 12:40 18:20 WBC (4.5-11.0) K/mm3 MCH (28-32) pg Seg Neuts % (Manual) (40.0-70.0) % Lymphocytes % (Manual) (13.4-35.0) % Monocytes % (Manual) (0.0-7.3) % Seg Neutrophils # Man (1.8-7.7) K/mm3 Monocytes # (Manual) (0.0-0.8) K/mm3 Chloride (98-107) mmol/L BUN (9-20) mg/dL Glucose (75-100) mg/dL POC Glucose 154 H 192 H 123 H (70-105) Total Creatine Kinase (55-170) units/L 06/18/19 06/18/19 06/18/19 Range/Units 00:35 04:31 04:31 WBC 19.7 H (4.5-11.0) K/mm3 MCH 27 L (28-32) pg Seg Neuts % (Manual) 80.0 H (40.0-70.0) % Lymphocytes % (Manual) 8.0 L (13.4-35.0) % Monocytes % (Manual) 10.0 H (0.0-7.3) % Seg Neutrophils # Man 15.8 H (1.8-7.7) K/mm3 Monocytes # (Manual) 2.0 H (0.0-0.8) K/mm3 Chloride 109.5 H (98-107) mmol/L BUN 30 H (9-20) mg/dL Glucose 130 H (75-100) mg/dL POC Glucose 164 H (70-105) Total Creatine Kinase 35 L (55-170) units/L 06/18/19 Range/Units 05:38 WBC (4.5-11.0) K/mm3 MCH (28-32) pg Seg Neuts % (Manual) (40.0-70.0) % Lymphocytes % (Manual) (13.4-35.0) % Monocytes % (Manual) (0.0-7.3) % Seg Neutrophils # Man (1.8-7.7) K/mm3 Monocytes # (Manual) (0.0-0.8) K/mm3 Chloride (98-107) mmol/L BUN (9-20) mg/dL Glucose (75-100) mg/dL POC Glucose 132 H (70-105) Total Creatine Kinase (55-170) units/L
--- NOTE | 2019-06-18 12:27 | Progress Note ---
Assessment and Plan Acute hypoxemic respiratory failure, now on mechanical ventilatory support. Acute possibly on chronic encephalopathy. Severe sepsis Acute kidney injury, possibly on chronic. Severe hyperkalemia. Severe metabolic acidosis. Leukocytosis. History of diabetes. History of hypertension. Oropharyngeal dysphagia. - get ABG on SBT - extubate if meets criteria - BIPAP 16/8 rate 14 qhs post extubation - continue to watch for improvement in encephalopathy - continue to wean FiO2 for sats > 90% - VAP bundle addressed - continue daily SAT's and SBT assessment as tolerated - target sedation for RASS 0 to -1 - prn analgesia per CPOT score - HD/UF per nephrology prescription for toxin and volume clearance - continue to avoid nephrotoxins and adjust medications for renal function - begin enteral nutrition and advance to goal rate as tolerated - Monitor hemodynamics closely - continue empiric broad spectrum antiinfective's per ID recommendations (de- escalate based on clinical and microbiologic data) - continue mobility protocols and off loading as tolerated for pressure ulcer prophylaxis - continue to avoid nephrotoxins, adjust all medications for GFR and CRCL - continue GI & VTE prophylaxis with - accuchecks with glycemic control per SSI for target BG of 140-180 mg/dl acutely - continue other care per attending / other consultants ... care plan discussed at length with his in room ... re-evaluate in am & prn CONDITION: CRITICAL PROGNOSIS: VERY GUARDED CODE STATUS: FULL CODE Discussed extensively with RT/RN and care team in ICU IDT rounds The high probability of a clinically significant, sudden or life threatening deterioration of the [respiratory, renal, neurologic and Cardiac] system's' required my full and direct attention, intervention and personal management. The aggregate critical care time was 32 minutes. This time is in addition to time spent performing reported procedures but includes the following: [x] Data Review and interpretation [x] Patient assessment and monitoring of vital signs [x] Documentation [x] Medication orders and management Subjective Date of service: 06/18/19 Principal diagnosis: Ac. hypoxemic resp failure; Ac. Encephalopathy; Sepsis; NATHAN; hyperkalemia Interval history: Patient is seen today for: Acute hypoxemic respiratory failure; Acute possibly on chronic encephalopathy; Severe sepsis; Acute kidney injury, possibly on chronic; Severe hyperkalemia; Severe metabolic acidosis; Leukocytosis; History of diabetes; History of hypertension; Oropharyngeal dysphagia. Seen and examined at bedside; 24hour events reviewed; nursing and respiratory ca re staff consulted; no adverse overnight events reported to me; resting peacefully in bed; Objective Vital Signs - 12hr 06/18/19 06/18/19 06/18/19 00:31 01:00 01:30 Temperature Pulse Rate 62 64 63 Pulse Rate [ Anterior Bilateral] Pulse Rate [ From Monitor] Respiratory 10 L 14 19 Rate Respiratory Rate [Anterior Bilateral] Blood Pressure 140/72 139/75 140/74 O2 Sat by Pulse 100 100 100 Oximetry 06/18/19 06/18/19 06/18/19 02:01 02:31 03:00 Temperature Pulse Rate 68 74 60 Pulse Rate [ Anterior Bilateral] Pulse Rate [ From Monitor] Respiratory 14 17 13 Rate Respiratory Rate [Anterior Bilateral] Blood Pressure 153/84 161/80 161/80 O2 Sat by Pulse 100 100 100 Oximetry 06/18/19 06/18/19 06/18/19 03:02 03:03 03:31 Temperature Pulse Rate 62 58 L Pulse Rate [ 62 Anterior Bilateral] Pulse Rate [ From Monitor] Respiratory 17 15 Rate Respiratory 17 Rate [Anterior Bilateral] Blood Pressure 149/75 163/80 O2 Sat by Pulse 100 100 Oximetry 06/18/19 06/18/19 06/18/19 03:34 04:00 04:01 Temperature 99.4 F Pulse Rate 71 Pulse Rate [ Anterior Bilateral] Pulse Rate [ 89 From Monitor] Respiratory 15 23 Rate Respiratory Rate [Anterior Bilateral] Blood Pressure 168/97 O2 Sat by Pulse 100 100 Oximetry 06/18/19 06/18/19 06/18/19 04:30 05:00 05:30 Temperature Pulse Rate 59 L 60 77 Pulse Rate [ Anterior Bilateral] Pulse Rate [ From Monitor] Respiratory 21 25 H 14 Rate Respiratory Rate [Anterior Bilateral] Blood Pressure 183/83 191/91 183/83 O2 Sat by Pulse 100 100 99 Oximetry 06/18/19 06/18/19 06/18/19 06:00 06:26 06:30 Temperature Pulse Rate 69 73 67 Pulse Rate [ Anterior Bilateral] Pulse Rate [ From Monitor] Respiratory 13 17 Rate Respiratory Rate [Anterior Bilateral] Blood Pressure 178/100 181/96 181/96 O2 Sat by Pulse 100 99 Oximetry 06/18/19 06/18/19 06/18/19 07:00 07:30 08:00 Temperature 97.2 F L Pulse Rate 64 62 61 Pulse Rate [ 76 Anterior Bilateral] Pulse Rate [ 61 From Monitor] Respiratory 17 15 20 Rate Respiratory 13 Rate [Anterior Bilateral] Blood Pressure 147/77 145/74 150/74 O2 Sat by Pulse 99 99 100 Oximetry 06/18/19 06/18/19 06/18/19 08:19 08:30 09:00 Temperature Pulse Rate 71 81 Pulse Rate [ Anterior Bilateral] Pulse Rate [ From Monitor] Respiratory 14 21 Rate Respiratory Rate [Anterior Bilateral] Blood Pressure 153/81 166/84 O2 Sat by Pulse 98 99 97 Oximetry 06/18/19 06/18/19 06/18/19 09:24 09:30 10:00 Temperature Pulse Rate 61 81 77 Pulse Rate [ Anterior Bilateral] Pulse Rate [ From Monitor] Respiratory 16 14 Rate Respiratory Rate [Anterior Bilateral] Blood Pressure 145/88 138/79 O2 Sat by Pulse 96 Oximetry 06/18/19 06/18/19 06/18/19 10:30 11:00 12:00 Temperature 97.8 F Pulse Rate 71 66 Pulse Rate [ Anterior Bilateral] Pulse Rate [ From Monitor] Respiratory 22 25 H Rate Respiratory Rate [Anterior Bilateral] Blood Pressure 147/79 162/78 O2 Sat by Pulse 100 Oximetry Constitutional: no acute distress, other (elderly looking AAM, normocephalic with mildly increased resp effort at rest) Eyes: non-icteric ENT: oropharynx moist, other (ETT 24 cm BINA) Neck: supple, no lymphadenopathy, no JVD, other (large neck circumference) Effort: mildly labored Ascultation: Bilateral: rhonchi Percussion: Bilateral: not dull Cardiovascular: regular rate and rhythm Gastrointestinal: normoactive bowel sounds, soft, non-tender, non-distended Integumentary: other (see wound care and RN notes) Extremities: no cyanosis, no edema, pulses normal, no ischemia or petechiae Neurologic: non-focal exam (grossly), pupils equal and round, CN II-XII normal, unable to assess (unable to aceess re: encephalopathy) Psychiatric: other (unable to aceess re: encephalopathy) CBC and BMP: 06/18/19 04:31 06/18/19 04:31 ABG, PT/INR, D-dimer: ABG POC ABG pH 7.433 (7.35-7.45) 06/17/19 03:56 POC ABG pCO2 37.3 (35-45) 06/17/19 03:56 POC ABG pO2 125 (80-105) H 06/17/19 03:56 POC ABG HCO3 24.9 (22-26 mml/L) 06/17/19 03:56 POC ABG Total CO2 26 (23-27mmol/L) 06/17/19 03:56 POC ABG O2 Sat 99 06/17/19 03:56 Abnormal lab findings: Abnormal Labs 06/13/19 06/13/19 06/13/19 06:13 06:50 06:50 WBC 22.7 H RBC 5.69 H Hgb 15.5 H Hct 47.8 H MCV MCH 27 L RDW 15.6 H Seg Neuts % (Manual) 89.0 H Lymphocytes % (Manual) 4.0 L Monocytes % (Manual) Seg Neutrophils # Man 20.2 H Lymphocytes # (Manual) 0.9 L Monocytes # (Manual) 1.4 H POC ABG pH POC ABG pCO2 POC ABG pO2 Sodium 126 L Potassium 7.5 H* Chloride 83.9 L Carbon Dioxide 5 L* BUN 126 H Creatinine 12.6 H Glucose 143 H POC Glucose 59 L Lactic Acid Calcium Phosphorus Magnesium Total Bilirubin Ammonia Total Creatine Kinase CK-MB (CK-2) C-Reactive Protein Albumin 3.6 L Urine WBC (Auto) 06/13/19 06/13/19 06/13/19 07:09 07:31 07:31 WBC RBC Hgb Hct MCV MCH RDW Seg Neuts % (Manual) Lymphocytes % (Manual) Monocytes % (Manual) Seg Neutrophils # Man Lymphocytes # (Manual) Monocytes # (Manual) POC ABG pH POC ABG pCO2 POC ABG pO2 Sodium Potassium Chloride Carbon Dioxide BUN Creatinine Glucose POC Glucose 117 H Lactic Acid Calcium Phosphorus Magnesium 2.50 H Total Bilirubin Ammonia 408.0 H Total Creatine Kinase 409 H CK-MB (CK-2) 15.9 H C-Reactive Protein Albumin Urine WBC (Auto) 06/13/19 06/13/19 06/13/19 09:21 10: 10:42 WBC RBC Hgb Hct MCV MCH RDW Seg Neuts % (Manual) Lymphocytes % (Manual) Monocytes % (Manual) Seg Neutrophils # Man Lymphocytes # (Manual) Monocytes # (Manual) POC ABG pH POC ABG pCO2 POC ABG pO2 Sodium Potassium Chloride Carbon Dioxide BUN Creatinine Glucose POC Glucose 153 H 54 L 136 H Lactic Acid Calcium Phosphorus Magnesium Total Bilirubin Ammonia Total Creatine Kinase CK-MB (CK-2) C-Reactive Protein Albumin Urine WBC (Auto) 06/13/19 06/13/19 06/13/19 14:19 14:19 14:19 WBC RBC Hgb Hct MCV MCH RDW Seg Neuts % (Manual) Lymphocytes % (Manual) Monocytes % (Manual) Seg Neutrophils # Man Lymphocytes # (Manual) Monocytes # (Manual) POC ABG pH POC ABG pCO2 POC ABG pO2 Sodium 134 L D Potassium Chloride 89.0 L Carbon Dioxide 12 L D BUN 86 H Creatinine 7.8 H Glucose POC Glucose Lactic Acid 8.80 H* Calcium Phosphorus Magnesium Total Bilirubin 1.70 H Ammonia Total Creatine Kinase CK-MB (CK-2) C-Reactive Protein 4.10 H Albumin 3.6 L Urine WBC (Auto) 06/13/19 06/13/19 06/13/19 14:28 16:10 16:15 WBC RBC Hgb Hct MCV MCH RDW Seg Neuts % (Manual) Lymphocytes % (Manual) Monocytes % (Manual) Seg Neutrophils # Man Lymphocytes # (Manual) Monocytes # (Manual) POC ABG pH 7.530 H 7.474 H POC ABG pCO2 POC ABG pO2 239 H 183 H Sodium Potassium Chloride Carbon Dioxide BUN Creatinine Glucose POC Glucose Lactic Acid Calcium Phosphorus Magnesium Total Bilirubin Ammonia 97.0 H Total Creatine Kinase CK-MB (CK-2) C-Reactive Protein Albumin Urine WBC (Auto) 06/13/19 06/13/19 06/13/19 16:15 16:22 16:56 WBC RBC Hgb Hct MCV MCH RDW Seg Neuts % (Manual) Lymphocytes % (Manual) Monocytes % (Manual) Seg Neutrophils # Man Lymphocytes # (Manual) Monocytes # (Manual) POC ABG pH POC ABG pCO2 POC ABG pO2 Sodium Potassium Chloride Carbon Dioxide BUN Creatinine Glucose POC Glucose Lactic Acid 7.60 H* 7.90 H* Calcium Phosphorus Magnesium Total Bilirubin Ammonia Total Creatine Kinase CK-MB (CK-2) C-Reactive Protein 3.80 H Albumin Urine WBC (Auto) 06/13/19 06/13/19 06/13/19 18:05 19:01 21:18 WBC RBC Hgb Hct MCV MCH RDW Seg Neuts % (Manual) Lymphocytes % (Manual) Monocytes % (Manual) Seg Neutrophils # Man Lymphocytes # (Manual) Monocytes # (Manual) POC ABG pH POC ABG pCO2 POC ABG pO2 Sodium Potassium Chloride Carbon Dioxide BUN Creatinine Glucose POC Glucose Lactic Acid 5.30 H* 5.10 H* 3.70 H* Calcium Phosphorus Magnesium Total Bilirubin Ammonia Total Creatine Kinase CK-MB (CK-2) C-Reactive Protein Albumin Urine WBC (Auto) 06/13/19 06/13/19 06/14/19 21:47 22:00 00:13 WBC RBC Hgb Hct MCV MCH RDW Seg Neuts % (Manual) Lymphocytes % (Manual) Monocytes % (Manual) Seg Neutrophils # Man Lymphocytes # (Manual) Monocytes # (Manual) POC ABG pH POC ABG pCO2 POC ABG pO2 Sodium Potassium Chloride Carbon Dioxide BUN Creatinine Glucose POC Glucose 119 H Lactic Acid 3.70 H* Calcium Phosphorus Magnesium Total Bilirubin Ammonia Total Creatine Kinase CK-MB (CK-2) C-Reactive Protein Albumin Urine WBC (Auto) 66.0 H 06/14/19 06/14/19 06/14/19 04:21 04:45 04:45 WBC 19.1 H RBC 5.25 H Hgb Hct MCV 83 L MCH RDW Seg Neuts % (Manual) 83.0 H Lymphocytes % (Manual) 6.0 L Monocytes % (Manual) 10.0 H Seg Neutrophils # Man 15.9 H Lymphocytes # (Manual) 1.1 L Monocytes # (Manual) 1.9 H POC ABG pH 7.497 H POC ABG pCO2 < 30 L POC ABG pO2 143 H Sodium 136 L Potassium Chloride 94.1 L Carbon Dioxide 20 L D BUN 96 H Creatinine 7.7 H Glucose 170 H POC Glucose Lactic Acid Calcium Phosphorus 6.40 H Magnesium Total Bilirubin Ammonia Total Creatine Kinase CK-MB (CK-2) C-Reactive Protein Albumin Urine WBC (Auto) 06/14/19 06/14/19 06/14/19 04:45 04:45 06:05 WBC RBC Hgb Hct MCV MCH RDW Seg Neuts % (Manual) Lymphocytes % (Manual) Monocytes % (Manual) Seg Neutrophils # Man Lymphocytes # (Manual) Monocytes # (Manual) POC ABG pH POC ABG pCO2 POC ABG pO2 Sodium Potassium Chloride Carbon Dioxide BUN Creatinine Glucose POC Glucose 155 H Lactic Acid 3.00 H* Calcium Phosphorus Magnesium Total Bilirubin Ammonia 96.0 H Total Creatine Kinase CK-MB (CK-2) C-Reactive Protein Albumin Urine WBC (Auto) 06/14/19 06/14/19 06/14/19 06:58 12:38 12:38 WBC RBC Hgb Hct MCV MCH RDW Seg Neuts % (Manual) Lymphocytes % (Manual) Monocytes % (Manual) Seg Neutrophils # Man Lymphocytes # (Manual) Monocytes # (Manual) POC ABG pH 7.543 H POC ABG pCO2 POC ABG pO2 115 H Sodium Potassium Chloride Carbon Dioxide BUN Creatinine Glucose POC Glucose 203 H Lactic Acid 2.50 H* Calcium Phosphorus Magnesium Total Bilirubin Ammonia Total Creatine Kinase CK-MB (CK-2) C-Reactive Protein Albumin Urine WBC (Auto) 06/14/19 06/14/19 06/14/19 15:49 17:14 18:05 WBC RBC Hgb Hct MCV MCH RDW Seg Neuts % (Manual) Lymphocytes % (Manual) Monocytes % (Manual) Seg Neutrophils # Man Lymphocytes # (Manual) Monocytes # (Manual) POC ABG pH POC ABG pCO2 POC ABG pO2 Sodium Potassium Chloride Carbon Dioxide BUN Creatinine Glucose POC Glucose 198 H Lactic Acid 2.10 H* 2.10 H* Calcium Phosphorus Magnesium Total Bilirubin Ammonia Total Creatine Kinase CK-MB (CK-2) C-Reactive Protein Albumin Urine WBC (Auto) 06/14/19 06/14/19 06/15/19 19:19 23:40 04:44 WBC RBC Hgb Hct MCV MCH RDW Seg Neuts % (Manual) Lymphocytes % (Manual) Monocytes % (Manual) Seg Neutrophils # Man Lymphocytes # (Manual) Monocytes # (Manual) POC ABG pH 7.563 H POC ABG pCO2 34.2 L POC ABG pO2 113 H Sodium Potassium Chloride Carbon Dioxide BUN Creatinine Glucose POC Glucose 210 H Lactic Acid 2.10 H* Calcium Phosphorus Magnesium Total Bilirubin Ammonia Total Creatine Kinase CK-MB (CK-2) C-Reactive Protein Albumin Urine WBC (Auto) 06/15/19 06/15/19 06/15/19 04:51 05:31 12:21 WBC RBC Hgb Hct MCV MCH RDW Seg Neuts % (Manual) Lymphocytes % (Manual) Monocytes % (Manual) Seg Neutrophils # Man Lymphocytes # (Manual) Monocytes # (Manual) POC ABG pH POC ABG pCO2 POC ABG pO2 Sodium Potassium 2.8 L* D Chloride 97.7 L Carbon Dioxide BUN 74 H Creatinine 4.6 H Glucose 174 H POC Glucose 151 H 175 H Lactic Acid Calcium 8.1 L Phosphorus Magnesium Total Bilirubin Ammonia Total Creatine Kinase CK-MB (CK-2) C-Reactive Protein Albumin Urine WBC (Auto) 06/15/19 06/15/19 06/16/19 16:25 18:18 00:20 WBC RBC Hgb Hct MCV MCH RDW Seg Neuts % (Manual) Lymphocytes % (Manual) Monocytes % (Manual) Seg Neutrophils # Man Lymphocytes # (Manual) Monocytes # (Manual) POC ABG pH POC ABG pCO2 POC ABG pO2 Sodium Potassium 3.4 L D Chloride Carbon Dioxide BUN Creatinine Glucose POC Glucose 153 H 164 H Lactic Acid Calcium Phosphorus Magnesium Total Bilirubin Ammonia Total Creatine Kinase CK-MB (CK-2) C-Reactive Protein Albumin Urine WBC (Auto) 06/16/19 06/16/19 06/16/19 04:47 05:41 13:04 WBC RBC Hgb Hct MCV MCH RDW Seg Neuts % (Manual) Lymphocytes % (Manual) Monocytes % (Manual) Seg Neutrophils # Man Lymphocytes # (Manual) Monocytes # (Manual) POC ABG pH POC ABG pCO2 POC ABG pO2 Sodium 146 H D Potassium 3.5 L Chloride Carbon Dioxide BUN 44 H Creatinine 2.5 H Glucose 149 H POC Glucose 168 H 154 H Lactic Acid Calcium 8.3 L Phosphorus Magnesium Total Bilirubin Ammonia Total Creatine Kinase CK-MB (CK-2) C-Reactive Protein Albumin Urine WBC (Auto) 06/16/19 06/17/19 06/17/19 18:42 00:07 03:56 WBC RBC Hgb Hct MCV MCH RDW Seg Neuts % (Manual) Lymphocytes % (Manual) Monocytes % (Manual) Seg Neutrophils # Man Lymphocytes # (Manual) Monocytes # (Manual) POC ABG pH POC ABG pCO2 POC ABG pO2 125 H Sodium Potassium Chloride Carbon Dioxide BUN Creatinine Glucose POC Glucose 161 H 160 H Lactic Acid Calcium Phosphorus Magnesium Total Bilirubin Ammonia Total Creatine Kinase CK-MB (CK-2) C-Reactive Protein Albumin Urine WBC (Auto) 06/17/19 06/17/19 06/17/19 04:38 05:20 12:40 WBC RBC Hgb Hct MCV MCH RDW Seg Neuts % (Manual) Lymphocytes % (Manual) Monocytes % (Manual) Seg Neutrophils # Man Lymphocytes # (Manual) Monocytes # (Manual) POC ABG pH POC ABG pCO2 POC ABG pO2 Sodium Potassium Chloride 110.4 H Carbon Dioxide BUN 33 H Creatinine 1.7 H Glucose 159 H POC Glucose 159 H 192 H Lactic Acid Calcium Phosphorus 2.40 L Magnesium Total Bilirubin Ammonia Total Creatine Kinase CK-MB (CK-2) C-Reactive Protein Albumin Urine WBC (Auto) 06/17/19 06/18/19 06/18/19 18:20 00:35 04:31 WBC RBC Hgb Hct MCV MCH RDW Seg Neuts % (Manual) Lymphocytes % (Manual) Monocytes % (Manual) Seg Neutrophils # Man Lymphocytes # (Manual) Monocytes # (Manual) POC ABG pH POC ABG pCO2 POC ABG pO2 Sodium Potassium Chloride 109.5 H Carbon Dioxide BUN 30 H Creatinine Glucose 130 H POC Glucose 123 H 164 H Lactic Acid Calcium Phosphorus Magnesium Total Bilirubin Ammonia Total Creatine Kinase 35 L CK-MB (CK-2) C-Reactive Protein Albumin Urine WBC (Auto) 06/18/19 06/18/19 06/18/19 04:31 05:38 11:53 WBC 19.7 H RBC Hgb Hct MCV MCH 27 L RDW Seg Neuts % (Manual) 80.0 H Lymphocytes % (Manual) 8.0 L Monocytes % (Manual) 10.0 H Seg Neutrophils # Man 15.8 H Lymphocytes # (Manual) Monocytes # (Manual) 2.0 H POC ABG pH POC ABG pCO2 POC ABG pO2 Sodium Potassium Chloride Carbon Dioxide BUN Creatinine Glucose POC Glucose 132 H 178 H Lactic Acid Calcium Phosphorus Magnesium Total Bilirubin Ammonia Total Creatine Kinase CK-MB (CK-2) C-Reactive Protein Albumin Urine WBC (Auto) Allied health notes reviewed: nursing
[2019-06-18] MEDS ORDERED: ALBUTEROL 2.5 MG/3 ML NEBU IH PRN (12:30)
--- NOTE | 2019-06-18 16:02 | Progress Note ---
Assessment and Plan Cultures: Blood culture 06/13/2019 no growth so far. Trachea asp usual resp darwin. Urine culture 06/13/2019 no growth Assessment: 69 y/o female with history of obesity, diabetes and hypertension admitted on due to be found down on the bathroom floor now with: 1) Severe sepsis: leukocytosis improving; likely source UTI. CXR with bilateral pulmonary venous congestion. Blood cultures no growth so far. 2) Complicated UTI with bilateral hydronephrosis: likely bladder outlet obstruction.UA large LE, wbc 66. CT abdomen shows bladder markedly distended, moderate bilateral hydronephrosis, prostate gland is enlarged measuring 7.7 x 8.2x 6.5 cm. S/p montero cath placement. 3) NATHAN: from sepsis and bladder outlet obstruction. S/p HD 4) Acute encephalopathy: metabolic/sepsis 5) Acute respiratory failure: intubated Recommendations: follow blood culture and urine culture continue ceftriaxone 2 gm IV q day urology on board CXR normal Will follow. Yamileth Borges MD [facility] M: [phone] O: [phone] F: [phone] Subjective Date of service: 06/18/19 Principal diagnosis: Ac. hypoxemic resp failure; Ac. Encephalopathy; Sepsis; NATHAN; hyperkalemia Interval history: Afebrile. Elevated white count to 20. Objective - Exam Narrative Exam: General appearance: sedated on the vent Eyes: anicteric sclerae, moist conjunctivae; no lid-lag; PERRLA HENT: Atraumatic; oropharynx +ETT Lungs: CTA, CV: RRR no murmur Abdomen: Soft, non-tender Extremities: john leg mild edema Skin: no rash Psych: sedated Neuro: sedated - Constitutional Vitals: Vital Signs Temp Pulse Resp BP Pulse Ox 97.8 F 51 L 16 150/76 100 06/18/19 12:00 06/18/19 15:30 06/18/19 15:30 06/18/19 15:30 06/18/19 15:30 Temperature -Last 24 Hours Temperature 97.8 F Temperature 97.2 F Temperature 99.4 F Temperature 99.6 F Temperature 99 F - Labs CBC & Chem 7: 06/18/19 04:31 06/18/19 04:31 Labs: Abnormal lab results 06/16/19 06/17/19 06/18/19 Range/Units 13:04 18:20 00:35 WBC (4.5-11.0) K/mm3 MCH (28-32) pg Seg Neuts % (Manual) (40.0-70.0) % Lymphocytes % (Manual) (13.4-35.0) % Monocytes % (Manual) (0.0-7.3) % Seg Neutrophils # Man (1.8-7.7) K/mm3 Monocytes # (Manual) (0.0-0.8) K/mm3 Chloride (98-107) mmol/L BUN (9-20) mg/dL Glucose (75-100) mg/dL POC Glucose 154 H 123 H 164 H (70-105) Total Creatine Kinase (55-170) units/L 06/18/19 06/18/19 06/18/19 Range/Units 04:31 04:31 05:38 WBC 19.7 H (4.5-11.0) K/mm3 MCH 27 L (28-32) pg Seg Neuts % (Manual) 80.0 H (40.0-70.0) % Lymphocytes % (Manual) 8.0 L (13.4-35.0) % Monocytes % (Manual) 10.0 H (0.0-7.3) % Seg Neutrophils # Man 15.8 H (1.8-7.7) K/mm3 Monocytes # (Manual) 2.0 H (0.0-0.8) K/mm3 Chloride 109.5 H (98-107) mmol/L BUN 30 H (9-20) mg/dL Glucose 130 H (75-100) mg/dL POC Glucose 132 H (70-105) Total Creatine Kinase 35 L (55-170) units/L 06/18/19 Range/Units 11:53 WBC (4.5-11.0) K/mm3 MCH (28-32) pg Seg Neuts % (Manual) (40.0-70.0) % Lymphocytes % (Manual) (13.4-35.0) % Monocytes % (Manual) (0.0-7.3) % Seg Neutrophils # Man (1.8-7.7) K/mm3 Monocytes # (Manual) (0.0-0.8) K/mm3 Chloride (98-107) mmol/L BUN (9-20) mg/dL Glucose (75-100) mg/dL POC Glucose 178 H (70-105) Total Creatine Kinase (55-170) units/L
[2019-06-19] MEDS: INSULIN REGULAR, HUMAN 100 UNITS/1 ML SUB-Q SCH ×5 (02:20→22:36)
[2019-06-19] MEDS: SODIUM CHLORIDE 0.45% 1000 ML 1,000 ML IV SCH ×2 (06:32→17:43)
[2019-06-19 06:42] LABS: BUN/Creatinine Ratio 22; Blood Urea Nitrogen 26 mg/dL (9-20); Calcium 8.6 mg/dL (8.4-10.2); Hemolysis Index 9
[2019-06-19] MEDS: HEPARIN 5,000 UNIT/1 ML VIAL SUB-Q SCH ×2 (09:20→22:35)
[2019-06-19] MEDS: FAMOTIDINE 20 MG TAB PO SCH ×2 (09:20→22:35)
[2019-06-19] MEDS: cefTRIAXone/NS 2 GM/100 ML 2 GM/100 ML BAG IV SCH (09:20)
--- NOTE | 2019-06-19 10:17 | Progress Note ---
Assessment and Plan Assessment and plan: Patient is a 69 year old male with PMH of Obesity, DM Type 2, HTN, presenting to the ED today via EMS after he was found on the bathroom floor and unresponsive pre the . The spouse reports that for about a year she has noticed that the patient has difficulty with urination, how ever the patient has not been keen about addressing the issue. In the last week the patient began to complain of badomina l pain and on the 08 of June startated experince nasuea, with vomiting and difficulty "Using the Bathroom" HE WAS SEEN BY HIS [place] PCP on 06/10/19 and was given Rx for prilosec and zofran. He was found on the bathroom floor early this morning. EMS found pt to be hypoglycemic (value unknown). In the ED the pt's accucheck was 59, k OF >7, BUN >100 and improved after D50. His MS remain unchanged. He was recommended for admission and underwent an emergent placement of vascath for dialysis. He sustained 2 hrs of Dialysis but decompensated and required elective intubation due to persistent Tachypenia Acute Respiratory failure was on MV >96 hrs, now extubated Severe Metabolic Acidosis Complex cystitis with bilateral hydronephropathy Severe sepsis secondary to complex cystitis Acute Kidney injury secondary to vasmotor nephropathy, now resolved Acute Metabolic Encephalopathy ?SECONDARY TO HEPATIC ENCEPHALOPATHY VS AZOTEMIA Obstructive Uropathy per CT A/P DM with hyperglycemia HTN urgency Obesity Elevated Ammonia leveL ?Aspiration Penumonitis Plan Continue supportive care Extubated Continue Abx per ID VAP Bundle Aspiration Precaution Nephrology and Urology input noted S/P HD will be discharged with [place] to Leg bag. DVT/GI prophy History Interval history: Feels better no chest pain No SOB currently Hospitalist Physical - Physical exam Narrative exam: Gen: Not in acute distress, Lying in bed,obese HEENT: Normocephalic, atraumatic Neck: supple, no JVD Heart: S1 and S2 reg, no murmurs, rubs or gallop Lungs: Clear to auscultation, no rhonchi, no wheeze Abd: soft, non tender, non distended, normal BS, Ext: No edema, no clubbing, no cyanosis Neuro: Awake, alert, oriented X 3, no focal neurological signs - Constitutional Vitals: Temp Pulse Resp BP Pulse Ox 98.2 F 63 18 159/83 94 06/18/19 23:51 06/19/19 09:57 06/19/19 00:59 06/18/19 23:51 06/19/19 08:54 General appearance: Present: no acute distress, well-nourished, other (Intubated) Results - Labs CBC & Chem 7: 06/20/19 04:12 06/20/19 04:12 Labs: Laboratory Last Values WBC 19.7 K/mm3 (4.5-11.0) H 06/18/19 04:31 RBC 4.65 M/mm3 (3.65-5.03) 06/18/19 04:31 Hgb 12.7 gm/dl (11.8-15.2) 06/18/19 04:31 Hct 39.8 % (35.5-45.6) 06/18/19 04:31 MCV 86 fl (84-94) 06/18/19 04:31 MCH 27 pg (28-32) L 06/18/19 04:31 MCHC 32 % (32-34) 06/18/19 04:31 RDW 15.0 % (13.2-15.2) 06/18/19 04:31 Plt Count 265 K/mm3 (140-440) 06/18/19 04:31 [place] % (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 06/14/19 04:45 Add Manual Diff Complete 06/18/19 04:31 Total Counted 100 06/18/19 04:31 Seg Neuts % (Manual) 80.0 % (40.0-70.0) H 06/18/19 04:31 Band Neutrophils % 0 % 06/18/19 04:31 Lymphocytes % (Manual) 8.0 % (13.4-35.0) L 06/18/19 04:31 Reactive Lymphs % (Man) 0 % 06/18/19 04:31 Monocytes % (Manual) 10.0 % (0.0-7.3) H 06/18/19 04:31 Eosinophils % (Manual) 1.0 % (0.0-4.3) 06/18/19 04:31 Basophils % (Manual) 0 % (0.0-1.8) 06/18/19 04:31 Metamyelocytes % 1.0 % 06/18/19 04:31 Myelocytes % 0 % 06/18/19 04:31 Promyelocytes % 0 % 06/18/19 04:31 Blast Cells % 0 % 06/18/19 04:31 Nucleated RBC % Not Reportable 06/18/19 04:31 Seg Neutrophils # Man 15.8 K/mm3 (1.8-7.7) H 06/18/19 04:31 Band Neutrophils # 0.0 K/mm3 06/18/19 04:31 Lymphocytes # (Manual) 1.6 K/mm3 (1.2-5.4) 06/18/19 04:31 Abs React Lymphs (Man) 0.0 K/mm3 06/18/19 04:31 Monocytes # (Manual) 2.0 K/mm3 (0.0-0.8) H 06/18/19 04:31 Eosinophils # (Manual) 0.2 K/mm3 (0.0-0.4) 06/18/19 04:31 Basophils # (Manual) 0.0 K/mm3 (0.0-0.1) 06/18/19 04:31 Metamyelocytes # 0.2 K/mm3 06/18/19 04:31 Myelocytes # 0.0 K/mm3 06/18/19 04:31 Promyelocytes # 0.0 K/mm3 06/18/19 04:31 Blast Cells # 0.0 K/mm3 06/18/19 04:31 WBC Morphology Not Reportable 06/18/19 04:31 Hypersegmented Neuts Not Reportable 06/18/19 04:31 Hyposegmented Neuts Not Reportable 06/18/19 04:31 Hypogranular Neuts Not Reportable 06/18/19 04:31 Smudge Cells Not Reportable 06/18/19 04:31 Toxic Granulation Not Reportable 06/18/19 04:31 Toxic Vacuolation Not Reportable 06/18/19 04:31 Dohle Bodies Not Reportable 06/18/19 04:31 Pelger-Huet Anomaly Not Reportable 06/18/19 04:31 Moy Rods Not Reportable 06/18/19 04:31 Platelet Estimate Consistent w auto 06/18/19 04:31 Clumped Platelets Not Reportable 06/18/19 04:31 Plt Clumps, EDTA Not Reportable 06/18/19 04:31 Large Platelets Not Reportable 06/18/19 04:31 Giant Platelets Not Reportable 06/18/19 04:31 Platelet Satelliting Not Reportable 06/18/19 04:31 Plt Morphology Comment Not Reportable 06/18/19 04:31 RBC Morphology Normal 06/18/19 04:31 Dimorphic RBCs Not Reportable 06/18/19 04:31 Polychromasia Not Reportable 06/18/19 04:31 Hypochromasia Not Reportable 06/18/19 04:31 Poikilocytosis Not Reportable 06/18/19 04:31 Anisocytosis Not Reportable 06/18/19 04:31 Microcytosis Not Reportable 06/18/19 04:31 Macrocytosis Not Reportable 06/18/19 04:31 Spherocytes Not Reportable 06/18/19 04:31 Pappenheimer Bodies Not Reportable 06/18/19 04:31 Sickle Cells Not Reportable 06/18/19 04:31 Target Cells Not Reportable 06/18/19 04:31 Tear Drop Cells Not Reportable 06/18/19 04:31 Ovalocytes Not Reportable 06/18/19 04:31 Helmet Cells Not Reportable 06/18/19 04:31 [place] Bodies Not Reportable 06/18/19 04:31 [place] Rings Not Reportable 06/18/19 04:31 [place] Cells Not Reportable 06/18/19 04:31 Bite Cells Not Reportable 06/18/19 04:31 Crenated Cell Not Reportable 06/18/19 04:31 Elliptocytes Not Reportable 06/18/19 04:31 Acanthocytes (Spur) Not Reportable 06/18/19 04:31 Rouleaux Not Reportable 06/18/19 04:31 Hemoglobin C Crystals Not Reportable 06/18/19 04:31 Schistocytes Not Reportable 06/18/19 04:31 Malaria parasites Not Reportable 06/18/19 04:31 ESR 1 mm/Hr (0-20) 06/13/19 14:19 Melo Bodies Not Reportable 06/18/19 04:31 Hem Pathologist Commnt No 06/18/19 04:31 POC ABG pH 7.433 (7.35-7.45) 06/17/19 03:56 POC ABG pCO2 37.3 (35-45) 06/17/19 03:56 POC ABG pO2 125 (80-105) H 06/17/19 03:56 POC ABG HCO3 24.9 (22-26 mml/L) 06/17/19 03:56 POC ABG Total CO2 26 (23-27mmol/L) 06/17/19 03:56 POC ABG O2 Sat 99 06/17/19 03:56 POC ABG Base Excess 1 ((-2) - (+3)mmol/L) 06/17/19 03:56 FiO2 28 % 06/17/19 03:56 Sodium 138 mmol/L (137-145) 06/19/19 06:02 Potassium 4.3 mmol/L (3.6-5.0) 06/19/19 06:02 Chloride 107.0 mmol/L (98-107) 06/19/19 06:02 Carbon Dioxide 22 mmol/L (22-30) 06/19/19 06:02 Anion Gap 13 mmol/L 06/19/19 06:02 BUN 26 mg/dL (9-20) H 06/19/19 06:02 Creatinine 1.2 mg/dL (0.8-1.5) 06/19/19 06:02 Estimated GFR > 60 ml/min 06/19/19 06:02 BUN/Creatinine Ratio 22 % 06/19/19 06:02 Glucose 124 mg/dL (75-100) H 06/19/19 06:02 POC Glucose 120 (70-105) H 06/19/19 07:51 Lactic Acid 1.30 mmol/L (0.7-2.0) 06/15/19 04:51 Calcium 8.6 mg/dL (8.4-10.2) 06/19/19 06:02 Phosphorus 2.90 mg/dL (2.5-4.5) D 06/18/19 04:31 Magnesium 1.80 mg/dL (1.7-2.3) 06/17/19 04:38 Total Bilirubin 1.70 mg/dL (0.1-1.2) H 06/13/19 14:19 AST 22 units/L (5-40) 06/13/19 14:19 ALT 24 units/L (7-56) 06/13/19 14:19 Alkaline Phosphatase 71 units/L (35-129) 06/13/19 14:19 Ammonia 25.0 umol/L (25-60) 06/15/19 13:46 Total Creatine Kinase 35 units/L (55-170) L 06/18/19 04:31 CK-MB (CK-2) 15.9 ng/mL (0.0-4.0) H 06/13/19 07:31 CK-MB (CK-2) Rel Index 3.8 (0-4) 06/13/19 07:31 Troponin T < 0.010 ng/mL (0.00-0.029) 06/13/19 07:31 C-Reactive Protein 3.80 mg/dL (0.00-1.30) H 06/13/19 16:15 Total Protein 7.0 g/dL (6.3-8.2) 06/13/19 14:19 Albumin 3.6 g/dL (3.9-5) L 06/13/19 14:19 Albumin/Globulin Ratio 1.1 % 06/13/19 14:19 TSH 1.040 mlU/mL (0.270-4.200) 06/13/19 07:31 Free T4 1.03 ng/dL (0.76-1.46) 06/13/19 07:31 Urine Color Yellow (Yellow) 06/13/19 22:00 Urine Turbidity Slightly-cloudy (Clear) 06/13/19 22:00 Urine pH 5.0 (5.0-7.0) 06/13/19 22:00 Ur Specific [place] 1.011 (1.003-1.030) 06/13/19 22:00 Urine Protein 30 mg/dl mg/dL (Negative) 06/13/19 22:00 Urine Glucose (UA) Neg mg/dL (Negative) 06/13/19 22:00 Urine Ketones Tr mg/dL (Negative) 06/13/19 22:00 Urine Blood Lg (Negative) 06/13/19 22:00 Urine Nitrite Neg (Negative) 06/13/19 22:00 Urine Bilirubin Neg (Negative) 06/13/19 22:00 Urine Urobilinogen < 2.0 mg/dL (<2.0) 06/13/19 22:00 Ur Leukocyte Esterase Lg (Negative) 06/13/19 22:00 Urine WBC (Auto) 66.0 /HPF (0.0-6.0) H 06/13/19 22:00 Urine RBC (Auto) 114.0 /HPF (0.0-6.0) 06/13/19 22:00 Urine Mucus Few /HPF 06/13/19 22:00 Random Vancomycin 4.4 ug/mL (0-40.0) 06/16/19 04:47 Urine Opiates Screen Presumptive negative 06/13/19 22:00 Urine Methadone Screen Presumptive negative 06/13/19 22:00 Ur Barbiturates Screen Presumptive negative 06/13/19 22:00 Ur Phencyclidine Scrn Presumptive negative 06/13/19 22:00 Ur Amphetamines Screen Presumptive negative 06/13/19 22:00 U Benzodiazepines Scrn Presumptive negative 06/13/19 22:00 Urine Cocaine Screen Presumptive negative 06/13/19 22:00 U Marijuana (THC) Screen Presumptive negative 06/13/19 22:00 Drugs of Abuse Note Disclamer 06/13/19 22:00 Plasma/Serum Alcohol < 0.01 % (0-0.07) 06/13/19 07:31 Hepatitis A IgM Ab Non-reactive (NonReactive) 06/13/19 10:05 Hep Bs Antigen Non-reactive (Negative) 06/13/19 10:05 Hep B Core IgM Ab Non-reactive (NonReactive) 06/13/19 10:05 Hepatitis C Antibody Non-reactive (NonReactive) 06/13/19 10:05 Active Medications - Current Medications Current Medications: Generic Name Dose Route Start Last Admin Trade Name Freq PRN Reason Stop Dose Admin Albuterol 2.5 mg 06/18/19 12:30 Proventil IH Q4HRT PRN Shortness Of Breath Dextrose 50 ml 06/14/19 13:41 D50w (25gm) Syringe IV PRN PRN Hypoglycemia Famotidine 20 mg 06/17/19 10:00 06/19/19 09:20 Pepcid PO 20 mg BID SANGEETHA Administration Heparin Sodium (Porcine) 5,000 unit 06/13/19 22:00 06/19/19 09:20 Heparin SUB-Q 5,000 unit Q12HR SANGEETHA Administration Hydralazine HCl 10 mg 06/13/19 16:05 06/18/19 06:26 Apresoline IV 10 mg Q4HR PRN Administration HTN SBP>=170 Hydrophilic Ointment 1 applic 06/13/19 15:33 Vaseline Lip Therapy TP Q2HR PRN Dry Lips Ceftriaxone Sodium 2 gm in 100 mls @ 200 mls/hr 06/14/19 18:30 06/19/19 09:20 Rocephin/Ns 2 Gm/100 Ml IV 200 mls/hr Q24HR SANGEETHA Administration Protocol Sodium Chloride 1,000 mls @ 75 mls/hr 06/17/19 11:00 06/19/19 06:32 Nacl 0.45% 1000 Ml IV 75 mls/hr DIRECT SANGEETHA Administration Insulin Human Regular 0 units 06/19/19 11:30 Humulin R SUB-Q ACHS SANGEETHA Protocol Lorazepam 2 mg 06/13/19 14:21 06/17/19 13:07 Ativan IV 2 mg Q1H PRN Administration Agitation Multi-Ingred Cream/Lotion/Oil/Oint 1 applic 06/13/19 15:33 Artificial Tears Ophth Oint OU Q4HR PRN Dry Eye(s) Sodium Chloride 10 ml 06/13/19 22:00 06/19/19 09:21 Sodium Chloride Flush Syringe 10 Ml IV 10 ml BID SANGEETHA Administration Sodium Chloride 10 ml 06/13/19 11:46 06/18/19 11:16 Sodium Chloride Flush Syringe 10 Ml IV 10 ml PRN PRN Administration LINE FLUSH Nutrition/Malnutrition Assess - Dietary Evaluation Nutrition/Malnutrition Findings: Nutrition Notes Start: 06/14/19 09:04 Freq: Status: Active Protocol: Document 06/18/19 12:49 MARICARMEN (Rec: 06/18/19 13:05 MARICARMEN [email or web address]) Co-Sign 06/18/19 12:49 LP Nutrition Notes Initial or Follow up Reassessment Current Diagnosis Acute Kidney Injury,Coronary Artery Disease,Diabetes, Hypertension Other Pertinent Diagnosis Hepatic encephalopathy Current Diet Vital AF 1.2 at 65ml/hr Labs/Tests BUN 30 POC BG 178 Pertinent Medications Reviewed Height 6 ft 1 in Weight 113.4 kg [place] Body Weight (kg) 83.63 BMI 33.0 Subjective/Other Information Pt tolerating TF. Running at goal rate. Pt was swallowing ice chips and pudding per RN. Per MD diet advancement Burn Absent Trauma Absent Minimum of two criteria No #1 Nutrition Diagnosis Inadequate oral intake Diagnosis Progress(for reassessment Continues documentation) Is patient on ventilator? No Is Patient Ambulatory and/or Out of Bed No REE-(Norton-St. Jeor-confined to bed) 2336.904 Kcal/Kg value to use for calculation 16 Approximate Energy Requirements Using 1814 kcal/Kg Calculation Used for Recommendations Kcal/kg Additional Notes Protein needs: 119g-149g/kg (1 .2g-1.5g/kg 99kg adjBW) Fluid needs: 1ml/kcal Nutrition Intervention Change Diet Order: Renal consistent carb diet Nutrition Support: D/C TF Goal #1 Meet at least 75% of energy and protein needs Anticipated Discharge Needs: Renal consistent carb diet Follow-Up By: 06/20/19 Additional Comments F/U for PO intakes
--- NOTE | 2019-06-19 12:10 | Progress Note ---
Assessment and Plan 1. Acute kidney injury: NAHTAN likely secondary to obstructive nephropathy +/- sepsis. CT abdomen showed bladder outlet obstruction. S/p montero catheter. Baseline renal function is unknown. Due to hyperkalemia and severe metabolic acidosis patient received hemodialysis once on 06/13. Renal function is much better. Monitor renal function. Avoid nephrotoxic agents. Meds dosage based on GFR. 2. FEN: Hypokalemia, K level is better. Hypernatremia, improving. Metabolic acidosis, s/p HD. Monitor lytes. 3. Obstructive nephropathy: Likely from enlarged prostate. S/p catheter. 4. Respiratory failure: S/p extubated. 5. Severe Sepsis: Followed by ID. 6. Encephalopathy: CT head normal. Elevated Ammonia level, now improved. 7. DM. Examination: General appearance: well-developed, well-nourished, appears stated age, not in distress HEENT: Atraumatic Neck: Supple, trachea midline Respiratory: Clear to Ascultation Heart: regular, S1S2, no murmur Gastrointestinal: soft, bowel sounds present, not tender Integumentary: no rash, warm and dry : condom catheter Neurologic: able to move extremities Musculoskeletal: no edema Subjective Date of service: 06/19/19 Principal diagnosis: Ac. hypoxemic resp failure; Ac. Encephalopathy; Sepsis; NATHAN; hyperkalemia Interval history: Patient was seen and examined at the bedside. Objective - Vital Signs Vital signs: Vital Signs - 12hr 06/19/19 06/19/19 06/19/19 00:59 08:54 09:57 Pulse Rate 78 63 Respiratory 18 Rate O2 Sat by Pulse 98 94 Oximetry 06/19/19 06/19/19 10:33 11:17 Pulse Rate Respiratory Rate O2 Sat by Pulse 98 97 Oximetry - Lab 06/18/19 04:31 06/19/19 06:02 Most recent lab results Calcium 8.6 mg/dL (8.4-10.2) 06/19/19 06:02 Phosphorus 2.90 mg/dL (2.5-4.5) D 06/18/19 04:31 Magnesium 1.80 mg/dL (1.7-2.3) 06/17/19 04:38 Medications & Allergies - Medications Allergies/Adverse Reactions: Allergies No Known Allergies Allergy (Verified 06/13/19 05:58) Home Medications: Home Medications Medication Instructions Recorded Confirmed Last Taken Type Atorvastatin 80 mg PO DAILY MDD 40 mg 06/15/19 06/15/19 06/12/19 History Carvedilol 12.5 mg PO BID 06/15/19 06/15/19 06/12/19 History Lisinopril 10 mg PO DAILY 06/15/19 06/15/19 06/12/19 History Metformin HCl [metFORMIN] 1,000 mg PO BID 06/15/19 06/15/19 06/12/19 History Omeprazole 20 mg PO DAILY 06/15/19 06/15/19 06/12/19 History Ondansetron 8 mg PO Q12HR PRN 06/15/19 06/15/19 Unknown History Tamsulosin 0.4 mg PO DAILY MDD 0.4 06/15/19 06/15/19 06/12/19 History Active Medications: Generic Name Dose Route Start Last Admin Trade Name Freq PRN Reason Stop Dose Admin Albuterol 2.5 mg 06/18/19 12:30 Proventil IH Q4HRT PRN Shortness Of Breath Dextrose 50 ml 06/14/19 13:41 D50w (25gm) Syringe IV PRN PRN Hypoglycemia Famotidine 20 mg 06/17/19 10:00 06/19/19 09:20 Pepcid PO 20 mg BID SANGEETHA Administration Heparin Sodium (Porcine) 5,000 unit 06/13/19 22:00 06/19/19 09:20 Heparin SUB-Q 5,000 unit Q12HR SANGEETHA Administration Hydralazine HCl 10 mg 06/13/19 16:05 06/18/19 06:26 Apresoline IV 10 mg Q4HR PRN Administration HTN SBP>=170 Hydrophilic Ointment 1 applic 06/13/19 15:33 Vaseline Lip Therapy TP Q2HR PRN Dry Lips Ceftriaxone Sodium 2 gm in 100 mls @ 200 mls/hr 06/14/19 18:30 06/19/19 09:20 Rocephin/Ns 2 Gm/100 Ml IV 200 mls/hr Q24HR SANGEETHA Administration Protocol Sodium Chloride 1,000 mls @ 75 mls/hr 06/17/19 11:00 06/19/19 06:32 Nacl 0.45% 1000 Ml IV 75 mls/hr DIRECT SANGEETHA Administration Insulin Human Regular 0 units 06/19/19 11:30 Humulin R SUB-Q ACHS SANGEETHA Protocol Lorazepam 2 mg 06/13/19 14:21 06/17/19 13:07 Ativan IV 2 mg Q1H PRN Administration Agitation Multi-Ingred Cream/Lotion/Oil/Oint 1 applic 06/13/19 15:33 Artificial Tears Ophth Oint OU Q4HR PRN Dry Eye(s) Sodium Chloride 10 ml 06/13/19 22:00 06/19/19 09:21 Sodium Chloride Flush Syringe 10 Ml IV 10 ml BID SANGEETHA Administration Sodium Chloride 10 ml 06/13/19 11:46 06/18/19 11:16 Sodium Chloride Flush Syringe 10 Ml IV 10 ml PRN PRN Administration LINE FLUSH
--- NOTE | 2019-06-19 12:57 | Progress Note ---
Assessment and Plan Patient awake, alert. No complaint of chest pain, SOB or cough. Patient has history of smoking. States he stopped smoking 2 weeks ago. No acute respiratory distress. Patient presently on room air. O2 saturation 97%. - Patient Problems (1) Altered mental status Current Visit: Yes Status: Acute Plan to address problem: Appears somewhat improved. Management as per primary care. (2) Hepatic encephalopathy Current Visit: Yes Status: Acute Plan to address problem: Management as per primary care. (3) Acute renal failure Current Visit: Yes Status: Acute Plan to address problem: Management as per nephrology. (4) Hyperkalemia Current Visit: Yes Status: Acute Plan to address problem: corrected last potassium is 4.3 (5) History of tobacco use Current Visit: Yes Status: Acute Plan to address problem: Patient states he stopped smoking 2 weeks ago. Subjective Date of service: 06/19/19 Principal diagnosis: Ac. hypoxemic resp failure; Ac. Encephalopathy; Sepsis; NATHAN; hyperkalemia Interval history: Patient awake, alert. No complaint of chest pain, SOB or cough. Patient has history of smoking. States he stopped smoking 2 weeks ago. No acute respiratory distress. Patient presently on room air. O2 saturation 97%. Objective Vital Signs - 12hr 06/19/19 06/19/19 06/19/19 00:59 08:54 09:57 Pulse Rate 78 63 Respiratory 18 Rate O2 Sat by Pulse 98 94 Oximetry 06/19/19 06/19/19 10:33 11:17 Pulse Rate Respiratory Rate O2 Sat by Pulse 98 97 Oximetry Constitutional: no acute distress, alert Eyes: non-icteric ENT: oropharynx moist, other (ETT 24 cm BINA) Neck: supple, no lymphadenopathy, no JVD, other (large neck circumference) Effort: normal Ascultation: Bilateral: rhonchi Percussion: Bilateral: not dull Cardiovascular: regular rate and rhythm Gastrointestinal: normoactive bowel sounds, soft, non-tender, non-distended Integumentary: other (see wound care and RN notes) Extremities: no cyanosis, no edema, pulses normal, no ischemia or petechiae Neurologic: non-focal exam (grossly), pupils equal and round, CN II-XII normal, unable to assess (unable to aceess re: encephalopathy) Psychiatric: other (unable to aceess re: encephalopathy) CBC and BMP: 06/18/19 04:31 06/19/19 06:02 ABG, PT/INR, D-dimer: ABG POC ABG pH 7.433 (7.35-7.45) 06/17/19 03:56 POC ABG pCO2 37.3 (35-45) 06/17/19 03:56 POC ABG pO2 125 (80-105) H 06/17/19 03:56 POC ABG HCO3 24.9 (22-26 mml/L) 06/17/19 03:56 POC ABG Total CO2 26 (23-27mmol/L) 06/17/19 03:56 POC ABG O2 Sat 99 06/17/19 03:56 Abnormal lab findings: Abnormal Labs 06/13/19 06/13/19 06/13/19 06:13 06:50 06:50 WBC 22.7 H RBC 5.69 H Hgb 15.5 H Hct 47.8 H MCV MCH 27 L RDW 15.6 H Seg Neuts % (Manual) 89.0 H Lymphocytes % (Manual) 4.0 L Monocytes % (Manual) Seg Neutrophils # Man 20.2 H Lymphocytes # (Manual) 0.9 L Monocytes # (Manual) 1.4 H POC ABG pH POC ABG pCO2 POC ABG pO2 Sodium 126 L Potassium 7.5 H* Chloride 83.9 L Carbon Dioxide 5 L* BUN 126 H Creatinine 12.6 H Glucose 143 H POC Glucose 59 L Lactic Acid Calcium Phosphorus Magnesium Total Bilirubin Ammonia Total Creatine Kinase CK-MB (CK-2) C-Reactive Protein Albumin 3.6 L Urine WBC (Auto) 06/13/19 06/13/19 06/13/19 07:09 07:31 07:31 WBC RBC Hgb Hct MCV MCH RDW Seg Neuts % (Manual) Lymphocytes % (Manual) Monocytes % (Manual) Seg Neutrophils # Man Lymphocytes # (Manual) Monocytes # (Manual) POC ABG pH POC ABG pCO2 POC ABG pO2 Sodium Potassium Chloride Carbon Dioxide BUN Creatinine Glucose POC Glucose 117 H Lactic Acid Calcium Phosphorus Magnesium 2.50 H Total Bilirubin Ammonia 408.0 H Total Creatine Kinase 409 H CK-MB (CK-2) 15.9 H C-Reactive Protein Albumin Urine WBC (Auto) 06/13/19 06/13/19 06/13/19 09:21 10:19 10:42 WBC RBC Hgb Hct MCV MCH RDW Seg Neuts % (Manual) Lymphocytes % (Manual) Monocytes % (Manual) Seg Neutrophils # Man Lymphocytes # (Manual) Monocytes # (Manual) POC ABG pH POC ABG pCO2 POC ABG pO2 Sodium Potassium Chloride Carbon Dioxide BUN Creatinine Glucose POC Glucose 153 H 54 L 136 H Lactic Acid Calcium Phosphorus Magnesium Total Bilirubin Ammonia Total Creatine Kinase CK-MB (CK-2) C-Reactive Protein Albumin Urine WBC (Auto) 06/13/19 06/13/19 06/13/19 14:19 14:19 14:19 WBC RBC Hgb Hct MCV MCH RDW Seg Neuts % (Manual) Lymphocytes % (Manual) Monocytes % (Manual) Seg Neutrophils # Man Lymphocytes # (Manual) Monocytes # (Manual) POC ABG pH POC ABG pCO2 POC ABG pO2 Sodium 134 L D Potassium Chloride 89.0 L Carbon Dioxide 12 L D BUN 86 H Creatinine 7.8 H Glucose POC Glucose Lactic Acid 8.80 H* Calcium Phosphorus Magnesium Total Bilirubin 1.70 H Ammonia Total Creatine Kinase CK-MB (CK-2) C-Reactive Protein 4.10 H Albumin 3.6 L Urine WBC (Auto) 06/13/19 06/13/19 06/13/19 14:28 16:10 16:15 WBC RBC Hgb Hct MCV MCH RDW Seg Neuts % (Manual) Lymphocytes % (Manual) Monocytes % (Manual) Seg Neutrophils # Man Lymphocytes # (Manual) Monocytes # (Manual) POC ABG pH 7.530 H 7.474 H POC ABG pCO2 POC ABG pO2 239 H 183 H Sodium Potassium Chloride Carbon Dioxide BUN Creatinine Glucose POC Glucose Lactic Acid Calcium Phosphorus Magnesium Total Bilirubin Ammonia 97.0 H Total Creatine Kinase CK-MB (CK-2) C-Reactive Protein Albumin Urine WBC (Auto) 06/13/19 06/13/19 06/13/19 16:15 16:22 16:56 WBC RBC Hgb Hct MCV MCH RDW Seg Neuts % (Manual) Lymphocytes % (Manual) Monocytes % (Manual) Seg Neutrophils # Man Lymphocytes # (Manual) Monocytes # (Manual) POC ABG pH POC ABG pCO2 POC ABG pO2 Sodium Potassium Chloride Carbon Dioxide BUN Creatinine Glucose POC Glucose Lactic Acid 7.60 H* 7.90 H* Calcium Phosphorus Magnesium Total Bilirubin Ammonia Total Creatine Kinase CK-MB (CK-2) C-Reactive Protein 3.80 H Albumin Urine WBC (Auto) 10/03/19 10/03/19 10/03/19 18:05 19:01 21:18 WBC RBC Hgb Hct MCV MCH RDW Seg Neuts % (Manual) Lymphocytes % (Manual) Monocytes % (Manual) Seg Neutrophils # Man Lymphocytes # (Manual) Monocytes # (Manual) POC ABG pH POC ABG pCO2 POC ABG pO2 Sodium Potassium Chloride Carbon Dioxide BUN Creatinine Glucose POC Glucose Lactic Acid 5.30 H* 5.10 H* 3.70 H* Calcium Phosphorus Magnesium Total Bilirubin Ammonia Total Creatine Kinase CK-MB (CK-2) C-Reactive Protein Albumin Urine WBC (Auto) 06/13/19 06/13/19 06/14/19 21:47 22:00 00:13 WBC RBC Hgb Hct MCV MCH RDW Seg Neuts % (Manual) Lymphocytes % (Manual) Monocytes % (Manual) Seg Neutrophils # Man Lymphocytes # (Manual) Monocytes # (Manual) POC ABG pH POC ABG pCO2 POC ABG pO2 Sodium Potassium Chloride Carbon Dioxide BUN Creatinine Glucose POC Glucose 119 H Lactic Acid 3.70 H* Calcium Phosphorus Magnesium Total Bilirubin Ammonia Total Creatine Kinase CK-MB (CK-2) C-Reactive Protein Albumin Urine WBC (Auto) 66.0 H 06/14/19 06/14/19 06/14/19 04:21 04:45 04:45 WBC 19.1 H RBC 5.25 H Hgb Hct MCV 83 L MCH RDW Seg Neuts % (Manual) 83.0 H Lymphocytes % (Manual) 6.0 L Monocytes % (Manual) 10.0 H Seg Neutrophils # Man 15.9 H Lymphocytes # (Manual) 1.1 L Monocytes # (Manual) 1.9 H POC ABG pH 7.497 H POC ABG pCO2 < 30 L POC ABG pO2 143 H Sodium 136 L Potassium Chloride 94.1 L Carbon Dioxide 20 L D BUN 96 H Creatinine 7.7 H Glucose 170 H POC Glucose Lactic Acid Calcium Phosphorus 6.40 H Magnesium Total Bilirubin Ammonia Total Creatine Kinase CK-MB (CK-2) C-Reactive Protein Albumin Urine WBC (Auto) 06/14/19 06/14/19 06/14/19 04:45 04:45 06:05 WBC RBC Hgb Hct MCV MCH RDW Seg Neuts % (Manual) Lymphocytes % (Manual) Monocytes % (Manual) Seg Neutrophils # Man Lymphocytes # (Manual) Monocytes # (Manual) POC ABG pH POC ABG pCO2 POC ABG pO2 Sodium Potassium Chloride Carbon Dioxide BUN Creatinine Glucose POC Glucose 155 H Lactic Acid 3.00 H* Calcium Phosphorus Magnesium Total Bilirubin Ammonia 96.0 H Total Creatine Kinase CK-MB (CK-2) C-Reactive Protein Albumin Urine WBC (Auto) 06/14/19 06/14/19 06/14/19 06:58 12:38 12:38 WBC RBC Hgb Hct MCV MCH RDW Seg Neuts % (Manual) Lymphocytes % (Manual) Monocytes % (Manual) Seg Neutrophils # Man Lymphocytes # (Manual) Monocytes # (Manual) POC ABG pH 7.543 H POC ABG pCO2 POC ABG pO2 115 H Sodium Potassium Chloride Carbon Dioxide BUN Creatinine Glucose POC Glucose 203 H Lactic Acid 2.50 H* Calcium Phosphorus Magnesium Total Bilirubin Ammonia Total Creatine Kinase CK-MB (CK-2) C-Reactive Protein Albumin Urine WBC (Auto) 06/14/19 06/14/19 06/14/19 15:49 17:14 18:05 WBC RBC Hgb Hct MCV MCH RDW Seg Neuts % (Manual) Lymphocytes % (Manual) Monocytes % (Manual) Seg Neutrophils # Man Lymphocytes # (Manual) Monocytes # (Manual) POC ABG pH POC ABG pCO2 POC ABG pO2 Sodium Potassium Chloride Carbon Dioxide BUN Creatinine Glucose POC Glucose 198 H Lactic Acid 2.10 H* 2.10 H* Calcium Phosphorus Magnesium Total Bilirubin Ammonia Total Creatine Kinase CK-MB (CK-2) C-Reactive Protein Albumin Urine WBC (Auto) 06/14/19 06/14/19 06/15/19 19:19 23:40 04:44 WBC RBC Hgb Hct MCV MCH RDW Seg Neuts % (Manual) Lymphocytes % (Manual) Monocytes % (Manual) Seg Neutrophils # Man Lymphocytes # (Manual) Monocytes # (Manual) POC ABG pH 7.563 H POC ABG pCO2 34.2 L POC ABG pO2 113 H Sodium Potassium Chloride Carbon Dioxide BUN Creatinine Glucose POC Glucose 210 H Lactic Acid 2.10 H* Calcium Phosphorus Magnesium Total Bilirubin Ammonia Total Creatine Kinase CK-MB (CK-2) C-Reactive Protein Albumin Urine WBC (Auto) 06/15/19 06/15/19 06/15/19 04:51 05:31 12:21 WBC RBC Hgb Hct MCV MCH RDW Seg Neuts % (Manual) Lymphocytes % (Manual) Monocytes % (Manual) Seg Neutrophils # Man Lymphocytes # (Manual) Monocytes # (Manual) POC ABG pH POC ABG pCO2 POC ABG pO2 Sodium Potassium 2.8 L* D Chloride 97.7 L Carbon Dioxide BUN 74 H Creatinine 4.6 H Glucose 174 H POC Glucose 151 H 175 H Lactic Acid Calcium 8.1 L Phosphorus Magnesium Total Bilirubin Ammonia Total Creatine Kinase CK-MB (CK-2) C-Reactive Protein Albumin Urine WBC (Auto) 06/15/19 06/15/19 06/16/19 16:25 18:18 00:20 WBC RBC Hgb Hct MCV MCH RDW Seg Neuts % (Manual) Lymphocytes % (Manual) Monocytes % (Manual) Seg Neutrophils # Man Lymphocytes # (Manual) Monocytes # (Manual) POC ABG pH POC ABG pCO2 POC ABG pO2 Sodium Potassium 3.4 L D Chloride Carbon Dioxide BUN Creatinine Glucose POC Glucose 153 H 164 H Lactic Acid Calcium Phosphorus Magnesium Total Bilirubin Ammonia Total Creatine Kinase CK-MB (CK-2) C-Reactive Protein Albumin Urine WBC (Auto) 06/16/19 06/16/19 06/16/19 04:47 05:41 13:04 WBC RBC Hgb Hct MCV MCH RDW Seg Neuts % (Manual) Lymphocytes % (Manual) Monocytes % (Manual) Seg Neutrophils # Man Lymphocytes # (Manual) Monocytes # (Manual) POC ABG pH POC ABG pCO2 POC ABG pO2 Sodium 146 H D Potassium 3.5 L Chloride Carbon Dioxide BUN 44 H Creatinine 2.5 H Glucose 149 H POC Glucose 168 H 154 H Lactic Acid Calcium 8.3 L Phosphorus Magnesium Total Bilirubin Ammonia Total Creatine Kinase CK-MB (CK-2) C-Reactive Protein Albumin Urine WBC (Auto) 06/16/19 06/17/19 06/17/19 18:42 00:07 03:56 WBC RBC Hgb Hct MCV MCH RDW Seg Neuts % (Manual) Lymphocytes % (Manual) Monocytes % (Manual) Seg Neutrophils # Man Lymphocytes # (Manual) Monocytes # (Manual) POC ABG pH POC ABG pCO2 POC ABG pO2 125 H Sodium Potassium Chloride Carbon Dioxide BUN Creatinine Glucose POC Glucose 161 H 160 H Lactic Acid Calcium Phosphorus Magnesium Total Bilirubin Ammonia Total Creatine Kinase CK-MB (CK-2) C-Reactive Protein Albumin Urine WBC (Auto) 06/17/19 06/17/19 06/17/19 04:38 05:20 12:40 WBC RBC Hgb Hct MCV MCH RDW Seg Neuts % (Manual) Lymphocytes % (Manual) Monocytes % (Manual) Seg Neutrophils # Man Lymphocytes # (Manual) Monocytes # (Manual) POC ABG pH POC ABG pCO2 POC ABG pO2 Sodium Potassium Chloride 110.4 H Carbon Dioxide BUN 33 H Creatinine 1.7 H Glucose 159 H POC Glucose 159 H 192 H Lactic Acid Calcium Phosphorus 2.40 L Magnesium Total Bilirubin Ammonia Total Creatine Kinase CK-MB (CK-2) C-Reactive Protein Albumin Urine WBC (Auto) 06/17/19 06/18/19 06/18/19 18:20 00:35 04:31 WBC RBC Hgb Hct MCV MCH RDW Seg Neuts % (Manual) Lymphocytes % (Manual) Monocytes % (Manual) Seg Neutrophils # Man Lymphocytes # (Manual) Monocytes # (Manual) POC ABG pH POC ABG pCO2 POC ABG pO2 Sodium Potassium Chloride 109.5 H Carbon Dioxide BUN 30 H Creatinine Glucose 130 H POC Glucose 123 H 164 H Lactic Acid Calcium Phosphorus Magnesium Total Bilirubin Ammonia Total Creatine Kinase 35 L CK-MB (CK-2) C-Reactive Protein Albumin Urine WBC (Auto) 06/18/19 06/18/19 06/18/19 04:31 05:38 11:53 WBC 19.7 H RBC Hgb Hct MCV MCH 27 L RDW Seg Neuts % (Manual) 80.0 H Lymphocytes % (Manual) 8.0 L Monocytes % (Manual) 10.0 H Seg Neutrophils # Man 15.8 H Lymphocytes # (Manual) Monocytes # (Manual) 2.0 H POC ABG pH POC ABG pCO2 POC ABG pO2 Sodium Potassium Chloride Carbon Dioxide BUN Creatinine Glucose POC Glucose 132 H 178 H Lactic Acid Calcium Phosphorus Magnesium Total Bilirubin Ammonia Total Creatine Kinase CK-MB (CK-2) C-Reactive Protein Albumin Urine WBC (Auto) 06/19/19 06/19/19 06/19/19 02:29 06:02 06:05 WBC RBC Hgb Hct MCV MCH RDW Seg Neuts % (Manual) Lymphocytes % (Manual) Monocytes % (Manual) Seg Neutrophils # Man Lymphocytes # (Manual) Monocytes # (Manual) POC ABG pH POC ABG pCO2 POC ABG pO2 Sodium Potassium Chloride Carbon Dioxide BUN 26 H Creatinine Glucose 124 H POC Glucose 106 H 106 H Lactic Acid Calcium Phosphorus Magnesium Total Bilirubin Ammonia Total Creatine Kinase CK-MB (CK-2) C-Reactive Protein Albumin Urine WBC (Auto) 06/19/19 06/19/19 07:51 12:37 WBC RBC Hgb Hct MCV MCH RDW Seg Neuts % (Manual) Lymphocytes % (Manual) Monocytes % (Manual) Seg Neutrophils # Man Lymphocytes # (Manual) Monocytes # (Manual) POC ABG pH POC ABG pCO2 POC ABG pO2 Sodium Potassium Chloride Carbon Dioxide BUN Creatinine Glucose POC Glucose 120 H 144 H Lactic Acid Calcium Phosphorus Magnesium Total Bilirubin Ammonia Total Creatine Kinase CK-MB (CK-2) C-Reactive Protein Albumin Urine WBC (Auto) Chest x-ray: report reviewed (No acute cardiopulmonary abnormality.), image reviewed Allied health notes reviewed: nursing
--- NOTE | 2019-06-19 16:52 | Progress Note ---
Assessment and Plan Cultures: Blood culture 06/13/2019 no growth so far. Trachea asp usual resp darwin. Urine culture 06/13/2019 no growth Assessment: 69 y/o female with history of obesity, diabetes and hypertension admitted on due to be found down on the bathroom floor now with: 1) Severe sepsis: still leukocytosis ; likely source UTI. CXR with bilateral pulmonary venous congestion. Blood cultures no growth. 2) Complicated UTI with bilateral hydronephrosis: likely bladder outlet obstruction.UA large LE, wbc 66. Urine cx no growth. CT abdomen shows bladder markedly distended, moderate bilateral hydronephrosis, prostate gland is enlarged measuring 7.7 x 8.2x 6.5 cm. S/p montero cath placement. 3) NATHAN: from sepsis and bladder outlet obstruction. S/p HD 4) Acute encephalopathy: metabolic/sepsis, resolved 5) Acute respiratory failure: intubated Recommendations: continue ceftriaxone 2 gm IV q day D6 of 10, ok to change to PO if continues stable monitor leukocytosis Will follow. Megan Colunga MD Infectious Diseases [employer] [facility] M [phone] O [phone] Subjective Date of service: 06/19/19 Principal diagnosis: Ac. hypoxemic resp failure; Ac. Encephalopathy; Sepsis; NATHAN; hyperkalemia Interval history: now on the floor, alert, talking, no fever, eating dinner. Objective - Exam Narrative Exam: General appearance: alert in NAD Eyes: anicteric sclerae, moist conjunctivae; no lid-lag; PERRLA HENT: Atraumatic; oropharynx clear Lungs: CTA, CV: RRR no murmur Abdomen: Soft, non-tender Extremities: john leg mild edema Skin: no rash Psych:no agitated, pleasant Neuro: alert, oriented moving ext - Constitutional Vitals: Vital Signs Temp Pulse Resp BP Pulse Ox 98.2 F 63 18 159/83 97 06/18/19 23:51 06/19/19 09:57 06/19/19 00:59 06/18/19 23:51 06/19/19 11:17 Temperature -Last 24 Hours Temperature 98.2 F Temperature 97.6 F - Labs CBC & Chem 7: 06/18/19 04:31 06/19/19 06:02 Labs: Abnormal lab results 06/19/19 06/19/1906/19/19 Range/Units 02:29 06:02 06:05 BUN 26 H (9-20) mg/dL Glucose 124 H (75-100) mg/dL POC Glucose 106 H 106 H (70-105) 06/19/19 06/19/19 Range/Units 07:51 12:37 BUN (9-20) mg/dL Glucose (75-100) mg/dL POC Glucose 120 H 144 H (70-105)
[2019-06-20 05:24] LABS: Hematocrit 40.1 % (35.5-45.6); Mean Corpuscular HGB Conc 32 % (32-34); Mean Corpuscular Volume 85 fl (84-94); Platelet Count 301 K/mm3 (140-440); Red Blood Count 4.73 M/mm3 (3.65-5.03); Red Cell Distribution Width 14.6 % (13.2-15.2)
[2019-06-20 05:43] LABS: BUN/Creatinine Ratio 18; Blood Urea Nitrogen 25 mg/dL (9-20); Hemolysis Index 8
--- NOTE | 2019-06-20 06:52 | Progress Note ---
Assessment and Plan Acute hypoxemic respiratory failure, s/p mechanical ventilatory support. Acute possibly on chronic encephalopathy. Severe sepsis Acute kidney injury, possibly on chronic. Severe hyperkalemia. Severe metabolic acidosis. Leukocytosis. History of diabetes. History of hypertension. Oropharyngeal dysphagia. -Continue with supplemental; oxygen to keep O2 sats>90% -Bronchodilators per protocol -VTE prophylaxis -Nocturnal BIPAP and prn -PT/OT, increase activity -Avoid nephrotoxins, and adjust all medications for GFR and CrCL -Complete antibiotics -Aspiration precautions -Accucheck with glycemic control- target blood glucose 140-180mg/dL -Avoid hypoglycemia -Discharge planning Subjective Date of service: 06/20/19 Principal diagnosis: Ac. hypoxemic resp failure; Ac. Encephalopathy; Sepsis; NATHAN; hyperkalemia Interval history: Patient is seen today for: Acute hypoxemic respiratory failure; Acute possibly on chronic encephalopathy; Severe sepsis; Acute kidney injury, possibly on chronic; Severe hyperkalemia; Severe metabolic acidosis; Leukocytosis; History of diabetes; History of hypertension; Oropharyngeal dysphagia. Seen and examined at bedside; 24hour events reviewed; nursing and respiratory care staff consulted; no adverse overnight events reported to me; resting peacefully in bed; Objective Vital Signs - 12hr 06/19/19 06/19/19 06/19/19 19:51 20:30 23:58 Pulse Rate 97 H 97 H Respiratory 20 20 Rate Blood Pressure 156/83 O2 Sat by Pulse 97 Oximetry 06/20/19 06/20/19 06/20/19 00:00 03:43 04:05 Pulse Rate 78 70 78 Respiratory 16 16 15 Rate Blood Pressure 147/89 O2 Sat by Pulse 98 100 98 Oximetry Constitutional: no acute distress, alert Eyes: non-icteric ENT: oropharynx moist Neck: supple, no lymphadenopathy, no JVD, other (large neck circumference) Effort: normal Ascultation: Bilateral: rhonchi Percussion: Bilateral: not dull Cardiovascular: regular rate and rhythm Gastrointestinal: normoactive bowel sounds, soft, non-tender, non-distended Integumentary: other (see wound care and RN notes) Extremities: no cyanosis, no edema, pulses normal, no ischemia or petechiae Neurologic: normal mental status, non-focal exam, pupils equal and round, CN II- XII normal, motor strength normal and Psychiatric: mood appropriate, affect normal CBC and BMP: 06/20/19 04:12 06/21/19 03:30 ABG, PT/INR, D-dimer: ABG POC ABG pH 7.433 (7.35-7.45) 06/17/19 03:56 POC ABG pCO2 37.3 (35-45) 06/17/19 03:56 POC ABG pO2 125 (80-105) H 06/17/19 03:56 POC ABG HCO3 24.9 (22-26 mml/L) 06/17/19 03:56 POC ABG Total CO2 26 (23-27mmol/L) 06/17/19 03:56 POC ABG O2 Sat 99 06/17/19 03:56 Abnormal lab findings: Abnormal Labs 06/13/19 06/13/19 06/13/19 06:13 06:50 06:50 WBC 22.7 H RBC 5.69 H Hgb 15.5 H Hct 47.8 H MCV MCH 27 L RDW 15.6 H Seg Neuts % (Manual) 89.0 H Lymphocytes % (Manual) 4.0 L Monocytes % (Manual) Seg Neutrophils # Man 20.2 H Lymphocytes # (Manual) 0.9 L Monocytes # (Manual) 1.4 H POC ABG pH POC ABG pCO2 POC ABG pO2 Sodium 126 L Potassium 7.5 H* Chloride 83.9 L Carbon Dioxide 5 L* BUN 126 H Creatinine 12.6 H Glucose 143 H POC Glucose 59 L Lactic Acid Calcium Phosphorus Magnesium Total Bilirubin Ammonia Total Creatine Kinase CK-MB (CK-2) C-Reactive Protein Albumin 3.6 L Urine WBC (Auto) 06/13/19 06/13/19 06/13/19 07:09 07:31 07:31 WBC RBC Hgb Hct MCV MCH RDW Seg Neuts % (Manual) Lymphocytes % (Manual) Monocytes % (Manual) Seg Neutrophils # Man Lymphocytes # (Manual) Monocytes # (Manual) POC ABG pH POC ABG pCO2 POC ABG pO2 Sodium Potassium Chloride Carbon Dioxide BUN Creatinine Glucose POC Glucose 117 H Lactic Acid Calcium Phosphorus Magnesium 2.50 H Total Bilirubin Ammonia 408.0 H Total Creatine Kinase 409 H CK-MB (CK-2) 15.9 H C-Reactive Protein Albumin Urine WBC (Auto) 06/13/19 06/13/19 06/13/19 09:21 10: 10:42 WBC RBC Hgb Hct MCV MCH RDW Seg Neuts % (Manual) Lymphocytes % (Manual) Monocytes % (Manual) Seg Neutrophils # Man Lymphocytes # (Manual) Monocytes # (Manual) POC ABG pH POC ABG pCO2 POC ABG pO2 Sodium Potassium Chloride Carbon Dioxide BUN Creatinine Glucose POC Glucose 153 H 54 L 136 H Lactic Acid Calcium Phosphorus Magnesium Total Bilirubin Ammonia Total Creatine Kinase CK-MB (CK-2) C-Reactive Protein Albumin Urine WBC (Auto) 06/13/19 06/13/19 06/13/19 14:19 14:19 14:19 WBC RBC Hgb Hct MCV MCH RDW Seg Neuts % (Manual) Lymphocytes % (Manual) Monocytes % (Manual) Seg Neutrophils # Man Lymphocytes # (Manual) Monocytes # (Manual) POC ABG pH POC ABG pCO2 POC ABG pO2 Sodium 134 L D Potassium Chloride 89.0 L Carbon Dioxide 12 L D BUN 86 H Creatinine 7.8 H Glucose POC Glucose Lactic Acid 8.80 H* Calcium Phosphorus Magnesium Total Bilirubin 1.70 H Ammonia Total Creatine Kinase CK-MB (CK-2) C-Reactive Protein 4.10 H Albumin 3.6 L Urine WBC (Auto) 06/13/19 06/13/19 06/13/19 14:28 16:10 16:15 WBC RBC Hgb Hct MCV MCH RDW Seg Neuts % (Manual) Lymphocytes % (Manual) Monocytes % (Manual) Seg Neutrophils # Man Lymphocytes # (Manual) Monocytes # (Manual) POC ABG pH 7.530 H 7.474 H POC ABG pCO2 POC ABG pO2 239 H 183 H Sodium Potassium Chloride Carbon Dioxide BUN Creatinine Glucose POC Glucose Lactic Acid Calcium Phosphorus Magnesium Total Bilirubin Ammonia 97.0 H Total Creatine Kinase CK-MB (CK-2) C-Reactive Protein Albumin Urine WBC (Auto) 06/13/19 06/13/19 06/13/19 16:15 16:22 16:56 WBC RBC Hgb Hct MCV MCH RDW Seg Neuts % (Manual) Lymphocytes % (Manual) Monocytes % (Manual) Seg Neutrophils # Man Lymphocytes # (Manual) Monocytes # (Manual) POC ABG pH POC ABG pCO2 POC ABG pO2 Sodium Potassium Chloride Carbon Dioxide BUN Creatinine Glucose POC Glucose Lactic Acid 7.60 H* 7.90 H* Calcium Phosphorus Magnesium Total Bilirubin Ammonia Total Creatine Kinase CK-MB (CK-2) C-Reactive Protein 3.80 H Albumin Urine WBC (Auto) 06/13/19 06/13/19 06/13/19 18:05 19:01 21:18 WBC RBC Hgb Hct MCV MCH RDW Seg Neuts % (Manual) Lymphocytes % (Manual) Monocytes % (Manual) Seg Neutrophils # Man Lymphocytes # (Manual) Monocytes # (Manual) POC ABG pH POC ABG pCO2 POC ABG pO2 Sodium Potassium Chloride Carbon Dioxide BUN Creatinine Glucose POC Glucose Lactic Acid 5.30 H* 5.10 H* 3.70 H* Calcium Phosphorus Magnesium Total Bilirubin Ammonia Total Creatine Kinase CK-MB (CK-2) C-Reactive Protein Albumin Urine WBC (Auto) 06/13/19 06/13/19 06/14/19 21:47 22:00 00:13 WBC RBC Hgb Hct MCV MCH RDW Seg Neuts % (Manual) Lymphocytes % (Manual) Monocytes % (Manual) Seg Neutrophils # Man Lymphocytes # (Manual) Monocytes # (Manual) POC ABG pH POC ABG pCO2 POC ABG pO2 Sodium Potassium Chloride Carbon Dioxide BUN Creatinine Glucose POC Glucose 119 H Lactic Acid 3.70 H* Calcium Phosphorus Magnesium Total Bilirubin Ammonia Total Creatine Kinase CK-MB (CK-2) C-Reactive Protein Albumin Urine WBC (Auto) 66.0 H 06/14/19 06/14/19 06/14/19 04:21 04:45 04:45 WBC 19.1 H RBC 5.25 H Hgb Hct MCV 83 L MCH RDW Seg Neuts % (Manual) 83.0 H Lymphocytes % (Manual) 6.0 L Monocytes % (Manual) 10.0 H Seg Neutrophils # Man 15.9 H Lymphocytes # (Manual) 1.1 L Monocytes # (Manual) 1.9 H POC ABG pH 7.497 H POC ABG pCO2 < 30 L POC ABG pO2 143 H Sodium 136 L Potassium Chloride 94.1 L Carbon Dioxide 20 L D BUN 96 H Creatinine 7.7 H Glucose 170 H POC Glucose Lactic Acid Calcium Phosphorus 6.40 H Magnesium Total Bilirubin Ammonia Total Creatine Kinase CK-MB (CK-2) C-Reactive Protein Albumin Urine WBC (Auto) 06/14/19 06/14/19 06/14/19 04:45 04:45 06:05 WBC RBC Hgb Hct MCV MCH RDW Seg Neuts % (Manual) Lymphocytes % (Manual) Monocytes % (Manual) Seg Neutrophils # Man Lymphocytes # (Manual) Monocytes # (Manual) POC ABG pH POC ABG pCO2 POC ABG pO2 Sodium Potassium Chloride Carbon Dioxide BUN Creatinine Glucose POC Glucose 155 H Lactic Acid 3.00 H* Calcium Phosphorus Magnesium Total Bilirubin Ammonia 96.0 H Total Creatine Kinase CK-MB (CK-2) C-Reactive Protein Albumin Urine WBC (Auto) 06/14/19 06/14/19 06/14/19 06:58 12:38 12:38 WBC RBC Hgb Hct MCV MCH RDW Seg Neuts % (Manual) Lymphocytes % (Manual) Monocytes % (Manual) Seg Neutrophils # Man Lymphocytes # (Manual) Monocytes # (Manual) POC ABG pH 7.543 H POC ABG pCO2 POC ABG pO2 115 H Sodium Potassium Chloride Carbon Dioxide BUN Creatinine Glucose POC Glucose 203 H Lactic Acid 2.50 H* Calcium Phosphorus Magnesium Total Bilirubin Ammonia Total Creatine Kinase CK-MB (CK-2) C-Reactive Protein Albumin Urine WBC (Auto) 06/14/19 06/14/19 06/14/19 15:49 17:14 18:05 WBC RBC Hgb Hct MCV MCH RDW Seg Neuts % (Manual) Lymphocytes % (Manual) Monocytes % (Manual) Seg Neutrophils # Man Lymphocytes # (Manual) Monocytes # (Manual) POC ABG pH POC ABG pCO2 POC ABG pO2 Sodium Potassium Chloride Carbon Dioxide BUN Creatinine Glucose POC Glucose 198 H Lactic Acid 2.10 H* 2.10 H* Calcium Phosphorus Magnesium Total Bilirubin Ammonia Total Creatine Kinase CK-MB (CK-2) C-Reactive Protein Albumin Urine WBC (Auto) 06/14/19 06/14/19 06/15/19 19:19 23:40 04:44 WBC RBC Hgb Hct MCV MCH RDW Seg Neuts % (Manual) Lymphocytes % (Manual) Monocytes % (Manual) Seg Neutrophils # Man Lymphocytes # (Manual) Monocytes # (Manual) POC ABG pH 7.563 H POC ABG pCO2 34.2 L POC ABG pO2 113 H Sodium Potassium Chloride Carbon Dioxide BUN Creatinine Glucose POC Glucose 210 H Lactic Acid 2.10 H* Calcium Phosphorus Magnesium Total Bilirubin Ammonia Total Creatine Kinase CK-MB (CK-2) C-Reactive Protein Albumin Urine WBC (Auto) 06/15/19 06/15/19 06/15/19 04:51 05:31 12:21 WBC RBC Hgb Hct MCV MCH RDW Seg Neuts % (Manual) Lymphocytes % (Manual) Monocytes % (Manual) Seg Neutrophils # Man Lymphocytes # (Manual) Monocytes # (Manual) POC ABG pH POC ABG pCO2 POC ABG pO2 Sodium Potassium 2.8 L* D Chloride 97.7 L Carbon Dioxide BUN 74 H Creatinine 4.6 H Glucose 174 H POC Glucose 151 H 175 H Lactic Acid Calcium 8.1 L Phosphorus Magnesium Total Bilirubin Ammonia Total Creatine Kinase CK-MB (CK-2) C-Reactive Protein Albumin Urine WBC (Auto) 06/15/19 06/15/19 06/16/19 16:25 18:18 00:20 WBC RBC Hgb Hct MCV MCH RDW Seg Neuts % (Manual) Lymphocytes % (Manual) Monocytes % (Manual) Seg Neutrophils # Man Lymphocytes # (Manual) Monocytes # (Manual) POC ABG pH POC ABG pCO2 POC ABG pO2 Sodium Potassium 3.4 L D Chloride Carbon Dioxide BUN Creatinine Glucose POC Glucose 153 H 164 H Lactic Acid Calcium Phosphorus Magnesium Total Bilirubin Ammonia Total Creatine Kinase CK-MB (CK-2) C-Reactive Protein Albumin Urine WBC (Auto) 06/16/19 06/16/19 06/16/19 04:47 05:41 13:04 WBC RBC Hgb Hct MCV MCH RDW Seg Neuts % (Manual) Lymphocytes % (Manual) Monocytes % (Manual) Seg Neutrophils # Man Lymphocytes # (Manual) Monocytes # (Manual) POC ABG pH POC ABG pCO2 POC ABG pO2 Sodium 146 H D Potassium 3.5 L Chloride Carbon Dioxide BUN 44 H Creatinine 2.5 H Glucose 149 H POC Glucose 168 H 154 H Lactic Acid Calcium 8.3 L Phosphorus Magnesium Total Bilirubin Ammonia Total Creatine Kinase CK-MB (CK-2) C-Reactive Protein Albumin Urine WBC (Auto) 06/16/19 06/17/19 06/17/19 18:42 00:07 03:56 WBC RBC Hgb Hct MCV MCH RDW Seg Neuts % (Manual) Lymphocytes % (Manual) Monocytes % (Manual) Seg Neutrophils # Man Lymphocytes # (Manual) Monocytes # (Manual) POC ABG pH POC ABG pCO2 POC ABG pO2 125 H Sodium Potassium Chloride Carbon Dioxide BUN Creatinine Glucose POC Glucose 161 H 160 H Lactic Acid Calcium Phosphorus Magnesium Total Bilirubin Ammonia Total Creatine Kinase CK-MB (CK-2) C-Reactive Protein Albumin Urine WBC (Auto) 06/17/19 06/17/19 06/17/19 04:38 05:20 12:40 WBC RBC Hgb Hct MCV MCH RDW Seg Neuts % (Manual) Lymphocytes % (Manual) Monocytes % (Manual) Seg Neutrophils # Man Lymphocytes # (Manual) Monocytes # (Manual) POC ABG pH POC ABG pCO2 POC ABG pO2 Sodium Potassium Chloride 110.4 H Carbon Dioxide BUN 33 H Creatinine 1.7 H Glucose 159 H POC Glucose 159 H 192 H Lactic Acid Calcium Phosphorus 2.40 L Magnesium Total Bilirubin Ammonia Total Creatine Kinase CK-MB (CK-2) C-Reactive Protein Albumin Urine WBC (Auto) 06/17/19 06/18/19 06/18/19 18:20 00:35 04:31 WBC RBC Hgb Hct MCV MCH RDW Seg Neuts % (Manual) Lymphocytes % (Manual) Monocytes % (Manual) Seg Neutrophils # Man Lymphocytes # (Manual) Monocytes # (Manual) POC ABG pH POC ABG pCO2 POC ABG pO2 Sodium Potassium Chloride 109.5 H Carbon Dioxide BUN 30 H Creatinine Glucose 130 H POC Glucose 123 H 164 H Lactic Acid Calcium Phosphorus Magnesium Total Bilirubin Ammonia Total Creatine Kinase 35 L CK-MB (CK-2) C-Reactive Protein Albumin Urine WBC (Auto) 06/18/19 06/18/19 06/18/19 04:31 05:38 11:53 WBC 19.7 H RBC Hgb Hct MCV MCH 27 L RDW Seg Neuts % (Manual) 80.0 H Lymphocytes % (Manual) 8.0 L Monocytes % (Manual) 10.0 H Seg Neutrophils # Man 15.8 H Lymphocytes # (Manual) Monocytes # (Manual) 2.0 H POC ABG pH POC ABG pCO2 POC ABG pO2 Sodium Potassium Chloride Carbon Dioxide BUN Creatinine Glucose POC Glucose 132 H 178 H Lactic Acid Calcium Phosphorus Magnesium Total Bilirubin Ammonia Total Creatine Kinase CK-MB (CK-2) C-Reactive Protein Albumin Urine WBC (Auto) 06/19/19 06/19/19 06/19/19 02:29 06:02 06:05 WBC RBC Hgb Hct MCV MCH RDW Seg Neuts % (Manual) Lymphocytes % (Manual) Monocytes % (Manual) Seg Neutrophils # Man Lymphocytes # (Manual) Monocytes # (Manual) POC ABG pH POC ABG pCO2 POC ABG pO2 Sodium Potassium Chloride Carbon Dioxide BUN 26 H Creatinine Glucose 124 H POC Glucose 106 H 106 H Lactic Acid Calcium Phosphorus Magnesium Total Bilirubin Ammonia Total Creatine Kinase CK-MB (CK-2) C-Reactive Protein Albumin Urine WBC (Auto) 06/19/19 06/19/19 06/19/19 07:51 12:37 16:51 WBC RBC Hgb Hct MCV MCH RDW Seg Neuts % (Manual) Lymphocytes % (Manual) Monocytes % (Manual) Seg Neutrophils # Man Lymphocytes # (Manual) Monocytes # (Manual) POC ABG pH POC ABG pCO2 POC ABG pO2 Sodium Potassium Chloride Carbon Dioxide BUN Creatinine Glucose POC Glucose 120 H 144 H 154 H Lactic Acid Calcium Phosphorus Magnesium Total Bilirubin Ammonia Total Creatine Kinase CK-MB (CK-2) C-Reactive Protein Albumin Urine WBC (Auto) 06/19/19 06/20/19 06/20/19 20:53 04:12 04:12 WBC 19.6 H RBC Hgb Hct MCV MCH RDW Seg Neuts % (Manual) Lymphocytes % (Manual) Monocytes % (Manual) Seg Neutrophils # Man Lymphocytes # (Manual) Monocytes # (Manual) POC ABG pH POC ABG pCO2 POC ABG pO2 Sodium 136 L Potassium Chloride Carbon Dioxide 21 L BUN 25 H Creatinine Glucose 150 H POC Glucose 167 H Lactic Acid Calcium 8.0 L Phosphorus Magnesium Total Bilirubin Ammonia Total Creatine Kinase CK-MB (CK-2) C-Reactive Protein Albumin Urine WBC (Auto) Chest x-ray: image reviewed Allied health notes reviewed: nursing
--- NOTE | 2019-06-20 09:08 | Progress Note ---
Assessment and Plan Assessment and plan: Patient is a 69 year old male with PMH of Obesity, DM Type 2, HTN, presenting to the ED today via EMS after he was found on the bathroom floor and unresponsive pre the . The spouse reports that for about a year she has noticed that the patient has difficulty with urination, how ever the patient has not been keen about addressing the issue. In the last week the patient began to complain of badomina l pain and on the 08 of June startated experince nasuea, with vomiting and difficulty "Using the Bathroom" HE WAS SEEN BY HIS [facility] PCP on 06/10/19 and was given Rx for prilosec and zofran. He was found on the bathroom floor early this morning. EMS found pt to be hypoglycemic (value unknown). In the ED the pt's accucheck was 59, k OF >7, BUN >100 and improved after D50. His MS remain unchanged. He was recommended for admission and underwent an emergent placement of vascath for dialysis. He sustained 2 hrs of Dialysis but decompensated and required elective intubation due to persistent Tachypenia Acute Respiratory failure was on MV >96 hrs, now extubated Severe Metabolic Acidosis Complex cystitis with bilateral hydronephropathy Severe sepsis secondary to complex cystitis Acute Kidney injury secondary to vasmotor nephropathy, now resolved Acute Metabolic Encephalopathy ?SECONDARY TO HEPATIC ENCEPHALOPATHY VS AZOTEMIA Obstructive Uropathy per CT A/P DM with hyperglycemia HTN urgency Obesity Elevated Ammonia leveL ?Aspiration Penumonitis Plan Continue supportive care Extubated Continue Abx per ID VAP Bundle Aspiration Precaution Nephrology and Urology input noted S/P HD will be discharged with [place] to Leg bag. DVT/GI prophy Awaiting Acute Rehab placemennt He is medically stable to go to acute rehab History Interval history: Feels better no chest pain No SOB currently Hospitalist Physical - Physical exam Narrative exam: Gen: Not in acute distress, Lying in bed,obese HEENT: Normocephalic, atraumatic Neck: supple, no JVD Heart: S1 and S2 reg, no murmurs, rubs or gallop Lungs: Clear to auscultation, no rhonchi, no wheeze Abd: soft, non tender, non distended, normal BS, Ext: No edema, no clubbing, no cyanosis Neuro: Awake, alert, oriented X 3, no focal neurological signs - Constitutional Vitals: Temp Pulse Resp BP Pulse Ox 97.8 F 69 18 142/84 100 06/20/19 07:35 06/20/19 07:35 06/20/19 07:35 06/20/19 07:35 06/20/19 07:35 General appearance: Present: no acute distress, obese Results - Labs CBC & Chem 7: 06/20/19 04:12 06/20/19 04:12 Labs: Laboratory Last Values WBC 19.6 K/mm3 (4.5-11.0) H 06/20/19 04:12 RBC 4.73 M/mm3 (3.65-5.03) 06/20/19 04:12 Hgb 13.0 gm/dl (11.8-15.2) 06/20/19 04:12 Hct 40.1 % (35.5-45.6) 06/20/19 04:12 MCV 85 fl (84-94) 06/20/19 04:12 MCH 28 pg (28-32) 06/20/19 04:12 MCHC 32 % (32-34) 06/20/19 04:12 RDW 14.6 % (13.2-15.2) 06/20/19 04:12 Plt Count 301 K/mm3 (140-440) 06/20/19 04:12 Holt % (Auto) Cross Cut Saw Operator 06/14/19 04:45 Add Manual Diff Complete 06/18/19 04:31 Total Counted 100 06/18/19 04:31 Seg Neuts % (Manual) 80.0 % (40.0-70.0) H 06/18/19 04:31 Band Neutrophils % 0 % 06/18/19 04:31 Lymphocytes % (Manual) 8.0 % (13.4-35.0) L 06/18/19 04:31 Reactive Lymphs % (Man) 0 % 06/18/19 04:31 Monocytes % (Manual) 10.0 % (0.0-7.3) H 06/18/19 04:31 Eosinophils % (Manual) 1.0 % (0.0-4.3) 06/18/19 04:31 Basophils % (Manual) 0 % (0.0-1.8) 06/18/19 04:31 Metamyelocytes % 1.0 % 06/18/19 04:31 Myelocytes % 0 % 06/18/19 04:31 Promyelocytes % 0 % 06/18/19 04:31 Blast Cells % 0 % 06/18/19 04:31 Nucleated RBC % Not Reportable 06/18/19 04:31 Seg Neutrophils # Man 15.8 K/mm3 (1.8-7.7) H 06/18/19 04:31 Band Neutrophils # 0.0 K/mm3 06/18/19 04:31 Lymphocytes # (Manual) 1.6 K/mm3 (1.2-5.4) 06/18/19 04:31 Abs React Lymphs (Man) 0.0 K/mm3 06/18/19 04:31 Monocytes # (Manual) 2.0 K/mm3 (0.0-0.8) H 06/18/19 04:31 Eosinophils # (Manual) 0.2 K/mm3 (0.0-0.4) 06/18/19 04:31 Basophils # (Manual) 0.0 K/mm3 (0.0-0.1) 06/18/19 04:31 Metamyelocytes # 0.2 K/mm3 06/18/19 04:31 Myelocytes # 0.0 K/mm3 06/18/19 04:31 Promyelocytes # 0.0 K/mm3 06/18/19 04:31 Blast Cells # 0.0 K/mm3 06/18/19 04:31 WBC Morphology Not Reportable 06/18/19 04:31 Hypersegmented Neuts Not Reportable 06/18/19 04:31 Hyposegmented Neuts Not Reportable 06/18/19 04:31 Hypogranular Neuts Not Reportable 06/18/19 04:31 Smudge Cells Not Reportable 06/18/19 04:31 Toxic Granulation Not Reportable 06/18/19 04:31 Toxic Vacuolation Not Reportable 06/18/19 04:31 Dohle Bodies Not Reportable 06/18/19 04:31 Pelger-Huet Anomaly Not Reportable 06/18/19 04:31 Moy Rods Not Reportable 06/18/19 04:31 Platelet Estimate Consistent w auto 06/18/19 04:31 Clumped Platelets Not Reportable 06/18/19 04:31 Plt Clumps, EDTA Not Reportable 06/18/19 04:31 Large Platelets Not Reportable 06/18/19 04:31 Giant Platelets Not Reportable 06/18/19 04:31 Platelet Satelliting Not Reportable 06/18/19 04:31 Plt Morphology Comment Not Reportable 06/18/19 04:31 RBC Morphology Normal 06/18/19 04:31 Dimorphic RBCs Not Reportable 06/18/19 04:31 Polychromasia Not Reportable 06/18/19 04:31 Hypochromasia Not Reportable 06/18/19 04:31 Poikilocytosis Not Reportable 06/18/19 04:31 Anisocytosis Not Reportable 06/18/19 04:31 Microcytosis Not Reportable 06/18/19 04:31 Macrocytosis Not Reportable 06/18/19 04:31 Spherocytes Not Reportable 06/18/19 04:31 Pappenheimer Bodies Not Reportable 06/18/19 04:31 Sickle Cells Not Reportable 06/18/19 04:31 Target Cells Not Reportable 06/18/19 04:31 Tear Drop Cells Not Reportable 06/18/19 04:31 Ovalocytes Not Reportable 06/18/19 04:31 Helmet Cells Not Reportable 06/18/19 04:31 Smith-Landa Bodies Not Reportable 06/18/19 04:31 Laurel Rings Not Reportable 06/18/19 04:31 Holstein Cells Not Reportable 06/18/19 04:31 Bite Cells Not Reportable 06/18/19 04:31 Crenated Cell Not Reportable 06/18/19 04:31 Elliptocytes Not Reportable 06/18/19 04:31 Acanthocytes (Spur) Not Reportable 06/18/19 04:31 Rouleaux Not Reportable 06/18/19 04:31 Hemoglobin C Crystals Not Reportable 06/18/19 04:31 Schistocytes Not Reportable 06/18/19 04:31 Malaria parasites Not Reportable 06/18/19 04:31 ESR 1 mm/Hr (0-20) 06/13/19 14:19 Meol Bodies Not Reportable 06/18/19 04:31 Hem Pathologist Commnt No 06/18/19 04:31 POC ABG pH 7.433 (7.35-7.45) 06/17/19 03:56 POC ABG pCO2 37.3 (35-45) 06/17/19 03:56 POC ABG pO2 125 (80-105) H 06/17/19 03:56 POC ABG HCO3 24.9 (22-26 mml/L) 06/17/19 03:56 POC ABG Total CO2 26 (23-27mmol/L) 06/17/19 03:56 POC ABG O2 Sat 99 06/17/19 03:56 POC ABG Base Excess 1 ((-2) - (+3)mmol/L) 06/17/19 03:56 FiO2 28 % 06/17/19 03:56 Sodium 136 mmol/L (137-145) L 06/20/19 04:12 Potassium 4.1 mmol/L (3.6-5.0) 06/20/19 04:12 Chloride 104.6 mmol/L (98-107) 06/20/19 04:12 Carbon Dioxide 21 mmol/L (22-30) L 06/20/19 04:12 Anion Gap 15 mmol/L 06/20/19 04:12 BUN 25 mg/dL (9-20) H 06/20/19 04:12 Creatinine 1.4 mg/dL (0.8-1.5) 06/20/19 04:12 Estimated GFR > 60 ml/min 06/20/19 04:12 BUN/Creatinine Ratio 18 % 06/20/19 04:12 Glucose 150 mg/dL (75-100) H 06/20/19 04:12 POC Glucose 135 (70-105) H 06/20/19 08:27 Lactic Acid 1.30 mmol/L (0.7-2.0) 06/15/19 04:51 Calcium 8.0 mg/dL (8.4-10.2) L 06/20/19 04:12 Phosphorus 2.90 mg/dL (2.5-4.5) D 06/18/19 04:31 Magnesium 1.80 mg/dL (1.7-2.3) 06/17/19 04:38 Total Bilirubin 1.70 mg/dL (0.1-1.2) H 06/13/19 14:19 AST 22 units/L (5-40) 06/13/19 14:19 ALT 24 units/L (7-56) 06/13/19 14:19 Alkaline Phosphatase 71 units/L (35-129) 06/13/19 14:19 Ammonia 25.0 umol/L (25-60) 06/15/19 13:46 Total Creatine Kinase 35 units/L (55-170) L 06/18/19 04:31 CK-MB (CK-2) 15.9 ng/mL (0.0-4.0) H 06/13/19 07:31 CK-MB (CK-2) Rel Index 3.8 (0-4) 06/13/19 07:31 Troponin T < 0.010 ng/mL (0.00-0.029) 06/13/19 07:31 C-Reactive Protein 3.80 mg/dL (0.00-1.30) H 06/13/19 16:15 Total Protein 7.0 g/dL (6.3-8.2) 06/13/19 14:19 Albumin 3.6 g/dL (3.9-5) L 06/13/19 14:19 Albumin/Globulin Ratio 1.1 % 06/13/19 14:19 TSH 1.040 mlU/mL (0.270-4.200) 06/13/19 07:31 Free T4 1.03 ng/dL (0.76-1.46) 06/13/19 07:31 Urine Color Yellow (Yellow) 06/13/19 22:00 Urine Turbidity Slightly-cloudy (Clear) 06/13/19 22:00 Urine pH 5.0 (5.0-7.0) 06/13/19 22:00 Ur Specific Jay 1.011 (1.003-1.030) 06/13/19 22:00 Urine Protein 30 mg/dl mg/dL (Negative) 06/13/19 22:00 Urine Glucose (UA) Neg mg/dL (Negative) 06/13/19 22:00 Urine Ketones Tr mg/dL (Negative) 06/13/19 22:00 Urine Blood Lg (Negative) 06/13/19 22:00 Urine Nitrite Neg (Negative) 06/13/19 22:00 Urine Bilirubin Neg (Negative) 06/13/19 22:00 Urine Urobilinogen < 2.0 mg/dL (<2.0) 06/13/19 22:00 Ur Leukocyte Esterase Lg (Negative) 06/13/19 22:00 Urine WBC (Auto) 66.0 /HPF (0.0-6.0) H 06/13/19 22:00 Urine RBC (Auto) 114.0 /HPF (0.0-6.0) 06/13/19 22:00 Urine Mucus Few /HPF 06/13/19 22:00 Random Vancomycin 4.4 ug/mL (0-40.0) 06/16/19 04:47 Urine Opiates Screen Presumptive negative 06/13/19 22:00 Urine Methadone Screen Presumptive negative 06/13/19 22:00 Ur Barbiturates Screen Presumptive negative 06/13/19 22:00 Ur Phencyclidine Scrn Presumptive negative 06/13/19 22:00 Ur Amphetamines Screen Presumptive negative 06/13/19 22:00 U Benzodiazepines Scrn Presumptive negative 06/13/19 22:00 Urine Cocaine Screen Presumptive negative 06/13/19 22:00 U Marijuana (THC) Screen Presumptive negative 06/13/19 22:00 Drugs of Abuse Note Disclamer 06/13/19 22:00 Plasma/Serum Alcohol < 0.01 % (0-0.07) 06/13/19 07:31 Hepatitis A IgM Ab Non-reactive (NonReactive) 06/13/19 10:05 Hep Bs Antigen Non-reactive (Negative) 06/13/19 10:05 Hep B Core IgM Ab Non-reactive (NonReactive) 06/13/19 10:05 Hepatitis C Antibody Non-reactive (NonReactive) 06/13/19 10:05 Active Medications - Current Medications Current Medications: Generic Name Dose Route Start Last Admin Trade Name Freq PRN Reason Stop Dose Admin Albuterol 2.5 mg 06/18/19 12:30 Proventil IH Q4HRT PRN Shortness Of Breath Dextrose 50 ml 06/14/19 13:41 D50w (25gm) Syringe IV PRN PRN Hypoglycemia Famotidine 20 mg 06/17/19 10:00 06/19/19 22:35 Pepcid PO 20 mg BID SANGEETHA Administration Heparin Sodium (Porcine) 5,000 unit 06/13/19 22:00 06/19/19 22:35 Heparin SUB-Q 5,000 unit Q12HR SANGEETHA Administration Hydralazine HCl 10 mg 06/13/19 16:05 06/18/19 06:26 Apresoline IV 10 mg Q4HR PRN Administration HTN SBP>=170 Hydrophilic Ointment 1 applic 06/13/19 15:33 Vaseline Lip Therapy TP Q2HR PRN Dry Lips Ceftriaxone Sodium 2 gm in 100 mls @ 200 mls/hr 06/14/19 18:30 06/19/19 09:20 Rocephin/Ns 2 Gm/100 Ml IV 06/23/19 23:59 200 mls/hr Q24HR SANGEETHA Administration Protocol Sodium Chloride 1,000 mls @ 75 mls/hr 06/17/19 11:00 06/19/19 17:43 Nacl 0.45% 1000 Ml IV 75 mls/hr DIRECT SANGEETHA Administration Insulin Human Regular 0 units 06/19/19 11:30 06/19/19 22:36 Humulin R SUB-Q Not Given ACHS SANGEETHA Protocol Lorazepam 2 mg 06/13/19 14:21 06/17/19 13:07 Ativan IV 2 mg Q1H PRN Administration Agitation Multi-Ingred Cream/Lotion/Oil/Oint 1 applic 06/13/19 15:33 Artificial Tears Ophth Oint OU Q4HR PRN Dry Eye(s) Sodium Chloride 10 ml 06/13/19 22:00 06/19/19 22:36 Sodium Chloride Flush Syringe 10 Ml IV 10 ml BID SANGEETHA Administration Sodium Chloride 10 ml 06/13/19 11:46 06/18/19 11:16 Sodium Chloride Flush Syringe 10 Ml IV 10 ml PRN PRN Administration LINE FLUSH Nutrition/Malnutrition Assess - Dietary Evaluation Nutrition/Malnutrition Findings: Nutrition Notes Start: 06/14/19 09:04 Freq: Status: Active Protocol: Document 06/18/19 12:49 MARICARMEN (Rec: 06/18/19 13:05 MARICARMEN [email or web address]) Co-Sign 06/18/19 12:49 LP Nutrition Notes Initial or Follow up Reassessment Current Diagnosis Acute Kidney Injury,Coronary Artery Disease,Diabetes, Hypertension Other Pertinent Diagnosis Hepatic encephalopathy Current Diet Vital AF 1.2 at 65ml/hr Labs/Tests BUN 30 POC BG 178 Pertinent Medications Reviewed Height 6 ft 1 in Weight 113.4 kg [place] Body Weight (kg) 83.63 BMI 33.0 Subjective/Other Information Pt tolerating TF. Running at goal rate. Pt was swallowing ice chips and pudding per RN. Per MD diet advancement Burn Absent Trauma Absent Minimum of two criteria No #1 Nutrition Diagnosis Inadequate oral intake Diagnosis Progress(for reassessment Continues documentation) Is patient on ventilator? No Is Patient Ambulatory and/or Out of Bed No REE-([facility]-confined to bed) 2336.904 Kcal/Kg value to use for calculation 16 Approximate Energy Requirements Using 1814 kcal/Kg Calculation Used for Recommendations Kcal/kg Additional Notes Protein needs: 119g-149g/kg (1 .2g-1.5g/kg 99kg adjBW) Fluid needs: 1ml/kcal Nutrition Intervention Change Diet Order: Renal consistent carb diet Nutrition Support: D/C TF Goal #1 Meet at least 75% of energy and protein needs Anticipated Discharge Needs: Renal consistent carb diet Follow-Up By: 06/20/19 Additional Comments F/U for PO intakes
[2019-06-20] MEDS: cefTRIAXone/NS 2 GM/100 ML 2 GM/100 ML BAG IV SCH (11:00)
[2019-06-20] MEDS: INSULIN REGULAR, HUMAN 100 UNITS/1 ML SUB-Q SCH ×4 (11:00→21:49)
[2019-06-20] MEDS: FAMOTIDINE 20 MG TAB PO SCH ×2 (11:00→21:43)
[2019-06-20] MEDS: HEPARIN 5,000 UNIT/1 ML VIAL SUB-Q SCH ×2 (11:01→21:43)
--- NOTE | 2019-06-20 12:01 | Progress Note ---
Assessment and Plan 1. Acute kidney injury: NATHAN likely secondary to obstructive nephropathy +/- sepsis. CT abdomen showed bladder outlet obstruction. S/p montero catheter. Baseline renal function is unknown. Due to hyperkalemia and severe metabolic acidosis patient received hemodialysis once on 06/13. Renal function is much better. Monitor renal function. Avoid nephrotoxic agents. Meds dosage based on GFR. 2. FEN: Hypokalemia, K level is better. Hypernatremia, improved. Metabolic acidosis, improved. Monitor lytes. 3. Obstructive nephropathy: Likely from enlarged prostate. S/p montero catheter. 4. Respiratory failure: S/p extubated. 5. Severe Sepsis: Followed by ID. 6. Encephalopathy: CT head normal. Elevated Ammonia level, now improved. 7. DM. Examination: General appearance: well-developed, well-nourished, appears stated age, not in distress HEENT: Atraumatic Neck: Supple, trachea midline Respiratory: Clear to Ascultation Heart: regular, S1S2, no murmur Gastrointestinal: soft, bowel sounds present, not tender Integumentary: no rash, warm and dry : Montero catheter Neurologic: non-focal Musculoskeletal: no edema Subjective Date of service: 06/20/19 Principal diagnosis: Ac. hypoxemic resp failure; Ac. Encephalopathy; Sepsis; NATHAN; hyperkalemia Interval history: Patient was seen and examined at the bedside. Doing better. at the bedside. Objective - Vital Signs Vital signs: Vital Signs - 12hr 06/20/19 06/20/19 06/20/19 03:43 04:05 07:35 Temperature 97.8 F Pulse Rate 70 78 69 Respiratory 16 15 18 Rate Blood Pressure 147/89 142/84 O2 Sat by Pulse 100 98 100 Oximetry 06/20/19 11:13 Temperature 97.8 F Pulse Rate 80 Respiratory 18 Rate Blood Pressure 140/81 O2 Sat by Pulse 97 Oximetry - Lab 06/20/19 04:12 06/20/19 04:12 Most recent lab results Calcium 8.0 mg/dL (8.4-10.2) L 06/20/19 04:12 Phosphorus 2.90 mg/dL (2.5-4.5) D 06/18/19 04:31 Magnesium 1.80 mg/dL (1.7-2.3) 06/17/19 04:38 Medications & Allergies - Medications Allergies/Adverse Reactions: Allergies No Known Allergies Allergy (Verified 06/13/19 05:58) Home Medications: Home Medications Medication Instructions Recorded Confirmed Last Taken Type Atorvastatin 80 mg PO DAILY MDD 40 mg 06/15/19 06/15/19 06/12/19 History Carvedilol 12.5 mg PO BID 06/15/19 06/15/19 06/12/19 History Metformin HCl [metFORMIN] 1,000 mg PO BID 06/15/19 06/15/19 06/12/19 History Omeprazole 20 mg PO DAILY 06/15/19 06/15/19 06/12/19 History Ondansetron 8 mg PO Q12HR PRN 06/15/19 06/15/19 Unknown History Tamsulosin 0.4 mg PO DAILY MDD 0.4 06/15/19 06/15/19 06/12/19 History Cefdinir 300 mg PO Q12H 4 Days #8 capsule 06/20/19 Unknown Rx Active Medications: Generic Name Dose Route Start Last Admin Trade Name Freq PRN Reason Stop Dose Admin Albuterol 2.5 mg 06/18/19 12:30 Proventil IH Q4HRT PRN Shortness Of Breath Dextrose 50 ml 06/14/19 13:41 D50w (25gm) Syringe IV PRN PRN Hypoglycemia Famotidine 20 mg 06/17/19 10:00 06/20/19 11:00 Pepcid PO 20 mg BID SANGEETHA Administration Heparin Sodium (Porcine) 5,000 unit 06/13/19 22:00 06/20/19 11:01 Heparin SUB-Q 5,000 unit Q12HR SANGEETHA Administration Hydralazine HCl 10 mg 06/13/19 16:05 06/18/19 06:26 Apresoline IV 10 mg Q4HR PRN Administration HTN SBP>=170 Hydrophilic Ointment 1 applic 06/13/19 15:33 Vaseline Lip Therapy TP Q2HR PRN Dry Lips Ceftriaxone Sodium 2 gm in 100 mls @ 200 mls/hr 06/14/19 18:30 06/20/19 11:00 Rocephin/Ns 2 Gm/100 Ml IV 06/23/19 23:59 200 mls/hr Q24HR SANGEETHA Administration Protocol Sodium Chloride 1,000 mls @ 75 mls/hr 06/17/19 11:00 06/19/19 17:43 Nacl 0.45% 1000 Ml IV 75 mls/hr DIRECT SANGEETHA Administration Insulin Human Regular 0 units 06/19/19 11:30 06/20/19 11:00 Humulin R SUB-Q Not Given ACHS SANGEETHA Protocol Lorazepam 2 mg 06/13/19 14:21 06/17/19 13:07 Ativan IV 2 mg Q1H PRN Administration Agitation Multi-Ingred Cream/Lotion/Oil/Oint 1 applic 06/13/19 15:33 Artificial Tears Ophth Oint OU Q4HR PRN Dry Eye(s) Sodium Chloride 10 ml 06/13/19 22:00 06/20/19 11:01 Sodium Chloride Flush Syringe 10 Ml IV 10 ml BID SANGEETHA Administration Sodium Chloride 10 ml 06/13/19 11:46 06/18/19 11:16 Sodium Chloride Flush Syringe 10 Ml IV 10 ml PRN PRN Administration LINE FLUSH
--- NOTE | 2019-06-20 12:17 | Progress Note ---
Assessment and Plan Cultures: Blood culture 06/13/2019 no growth so far. Trachea asp usual resp darwin. Urine culture 06/13/2019 no growth Assessment: 69 y/o female with history of obesity, diabetes and hypertension admitted on due to be found down on the bathroom floor now with: 1) Severe sepsis: still leukocytosis ; likely source UTI. CXR with bilateral pulmonary venous congestion. Blood cultures no growth. 2) Complicated UTI with bilateral hydronephrosis: likely bladder outlet obstruction.UA large LE, wbc 66. Urine cx no growth. CT abdomen shows bladder markedly distended, moderate bilateral hydronephrosis, prostate gland is enlarged measuring 7.7 x 8.2x 6.5 cm. S/p montero cath placement. 3) NATHAN: from sepsis and bladder outlet obstruction. S/p HD 4) Acute encephalopathy: metabolic/sepsis, resolved 5) Acute respiratory failure: intubated Recommendations: continue ceftriaxone 2 gm IV q day D6 of 10, ok to change to PO if continues stable - If changing to PO please use cefdinir 300mg q12h monitor leukocytosis Will follow Yamileth Borges MD [facility] M: [phone] O: [phone] F: [phone] Subjective Date of service: 06/20/19 Principal diagnosis: Ac. hypoxemic resp failure; Ac. Encephalopathy; Sepsis; NATHAN; hyperkalemia Interval history: Afebrile, white count stable elevated. Objective - Exam Narrative Exam: General appearance: sedated on the vent Eyes: anicteric sclerae, moist conjunctivae; no lid-lag; PERRLA HENT: Atraumatic; oropharynx +ETT Lungs: CTA, CV: RRR no murmur Abdomen: Soft, non-tender Extremities: john leg mild edema Skin: no rash Psych: sedated Neuro: sedated - Constitutional Vitals: Vital Signs Temp Pulse Resp BP Pulse Ox 97.8 F 80 18 140/81 97 06/20/19 11:13 06/20/19 11:13 06/20/19 11:13 06/20/19 11:13 06/20/19 11:13 Temperature -Last 24 Hours Temperature 97.8 F Temperature 97.8 F Temperature 98.6 F Temperature 98.2 F - Labs CBC & Chem 7: 06/20/19 04:12 06/20/19 04:12 Labs: Abnormal lab results 06/19/19 06/19/19 06/19/19 Range/Units 12:37 16:51 20:53 WBC (4.5-11.0) K/mm3 Sodium (137-145) mmol/L Carbon Dioxide (22-30) mmol/L BUN (9-20) mg/dL Glucose (75-100) mg/dL POC Glucose 144 H 154 H 167 H (70-105) Calcium (8.4-10.2) mg/dL 06/20/19 06/20/19 06/20/19 Range/Units 04:12 04:12 08:27 WBC 19.6 H (4.5-11.0) K/mm3 Sodium 136 L (137-145) mmol/L Carbon Dioxide 21 L (22-30) mmol/L BUN 25 H (9-20) mg/dL Glucose 150 H (75-100) mg/dL POC Glucose 135 H (70-105) Calcium 8.0 L (8.4-10.2) mg/dL
--- NOTE | 2019-06-20 15:47 | Discharge Summary ---
Providers - Providers Date of Admission: 06/13/19 09:55 Date of discharge: 06/20/19 Attending physician: MARVA LOZADA 06/13/19 10:08 Consult to Physician [CONS] Urgent Comment: Consulting Provider: CHANDLER MOLINA Physician Instructions: Reason For Exam: ARF, bladder outlet obstruction 06/13/19 11:46 Consult to Dietitian/Nutrition [CONS] Routine Physician Instructions: Reason For Exam: Reason for Consult: Diet education 06/13/19 11:48 Consult to Physician [CONS] Routine Comment: Consulting Provider: DOMENIC NUÑEZ Physician Instructions: Reason For Exam: NATHAN 06/13/19 14:07 Consult to Physician [CONS] Routine Comment: Consulting Provider: GUSTABO KING Physician Instructions: Reason For Exam: Encephalopathy 06/13/19 15:33 Consult to Dietitian/Nutrition [CONS] Routine Physician Instructions: Reason For Exam: Reason for Consult: Evaluate nutritional intake 06/14/19 11:51 Consult to Dietitian/Nutrition [CONS] Routine Physician Instructions: Reason For Exam: Reason for Consult: Write/Manage Tube Feeding 06/14/19 13:41 Consult to Physician [CONS] Routine Comment: Consulting Provider: SHERIF HASSAN Physician Instructions: Reason For Exam: Sepsis 06/14/19 14:44 Consult to Physician [CONS] Routine Comment: Consulting Provider: ELIZABET CARDENAS Physician Instructions: Reason For Exam: acute encephalopathy 06/15/19 15:11 Consult to Dietitian/Nutrition [CONS] Routine Physician Instructions: Assess nutrtn needs, initiate, modify, manage TF Reason For Exam: Reason for Consult: Write/Manage Tube Feeding Reason for Consult: Write/Manage Tube Feeding 06/18/19 09:51 Occupational Therapy Evaluate and Treat [CONS] Routine Comment: Reason For Exam: Debility Physical Therapy Evaluation and Treat [CONS] Routine Comment: Reason For Exam: Debility Hospitalization Condition: Fair Hospital course: Patient is a 69 year old male with PMH of Obesity, DM Type 2, HTN. He was found on bathroom floor, unresponsive therefore brought to the ED via EMS. As per the , he has had nausea, vomiting, abdominal pain, diifficulty with urination. EMS found pt to be hypoglycemic. In the ED the pt's accucheck was 59, K OF >7.5, BUN >100 , Cr 12.5. Also diagnosed with acute kidney injury. He underwent an emergent placement of vascath for dialysis. Started on dialysis. He had acute respiratory failue and was intubated. On admission was followed by Pulmonology, Nephrology, Urology, ID Physician. He improved after several hemodialysis treatments, was extubated, transfered to [facility]. Creatinine normalized and hemodialysis was discontinued. Acute rehab was recommended and he was transferred on 06/20/19 Acute Respiratory failure was on MV >96 hrs, now extubated Severe Metabolic Acidosis,resolved after several sessions hemodialysis Complex cystitis with bilateral hydronephropathy Severe sepsis secondary to complex acute cystitis, was seen By ID Physician, managed with iv Antibiotics Acute Kidney injury secondary to ATN, s/p hemodialysis, now resolved Acute Metabolic Encephalopathy ?SECONDARY TO HEPATIC ENCEPHALOPATHY VS AZOTEMIA Obstructive Uropathy per CT A/P, now has montero to leg bag DM with hyperglycemia HTN urgency Obesity Elevated Ammonia leveL Aspiration Penumonitis Total time spent on discharge, 34 mins Disposition: [id number] IN REHAB FACILITY - Discharge Diagnoses (1) NATHAN (acute kidney injury) Status: Acute (2) Sepsis Status: Acute (3) Metabolic acidosis Status: Acute (4) Hyperkalemia Status: Acute (5) Diabetes Status: Acute (6) Hypertension Status: Acute (7) ATN (acute tubular necrosis) Status: Acute (8) Toxic metabolic encephalopathy Status: Acute Core Measure Documentation - Palliative Care Palliative Care/ Comfort Measures: Not Applicable - Core Measures Any of the following diagnoses?: none Exam - Constitutional Vitals: Temp Pulse Resp BP Pulse Ox 97.8 F 80 18 140/81 97 06/20/19 11:13 06/20/19 11:13 06/20/19 11:13 06/20/19 11:13 06/20/19 11:13 Plan Activity: advance as tolerated Diet: low fat, low cholesterol, low salt Durable Medical Equipment Needed Upon Discharge: other (BIPAP every night) Plan of Treatment: 1.Follow up with PCP at [place] on discharge from Acute Rehab. 2.Follow up with Urology, Dr. Molina on discharge from acute rehab 3.Follow up with Pulmonology, Dr. Byers on discharge fro Acute Rehab 4.Follow up with Dr. Nuñez, Nephrology in 1 week after acute rehab 5.BIPAP QHS 26/04 Follow up with: KAYLI MCINTYRE [Other] - 3-5 Days Prescriptions: Cefdinir 300 mg PO Q12H 4 Days #8 capsule
[2019-06-20] MEDS: SODIUM CHLORIDE 0.45% 1000 ML 1,000 ML IV SCH (18:59)
[2019-06-21 04:34] LABS: BUN/Creatinine Ratio 18; Blood Urea Nitrogen 21 mg/dL (9-20); Calcium 8.1 mg/dL (8.4-10.2); Hemolysis Index 7
[2019-06-21 07:30] VITALS: BP 159/88
[2019-06-21] MEDS: INSULIN REGULAR, HUMAN 100 UNITS/1 ML SUB-Q SCH (08:51)
[2019-06-21] MEDS: FAMOTIDINE 20 MG TAB PO SCH (09:55)
[2019-06-21] MEDS: cefTRIAXone/NS 2 GM/100 ML 2 GM/100 ML BAG IV SCH (09:56)
[2019-06-21] MEDS: HEPARIN 5,000 UNIT/1 ML VIAL SUB-Q SCH (09:56)
--- NOTE | 2019-06-21 10:06 | Event Note ---
Date: 06/21/19 Patient stable to discharge today
--- NOTE | 2019-06-21 10:18 | Progress Note ---
Assessment and Plan 1. Acute kidney injury: NATHAN likely secondary to obstructive nephropathy +/- sepsis. CT abdomen showed bladder outlet obstruction. S/p montero catheter. Baseline renal function is unknown. Due to hyperkalemia and severe metabolic acidosis patient received hemodialysis once on 06/13. Renal function is much better. Monitor renal function. Avoid nephrotoxic agents. Meds dosage based on GFR. 2. FEN: Hypokalemia, K level is better. Hypernatremia, improved. Metabolic acidosis, improved. Monitor lytes. 3. Obstructive nephropathy: Likely from enlarged prostate. S/p montero catheter. 4. Respiratory failure: S/p extubated. 5. Severe Sepsis: Improved. 6. Encephalopathy: Improved. 7. DM. Examination: General appearance: well-developed, well-nourished, appears stated age, not in distress HEENT: Atraumatic Neck: Supple, trachea midline Respiratory: Clear to Ascultation Heart: regular, S1S2, no murmur Gastrointestinal: soft, bowel sounds present, not tender Integumentary: no rash, warm and dry : Montero catheter Neurologic: non-focal Musculoskeletal: no edema Subjective Date of service: 06/21/19 Principal diagnosis: Ac. hypoxemic resp failure; Ac. Encephalopathy; Sepsis; NATHAN; hyperkalemia Interval history: Patient was seen and examined at the bedside. Doing better. Objective - Vital Signs Vital signs: Vital Signs - 12hr 06/20/19 06/21/19 06/21/19 22:35 00:07 04:24 Temperature 98.0 F 98.0 F Pulse Rate 82 73 67 Respiratory 18 18 18 Rate Blood Pressure 155/94 162/95 O2 Sat by Pulse 100 99 99 Oximetry 06/21/19 07:29 Temperature 97.9 F Pulse Rate 73 Respiratory 18 Rate Blood Pressure 159/88 O2 Sat by Pulse 99 Oximetry - Lab 06/20/19 04:12 06/21/19 03:30 Most recent lab results Calcium 8.1 mg/dL (8.4-10.2) L 06/21/19 03:30 Phosphorus 2.90 mg/dL (2.5-4.5) D 06/18/19 04:31 Magnesium 1.80 mg/dL (1.7-2.3) 06/17/19 04:38 Medications & Allergies - Medications Allergies/Adverse Reactions: Allergies No Known Allergies Allergy (Verified 06/13/19 05:58) Home Medications: Home Medications Medication Instructions Recorded Confirmed Last Taken Type Atorvastatin 80 mg PO DAILY MDD 40 mg 06/15/19 06/15/19 06/12/19 History Carvedilol 12.5 mg PO BID 06/15/19 06/15/19 06/12/19 History Metformin HCl [metFORMIN] 1,000 mg PO BID 06/15/19 06/15/19 06/12/19 History Omeprazole 20 mg PO DAILY 06/15/19 06/15/19 06/12/19 History Ondansetron 8 mg PO Q12HR PRN 06/15/19 06/15/19 Unknown History Tamsulosin 0.4 mg PO DAILY MDD 0.4 06/15/19 06/15/19 06/12/19 History Cefdinir 300 mg PO Q12H 4 Days #8 capsule 06/20/19 Unknown Rx Active Medications: Generic Name Dose Route Start Last Admin Trade Name Freq PRN Reason Stop Dose Admin Albuterol 2.5 mg 06/18/19 12:30 Proventil IH Q4HRT PRN Shortness Of Breath Dextrose 50 ml 06/14/19 13:41 D50w (25gm) Syringe IV PRN PRN Hypoglycemia Famotidine 20 mg 06/17/19 10:00 06/21/19 09:55 Pepcid PO 20 mg BID SANGEETHA Administration Heparin Sodium (Porcine) 5,000 unit 06/13/19 22:00 06/21/19 09:56 Heparin SUB-Q 5,000 unit Q12HR SANGEETHA Administration Hydralazine HCl 10 mg 06/13/19 16:05 06/18/19 06:26 Apresoline IV 10 mg Q4HR PRN Administration HTN SBP>=170 Hydrophilic Ointment 1 applic 06/13/19 15:33 Vaseline Lip Therapy TP Q2HR PRN Dry Lips Ceftriaxone Sodium 2 gm in 100 mls @ 200 mls/hr 06/14/19 18:30 06/21/19 09:56 Rocephin/Ns 2 Gm/100 Ml IV 06/23/19 23:59 200 mls/hr Q24HR SANGEETHA Administration Protocol Insulin Human Regular 0 units 06/19/19 11:30 06/21/19 08:51 Humulin R SUB-Q Not Given ACHS SANGEETHA Protocol Lorazepam 2 mg 06/13/19 14:21 06/17/19 13:07 Ativan IV 2 mg Q1H PRN Administration Agitation Multi-Ingred Cream/Lotion/Oil/Oint 1 applic 06/13/19 15:33 Artificial Tears Ophth Oint OU Q4HR PRN Dry Eye(s) Sodium Chloride 10 ml 06/13/19 22:00 06/21/19 09:56 Sodium Chloride Flush Syringe 10 Ml IV 10 ml BID SANGEETHA Administration Sodium Chloride 10 ml 06/13/19 11:46 06/18/19 11:16 Sodium Chloride Flush Syringe 10 Ml IV 10 ml PRN PRN Administration LINE FLUSH
--- NOTE | 2019-06-21 10:44 | Progress Note ---
Assessment and Plan Acute hypoxemic respiratory failure, s/p mechanical ventilatory support. Acute possibly on chronic encephalopathy. Severe sepsis Acute kidney injury, possibly on chronic. Severe hyperkalemia. Severe metabolic acidosis. Leukocytosis. History of diabetes. History of hypertension. Oropharyngeal dysphagia. -Continue with supplemental; oxygen to keep O2 sats>90% -Bronchodilators per protocol -VTE prophylaxis -Nocturnal BIPAP and prn -PT/OT, increase activity -Avoid nephrotoxins, and adjust all medications for GFR and CrCL -Complete antibiotics -Aspiration precautions -Accucheck with glycemic control- target blood glucose 140-180mg/dL -Avoid hypoglycemia -Discharge planning Subjective Date of service: 06/21/19 Principal diagnosis: Ac. hypoxemic resp failure; Ac. Encephalopathy; Sepsis; NATHAN; hyperkalemia Interval history: Patient is seen today for: Acute hypoxemic respiratory failure; Acute possibly on chronic encephalopathy; Severe sepsis; Acute kidney injury, possibly on chronic; Severe hyperkalemia; Severe metabolic acidosis; Leukocytosis; History of diabetes; History of hypertension; Oropharyngeal dysphagia. Seen and examined at bedside; 24hour events reviewed; nursing and respiratory care staff consulted; no adverse overnight events reported to me; resting peacefully in bed; Objective Vital Signs - 12hr 06/21/19 06/21/19 06/21/19 00:07 04:24 07:29 Temperature 98.0 F 98.0 F 97.9 F Pulse Rate 73 67 73 Respiratory 18 18 18 Rate Blood Pressure 155/94 162/95 159/88 O2 Sat by Pulse 99 99 99 Oximetry Constitutional: no acute distress, alert Eyes: non-icteric ENT: oropharynx moist Neck: supple, no lymphadenopathy, no JVD Effort: normal Ascultation: Bilateral: rhonchi Percussion: Bilateral: not dull Cardiovascular: regular rate and rhythm Gastrointestinal: normoactive bowel sounds, soft, non-tender, non-distended Integumentary: other (see wound care and RN notes) Extremities: no cyanosis, no edema, pulses normal, no ischemia or petechiae Neurologic: normal mental status, non-focal exam, pupils equal and round, CN II- XII normal, motor strength normal and Psychiatric: mood appropriate, affect normal CBC and BMP: 06/20/19 04:12 06/21/19 03:30 ABG, PT/INR, D-dimer: ABG POC ABG pH 7.433 (7.35-7.45) 06/17/19 03:56 POC ABG pCO2 37.3 (35-45) 06/17/19 03:56 POC ABG pO2 125 (80-105) H 06/17/19 03:56 POC ABG HCO3 24.9 (22-26 mml/L) 06/17/19 03:56 POC ABG Total CO2 26 (23-27mmol/L) 06/17/19 03:56 POC ABG O2 Sat 99 06/17/19 03:56 Abnormal lab findings: Abnormal Labs 06/13/19 06/13/19 06/13/19 06:13 06:50 06:50 WBC 22.7 H RBC 5.69 H Hgb 15.5 H Hct 47.8 H MCV MCH 27 L RDW 15.6 H Seg Neuts % (Manual) 89.0 H Lymphocytes % (Manual) 4.0 L Monocytes % (Manual) Seg Neutrophils # Man 20.2 H Lymphocytes # (Manual) 0.9 L Monocytes # (Manual) 1.4 H POC ABG pH POC ABG pCO2 POC ABG pO2 Sodium 126 L Potassium 7.5 H* Chloride 83.9 L Carbon Dioxide 5 L* BUN 126 H Creatinine 12.6 H Glucose 143 H POC Glucose 59 L Lactic Acid Calcium Phosphorus Magnesium Total Bilirubin Ammonia Total Creatine Kinase CK-MB (CK-2) C-Reactive Protein Albumin 3.6 L Urine WBC (Auto) 06/13/19 06/13/19 06/13/19 07:09 07:31 07:31 WBC RBC Hgb Hct MCV MCH RDW Seg Neuts % (Manual) Lymphocytes % (Manual) Monocytes % (Manual) Seg Neutrophils # Man Lymphocytes # (Manual) Monocytes # (Manual) POC ABG pH POC ABG pCO2 POC ABG pO2 Sodium Potassium Chloride Carbon Dioxide BUN Creatinine Glucose POC Glucose 117 H Lactic Acid Calcium Phosphorus Magnesium 2.50 H Total Bilirubin Ammonia 408.0 H Total Creatine Kinase 409 H CK-MB (CK-2) 15.9 H C-Reactive Protein Albumin Urine WBC (Auto) 06/13/19 06/13/19 06/13/19 09:21 10: 10:42 WBC RBC Hgb Hct MCV MCH RDW Seg Neuts % (Manual) Lymphocytes % (Manual) Monocytes % (Manual) Seg Neutrophils # Man Lymphocytes # (Manual) Monocytes # (Manual) POC ABG pH POC ABG pCO2 POC ABG pO2 Sodium Potassium Chloride Carbon Dioxide BUN Creatinine Glucose POC Glucose 153 H 54 L 136 H Lactic Acid Calcium Phosphorus Magnesium Total Bilirubin Ammonia Total Creatine Kinase CK-MB (CK-2) C-Reactive Protein Albumin Urine WBC (Auto) 06/13/19 06/13/19 06/13/19 14:19 14:19 14:19 WBC RBC Hgb Hct MCV MCH RDW Seg Neuts % (Manual) Lymphocytes % (Manual) Monocytes % (Manual) Seg Neutrophils # Man Lymphocytes # (Manual) Monocytes # (Manual) POC ABG pH POC ABG pCO2 POC ABG pO2 Sodium 134 L D Potassium Chloride 89.0 L Carbon Dioxide 12 L D BUN 86 H Creatinine 7.8 H Glucose POC Glucose Lactic Acid 8.80 H* Calcium Phosphorus Magnesium Total Bilirubin 1.70 H Ammonia Total Creatine Kinase CK-MB (CK-2) C-Reactive Protein 4.10 H Albumin 3.6 L Urine WBC (Auto) 06/13/19 06/13/19 06/13/19 14:28 16:10 16:15 WBC RBC Hgb Hct MCV MCH RDW Seg Neuts % (Manual) Lymphocytes % (Manual) Monocytes % (Manual) Seg Neutrophils # Man Lymphocytes # (Manual) Monocytes # (Manual) POC ABG pH 7.530 H 7.474 H POC ABG pCO2 POC ABG pO2 239 H 183 H Sodium Potassium Chloride Carbon Dioxide BUN Creatinine Glucose POC Glucose Lactic Acid Calcium Phosphorus Magnesium Total Bilirubin Ammonia 97.0 H Total Creatine Kinase CK-MB (CK-2) C-Reactive Protein Albumin Urine WBC (Auto) 06/13/19 06/13/19 06/13/19 16:15 16:22 16:56 WBC RBC Hgb Hct MCV MCH RDW Seg Neuts % (Manual) Lymphocytes % (Manual) Monocytes % (Manual) Seg Neutrophils # Man Lymphocytes # (Manual) Monocytes # (Manual) POC ABG pH POC ABG pCO2 POC ABG pO2 Sodium Potassium Chloride Carbon Dioxide BUN Creatinine Glucose POC Glucose Lactic Acid 7.60 H* 7.90 H* Calcium Phosphorus Magnesium Total Bilirubin Ammonia Total Creatine Kinase CK-MB (CK-2) C-Reactive Protein 3.80 H Albumin Urine WBC (Auto) 06/13/19 06/13/19 06/13/19 18:05 19:01 21:18 WBC RBC Hgb Hct MCV MCH RDW Seg Neuts % (Manual) Lymphocytes % (Manual) Monocytes % (Manual) Seg Neutrophils # Man Lymphocytes # (Manual) Monocytes # (Manual) POC ABG pH POC ABG pCO2 POC ABG pO2 Sodium Potassium Chloride Carbon Dioxide BUN Creatinine Glucose POC Glucose Lactic Acid 5.30 H* 5.10 H* 3.70 H* Calcium Phosphorus Magnesium Total Bilirubin Ammonia Total Creatine Kinase CK-MB (CK-2) C-Reactive Protein Albumin Urine WBC (Auto) 06/13/19 06/13/19 06/14/19 21:47 22:00 00:13 WBC RBC Hgb Hct MCV MCH RDW Seg Neuts % (Manual) Lymphocytes % (Manual) Monocytes % (Manual) Seg Neutrophils # Man Lymphocytes # (Manual) Monocytes # (Manual) POC ABG pH POC ABG pCO2 POC ABG pO2 Sodium Potassium Chloride Carbon Dioxide BUN Creatinine Glucose POC Glucose 119 H Lactic Acid 3.70 H* Calcium Phosphorus Magnesium Total Bilirubin Ammonia Total Creatine Kinase CK-MB (CK-2) C-Reactive Protein Albumin Urine WBC (Auto) 66.0 H 06/14/19 06/14/19 06/14/19 04:21 04:45 04:45 WBC 19.1 H RBC 5.25 H Hgb Hct MCV 83 L MCH RDW Seg Neuts % (Manual) 83.0 H Lymphocytes % (Manual) 6.0 L Monocytes % (Manual) 10.0 H Seg Neutrophils # Man 15.9 H Lymphocytes # (Manual) 1.1 L Monocytes # (Manual) 1.9 H POC ABG pH 7.497 H POC ABG pCO2 < 30 L POC ABG pO2 143 H Sodium 136 L Potassium Chloride 94.1 L Carbon Dioxide 20 L D BUN 96 H Creatinine 7.7 H Glucose 170 H POC Glucose Lactic Acid Calcium Phosphorus 6.40 H Magnesium Total Bilirubin Ammonia Total Creatine Kinase CK-MB (CK-2) C-Reactive Protein Albumin Urine WBC (Auto) 06/14/19 06/14/19 06/14/19 04:45 04:45 06:05 WBC RBC Hgb Hct MCV MCH RDW Seg Neuts % (Manual) Lymphocytes % (Manual) Monocytes % (Manual) Seg Neutrophils # Man Lymphocytes # (Manual) Monocytes # (Manual) POC ABG pH POC ABG pCO2 POC ABG pO2 Sodium Potassium Chloride Carbon Dioxide BUN Creatinine Glucose POC Glucose 155 H Lactic Acid 3.00 H* Calcium Phosphorus Magnesium Total Bilirubin Ammonia 96.0 H Total Creatine Kinase CK-MB (CK-2) C-Reactive Protein Albumin Urine WBC (Auto) 06/14/19 06/14/19 06/14/19 06:58 12:38 12:38 WBC RBC Hgb Hct MCV MCH RDW Seg Neuts % (Manual) Lymphocytes % (Manual) Monocytes % (Manual) Seg Neutrophils # Man Lymphocytes # (Manual) Monocytes # (Manual) POC ABG pH 7.543 H POC ABG pCO2 POC ABG pO2 115 H Sodium Potassium Chloride Carbon Dioxide BUN Creatinine Glucose POC Glucose 203 H Lactic Acid 2.50 H* Calcium Phosphorus Magnesium Total Bilirubin Ammonia Total Creatine Kinase CK-MB (CK-2) C-Reactive Protein Albumin Urine WBC (Auto) 06/14/19 06/14/19 06/14/19 15:49 17:14 18:05 WBC RBC Hgb Hct MCV MCH RDW Seg Neuts % (Manual) Lymphocytes % (Manual) Monocytes % (Manual) Seg Neutrophils # Man Lymphocytes # (Manual) Monocytes # (Manual) POC ABG pH POC ABG pCO2 POC ABG pO2 Sodium Potassium Chloride Carbon Dioxide BUN Creatinine Glucose POC Glucose 198 H Lactic Acid 2.10 H* 2.10 H* Calcium Phosphorus Magnesium Total Bilirubin Ammonia Total Creatine Kinase CK-MB (CK-2) C-Reactive Protein Albumin Urine WBC (Auto) 06/14/19 06/14/19 06/15/19 19:19 23:40 04:44 WBC RBC Hgb Hct MCV MCH RDW Seg Neuts % (Manual) Lymphocytes % (Manual) Monocytes % (Manual) Seg Neutrophils # Man Lymphocytes # (Manual) Monocytes # (Manual) POC ABG pH 7.563 H POC ABG pCO2 34.2 L POC ABG pO2 113 H Sodium Potassium Chloride Carbon Dioxide BUN Creatinine Glucose POC Glucose 210 H Lactic Acid 2.10 H* Calcium Phosphorus Magnesium Total Bilirubin Ammonia Total Creatine Kinase CK-MB (CK-2) C-Reactive Protein Albumin Urine WBC (Auto) 06/15/19 06/15/19 06/15/19 04:51 05:31 12:21 WBC RBC Hgb Hct MCV MCH RDW Seg Neuts % (Manual) Lymphocytes % (Manual) Monocytes % (Manual) Seg Neutrophils # Man Lymphocytes # (Manual) Monocytes # (Manual) POC ABG pH POC ABG pCO2 POC ABG pO2 Sodium Potassium 2.8 L* D Chloride 97.7 L Carbon Dioxide BUN 74 H Creatinine 4.6 H Glucose 174 H POC Glucose 151 H 175 H Lactic Acid Calcium 8.1 L Phosphorus Magnesium Total Bilirubin Ammonia Total Creatine Kinase CK-MB (CK-2) C-Reactive Protein Albumin Urine WBC (Auto) 06/15/19 06/15/19 06/16/19 16:25 18:18 00:20 WBC RBC Hgb Hct MCV MCH RDW Seg Neuts % (Manual) Lymphocytes % (Manual) Monocytes % (Manual) Seg Neutrophils # Man Lymphocytes # (Manual) Monocytes # (Manual) POC ABG pH POC ABG pCO2 POC ABG pO2 Sodium Potassium 3.4 L D Chloride Carbon Dioxide BUN Creatinine Glucose POC Glucose 153 H 164 H Lactic Acid Calcium Phosphorus Magnesium Total Bilirubin Ammonia Total Creatine Kinase CK-MB (CK-2) C-Reactive Protein Albumin Urine WBC (Auto) 06/16/19 06/16/19 06/16/19 04:47 05:41 13:04 WBC RBC Hgb Hct MCV MCH RDW Seg Neuts % (Manual) Lymphocytes % (Manual) Monocytes % (Manual) Seg Neutrophils # Man Lymphocytes # (Manual) Monocytes # (Manual) POC ABG pH POC ABG pCO2 POC ABG pO2 Sodium 146 H D Potassium 3.5 L Chloride Carbon Dioxide BUN 44 H Creatinine 2.5 H Glucose 149 H POC Glucose 168 H 154 H Lactic Acid Calcium 8.3 L Phosphorus Magnesium Total Bilirubin Ammonia Total Creatine Kinase CK-MB (CK-2) C-Reactive Protein Albumin Urine WBC (Auto) 06/16/19 06/17/19 06/17/19 18:42 00:07 03:56 WBC RBC Hgb Hct MCV MCH RDW Seg Neuts % (Manual) Lymphocytes % (Manual) Monocytes % (Manual) Seg Neutrophils # Man Lymphocytes # (Manual) Monocytes # (Manual) POC ABG pH POC ABG pCO2 POC ABG pO2 125 H Sodium Potassium Chloride Carbon Dioxide BUN Creatinine Glucose POC Glucose 161 H 160 H Lactic Acid Calcium Phosphorus Magnesium Total Bilirubin Ammonia Total Creatine Kinase CK-MB (CK-2) C-Reactive Protein Albumin Urine WBC (Auto) 06/17/19 06/17/19 06/17/19 04:38 05:20 12:40 WBC RBC Hgb Hct MCV MCH RDW Seg Neuts % (Manual) Lymphocytes % (Manual) Monocytes % (Manual) Seg Neutrophils # Man Lymphocytes # (Manual) Monocytes # (Manual) POC ABG pH POC ABG pCO2 POC ABG pO2 Sodium Potassium Chloride 110.4 H Carbon Dioxide BUN 33 H Creatinine 1.7 H Glucose 159 H POC Glucose 159 H 192 H Lactic Acid Calcium Phosphorus 2.40 L Magnesium Total Bilirubin Ammonia Total Creatine Kinase CK-MB (CK-2) C-Reactive Protein Albumin Urine WBC (Auto) 06/17/19 06/18/19 06/18/19 18:20 00:35 04:31 WBC RBC Hgb Hct MCV MCH RDW Seg Neuts % (Manual) Lymphocytes % (Manual) Monocytes % (Manual) Seg Neutrophils # Man Lymphocytes # (Manual) Monocytes # (Manual) POC ABG pH POC ABG pCO2 POC ABG pO2 Sodium Potassium Chloride 109.5 H Carbon Dioxide BUN 30 H Creatinine Glucose 130 H POC Glucose 123 H 164 H Lactic Acid Calcium Phosphorus Magnesium Total Bilirubin Ammonia Total Creatine Kinase 35 L CK-MB (CK-2) C-Reactive Protein Albumin Urine WBC (Auto) 06/18/19 06/18/19 06/18/19 04:31 05:38 11:53 WBC 19.7 H RBC Hgb Hct MCV MCH 27 L RDW Seg Neuts % (Manual) 80.0 H Lymphocytes % (Manual) 8.0 L Monocytes % (Manual) 10.0 H Seg Neutrophils # Man 15.8 H Lymphocytes # (Manual) Monocytes # (Manual) 2.0 H POC ABG pH POC ABG pCO2 POC ABG pO2 Sodium Potassium Chloride Carbon Dioxide BUN Creatinine Glucose POC Glucose 132 H 178 H Lactic Acid Calcium Phosphorus Magnesium Total Bilirubin Ammonia Total Creatine Kinase CK-MB (CK-2) C-Reactive Protein Albumin Urine WBC (Auto) 06/19/19 06/19/19 06/19/19 02:29 06:02 06:05 WBC RBC Hgb Hct MCV MCH RDW Seg Neuts % (Manual) Lymphocytes % (Manual) Monocytes % (Manual) Seg Neutrophils # Man Lymphocytes # (Manual) Monocytes # (Manual) POC ABG pH POC ABG pCO2 POC ABG pO2 Sodium Potassium Chloride Carbon Dioxide BUN 26 H Creatinine Glucose 124 H POC Glucose 106 H 106 H Lactic Acid Calcium Phosphorus Magnesium Total Bilirubin Ammonia Total Creatine Kinase CK-MB (CK-2) C-Reactive Protein Albumin Urine WBC (Auto) 06/19/19 06/19/19 06/19/19 07:51 12:37 16:51 WBC RBC Hgb Hct MCV MCH RDW Seg Neuts % (Manual) Lymphocytes % (Manual) Monocytes % (Manual) Seg Neutrophils # Man Lymphocytes # (Manual) Monocytes # (Manual) POC ABG pH POC ABG pCO2 POC ABG pO2 Sodium Potassium Chloride Carbon Dioxide BUN Creatinine Glucose POC Glucose 120 H 144 H 154 H Lactic Acid Calcium Phosphorus Magnesium Total Bilirubin Ammonia Total Creatine Kinase CK-MB (CK-2) C-Reactive Protein Albumin Urine WBC (Auto) 06/19/19 06/20/19 06/20/19 20:53 04:12 04:12 WBC 19.6 H RBC Hgb Hct MCV MCH RDW Seg Neuts % (Manual) Lymphocytes % (Manual) Monocytes % (Manual) Seg Neutrophils # Man Lymphocytes # (Manual) Monocytes # (Manual) POC ABG pH POC ABG pCO2 POC ABG pO2 Sodium 136 L Potassium Chloride Carbon Dioxide 21 L BUN 25 H Creatinine Glucose 150 H POC Glucose 167 H Lactic Acid Calcium 8.0 L Phosphorus Magnesium Total Bilirubin Ammonia Total Creatine Kinase CK-MB (CK-2) C-Reactive Protein Albumin Urine WBC (Auto) 06/20/19 06/20/19 06/20/19 08:27 12:41 17:23 WBC RBC Hgb Hct MCV MCH RDW Seg Neuts % (Manual) Lymphocytes % (Manual) Monocytes % (Manual) Seg Neutrophils # Man Lymphocytes # (Manual) Monocytes # (Manual) POC ABG pH POC ABG pCO2 POC ABG pO2 Sodium Potassium Chloride Carbon Dioxide BUN Creatinine Glucose POC Glucose 135 H 184 H 149 H Lactic Acid Calcium Phosphorus Magnesium Total Bilirubin Ammonia Total Creatine Kinase CK-MB (CK-2) C-Reactive Protein Albumin Urine WBC (Auto) 06/20/19 06/21/19 06/21/19 21:51 03:30 08:55 WBC RBC Hgb Hct MCV MCH RDW Seg Neuts % (Manual) Lymphocytes % (Manual) Monocytes % (Manual) Seg Neutrophils # Man Lymphocytes # (Manual) Monocytes # (Manual) POC ABG pH POC ABG pCO2 POC ABG pO2 Sodium 136 L Potassium Chloride Carbon Dioxide BUN 21 H Creatinine Glucose 108 H POC Glucose 180 H 109 H Lactic Acid Calcium 8.1 L Phosphorus Magnesium Total Bilirubin Ammonia Total Creatine Kinase CK-MB (CK-2) C-Reactive Protein Albumin Urine WBC (Auto) Allied health notes reviewed: nursing
== END 2019-06-21 15:24 | DRG 870 ==
LOC: ED 05:42 → IMCU 09:55 → CC1 14:19 → 4A 06-18 16:54
PROVIDERS: ADMIT Internal Medicine; ATTEND Internal Medicine
PROC: 5A1955Z Respiratory Ventilation, Greater than 96 Consecutive Hours (ICD-10-PCS; principal; 2019-06-13)
PROC: 0BH17EZ Insertion of Endotracheal Airway into Trachea, Via Natural or Artificial Opening (ICD-10-PCS; 2019-06-13)
PROC: 02H633Z Insertion of Infusion Device into Right Atrium, Percutaneous Approach (ICD-10-PCS; 2019-06-13)
PROC: B5181ZA Fluoroscopy of Superior Vena Cava using Low Osmolar Contrast, Guidance (ICD-10-PCS; 2019-06-13)
PROC: B548ZZA Ultrasonography of Superior Vena Cava, Guidance (ICD-10-PCS; 2019-06-13)
PROC: 4A033R1 Measurement of Arterial Saturation, Peripheral, Percutaneous Approach (ICD-10-PCS; 2019-06-13)
PROC: 5A1D70Z Performance of Urinary Filtration, Intermittent, Less than 6 Hours Per Day (ICD-10-PCS; 2019-06-13)
PROC: 5A09357 Assistance with Respiratory Ventilation, Less than 24 Consecutive Hours, Continuous Positive Airway Pressure (ICD-10-PCS; 2019-06-13)
PROC: 5A09357 Assistance with Respiratory Ventilation, Less than 24 Consecutive Hours, Continuous Positive Airway Pressure (ICD-10-PCS; 2019-06-17)
PROC: 5A09357 Assistance with Respiratory Ventilation, Less than 24 Consecutive Hours, Continuous Positive Airway Pressure (ICD-10-PCS; 2019-06-18)
PROC: 5A09357 Assistance with Respiratory Ventilation, Less than 24 Consecutive Hours, Continuous Positive Airway Pressure (ICD-10-PCS; 2019-06-19)
PROC: 5A09357 Assistance with Respiratory Ventilation, Less than 24 Consecutive Hours, Continuous Positive Airway Pressure (ICD-10-PCS; 2019-06-20)
DX: A41.9 Sepsis, unspecified organism (principal); N17.0 Acute kidney failure with tubular necrosis; G93.41 Metabolic encephalopathy; J96.01 Acute respiratory failure with hypoxia; E87.2 Acidosis; E87.1 Hypo-osmolality and hyponatremia; R65.20 Severe sepsis without septic shock; K72.90 Hepatic failure, unspecified without coma; E87.5 Hyperkalemia; N13.9 Obstructive and reflux uropathy, unspecified; I16.0 Hypertensive urgency; E66.9 Obesity, unspecified; I10 Essential (primary) hypertension; I25.10 Atherosclerotic heart disease of native coronary artery without angina pectoris; E11.65 Type 2 diabetes mellitus with hyperglycemia; R13.12 Dysphagia, oropharyngeal phase; F17.200 Nicotine dependence, unspecified, uncomplicated; M47.812 Spondylosis without myelopathy or radiculopathy, cervical region; Z68.32 Body mass index [BMI] 32.0-32.9, adult; E11.649 Type 2 diabetes mellitus with hypoglycemia without coma; N30.80 Other cystitis without hematuria; F17.210 Nicotine dependence, cigarettes, uncomplicated; Z71.6 Tobacco abuse counseling; Z79.84 Long term (current) use of oral hypoglycemic drugs
CPT/HCPCS: 31500; 36415; 36556; 36600; 70450; 71045; 72125; 74018; 74176; 80048; 80053; 80074; 80202; 80307; 80320; 81001; 82140; 82550; 82553; 82803; 82962; 83735; 84100; 84132; 84439; 84443; 84484; 85007; 85025; 85027; 85652; 86140; 87040; 87070; 87086; 87205; 93005; 93010; 93306; 94002; 94003; 94640; 94644; 94660; 94760; 95819; 96365; 96375; 99406; G0378; A6250; C1752; G0480; J0360; J0610; J0696; J1644; J1815; J2060; J2405; J2704; J3010; J3370; J3480; J7030; J7040; J7070